=== PATIENT | female | born 1960 | race Caucasian/White ===

== ENCOUNTER → 2020-06-18 09:51 | Outpatient (BNVA) | payer BC, SELFPAY | PROVIDERS: PCP Internal Medicine; Visit Provider Surgery ==

== ENCOUNTER 2020-07-06 10:30 | Outpatient (REF) | payer BC, SELFPAY ==
[2020-07-06 13:52] LABS: MANUAL DIFF FLAG NO
[2020-07-06 13:58] LABS: Basophils Percent Auto 0.6 % (0-2); Eosinophils Absolute Auto 0.2 X10*3/uL (0.0-0.4); Hemoglobin 12.7 g/dl (12.0-16.0); Imm Gran Abs Auto 0.02 X10*3/uL (0.00-0.03); Imm Gran Pct Auto 0.6 % (0.0-0.4); Lymphocytes Absolute Auto 1.1 X10*3/uL (1.2-4.9); Lymphocytes Percent Auto 35.3 % (20-40); Mean Corpuscular HGB Conc 33.4 g/dl (31.0-35.0); Mean Corpuscular Hemoglobin 30.9 pg (27.0-33.0); Mean Corpuscular Volume 92.5 fL (80-98); Mean Platelet Volume 9.8 fL (9.4-12.3); Monocytes Absolute Auto 0.3 X10*3/uL (0.1-1.2); Monocytes Percent Auto 9.3 % (2-11); Neutrophils Absolute Auto 1.6 X10*3/uL (2.0-8.3); Neutrophils Percent Auto 49.2 % (45-73); Platelet Count 308 X10*3/uL (160-400); Red Blood Count 4.11 X10*6/uL (4.20-5.50); Red Cell Distribution Width 12.8 % (11.0-16.0); White Blood Count 3.2 X10*3/uL (4.8-10.8)
[2020-07-06 14:37] LABS: Alanine Aminotransferase 12 U/L (0-31); Albumin Level 4.4 g/dL (3.5-5.0); Alkaline Phosphatase 83 U/L (39-117); Anion Gap 12 (12-20); Aspartate Amino Transferase 15 U/L (5-31); Bilirubin Total 0.5 mg/dL (0.0-1.0); Blood Urea Nitrogen 21 mg/dL (9-16); Calcium 9.2 mg/dL (8.4-10.2); Carbon Dioxide 30 mmol/L (22-29); Chloride 105 mmol/L (96-108); Estimated Glomerular Filt Rate > 60; Glucose Random 91 mg/dL (60-115); Potassium 4.7 mmol/L (3.3-5.1); Sodium 142 mmol/L (135-145); Total Protein 7.1 g/dL (6.5-8.0)
== END 2020-07-06 10:31 | disposition home or self-care (01) ==
LOC: HO.10HDL 10:30
PROVIDERS: Visit Provider Internal Medicine Medical Oncology
DX: C50.911 Malignant neoplasm of unspecified site of right female breast (principal)
CPT/HCPCS: 36415; 80053; 85025

== ENCOUNTER → 2020-11-17 09:17 | Outpatient (BNVA) | payer BC, SELFPAY | PROVIDERS: PCP Internal Medicine; Visit Provider Surgery ==

== ENCOUNTER 2020-12-25 08:18 | Outpatient (REF) | payer BC, SELFPAY ==
[2020-12-25 09:21] LABS: MANUAL DIFF FLAG NO
[2020-12-25 09:25] LABS: Basophils Percent Auto 0.6 % (0-2); Eosinophils Absolute Auto 0.2 X10*3/uL (0.0-0.4); Eosinophils Percent Auto 5.1 % (0-4); Hematocrit 39.4 % (37-47); Imm Gran Abs Auto 0.02 X10*3/uL (0.00-0.03); Imm Gran Pct Auto 0.6 % (0.0-0.4); Lymphocytes Percent Auto 29.8 % (20-40); Mean Corpuscular Hemoglobin 30.2 pg (27.0-33.0); Mean Corpuscular Volume 91.4 fL (80-98); Mean Platelet Volume 9.2 fL (9.4-12.3); Monocytes Absolute Auto 0.3 X10*3/uL (0.1-1.2); Monocytes Percent Auto 8.6 % (2-11); Neutrophils Absolute Auto 1.9 X10*3/uL (2.0-8.3); Neutrophils Percent Auto 55.3 % (45-73); Platelet Count 308 X10*3/uL (160-400); Red Blood Count 4.31 X10*6/uL (4.20-5.50); Red Cell Distribution Width 12.7 % (11.0-16.0); White Blood Count 3.4 X10*3/uL (4.8-10.8)
[2020-12-25 09:45] LABS: Alanine Aminotransferase 18 U/L (0-31); Albumin Level 4.4 g/dL (3.5-5.0); Alkaline Phosphatase 94 U/L (39-117); Anion Gap 15 (12-20); Aspartate Amino Transferase 20 U/L (5-31); Bilirubin Total 0.6 mg/dL (0.0-1.0); Blood Urea Nitrogen 17 mg/dL (9-16); Calcium 9.6 mg/dL (8.4-10.2); Carbon Dioxide 27 mmol/L (22-29); Chloride 107 mmol/L (96-108); Cholesterol 210 mg/dL; Estimated Glomerular Filt Rate > 60; Glucose Fasting 97 mg/dL (60-99); HDL Cholesterol 61 mg/dL; LDL Cholesterol Calculated 127 mg/dl; Potassium 4.6 mmol/L (3.3-5.1); Sodium 144 mmol/L (135-145); Total Protein 7.4 g/dL (6.5-8.0); Triglycerides 112 mg/dL
== END 2020-12-25 08:19 | disposition home or self-care (01) ==
LOC: HO.LAB 08:18
PROVIDERS: PCP Internal Medicine; Visit Provider Internal Medicine
DX: Z00.00 Encounter for general adult medical examination without abnormal findings (principal)
CPT/HCPCS: 36415; 80053; 80061; 82306; 85025

== ENCOUNTER 2021-02-05 08:37 | Outpatient (REF) | payer BC, SELFPAY ==
--- NOTE | ~2021-02-05 | MM_ITS ---
EXAMINATION: MM SCREENING DIGITAL BREAST TOMOSYNTHESIS, BILATERAL CLINICAL INFORMATION: Screening. Asymptomatic. Personal history right breast cancer, 2016. Family history breast cancer, mother and maternal aunt. COMPARISON: Mammography: 01/30/2020, 01/25/2019, 01/22/2018 TECHNIQUE: Digital breast tomosynthesis is performed in both the craniocaudal and mediolateral oblique views along with computer-aided detection (CAD). Synthesized 2D images are generated from the tomosynthesis. Additional exaggerated right CC view is provided. FINDINGS: There are scattered areas of fibroglandular density (ACR BI-RADS breast composition Category b). There are no significant masses, abnormal calcifications, or other abnormalities. Post therapy changes right breast are stable. There is mild reduced breast size and minor scarring and surgical clips. Scattered bilateral round and rim calcifications are again seen, more numerous on right. No significant changes. MM/MM tomosynthesis screening BI IMPRESSION: No mammographic evidence of malignancy. Stable post therapy changes right breast. ASSESSMENT: BI-RADS 2: Benign RECOMMENDATION: Routine annual mammography screening. This patient's information was entered into a reminder system with a target due date for their next mammogram.
== END 2021-02-05 08:38 | disposition home or self-care (01) ==
LOC: HO.MAMMO 08:37
PROVIDERS: Visit Provider Internal Medicine
DX: Z12.31 Encounter for screening mammogram for malignant neoplasm of breast (principal)
CPT/HCPCS: 77063; 77067

== ENCOUNTER 2021-10-15 09:09 | Outpatient (REF) | payer BC, SELFPAY ==
--- NOTE | ~2021-10-15 | MM_ITS ---
EXAMINATION: BONE DENSITOMETRY CLINICAL INDICATION: Osteoporosis. COMPARISON: Previous BD dated 05/31/2019 and baseline BD dated 02/14/2017. TECHNIQUE: Using a [employer] DXA System (software version: 13.1) manufactured by [employer], dual-energy x-ray absorptiometry was performed of the lumbar spine and left hip. The images are of good technical quality. Summary results are attached. FINDINGS: AP SPINE L1-L4: Current: BMD 1.024 g/cm2, Z-score -0.7, T-score -1.3, osteopenia, 8.2% decrease from previous, 8.8% decrease from baseline (<5% change is not significant). Prior: BMD 1.115 g/cm2. Baseline: BMD 1.123 g/cm2. LEFT FEMUR, NECK: Current: BMD 0.855 g/cm2, Z-score -0.5, T-score -1.3, osteopenia. Prior: BMD 0.853 g/cm2. Baseline: BMD 0.838 g/cm2. LEFT FEMUR, TOTAL: Current: BMD 0.928 g/cm2, Z-score -0.2, T-score -0.6, normal, 1.2% decrease from previous, 4.0% decrease from baseline (<5% change is not significant). Prior: BMD 0.939 g/cm2. Baseline: BMD 0.967 g/cm2. IDENTIFIED RISK FACTORS: Menopause, osteoporosis. HISTORY OF FRACTURE: None listed. MEDICATIONS: Calcium supplements or multivitamin, vitamin D. MM/XR DEXA axial skeleton IMPRESSION: 1. DIAGNOSIS: Osteopenia based on the lowest T-score value of -1.3 in the femoral neck and lumbar spine applying World Health Organization criteria. 2. 10-YEAR FRACTURE RISK PREDICTION, FRAX: Major osteoporotic fracture (clinical spine, forearm, hip or shoulder) 7.4%. Hip fracture 0.5%. 3. Treatment Recommendations: NOF guidelines recommend consideration for treatment in postmenopausal women and men age 50 and older presenting with the following: -A hip or vertebral (clinical or morphometric) fracture. -T-score less than or equal to -2.5 at the femoral neck or spine after appropriate evaluation to exclude secondary causes. -Low bone mass at the hip or spine and a 10-year fracture probability by FRAX of greater than or equal to 3% for hip fracture or greater than or equal to 20% for major osteoporotic fracture based on the [place] adapted WHO algorithm. 4. Other Recommendations: All treatment decisions require clinical judgment and consideration of individual patient factors, including patient preferences, comorbidities, previous drug use, risk factors not captured in the FRAX model (e.g. frailty, falls, vitamin D deficiency, increased bone turnover, interval significant decline in bone density) and possible under or overestimation of fracture risk by FRAX. Additional medical evaluation for secondary cause of low bone mineral density may be appropriate. FUTURE SCAN RECOMMENDATION: People with diagnosed cases of osteoporosis or at high risk for fracture should have regular bone mineral density tests. For patients eligible for Medicare, routine testing is allowed once every 2 years. The testing frequency can be increased to one year for patients who have rapidly progressing disease, those who are receiving or discontinuing medical therapy to restore bone mass, or have additional risk factors.
== END 2021-10-15 09:10 | disposition home or self-care (01) ==
LOC: HO.MAMMO 09:09
PROVIDERS: Visit Provider Internal Medicine Medical Oncology
DX: Z13.820 Encounter for screening for osteoporosis (principal); M81.0 Age-related osteoporosis without current pathological fracture; Z78.0 Asymptomatic menopausal state
CPT/HCPCS: 77080

== ENCOUNTER 2022-02-07 08:50 | Outpatient (REF) | payer BC, SELFPAY ==
--- NOTE | ~2022-02-07 | MM_ITS ---
EXAMINATION: MM SCREENING DIGITAL BREAST TOMOSYNTHESIS, BILATERAL CLINICAL INFORMATION: Screening. Asymptomatic. Family history breast cancer, mother, maternal aunt. Personal history right IDC status post lumpectomy, 2016. COMPARISON: Mammography: 02/05/2021, 01/30/2020, 01/25/2019 TECHNIQUE: Digital breast tomosynthesis is performed in both the craniocaudal and mediolateral oblique views along with computer-aided detection (CAD). Synthesized 2D images are generated from the tomosynthesis. FINDINGS: There are scattered areas of fibroglandular density (ACR BI-RADS breast composition Category b). Post therapy changes right breast are similar to prior studies with mild reduced breast size and minor scarring and surgical clips. Neither breast shows interval mass or architectural abnormality or developing density. There are no abnormal calcifications. The axilla are unremarkable. No significant changes. MM/MM tomosynthesis screening BI IMPRESSION: -No mammographic evidence of malignancy. -Post therapy changes right breast, stable. ASSESSMENT: BI-RADS 2: Benign RECOMMENDATION: Routine annual mammography screening. This patient's information was entered into a reminder system with a target due date for their next mammogram.
== END 2022-02-07 08:51 | disposition home or self-care (01) ==
LOC: HO.MAMMO 08:50
PROVIDERS: Visit Provider Internal Medicine
DX: Z12.31 Encounter for screening mammogram for malignant neoplasm of breast (principal)
CPT/HCPCS: 77063; 77067

== ENCOUNTER 2022-02-21 08:56 | Outpatient (REF) | payer BC, SELFPAY ==
[2022-02-21 09:09] LABS: MANUAL DIFF FLAG NO
[2022-02-21 10:07] LABS: Basophils Percent Auto 0.8 % (0-2); Eosinophils Absolute Auto 0.2 X10*3/uL (0.0-0.4); Eosinophils Percent Auto 5.1 % (0-4); Hematocrit 37.7 % (37.0-47.0); Hemoglobin 12.5 g/dl (12.0-16.0); Imm Gran Abs Auto 0.02 X10*3/uL (0.00-0.03); Imm Gran Pct Auto 0.5 % (0.0-0.4); Lymphocytes Absolute Auto 0.9 X10*3/uL (1.2-4.9); Lymphocytes Percent Auto 23.4 % (20-40); Mean Corpuscular HGB Conc 33.2 g/dl (31.0-35.0); Mean Corpuscular Hemoglobin 30.2 pg (27.0-33.0); Mean Corpuscular Volume 91.1 fL (80.0-98.0); Mean Platelet Volume 9.5 fL (9.4-12.3); Monocytes Absolute Auto 0.4 X10*3/uL (0.1-1.2); Monocytes Percent Auto 9.8 % (2-11); Neutrophils Absolute Auto 2.3 x10*3/uL (2.0-8.3); Neutrophils Percent Auto 60.4 % (45-73); Platelet Count 343 X10*3/uL (160-400); Red Blood Count 4.14 X10*6/uL (4.20-5.50); Red Cell Distribution Width 12.4 % (11.0-16.0); White Blood Count 3.8 X10*3/uL (4.8-10.8)
[2022-02-21 10:15] LABS: Alanine Aminotransferase 26 U/L (0-31); Albumin Level 4.4 g/dL (3.5-5.0); Alkaline Phosphatase 109 U/L (39-117); Anion Gap 15 (12-20); Aspartate Amino Transferase 25 U/L (5-31); Bilirubin Total 0.4 mg/dL (0.0-1.0); Blood Urea Nitrogen 17 mg/dL (9-16); Calcium 9.2 mg/dL (8.4-10.2); Carbon Dioxide 27 mmol/L (22-29); Chloride 105 mmol/L (96-108); Cholesterol 185 mg/dL; Estimated Glomerular Filt Rate > 60; Glucose Fasting 96 mg/dL (60-99); HDL Cholesterol 55 mg/dL; LDL Cholesterol Calculated 115 mg/dl; Potassium 4.7 mmol/L (3.3-5.1); Sodium 142 mmol/L (135-145); Total Protein 7.2 g/dL (6.5-8.0); Triglycerides 79 mg/dL
== END 2022-02-21 08:57 | disposition home or self-care (01) ==
LOC: HO.LAB 08:56
PROVIDERS: PCP Internal Medicine; Visit Provider Internal Medicine
DX: Z00.00 Encounter for general adult medical examination without abnormal findings (principal)
CPT/HCPCS: 36415; 80053; 80061; 85025

== ENCOUNTER 2022-04-26 15:21 | Outpatient (REF) | payer BC, SELFPAY ==
[2022-04-26 16:14] LABS: Appearance Urine Clear; Color Urine Yellow; Glucose Urine UA Negative (Negative); Leukocyte Esterase Urine Small (1+) (Negative); Nitrite Urine Negative (Negative); UMIC TRIGGER UA YES; Urine Blood Negative (Negative); Urine Ketones Negative (Negative); Urine Protein Negative (Neg-Trace)
[2022-04-26 16:26] LABS: Bacteria Urine None Seen (None Seen); Hyaline Casts Urine 0-2 /LPF (0-2); RBC Urine 0-2 /HPF (0-2); Squamous Epithelial Cell Urine 0-2 /HPF (0-2)
== END 2022-04-26 15:22 | disposition home or self-care (01) ==
LOC: HO.LAB 15:21
PROVIDERS: PCP Internal Medicine; Visit Provider Internal Medicine
DX: R30.0 Dysuria (principal)
CPT/HCPCS: 81001; 81003; 87086

== ENCOUNTER 2022-06-07 10:24 | Outpatient (REF) | payer BC, SELFPAY ==
[2022-06-07 12:11] LABS: Appearance Urine Clear; Color Urine Yellow; Glucose Urine UA Negative (Negative); Leukocyte Esterase Urine Negative (Negative); Nitrite Urine Negative (Negative); PH 6.5 (5.0-9.0); Urine Blood Negative (Negative); Urine Ketones Negative (Negative); Urine Protein Negative (Neg-Trace)
[2022-06-07 12:43] LABS: Anion Gap 12 (12-20); Blood Urea Nitrogen 18 mg/dL (9-16); C Reactive Protein 0.65 mg/dL (< or = 0.50); Calcium 9.6 mg/dL (8.4-10.2); Carbon Dioxide 28 mmol/L (22-29); Chloride 106 mmol/L (96-108); Estimated Glomerular Filt Rate > 60; Glucose Random 93 mg/dL (60-115); Potassium 4.8 mmol/L (3.3-5.1); Sodium 141 mmol/L (135-145)
[2022-06-07 13:09] LABS: Free T4 (Free Thyroxine) 0.81 ng/dL (0.71-1.85); Thyroid Stimulating Hormone 2.63 uIU/mL (0.32-4.0)
== END 2022-06-07 10:25 | disposition home or self-care (01) ==
LOC: HO.LAB 10:24
PROVIDERS: PCP Internal Medicine; Visit Provider Internal Medicine
DX: R30.0 Dysuria (principal); R63.5 Abnormal weight gain; M85.80 Other specified disorders of bone density and structure, unspecified site
CPT/HCPCS: 36415; 80048; 81003; 84439; 84443; 86140; 87086

== ENCOUNTER → 2022-06-29 13:52 | Outpatient (BNVA) | payer BC, SELFPAY | PROVIDERS: PCP Internal Medicine; Visit Provider Nurse Practitioner Family | DX: R33.9 Retention of urine, unspecified (principal) | CPT/HCPCS: 51798 ==

== ENCOUNTER 2022-07-05 10:14 | Outpatient (REF) | payer BC, SELFPAY ==
--- NOTE | ~2022-07-05 | US_ITS ---
EXAMINATION: US PELVIS CLINICAL INFORMATION: Question of ovarian cyst seen on renal exam. COMPARISON: None TECHNIQUE: Ultrasound of the pelvis is performed using both transabdominal and transvaginal transducers along with Doppler. Transvaginal imaging is performed due to inadequate visualization transabdominally. FINDINGS: Uterus: The uterus is anteverted and measures 7.9 x 2.1 x 2.6 cm. The double wall endometrial thickness is 7 mm. The uterus is smooth in contour and has normal myometrial echogenicity. No visible fibroid. Adnexa: Right ovary is visualized. There is normal color flow. There is no ovarian torsion. No left adnexal mass. There is no pelvic ascites or fluid collection. Right ovary measures 16.5 x 10.4 x 10.8 cm. There is a complex cyst measuring 14.5 x 8.8 x 10.7 cm. There is a solid internal component which is vascular. This component measures 4.9 x 3.2 cm. US/US pelvic and transvaginal IMPRESSION: Large complex cystic mass in the right adnexa with solid vascular component. This is concerning for neoplasm. Recommend surgical evaluation.
--- NOTE | ~2022-07-05 | US_ITS ---
EXAMINATION: US RETROPERITONEAL COMPLETE (RENAL) CLINICAL INFORMATION: Urgency of urination.. COMPARISON: Pelvic ultrasound performed at the same time TECHNIQUE: Real-time imaging of the kidneys and bladder. FINDINGS: RIGHT KIDNEY: 10.6 x 5.6 x 6.3 cm (SAG x AP x TRV). The kidney is normal in size, contour, and echogenicity. Renal cortical thickness is normal. No calculi or focal parenchymal lesions. Mild hydronephrosis. LEFT KIDNEY: 10.6 x 5.4 x 5.6 cm (SAG x AP x TRV). The kidney is normal in size, contour, and echogenicity. Renal cortical thickness is normal. Mild hydronephrosis. No parenchymal lesions. There are no calculi identified measuring 0.3 cm. BLADDER: Well distended and normal. Bilateral ureteral jets are not demonstrated. Prevoid bladder volume is 478 mL. Postvoid bladder volume is 0 mL. OTHER: Complex right adnexal cyst identified.. US/US retroperitoneal comp IMPRESSION: 1. Mild bilateral hydronephrosis. No post void residual bladder volume. 2. Nonobstructing left renal calculi. 3. Complex right adnexal cyst. Please refer to pelvic ultrasound for further information.
== END 2022-07-05 10:15 | disposition home or self-care (01) ==
LOC: HO.HMGCX 10:14
PROVIDERS: PCP Internal Medicine; Visit Provider Nurse Practitioner Family
DX: R39.15 Urgency of urination (principal); R35.0 Frequency of micturition; N83.209 Unspecified ovarian cyst, unspecified side
CPT/HCPCS: 76770; 76830; 76856

== ENCOUNTER 2022-07-11 11:37 | Outpatient (REF) | payer BC, SELFPAY ==
[2022-07-11 11:56] LABS: MANUAL DIFF FLAG NO
[2022-07-11 12:15] LABS: Basophils Percent Auto 0.5 % (0-2); Eosinophils Absolute Auto 0.1 X10*3/uL (0.0-0.4); Eosinophils Percent Auto 2.1 % (0-4); Hematocrit 36.3 % (37.0-47.0); Hemoglobin 12.1 g/dl (12.0-16.0); Imm Gran Abs Auto 0.03 X10*3/uL (0.00-0.03); Imm Gran Pct Auto 0.8 % (0.0-0.4); Lymphocytes Absolute Auto 0.9 X10*3/uL (1.2-4.9); Lymphocytes Percent Auto 23.3 % (20-40); Mean Corpuscular HGB Conc 33.3 g/dl (31.0-35.0); Mean Corpuscular Hemoglobin 29.5 pg (27.0-33.0); Mean Corpuscular Volume 88.5 fL (80.0-98.0); Mean Platelet Volume 9.1 fL (9.4-12.3); Monocytes Absolute Auto 0.4 X10*3/uL (0.1-1.2); Monocytes Percent Auto 10.1 % (2-11); Neutrophils Absolute Auto 2.4 x10*3/uL (2.0-8.3); Neutrophils Percent Auto 63.2 % (45-73); Platelet Count 323 X10*3/uL (160-400); Red Cell Distribution Width 12.8 % (11.0-16.0); White Blood Count 3.8 X10*3/uL (4.8-10.8)
[2022-07-11 12:59] LABS: Anion Gap 12 (12-20); Carbon Dioxide 28 mmol/L (22-29); Chloride 107 mmol/L (96-108); Potassium 4.4 mmol/L (3.3-5.1); Sodium 143 mmol/L (135-145)
== END 2022-07-11 11:38 | disposition home or self-care (01) ==
LOC: HO.LAB 11:37
PROVIDERS: PCP Internal Medicine; Visit Provider Nurse Practitioner Family
DX: N83.209 Unspecified ovarian cyst, unspecified side (principal); N94.89 Other specified conditions associated with female genital organs and menstrual cycle; R35.0 Frequency of micturition; R39.15 Urgency of urination; R33.9 Retention of urine, unspecified
CPT/HCPCS: 36415; 80051; 85025

== ENCOUNTER → 2022-07-20 11:12 | Outpatient (BNVA) | payer BC, SELFPAY | PROVIDERS: PCP Internal Medicine; Visit Provider Nurse Practitioner Family | DX: N94.89 Other specified conditions associated with female genital organs and menstrual cycle (principal); R39.15 Urgency of urination; R35.0 Frequency of micturition | CPT/HCPCS: 51798 ==

== ENCOUNTER → 2022-08-17 09:41 | Outpatient (BNVA) | payer BC, SELFPAY | PROVIDERS: PCP Internal Medicine; Visit Provider Nurse Practitioner Family | DX: Z13.89 Encounter for screening for other disorder (principal) ==

== ENCOUNTER 2022-12-06 08:51 | Outpatient (AMB) | payer BC, SELFPAY ==
--- NOTE | 2022-12-06 08:52 | A.OFFVIS_ITS ---
Intake Vital Signs 12/06/22 09:01 Height 5 ft 7 in Weight 176 lb BMI 27.6 BP 144/80 H Blood Pressure Location Lt brachial Position Sitting Pulse 91 Intake Visit Reasons: yearly breast examination Intake Note: Patient is seen in office for yearly breast exam. Pt c/o: recently diagnosed with Stage 3 1A Ovarian Cancer currently doing chemotherapy, regarding the breast has no concerns Environmental Technical Officer Required: No Accompanied by: Self / Same As Patient Allergies amoxicillin [From AUGMENTIN] Allergy (Unknown, Verified 12/06/22 08:53) BODY RASH clavulanic acid [From AUGMENTIN] Allergy (Unknown, Verified 12/06/22 08:53) BODY RASH HPI HPI Comments History of Present Illness Details Chary Uribe is a 62-year-old female patient with prior history of right breast cancer treated by Dr.? Kapadia.? She underwent right breast lumpectomy with needle localization and right axillary sentinel node biopsy on 10/13/2015 followed by re-excision of margins with a radial ellipse mastopexy closure for involved margins performed on 10/21/2015.? Margins were clear by 3 mm.? She was found to have a 2.2 cm grade 3 infiltrating ductal carcinoma, ER positive, [place] positive, HER2 Ceferino negative as well as a 1.4 cm area of DCIS in the re-excision specimen.? Four right axillary nodes including 2 sentinel nodes and 2 additional nodes were benign.? She underwent 4 cycles of AC chemotherapy in 4 cycles of Taxotere under the direction of Dr. Valerio.? She developed neuropathy and restlessness in the legs which subsequently improved.? She was placed on Arimidex and completed 5 years in September 2021. She was recently diagnosed with stage III ovarian cancer with a single liu aortic lymph node positive for malignancy. She is currently undergoing chemotherapy at [facility] and previously underwent a total abdominal hysterectomy with bilateral salpingo oophorectomy (Dr. Lilia Hightower). She is awaiting 2 more rounds of chemotherapy. She denies any new symptoms in either breast and generally feels well. Her most recent mammogram of 02/07/2022 revealed no mammographic evidence of malignancy (BI-RADS 2). She is scheduled for her annual mammogram on 02/13/2023. [facility] Medical History (Updated 12/06/22 @ 09:02 by Angus Valenzuela MD) Epithelial ovarian cancer, FIGO stage IIIA History of right breast cancer Surgical History (Updated 12/06/22 @ 08:59 by FUENTES Villalobos) History of lumpectomy of right breast History of lymph node biopsy History of total hysterectomy (08/25/22) Family History Mother Breast cancer Maternal Aunt Breast cancer Paternal Aunt Pancreatic cancer Social History Alcohol intake: current Patient Tobacco Use Status: Never used Tobacco Female Reproductive History Menstrual Age of Menarche: 13 Review of Systems Const All systems reviewed & are unremarkable except as noted in HPI and below Denies anorexia, Denies chills, Denies fever(s) and Denies night sweats Denies nipple discharge Skin/Breast Denies breast swelling, Denies breast skin changes, Denies breast pain, Denies breast mass, Denies change in breast shape, Denies change in pigmentation and Denies nipple discharge Physical Exam Const General: no acute distress Nutritional Appearance: well nourished Orientation/consciousness: patient oriented x3 Neck Neck: Yes no lymphadenopathy Chest Other: Port-A-Cath in the right chest wall with a well-healed incision. Right breast with a well-healed incision. No skin change, nipple discharge, tenderness, or enlarged lymph nodes. No palpable mass appreciated. Left breast with no skin change, nipple discharge, tenderness, palpable mass or enlarged lymph nodes. Resp Effort & Inspection: normal respiratory effort, no audible wheezes, no cough and no respiratory distress GI Other: Well-healed midline incision without palpable hernia Inspection: Yes normal to inspection Palpation (GI): Soft to palpation Neuro General: patient oriented x3 Extrem General: Yes no clubbing, cyanosis or edema Assessment & Plan Assessment & Plan (1) Invasive ductal carcinoma of right breast, stage 2: Code(s): C50.911 - Malignant neoplasm of unspecified site of right female breast Plan: 62-year-old female patient returning for a breast cancer follow-up now greater than 7 years following right breast cancer surgery. Examination today reveals no evidence of recurrence disease in either breast. She has completed her 5 year course of anastrozole. She is scheduled for a follow-up screening mammogram in January 2023. She is currently undergoing chemotherapy treatment of a recently diagnosed ovarian cancer and tolerating this reasonably well. I have asked her to return in 1 year for annual breast examination. She should call sooner for any new concerns. Coding Level of Care Code Est Pt Level 3 (78639) Diagnoses Invasive ductal carcinoma of right breast, stage 2 C50.911
[2022-12-06 09:01] VITALS: BP 144/80; PULSE 91; BMI 27.6
== END 2022-12-06 09:16 | disposition home or self-care (01) ==
PROVIDERS: PCP Internal Medicine; Visit Provider Surgery
DX: C50.911 Malignant neoplasm of unspecified site of right female breast (principal)
CPT/HCPCS: 99213

== ENCOUNTER → 2022-12-06 08:51 | Outpatient (BNVA) | payer BC, SELFPAY | PROVIDERS: PCP Internal Medicine; Visit Provider Surgery ==

== ENCOUNTER 2023-02-13 08:39 | Outpatient (REF) | payer BC, SELFPAY ==
--- NOTE | ~2023-02-13 | MM_ITS ---
EXAMINATION: MM SCREENING DIGITAL BREAST TOMOSYNTHESIS, BILATERAL CLINICAL INFORMATION: Screening. Asymptomatic. The patient has a history of right breast cancer diagnosed and treated with lumpectomy in 2016. COMPARISON: Mammography: This study is compared with prior exams dating back to 2016. TECHNIQUE: Digital breast tomosynthesis is performed in both the craniocaudal and mediolateral oblique views along with computer-aided detection (CAD). Synthesized 2D images are generated from the tomosynthesis. FINDINGS: There are scattered areas of fibroglandular density (ACR BI-RADS breast composition Category b). There are postsurgical changes in the upper outer quadrant of the right breast. There is a central venous access port in the superior portion of the right side of the chest. There are no significant masses, abnormal calcifications, or other abnormalities. MM/MM tomosynthesis screening BI IMPRESSION: No mammographic evidence of breast cancer at the current time. Posttreatment changes are present in the right breast. ASSESSMENT: BI-RADS BI-RADS 2 - Benign Findings RECOMMENDATION: Routine annual mammography screening. 1 year F/U This examination should not preclude the clinical evaluation of a suspicious palpable abnormality. This patient's information was entered into a reminder system with a target due date for their next mammogram.
== END 2023-02-13 08:40 | disposition home or self-care (01) ==
LOC: HO.MAMMO 08:39
PROVIDERS: PCP Internal Medicine; Visit Provider Internal Medicine
DX: Z12.31 Encounter for screening mammogram for malignant neoplasm of breast (principal)
CPT/HCPCS: 77063; 77067

== ENCOUNTER → 2023-02-13 09:00 | Outpatient (BNV) | payer BC, SELFPAY | PROVIDERS: PCP Internal Medicine; Visit Provider Radiology Diagnostic Radiology | DX: Z12.31 Encounter for screening mammogram for malignant neoplasm of breast (principal) | CPT/HCPCS: 77063; 77067 ==

== ENCOUNTER 2023-06-19 08:38 | Outpatient (REF) | payer BC, SELFPAY ==
[2023-06-19 12:03] LABS: MANUAL DIFF FLAG NO
[2023-06-19 12:16] LABS: Basophils Percent Auto 0.7 % (0-2); Eosinophils Absolute Auto 0.1 X10*3/uL (0.0-0.4); Eosinophils Percent Auto 4.1 % (0-4); Hematocrit 37.8 % (37.0-47.0); Hemoglobin 12.8 g/dl (12.0-16.0); Imm Gran Abs Auto 0.02 X10*3/uL (0.00-0.03); Imm Gran Pct Auto 0.7 % (0.0-0.4); Lymphocytes Absolute Auto 0.9 X10*3/uL (1.2-4.9); Lymphocytes Percent Auto 33.5 % (20-40); Mean Corpuscular HGB Conc 33.9 g/dl (31.0-35.0); Mean Corpuscular Hemoglobin 32.1 pg (27.0-33.0); Mean Corpuscular Volume 94.7 fL (80.0-98.0); Mean Platelet Volume 9.4 fL (9.4-12.3); Monocytes Absolute Auto 0.3 X10*3/uL (0.1-1.2); Monocytes Percent Auto 9.7 % (2-11); Neutrophils Absolute Auto 1.4 x10*3/uL (2.0-8.3); Neutrophils Percent Auto 51.3 % (45-73); Platelet Count 265 X10*3/uL (160-400); Red Blood Count 3.99 X10*6/uL (4.20-5.50); Red Cell Distribution Width 12.3 % (11.0-16.0); White Blood Count 2.7 X10*3/uL (4.8-10.8)
[2023-06-19 12:35] LABS: Alanine Aminotransferase 132 U/L (0-31); Albumin Level 4.3 g/dL (3.5-5.0); Alkaline Phosphatase 77 U/L (39-117); Anion Gap 12 (12-20); Aspartate Amino Transferase 106 U/L (5-31); Bilirubin Total 0.5 mg/dL (0.0-1.0); Blood Urea Nitrogen 14 mg/dL (9-16); Calcium 9.3 mg/dL (8.4-10.2); Carbon Dioxide 30 mmol/L (22-29); Chloride 104 mmol/L (96-108); Cholesterol 228 mg/dL (<200); Estimated Glomerular Filt Rate > 60; Glucose Fasting 93 mg/dL (60-99); HDL Cholesterol 59 mg/dL (>40); LDL Cholesterol Calculated 148 mg/dL (<100); Potassium 4.4 mmol/L (3.3-5.1); Sodium 142 mmol/L (135-145); Total Protein 7.6 g/dL (6.5-8.0); Triglycerides 105 mg/dL (<150)
[2023-06-20 11:34] LABS: CA-125 13 U/mL (<35)
== END 2023-06-19 08:39 | disposition home or self-care (01) ==
LOC: HO.10HDL 08:38
PROVIDERS: Visit Provider Internal Medicine Medical Oncology
DX: C50.911 Malignant neoplasm of unspecified site of right female breast (principal); D72.819 Decreased white blood cell count, unspecified; C56.9 Malignant neoplasm of unspecified ovary
CPT/HCPCS: 36415; 80053; 80061; 85025; 86304

== ENCOUNTER 2023-08-14 09:39 | Outpatient (AMB) | payer BC, SELFPAY ==
[2023-08-14 10:02] VITALS: BP 144/85; PULSE 72
--- NOTE | 2023-08-14 10:02 | MHC.OFFVIS ---
Intake Vital Signs 08/14/23 10:02 Height 5 ft 7 in Weight 191 lb 12.835 oz BMI 30.0 BP 144/85 H Blood Pressure Location Rt brachial Position Sitting Pulse 72 Intake Visit Reasons: Colonoscpy Screening Intake Note: Patient presents to in office visit today as a new patient for colonoscopy screening. CC: Patient states that almost a year she was found to have ovarian cancer stage 3 and underwent total hysterectomy and chemotherapy. She is now cancer free. Last colonoscopy [address] Lorenzo. She states that [place] [facility] [place] mild sigmoid diverticulosis, cholelithiasis, and small type 1 hiatal hernia. [place] Drill Operator Required: No Accompanied by: Self / Same As Patient Allergies Iodinated Contrast Media Allergy (Severe, Verified 08/14/23 10:10) Anaphylaxis amoxicillin [From AUGMENTIN] Allergy (Unknown, Verified 08/14/23 10:10) BODY RASH clavulanic acid [From AUGMENTIN] Allergy (Unknown, Verified 08/14/23 10:10) BODY RASH HPI Colonoscpy Screening HPI Details 63 year old? female here today for pre colonoscopy screening.? History of right breast CA, lumpectomy in [address] Kapadia. Patient had ovarian CA and total hysterectomy in 2022. Patient was sent to us by her PCP.?? Patient's last procedure was March 2013. Patient had normal colonoscopy. Patient denies any gastrointestinal symptoms in the past or at present.? Denies any personal or family history of gastrointestinal disease, colon polyps, or cancer.? Denies history of difficulty with sedation or anesthesia in the past.? Negative for history of sleep apnea.? Denies any history of cardiac, renal, pulmonary, or hepatic disease.?? No history of infectious? diseases like hepatitis A, B, C, HIV or tuberculosis.? Patient is not on any anticoagulation therapy. [facility] Medical History (Updated 12/06/22 @ 09:02 by Angus Valenzuela MD) Epithelial ovarian cancer, FIGO stage IIIA History of right breast cancer Surgical History (Updated 08/14/23 @ 10:17 by Travon Campo [facility]) H/O colonoscopy History of total hysterectomy (08/25/22) History of lymph node biopsy History of lumpectomy of right breast Family History Mother Breast cancer Maternal Aunt Breast cancer Paternal Aunt Pancreatic cancer Social History Alcohol intake: current Patient Tobacco Use Status: Never used Tobacco Female Reproductive History Menstrual Age of Menarche: 13 Review of Systems Const Denies weight gain and Denies weight loss ENT Reports no additional complaints, Denies dysphagia and Denies odynophagia Card Reports no additional complaints Resp Reports no additional complaints GI Denies abdominal pain, Denies belching, Denies melena, Denies bloating, Denies change in bowel habits, Denies dysphagia, Denies excessive flatus, Denies dyspepsia, Denies heartburn, Denies diarrhea, Denies loose stools, Denies nausea, Denies odynophagia and Denies vomiting Musc Reports no additional complaints Neuro Reports no additional complaints Psych Reports no additional complaints Endo Reports no additional complaints Physical Exam Vital Signs: Last Vital Signs Pulse 72 08/14/23 10:02 BP 144/85 H 08/14/23 10:02 BMI result Body Mass Index 30.0 Const General: healthy appearing, no acute distress and well developed Nutritional Appearance: obese Orientation/consciousness: patient oriented x3 Resp Effort & Inspection: normal respiratory effort, able to speak in complete sentences, no tracheal deviation and symmetric chest movement Auscultation: clear to auscultation bilaterally Cardio Rate: regular rate GI Inspection: Yes normal to inspection, No distended and Yes obesity Palpation (GI): Soft to palpation, not firm, nontender and No hepatosplenomegaly present Auscultation: normal bowel sounds General: Yes no CVA tenderness Back/Spine/Pelvis Back: no CVA tenderness Skin General skin exam: elasticity normal, turgor normal and dry skin Neuro General: patient oriented x3 Psych Appearance: grossly normal Mental Status: mental status grossly normal Assessment & Plan Assessment & Plan (1) Screen for colon cancer: Code(s): Z12.11 - Encounter for screening for malignant neoplasm of colon Plan Patient denies any GI, cardiac or respiratory symptoms.? Denies any issues with anesthesia in the past.? Denies any history of sleep apnea.? No history infectious diseases in the past or present.? Not on any anticoagulation therapy.? No family or personal history of colon cancer or polyps.? Last colonoscopy normal in 2012. As mentioned above in HPI patient has a history of breast CA, lumpectomy in 2005. Ovarian CA with total hysterectomy and chemotherapy in 2022. Patient denies melena, hematochezia, unintentional weight loss or ribbon like stools.? Discussed at length the pre-procedure,? prep, diet & medications as well as what to expect prior, during and after the procedure.?? Stressed the importance of good bowel prep. ?Recommended the use of Vaseline or Calmoseptine OTC & baby wipes with bowel movements to promote comfort.? ?Patient verbalizes understanding and agrees to plan of care.? She was given the opportunity to ask questions and all questions answered.? We will see her after the procedure.? Medications: New polyethylene glycol 3350 (Miralax) As directed by gastroenterology department at [facility] 238 grams PO ONCE 238 grams 0RF Z12.11 - Encounter for screening for malignant neoplasm of colon bisacodyl (Dulcolax (bisacodyl)) take 4 tabs at noon the day before your colonoscopy 20 mg (4 x 5 mg) PO ONCE 1 day 4 tabs 0RF Z12.11 - Encounter for screening for malignant neoplasm of colon Coding Level of Care Code New Pt Level 3 (20345) Diagnoses Screen for colon cancer Z12.11 Time Spent (min) 40 Comment 30 minutes spent with patient and additional 10 minutes spent reviewing her records
== END 2023-08-14 10:50 | disposition home or self-care (01) ==
PROVIDERS: PCP Internal Medicine; Visit Provider Nurse Practitioner Family
DX: Z01.818 Encounter for other preprocedural examination (principal); Z12.11 Encounter for screening for malignant neoplasm of colon
CPT/HCPCS: S0285

== ENCOUNTER → 2023-08-14 09:39 | Outpatient (BNVA) | payer BC, SELFPAY | PROVIDERS: PCP Internal Medicine; Visit Provider Nurse Practitioner Family ==

== ENCOUNTER 2023-08-17 08:47 | Outpatient (REF) | payer BC, SELFPAY ==
[2023-08-17 11:04] LABS: MANUAL DIFF FLAG NO
[2023-08-17 11:10] LABS: Basophils Percent Auto 0.6 % (0-2); Eosinophils Absolute Auto 0.1 X10*3/uL (0.0-0.4); Eosinophils Percent Auto 3.7 % (0-4); Hematocrit 37.4 % (37.0-47.0); Hemoglobin 12.7 g/dl (12.0-16.0); Imm Gran Abs Auto 0.01 X10*3/uL (0.00-0.03); Imm Gran Pct Auto 0.3 % (0.0-0.4); Lymphocytes Absolute Auto 0.9 X10*3/uL (1.2-4.9); Lymphocytes Percent Auto 27.4 % (20-40); Mean Corpuscular Hemoglobin 31.6 pg (27.0-33.0); Mean Platelet Volume 8.9 fL (9.4-12.3); Monocytes Absolute Auto 0.3 X10*3/uL (0.1-1.2); Monocytes Percent Auto 9.5 % (2-11); Neutrophils Absolute Auto 1.9 x10*3/uL (2.0-8.3); Neutrophils Percent Auto 58.5 % (45-73); Platelet Count 221 X10*3/uL (160-400); Red Blood Count 4.02 X10*6/uL (4.20-5.50); Red Cell Distribution Width 13.2 % (11.0-16.0); White Blood Count 3.3 X10*3/uL (4.8-10.8)
[2023-08-17 11:47] LABS: Alanine Aminotransferase 150 U/L (0-31); Albumin Level 4.3 g/dL (3.5-5.0); Alkaline Phosphatase 78 U/L (39-117); Anion Gap 12 (12-20); Aspartate Amino Transferase 118 U/L (5-31); Bilirubin Total 0.5 mg/dL (0.0-1.0); Blood Urea Nitrogen 18 mg/dL (9-16); Calcium 9.6 mg/dL (8.4-10.2); Carbon Dioxide 28 mmol/L (22-29); Chloride 104 mmol/L (96-108); Cholesterol 215 mg/dL (<200); Estimated Glomerular Filt Rate > 60; Gamma Glutamyl Transpeptidase 43 U/L (7-33); Glucose Fasting 95 mg/dL (60-99); HDL Cholesterol 68 mg/dL (>40); LDL Cholesterol Calculated 133 mg/dL (<100); Lactate Dehydrogenase 313 U/L (122-220); Potassium 4.2 mmol/L (3.3-5.1); Sodium 140 mmol/L (135-145); Total Protein 7.5 g/dL (6.5-8.0); Triglycerides 70 mg/dL (<150)
[2023-08-18 09:02] LABS: CA-125 14 U/mL (<35)
== END 2023-08-17 08:48 | disposition home or self-care (01) ==
LOC: HO.10HDL 08:47
PROVIDERS: Visit Provider Internal Medicine Medical Oncology
DX: C50.911 Malignant neoplasm of unspecified site of right female breast (principal); E66.3 Overweight; M81.0 Age-related osteoporosis without current pathological fracture; C56.9 Malignant neoplasm of unspecified ovary; D72.819 Decreased white blood cell count, unspecified
CPT/HCPCS: 36415; 80053; 80061; 82977; 83615; 85025; 86304

== ENCOUNTER 2023-10-19 08:21 | Outpatient (REF) | payer BC, SELFPAY ==
[2023-10-19 08:44] LABS: MANUAL DIFF FLAG NO
[2023-10-19 09:15] LABS: Basophils Percent Auto 0.3 % (0-2); Eosinophils Absolute Auto 0.1 X10*3/uL (0.0-0.4); Eosinophils Percent Auto 4.2 % (0-4); Hematocrit 36.7 % (37.0-47.0); Hemoglobin 12.3 g/dl (12.0-16.0); Imm Gran Abs Auto 0.02 X10*3/uL (0.00-0.03); Imm Gran Pct Auto 0.6 % (0.0-0.4); Lymphocytes Percent Auto 31.8 % (20-40); Mean Corpuscular HGB Conc 33.5 g/dl (31.0-35.0); Mean Corpuscular Hemoglobin 31.5 pg (27.0-33.0); Mean Corpuscular Volume 93.9 fL (80.0-98.0); Monocytes Absolute Auto 0.4 X10*3/uL (0.1-1.2); Monocytes Percent Auto 11.4 % (2-11); Neutrophils Absolute Auto 1.6 x10*3/uL (2.0-8.3); Neutrophils Percent Auto 51.7 % (45-73); Platelet Count 226 X10*3/uL (160-400); Red Blood Count 3.91 X10*6/uL (4.20-5.50); White Blood Count 3.1 X10*3/uL (4.8-10.8)
[2023-10-19 10:05] LABS: Alanine Aminotransferase 114 U/L (0-31); Albumin Level 4.1 g/dL (3.5-5.0); Alkaline Phosphatase 72 U/L (39-117); Anion Gap 12 (12-20); Aspartate Amino Transferase 92 U/L (5-31); Bilirubin Total 0.5 mg/dL (0.0-1.0); Blood Urea Nitrogen 17 mg/dL (9-16); Calcium 9.4 mg/dL (8.4-10.2); Carbon Dioxide 28 mmol/L (22-29); Chloride 106 mmol/L (96-108); Cholesterol 195 mg/dL (<200); Estimated Glomerular Filt Rate > 60; Glucose Fasting 98 mg/dL (60-99); HDL Cholesterol 60 mg/dL (>40); LDL Cholesterol Calculated 121 mg/dL (<100); Potassium 4.3 mmol/L (3.3-5.1); Sodium 142 mmol/L (135-145); Total Protein 7.2 g/dL (6.5-8.0); Triglycerides 74 mg/dL (<150)
== END 2023-10-19 08:22 | disposition home or self-care (01) ==
LOC: HO.LAB 08:21
PROVIDERS: PCP Internal Medicine; Visit Provider Internal Medicine Medical Oncology
DX: C50.911 Malignant neoplasm of unspecified site of right female breast (principal); D72.819 Decreased white blood cell count, unspecified; C56.9 Malignant neoplasm of unspecified ovary; E66.3 Overweight
CPT/HCPCS: 36415; 80053; 80061; 85025

== ENCOUNTER 2023-11-17 08:59 | Outpatient (REF) | payer BC, SELFPAY ==
[2023-11-17 10:46] LABS: MANUAL DIFF FLAG NO
[2023-11-17 10:52] LABS: Basophils Percent Auto 0.6 % (0-2); Eosinophils Absolute Auto 0.2 X10*3/uL (0.0-0.4); Eosinophils Percent Auto 4.8 % (0-4); Hematocrit 37.4 % (37.0-47.0); Hemoglobin 12.6 g/dl (12.0-16.0); Imm Gran Abs Auto 0.01 X10*3/uL (0.00-0.03); Imm Gran Pct Auto 0.3 % (0.0-0.4); Lymphocytes Percent Auto 33.3 % (20-40); Mean Corpuscular HGB Conc 33.7 g/dl (31.0-35.0); Mean Corpuscular Hemoglobin 31.3 pg (27.0-33.0); Mean Corpuscular Volume 92.8 fL (80.0-98.0); Mean Platelet Volume 8.8 fL (9.4-12.3); Monocytes Absolute Auto 0.3 X10*3/uL (0.1-1.2); Monocytes Percent Auto 10.9 % (2-11); Neutrophils Absolute Auto 1.6 x10*3/uL (2.0-8.3); Neutrophils Percent Auto 50.1 % (45-73); Platelet Count 221 X10*3/uL (160-400); Red Blood Count 4.03 X10*6/uL (4.20-5.50); Red Cell Distribution Width 12.9 % (11.0-16.0); White Blood Count 3.1 X10*3/uL (4.8-10.8)
[2023-11-17 11:20] LABS: Alanine Aminotransferase 147 U/L (0-31); Albumin Level 4.2 g/dL (3.5-5.0); Alkaline Phosphatase 71 U/L (39-117); Anion Gap 11 (12-20); Aspartate Amino Transferase 119 U/L (5-31); Bilirubin Total 0.5 mg/dL (0.0-1.0); Blood Urea Nitrogen 19 mg/dL (9-16); Calcium 9.5 mg/dL (8.4-10.2); Carbon Dioxide 29 mmol/L (22-29); Chloride 105 mmol/L (96-108); Cholesterol 191 mg/dL (<200); Estimated Glomerular Filt Rate > 60; Glucose Fasting 92 mg/dL (60-99); HDL Cholesterol 62 mg/dL (>40); LDL Cholesterol Calculated 118 mg/dL (<100); Potassium 4.4 mmol/L (3.3-5.1); Sodium 141 mmol/L (135-145); Total Protein 7.4 g/dL (6.5-8.0); Triglycerides 57 mg/dL (<150)
[2023-11-17 11:22] LABS: Vitamin D 25-OH Total 54.3 ng/mL (>30)
== END 2023-11-17 09:00 | disposition home or self-care (01) ==
LOC: HO.10HDL 08:59
PROVIDERS: Visit Provider Internal Medicine
DX: Z85.3 Personal history of malignant neoplasm of breast (principal); R63.5 Abnormal weight gain; K57.90 Diverticulosis of intestine, part unspecified, without perforation or abscess without bleeding
CPT/HCPCS: 36415; 80053; 80061; 82306; 85025

== ENCOUNTER 2023-12-05 09:34 | Outpatient (AMB) | payer BC, SELFPAY ==
--- NOTE | 2023-12-05 09:34 | MHC.OFFVIS ---
Vital Signs 12/05/23 09:35 Height 5 ft 7 in Weight 190 lb BMI 29.8 BP 132/84 Blood Pressure Location Rt brachial Position Sitting Intake Visit Reasons: Yearly breast exam Intake Note: This patient presents for a yearly breast examination assessment. Pt c/o; reports no breast complaints. Component Design Engineer Required: No Accompanied by: Self / Same As Patient Allergies Iodinated Contrast Media Allergy (Severe, Verified 12/05/23 09:40) Anaphylaxis amoxicillin [From AUGMENTIN] Allergy (Unknown, Verified 12/05/23 09:40) BODY RASH clavulanic acid [From AUGMENTIN] Allergy (Unknown, Verified 12/05/23 09:40) BODY RASH Medication List - Last Reconciled 12/05/23 by Angus Valenzuela MD bisacodyl (Dulcolax (bisacodyl)) 20 mg (4 x 5 mg) PO ONCE 1 day calcium carbonate-vit D3-min 600 mg calcium- 200 unit (Calcium 600 + Minerals) tabs PO cholecalciferol (vitamin D3) 25 mcg PO DAILY magnesium glycinate 500 mg PO DAILY polyethylene glycol 3350 (Miralax) 238 grams PO ONCE HPI Comments Details: Chary Uribe is a 63-year-old female patient with prior history of right breast cancer treated by Dr.? Kapadia.? She underwent right breast lumpectomy with needle localization and right axillary sentinel node biopsy on 10/13/2015 followed by re-excision of margins with a radial ellipse mastopexy closure for involved margins performed on 10/21/2015.? Margins were clear by 3 mm.? She was found to have a 2.2 cm grade 3 infiltrating ductal carcinoma, ER positive, WA positive, HER2 Ceferino negative as well as a 1.4 cm area of DCIS in the re-excision specimen.? Four right axillary nodes including 2 sentinel nodes and 2 additional nodes were benign.? She underwent 4 cycles of AC chemotherapy in 4 cycles of Taxotere under the direction of Dr. Valerio.? She developed neuropathy and restlessness in the legs which subsequently improved.? She was placed on Arimidex and completed 5 years in September 2021. She was recently diagnosed with stage III ovarian cancer with a single liu aortic lymph node positive for malignancy. She completed chemotherapy in 01/15/2023 at [facility] and previously underwent a total abdominal hysterectomy with bilateral salpingo oophorectomy (Dr. Lilia Hightower). She denies any new symptoms in either breast and generally feels well. Her most recent mammogram of 02/13/2023 revealed no mammographic evidence of malignancy (BI-RADS 2). She is scheduled for her annual mammogram on 02/19/2024. [facility] Medical History Epithelial ovarian cancer, FIGO stage IIIA History of right breast cancer Surgical History H/O colonoscopy History of total hysterectomy (08/25/22) History of lymph node biopsy History of lumpectomy of right breast Family History Mother Breast cancer Maternal Aunt Breast cancer Paternal Aunt Pancreatic cancer Social History Alcohol intake: current Patient Tobacco Use Status: Never used Tobacco Female Reproductive History Menstrual Age of Menarche: 13 Review of Systems Const All systems reviewed & are unremarkable except as noted in HPI and below Denies anorexia, Denies chills, Denies fever(s) and Denies night sweats Denies nipple discharge Skin/Breast Denies breast swelling, Denies breast skin changes, Denies breast pain, Denies breast mass, Denies change in breast shape, Denies change in pigmentation and Denies nipple discharge Physical Exam Vital Signs: Last Vital Signs BP 132/84 12/05/23 09:35 BMI result Body Mass Index 29.8 Const General: no acute distress Nutritional Appearance: well nourished Orientation/consciousness: patient oriented x3 Neck Neck: Yes no lymphadenopathy Chest Other: Port-A-Cath in the right chest wall with a well-healed incision. Right breast with a well-healed incision. No skin change, nipple discharge, tenderness, or enlarged lymph nodes. No palpable mass appreciated. Left breast with no skin change, nipple discharge, tenderness, palpable mass or enlarged lymph nodes. Resp Effort & Inspection: normal respiratory effort, no audible wheezes, no cough and no respiratory distress GI Other: Well-healed midline incision without palpable hernia Inspection: Yes normal to inspection Palpation (GI): Soft to palpation Neuro Other: Mobility Assessment: 1. 3 meter assessment time (seconds) 5 2. Gait observations: Normal balance and gait General: patient oriented x3 Extrem General: Yes no clubbing, cyanosis or edema Assessment & Plan Assessment & Plan (1) Invasive ductal carcinoma of right breast, stage 2: Code(s): C50.911 - Malignant neoplasm of unspecified site of right female breast Category: Medical Plan: 63-year-old female patient returning for a breast cancer follow-up now greater than 8 years following right breast cancer surgery. Examination today reveals no evidence of recurrence disease in either breast. She has completed her 5 year course of anastrozole. She is scheduled for a follow-up screening mammogram in January 2024. She is currently undergoing completed chemotherapy for the ovarian cancer. I recommended follow-up examination in 1 year, sooner p.r.n.. Coding Level of Care Code Est Pt Level 3 (56376) Diagnoses Invasive ductal carcinoma of right breast, stage 2 C50.911
[2023-12-05 09:35] VITALS: BP 132/84; BMI 29.8
== END 2023-12-05 09:53 | disposition home or self-care (01) ==
PROVIDERS: PCP Internal Medicine; Visit Provider Surgery
DX: Z85.3 Personal history of malignant neoplasm of breast (principal)
CPT/HCPCS: 99213

== ENCOUNTER → 2023-12-05 09:34 | Outpatient (BNVA) | payer BC, SELFPAY | PROVIDERS: PCP Internal Medicine; Visit Provider Surgery ==

== ENCOUNTER 2024-01-04 09:12 | Outpatient (REF) | payer BC, SELFPAY ==
[2024-01-04 11:10] LABS: MANUAL DIFF FLAG NO
[2024-01-04 11:13] LABS: Basophils Percent Auto 0.9 % (0-2); Eosinophils Absolute Auto 0.1 X10*3/uL (0.0-0.4); Eosinophils Percent Auto 3.8 % (0-4); Hematocrit 38.1 % (37.0-47.0); Hemoglobin 12.9 g/dl (12.0-16.0); Imm Gran Abs Auto 0.02 X10*3/uL (0.00-0.03); Imm Gran Pct Auto 0.6 % (0.0-0.4); Lymphocytes Absolute Auto 1.1 X10*3/uL (1.2-4.9); Lymphocytes Percent Auto 32.9 % (20-40); Mean Corpuscular HGB Conc 33.9 g/dl (31.0-35.0); Mean Corpuscular Hemoglobin 31.2 pg (27.0-33.0); Mean Corpuscular Volume 92.3 fL (80.0-98.0); Mean Platelet Volume 9.2 fL (9.4-12.3); Monocytes Absolute Auto 0.3 X10*3/uL (0.1-1.2); Monocytes Percent Auto 9.7 % (2-11); Neutrophils Absolute Auto 1.7 x10*3/uL (2.0-8.3); Neutrophils Percent Auto 52.1 % (45-73); Platelet Count 253 X10*3/uL (160-400); Red Blood Count 4.13 X10*6/uL (4.20-5.50); Red Cell Distribution Width 12.5 % (11.0-16.0); White Blood Count 3.2 X10*3/uL (4.8-10.8)
[2024-01-04 11:35] LABS: Alanine Aminotransferase 87 U/L (0-31); Albumin Level 4.3 g/dL (3.5-5.0); Alkaline Phosphatase 78 U/L (39-117); Anion Gap 10 (12-20); Aspartate Amino Transferase 56 U/L (5-31); Bilirubin Total 0.5 mg/dL (0.0-1.0); Blood Urea Nitrogen 15 mg/dL (9-16); Calcium 9.6 mg/dL (8.4-10.2); Carbon Dioxide 30 mmol/L (22-29); Chloride 106 mmol/L (96-108); Cholesterol 170 mg/dL (<200); Estimated Glomerular Filt Rate > 60; Glucose Fasting 95 mg/dL (60-99); HDL Cholesterol 55 mg/dL (>40); LDL Cholesterol Calculated 103 mg/dL (<100); Potassium 4.1 mmol/L (3.3-5.1); Sodium 142 mmol/L (135-145); Total Protein 7.3 g/dL (6.5-8.0); Triglycerides 61 mg/dL (<150)
[2024-01-04 11:53] LABS: Vitamin D 25-OH Total 61.6 ng/mL (>30)
[2024-01-05 10:29] LABS: CA 27.29 21 U/mL (<38); CA-125 15 U/mL (<35)
== END 2024-01-04 09:13 | disposition home or self-care (01) ==
LOC: HO.10HDL 09:12
PROVIDERS: Visit Provider Internal Medicine Medical Oncology
DX: Z13.6 Encounter for screening for cardiovascular disorders (principal); C50.911 Malignant neoplasm of unspecified site of right female breast; C56.9 Malignant neoplasm of unspecified ovary; M81.0 Age-related osteoporosis without current pathological fracture
CPT/HCPCS: 36415; 80053; 80061; 82306; 85025; 86300; 86304

== ENCOUNTER 2024-01-16 06:54 | Day surgery (SDC) | payer BC, SELFPAY ==
[2024-01-12 14:20] VITALS: BMI 29.8
--- NOTE | 2024-01-15 12:46 | P.CONAN_ITS ---
Documented by User: Michelle Treviño NP 01/15/24 12:47 HPI - Anesthesia Eval Consult details Narrative: 63yo F for Colonoscopy PMFSH Active Problems Active Problems: All Active Problems Epithelial ovarian cancer, FIGO stage IIIA (Acute) Adnexal mass (Acute) Ovarian cyst (Acute) Incomplete bladder emptying (Acute) Urinary retention (Acute) Urinary frequency (Acute) Urinary urgency (Acute) Invasive ductal carcinoma of right breast, stage 2 (Acute) History of right breast cancer (Acute) Past Medical History Medical History Epithelial ovarian cancer, FIGO stage IIIA History of right breast cancer Family History Family History Mother Breast cancer Maternal Aunt Breast cancer Paternal Aunt Pancreatic cancer Surgical History Surgical History H/O colonoscopy History of total hysterectomy (08/25/22) History of lymph node biopsy History of lumpectomy of right breast Social History Social History Alcohol intake: current Alcohol intake frequency: holidays/special occasions only Patient Tobacco Use Status: Never used Tobacco Are you DNR?: No Advance Directives: No Advance Directives Information Provided: Yes Meds Allergies Allergy/AdvReac Type Severity Reaction Status Date / Time Iodinated Contrast Media Allergy Severe Anaphylaxis Verified 12/05/23 09:40 amoxicillin [From AUGMENTIN] Allergy Unknown BODY RASH Verified 12/05/23 09:40 clavulanic acid Allergy Unknown BODY RASH Verified 12/05/23 09:40 [From AUGMENTIN] Home Medications ?Medication ?Instructions ?Recorded ?Confirmed ?Last Taken ?Type cholecalciferol (vitamin D3) 25 25 mcg PO DAILY 06/18/20 12/05/23 Unknown History mcg (1,000 unit) capsule calcium carb-vit D3-minerals 600 tab PO 08/14/23 12/05/23 Unknown History mg calcium-200 unit tablet (Calcium 600 + Minerals) magnesium glycinate 500 mg PO DAILY 08/14/23 12/05/23 Unknown History Exam Height,Weight and Vital Signs: Height 5 ft 7 in Weight 86.183 kg Pertinent Lab Results Pertinent Lab Results: Laboratory Tests 01/04/24 09:21 WBC 3.2 L Hgb 12.9 Hct 38.1 Plt Count 253 Sodium 142 Potassium 4.1 Chloride 106 Carbon Dioxide 30 H BUN 15 Creatinine 0.80 Assessment and Plan Assessment Anesthesia Assessment: Chart Reviewed Documented by User: Emery Castaneda MD 01/16/24 08:18 [facility] Past Medical History Medical History Epithelial ovarian cancer, FIGO stage IIIA History of right breast cancer Family History Family History Mother Breast cancer Maternal Aunt Breast cancer Paternal Aunt Pancreatic cancer Family history of problems with anesthesia: No Surgical History Surgical History H/O colonoscopy History of total hysterectomy (08/25/22) History of lymph node biopsy History of lumpectomy of right breast History of Problems with Anesthesia: No Social History Social History Alcohol intake: current Alcohol intake frequency: holidays/special occasions only Patient Tobacco Use Status: Never used Tobacco Are you DNR?: No Advance Directives: No Advance Directives Information Provided: Yes Meds Allergies Allergy/AdvReac Type Severity Reaction Status Date / Time Iodinated Contrast Media Allergy Severe Anaphylaxis Verified 12/05/23 09:40 amoxicillin [From AUGMENTIN] Allergy Unknown BODY RASH Verified 12/05/23 09:40 clavulanic acid Allergy Unknown BODY RASH Verified 12/05/23 09:40 [From AUGMENTIN] Home Medications ?Medication ?Instructions ?Recorded ?Confirmed ?Last Taken ?Type cholecalciferol (vitamin D3) 25 25 mcg PO DAILY 06/18/20 12/05/23 Unknown History mcg (1,000 unit) capsule calcium carb-vit D3-minerals 600 tab PO 08/14/23 12/05/23 Unknown History mg calcium-200 unit tablet (Calcium 600 + Minerals) magnesium glycinate 500 mg PO DAILY 08/14/23 12/05/23 Unknown History Exam Airway Mallampati Class: II TM Dist: >3cm Neck ROM: Full Assessment and Plan Assessment Anesthesia Assessment: Anesthesia Plan Discussed Final Anesthetic Review Family History of Problems with Anesthesia: No History of Problems with Anesthesia: No NPO: Yes ASA Class: III Final Preanesthetic Review: No Changes in Pt Med Stat, Meds/Allgs Chart Reviewed, Consent Obtained/Reviewed and Anes Risks/Benef Reviewed Patient Risk: Intermediate Procedure Risk: Low Anesthetic Plan Anesthetic Plan: TIVA Disposition: Standard PACU
--- NOTE | 2024-01-16 07:50 | MHC.SHP ---
Pre-Procedural Eval Section A - 24 Hr Update-Section A only Date of Service: 01/16/24 Section B - Complete if H&P > 30 days Chief Complaint: Encounter for screening for malignant neoplasm of Details of Present Illness: Medical History (Updated 12/06/22 @ 09:02 by Angus Valenzuela MD) Epithelial ovarian cancer, FIGO stage IIIA History of right breast cancer Surgical History (Updated 08/14/23 @ 10:17 by Travon Campo CCM) H/O colonoscopy History of total hysterectomy (08/25/22) History of lymph node biopsy History of lumpectomy of right breast Present Medications: see Short Stay Collaborative assessment Allergies: Allergies Allergy/AdvReac Type Severity Reaction Status Date / Time Iodinated Contrast Media Allergy Severe Anaphylaxis Verified 12/05/23 09:40 amoxicillin [From AUGMENTIN] Allergy Unknown BODY RASH Verified 12/05/23 09:40 clavulanic acid Allergy Unknown BODY RASH Verified 12/05/23 09:40 [From AUGMENTIN] Review of Systems Review of Systems Comment: Ten point ROS negative Exam Exam Comment: Gen appear: No acute distress HEENT: no icterus Chest: No overt resp distress Abd: soft, nontender, nondistended Psych: Stable affect, answering questions appropriately Neuro: A/Ox3 noted to move all extremities spontaneously Ext: no peripheral edema Plan Diagnosis/Plan: Unchanged I have reviewed the history and physical and performed a pertinent physical examination on my patient. No changes have occurred unless specified. Time Spent With Patient Time: Total time managing care of this patient today ____ minutes.
[2024-01-16 07:58] VITALS: BP 151/91; PULSE 67; RESP 16; TEMP 36.5; O2SAT 98; BMI 29.9
[2024-01-16] MEDS: Lactated Ringers 1,000 ML 100 ML IVCONT (08:02)
--- NOTE | 2024-01-16 08:30 | P.OPN-COLO_ITS ---
Colonoscopy Operative Note Operative Note Date of Service: 01/16/24 Narrative: Procedure: Colonoscopy Indication: Screening Endoscopist: Noemy Donnelly MD Anesthesia Provider: Gypsy Simpson CRNA Anesthesia type: MAC Instrument: Olympus [id number]-[id number] Consent: Indication, risks vs benefits, and alternatives were discussed with the patient who gave written informed consent to proceed. EKG, pulse, pulse oximetry and blood pressure were monitored throughout the procedure. Please see anesthesia flowsheet. Procedure: The patient was brought to the procedure room and placed in the left lateral decubitus position. IV medications were administered by the anesthesia provider in attendance. A digital rectal exam was performed which was abnormal due to finding of hemorrhoids. A distal attachment cap was affixed to the tip of the colonoscope which was then inserted through the anus and advanced through the colon to the cecum at 85 cm,and terminal ileum. Appendiceal orifice and ileocecal valve were identified. Mucosa was carefully examined under high definition white light as the instrument was slowly withdrawn in a retrograde panoramic fashion. Retroflexion was performed in rectum. The procedure was somewhat difficult due to fixed and tortuous sigmoid. There were no immediate obvious complications. The quality of the prep was BBPS: 3+2+3 = adequate Withdrawal time 20 minutes. Limitations: No limitations. Findings: Mucosa: A cluster of AVMs was noted in the cecum just distal to IC valve. These were ablated using coft-coag settings 3/80 on a hot forceps. Remaning mucosa normal to cecum and terminal ileum. Protruding lesions: * Large internal hemorrhoids without stigmata of recent bleeding. Excavated lesions: * Moderate diverticulosis of left sided colon. Impression: 1. Cecal AVMs (thermal therapy) 2. Diverticulosis 3. External and internal hemorrhoids Recommendations: - Repeat colonoscopy in 10 years for asymptomatic colorectal cancer screening.
[2024-01-16 09:12] VITALS: BP 112/71; PULSE 66; RESP 16; TEMP 37.3; O2SAT 96
[2024-01-16 09:28] VITALS: BP 132/87; PULSE 70; RESP 18; TEMP 36.2; O2SAT 96
== END 2024-01-16 10:00 | disposition home or self-care (01) ==
PROVIDERS: PCP Internal Medicine; Visit Provider Internal Medicine
PROC: 0DJD8ZZ Inspection of Lower Intestinal Tract, Via Natural or Artificial Opening Endoscopic (ICD-10-PCS; CPT 45378; principal; 2024-01-16 08:20)
DX: Z12.11 Encounter for screening for malignant neoplasm of colon (principal); K55.20 Angiodysplasia of colon without hemorrhage; K57.30 Diverticulosis of large intestine without perforation or abscess without bleeding; K64.8 Other hemorrhoids; K64.4 Residual hemorrhoidal skin tags; Z85.43 Personal history of malignant neoplasm of ovary; Z90.710 Acquired absence of both cervix and uterus; Z92.21 Personal history of antineoplastic chemotherapy; Z85.3 Personal history of malignant neoplasm of breast; Z91.041 Radiographic dye allergy status; Z88.1 Allergy status to other antibiotic agents
CPT/HCPCS: 45388; J2250; J2704

== ENCOUNTER → 2024-01-16 06:54 | Outpatient (BNV) | payer BC, SELFPAY | PROVIDERS: PCP Internal Medicine; Visit Provider Internal Medicine | DX: Z12.11 Encounter for screening for malignant neoplasm of colon (principal); Q27.33 Arteriovenous malformation of digestive system vessel; K64.8 Other hemorrhoids; K57.30 Diverticulosis of large intestine without perforation or abscess without bleeding | CPT/HCPCS: 45388 ==

== ENCOUNTER 2024-01-19 09:51 | Outpatient (REF) | payer BC, SELFPAY ==
--- NOTE | ~2024-01-19 | MM_ITS ---
EXAMINATION: BONE DENSITOMETRY CLINICAL INDICATION: Osteoporosis. COMPARISON: Previous BD dated 10/15/2021 and baseline BD dated 02/14/2017. TECHNIQUE: Using a [employer] DXA System (software version: 13.1) manufactured by [employer], dual-energy x-ray absorptiometry was performed of the lumbar spine and left hip. The images are of good technical quality. Summary results are attached. FINDINGS: LEFT FEMUR, NECK: Current: BMD 0.865 g/cm2, Z-score -0.3, T-score -1.2, osteopenia. Prior: BMD 0.855 g/cm2. Baseline: BMD 0.838 g/cm2. LEFT FEMUR, TOTAL: Current: BMD 0.936 g/cm2, Z-score 0.0, T-score -0.6, normal, 0.9% increase from previous, 3.2% decrease from baseline (<5% change is not significant). Prior: BMD 0.928 g/cm2. Baseline: BMD 0.967 g/cm2. AP SPINE L1-L4: Current: BMD 1.028 g/cm2, Z-score -0.6, T-score -1.3, osteopenia, 0.4% increase from previous, 8.5% decrease from baseline (<5% change is not significant). Prior: BMD 1.024 g/cm2. Baseline: BMD 1.123 g/cm2. IDENTIFIED RISK FACTORS: Menopause, hysterectomy, family history (parent hip fracture), bilateral oophorectomy. HISTORY OF FRACTURE: None listed. MEDICATIONS: Calcium, vitamin D. MM/XR DEXA axial skeleton IMPRESSION: 1. DIAGNOSIS: Osteopenia based on the lowest T-score value of -1.3 in the lumbar spine applying World Health Organization criteria. 2. 10-YEAR FRACTURE RISK PREDICTION, FRAX: Major osteoporotic fracture (clinical spine, forearm, hip or shoulder) 15.2%. Hip fracture 0.6%. 3. Treatment Recommendations: NOF guidelines recommend consideration for treatment in postmenopausal women and men age 50 and older presenting with the following: -A hip or vertebral (clinical or morphometric) fracture. -T-score less than or equal to -2.5 at the femoral neck or spine after appropriate evaluation to exclude secondary causes. -Low bone mass at the hip or spine and a 10-year fracture probability by FRAX of greater than or equal to 3% for hip fracture or greater than or equal to 20% for major osteoporotic fracture based on the [place] adapted WHO algorithm. 4. Other Recommendations: All treatment decisions require clinical judgment and consideration of individual patient factors, including patient preferences, comorbidities, previous drug use, risk factors not captured in the FRAX model (e.g. frailty, falls, vitamin D deficiency, increased bone turnover, interval significant decline in bone density) and possible under or overestimation of fracture risk by FRAX. Additional medical evaluation for secondary cause of low bone mineral density may be appropriate. FUTURE SCAN RECOMMENDATION: People with diagnosed cases of osteoporosis or at high risk for fracture should have regular bone mineral density tests. For patients eligible for Medicare, routine testing is allowed once every 2 years. The testing frequency can be increased to one year for patients who have rapidly progressing disease, those who are receiving or discontinuing medical therapy to restore bone mass, or have additional risk factors. Electronically signed by: Henrique Warren MD 01/22/2024 08:35 AM EDT
== END 2024-01-19 09:52 | disposition home or self-care (01) ==
LOC: HO.MAMMO 09:51
PROVIDERS: PCP Internal Medicine; Visit Provider Internal Medicine Medical Oncology
DX: M81.0 Age-related osteoporosis without current pathological fracture (principal)
CPT/HCPCS: 77080

== ENCOUNTER 2024-02-13 13:26 | Outpatient (AMB) | payer BC, SELFPAY ==
[2024-02-13 13:39] VITALS: BP 136/86; PULSE 72; O2SAT 98; BMI 30.2
--- NOTE | 2024-02-13 13:39 | MHC.OFFVIS ---
Vital Signs 02/13/24 13:39 Height 5 ft 7 in Weight 192 lb 10.944 oz BMI 30.2 BP 136/86 Blood Pressure Location Rt brachial Position Sitting Pulse 72 Pulse Source Pulse Oximeter Pulse Oximetry (%) 98 Oxygen Delivery Method Room Air Intake Visit Reasons: S/P, discuss GI issues Intake Note: Chary presents in office today for a scheduled s/p FUV. CC; Pt denies any complications post op. Pt denies any new sx or concerns after the procedure. 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 Denies any issues with anesthesia in the past.? Denies any history of sleep apnea.? No history infectious diseases in the past or present.? Not on any anticoagulation therapy.? No family or personal history of colon cancer or polyps.? Last colonoscopy normal in 2012. As mentioned above in HPI patient has a history of breast CA, lumpectomy in 2005. Ovarian CA with total hysterectomy and chemotherapy in 2022. Patient denies melena, hematochezia, unintentional weight loss or ribbon like stools.? Discussed at length the pre-procedure,? prep, diet & medications as well as what to expect prior, during and after the procedure.?? Stressed the importance of good bowel prep. ?Recommended the use of Vaseline or Calmoseptine OTC & baby wipes with bowel movements to promote comfort.? ?Patient verbalizes understanding and agrees to plan of care.? She was given the opportunity to ask questions and all questions answered.? We will see her after the procedure.? Medications New polyethylene glycol 3350 (Miralax) As directed by gastroenterology department at [facility] 238 grams PO ONCE 238 grams 0RF Z12.11 bisacodyl (Dulcolax (bisacodyl)) take 4 tabs at noon the day before your colonoscopy 20 mg (4 x 5 mg) PO ONCE 1 day 4 tabs 0RF Z12.11 COLONOSCOPY: Findings: Mucosa: A cluster of AVMs was noted in the cecum just distal to IC valve. These were ablated using coft-coag settings 3/80 on a hot forceps. Remaning mucosa normal to cecum and terminal ileum. Protruding lesions: Large internal hemorrhoids without stigmata of recent bleeding. Excavated lesions: Moderate diverticulosis of left sided colon. Impression: 1. Cecal AVMs (thermal therapy) 2. Diverticulosis 3. External and internal hemorrhoids Recommendations: - Repeat colonoscopy in 10 years for asymptomatic colorectal cancer screening. TODAY'S VISIT Patient is here today for follow-up and to discuss colonoscopy results. Patient denies any ill effects from the prep, anesthesia or procedure itself. Patient reports that she has been doing fairly well. Colonoscopy results discussed with patient. Patient was found to have a cecal AVMs which was treated with thermal therapy, diverticulosis as well as external and internal hemorrhoids found. Patient reports that she has been feeling well. Denies any melena, hematochezia. Denies any dyspepsia, dysphagia or odynophagia. Patient reports that she has no GI concerning symptoms today. Colonoscopy was recommended to be repeated in 10 years, however patient does have a family history of CRC. Patient states that she just learned this [facility] Medical History (Updated 02/23/24 @ 19:34 by NATE George-SUMMER) Hemorrhoids without complication Diverticulosis Family history of colorectal cancer Epithelial ovarian cancer, FIGO stage IIIA History of right breast cancer Surgical History H/O colonoscopy History of total hysterectomy (08/25/22) History of lymph node biopsy History of lumpectomy of right breast Family History (Updated 02/13/24 @ 14:16 by NATE George-SUMMER) Mother Breast cancer Maternal Aunt Breast cancer Paternal Aunt Pancreatic cancer Maternal Grandfather Colon cancer Father Gall stone in bile duct with infection of gallbladder Social History Alcohol intake: current Alcohol intake frequency: holidays/special occasions only Patient Tobacco Use Status: Never used Tobacco Female Reproductive History Menstrual Age of Menarche: 13 Review of Systems Const Denies weight gain and Denies weight loss ENT Reports no additional complaints, Denies dysphagia and Denies odynophagia Card Reports no additional complaints Resp Reports no additional complaints GI Denies abdominal pain, Denies belching, Denies melena, Denies bloating, Denies change in bowel habits, Denies dysphagia, Denies excessive flatus, Denies dyspepsia, Denies heartburn, Denies diarrhea, Denies loose stools, Denies nausea, Denies odynophagia and Denies vomiting Musc Reports no additional complaints Neuro Reports no additional complaints Psych Reports no additional complaints Endo Reports no additional complaints Physical Exam Vital Signs: Last Vital Signs Pulse 72 02/13/24 13:39 BP 136/86 02/13/24 13:39 Pulse Ox 98 02/13/24 13:39 Oxygen Delivery Method Room Air 02/13/24 13:39 BMI result Body Mass Index 30.2 Const General: healthy appearing, no acute distress and well developed Nutritional Appearance: obese Orientation/consciousness: patient oriented x3 Resp Effort & Inspection: normal respiratory effort, able to speak in complete sentences, no tracheal deviation and symmetric chest movement Auscultation: clear to auscultation bilaterally Cardio Rate: regular rate GI Inspection: Yes normal to inspection, No distended and Yes obesity Palpation (GI): Soft to palpation, not firm, nontender and No hepatosplenomegaly present Auscultation: normal bowel sounds General: Yes no CVA tenderness Back/Spine/Pelvis Back: no CVA tenderness Skin General skin exam: elasticity normal, turgor normal and dry skin Neuro General: patient oriented x3 Psych Appearance: grossly normal Mental Status: mental status grossly normal Assessment & Plan Assessment & Plan (1) Family history of colorectal cancer: Code(s): Z80.0 - Family history of malignant neoplasm of digestive organs Category: Medical (2) Status post colonoscopy: Code(s): Z98.890 - Other specified postprocedural states (3) Diverticulosis: Code(s): K57.90 - Diverticulosis of intestine, part unspecified, without perforation or abscess without bleeding Category: Medical (4) Hemorrhoids without complication: Code(s): K64.9 - Unspecified hemorrhoids Category: Medical Plan Colonoscopy in 5 years due to family history of CRC. Patient did have a normal colonoscopy. Diverticulosis found. Discussed with patient high-fiber diet. List of food high in fiber given to patient. Patient will also add probiotic daily. Follow-up in the office on as needed basis. Patient is agreeable to current plan of care and verbalizes understanding of instructions. She was given the opportunity to ask questions and all questions answered. Thank you for allowing me to participate in her care Coding Level of Care Code Est Pt Level 3 (33570) Diagnoses Family history of colorectal cancer Z80.0 Status post colonoscopy Z98.890 Diverticulosis K57.90 Hemorrhoids without complication K64.9 Time Spent (min) 25 Comment 15 minutes spent with patient and additional 10 minutes spent reviewing her records
== END 2024-02-13 14:38 | disposition home or self-care (01) ==
PROVIDERS: PCP Internal Medicine; Visit Provider Nurse Practitioner Family
DX: Z80.0 Family history of malignant neoplasm of digestive organs (principal); Z98.890 Other specified postprocedural states; K57.90 Diverticulosis of intestine, part unspecified, without perforation or abscess without bleeding; K64.9 Unspecified hemorrhoids
CPT/HCPCS: 99213

== ENCOUNTER → 2024-02-13 13:26 | Outpatient (BNVA) | payer BC, SELFPAY | PROVIDERS: PCP Internal Medicine; Visit Provider Nurse Practitioner Family ==

== ENCOUNTER 2024-02-23 08:14 | Outpatient (REF) | payer BC, SELFPAY ==
--- NOTE | ~2024-02-23 | MM_ITS ---
EXAMINATION: MM SCREENING DIGITAL BREAST TOMOSYNTHESIS, BILATERAL CLINICAL INFORMATION: Screening. Asymptomatic. COMPARISON: Mammography: Comparison is made with available priors TECHNIQUE: Digital breast mammography with tomosynthesis is performed in both the craniocaudal and mediolateral oblique views along with computer-aided detection (CAD). FINDINGS: There are scattered areas of fibroglandular density (ACR BI-RADS breast composition Category b). Right post lumpectomy changes are stable. Poor obscures the superior posterior right breast on MLO view. There are no significant masses, abnormal calcifications, or other abnormalities. MM/MM tomosynthesis screening BI IMPRESSION: No mammographic evidence of malignancy. ASSESSMENT: BI-RADS BI-RADS 2 - Benign Findings RECOMMENDATION: Routine annual mammography screening. 1 year F/U This examination should not preclude the clinical evaluation of a suspicious palpable abnormality. This patient's information was entered into a reminder system with a target due date for their next mammogram. Electronically signed by: Sravani Tang DO 02/26/2024 03:00 PM EDT
== END 2024-02-23 08:15 | disposition home or self-care (01) ==
LOC: HO.MAMMO 08:14
PROVIDERS: PCP Internal Medicine; Visit Provider Internal Medicine
DX: Z12.31 Encounter for screening mammogram for malignant neoplasm of breast (principal)
CPT/HCPCS: 77063; 77067

== ENCOUNTER → 2024-02-23 08:30 | Outpatient (BNV) | payer BC, SELFPAY | PROVIDERS: PCP Internal Medicine; Visit Provider Internal Medicine | DX: Z12.31 Encounter for screening mammogram for malignant neoplasm of breast (principal) | CPT/HCPCS: 77063; 77067 ==

== ENCOUNTER 2024-03-08 11:44 | Outpatient (REF) | payer BC, SELFPAY ==
[2024-03-08 14:14] LABS: Alanine Aminotransferase 71 U/L (0-31); Albumin Level 4.3 g/dL (3.5-5.0); Alkaline Phosphatase 77 U/L (39-117); Aspartate Amino Transferase 47 U/L (5-31); Bilirubin Direct 0.1 mg/dL (0.0-0.5); Bilirubin Total 0.4 mg/dL (0.0-1.0); Total Protein 7.2 g/dL (6.5-8.0)
== END 2024-03-08 11:45 | disposition home or self-care (01) ==
LOC: HO.10HDL 11:44
PROVIDERS: Visit Provider Internal Medicine
DX: R79.89 Other specified abnormal findings of blood chemistry (principal)
CPT/HCPCS: 36415; 80076

== ENCOUNTER 2024-05-28 10:00 | Outpatient (REF) | payer BC, SELFPAY ==
--- OUTSIDE RECORDS SUMMARY | 2024-05-28 10:03 | XMS_ITS ---
Author Organization Uli Valerio III, MD Address [address] [place] [address] Care Team Providers Care Video Arcade Manager Name Role Phone Byron Rodarte MD Primary Care Provider Uli Guaman Unavailable [phone] Allergies Allergen (clinical drug ingredient) Drug/Non Drug [...] Problem Status W/U Status Risk Notes Problem [id number] Malignant neoplasm of ovary, unspecified laterality (C56.9) Active confirmed The stage III epithelial ovarian cancer is in remission. His CEA 125 his in the normal range. Surveillance continues. Vital Signs Temperature 97.4 degrees Fahrenheit 12/26/19 24 Blood pressure systolic 139 mm Hg 12/26/19 24 Blood pressure diastolic 88 mm Hg 024 Heart Rate 74 /min 12/26/2023 Height 67 in 12/26/2023 Weight 194 lbs 12/26/2023 BMI 30.38 kg/m2 12/26/2023 Encounters Encounter Location Date Provider Diagnosis Uli Valerio III, MD [address] [place] [address] DR [place], [place] [address] 12/26/2023 Uli Valerio Infiltrating ductal carcinoma of [...] and bone desity done at Provider Name:Uli Valerio, 08/13/2024 10:30:00 AM, [address] [place] [address] IN[address], [place], [address], Progress Notes * ZACKTHOR TAVAREZSORAYAB:1960 (63 yo F)Acc No.[id number]:12/26/2023 Progress Notes Patient:?SAM SANA Provider:?Uli Valerio MD :1960???Age:63 Y???Sex:Female D ate:12/26/2023 Address:[address] [place], [place] [phone] Pcp:Byron Rodarte MD Subjective: * Chief Complaints: * ???Carcinoma of the right br eastStage III epithelial ovarian cancerChronic leukopeniaObesityOsteoporosisNeuropathy * HPI: ???COVID-19 Screening:? She returns for ongoing surveillance of a history of carcinoma the right breast endurable remission after adjuvant treatment and recent chemotherapy for stage III carcinoma of the ovary. She is going to see her gynecologic oncologist next Monday. She had blood work recently at [facility] and was told the CA 125 was [...] was no sign of recurrent malignancy today. ?Questions?Have you experienced fever, chills, cough, sore throat, shortness of breath, difficulty breathing, muscle aches, loss of taste or smell??No ?Have you been exposed to the virus within the last 10 days??No ?Have you travelled internationally in the last 10 days??No ?Have you been exposed to COVID-19 in the past??No * ROS:?General/Constitutional:?pain?Hands and feet, otherwise only normal aches and pains.?Chills?denies.?Fatigue?admits.?Fever?denies.?ENT:?Decreased hearing?denies.?Respiratory:?Cough?denies.?Cardiovascular:?Chest pain with exertion?denies.?Dyspnea on exertion?denies.?Shortness of breath?denies.?Gastrointestinal:?Constipation?occasional.?Decreased appetite?denies.?Diarrhea?denies.?Heartburn?denies.?Nausea?denies.?Rectal bleeding?denies.?Vomiting?denies.?Hematology:?bruising?denies.?petechiae?denies.?Swollen glands?none have been noted.?Genitourinary:?Frequent urination?denies.?Musculoskeletal:?Muscle aches?denies.?Painful joints?denies.?Sciatica?denies.?Weakness?that is generalized.?Skin:?Itching?denies.?Rash?denies.?Skin lesion(s)?denies.?Neurologic:?Difficulty speaking?denies.?Dizziness?denies.?Headache?denies.?Low back pain?denies.?Psychiatric:?Depressed mood?denies.? * Medical History:? * Surgical History:?Lipoma rem oval; [facility] [place] Dr Spath Colonoscopy 03/2013Right breast Biopsy,lumpectomy/sentinal nodes/re-excision 09/2015Total Hysterectomy- Bilateral Salpingo- OOpherectomy [facility], ovarian cancer 08/25/22Bx Pelvic Wall, Right (Negative results) 03/01/23 * Hospitalization/Major Diagno stic Procedure:?Denies Past Hospitalization * Family History:?Father: dece ased.?Mother: alive, diagnosed with HTN, Cancer.?Maternal Grand Father: diagnosed with Cancer.?Maternal aunt: diagnosed with Cancer.?1 son(s) - healthy. .? A maternal aunt had breast cancer at [...] abuse disorder or of addictions. * Social History:?Tobacco Use:?Tobacco Use/Smoking?Patient is a?nonsmoker ?Additional Findings: Tobacco Non-User?Aggressive non-smoker * Medications:?TakingMagnesium Glycinate Plus Calcium + Vitamin D3 600-10 [...] reviewed and reconciled with the patient * Allergies:?Augmentin: RashIo dinated Diagnostic Agents: nauseano[Allergies Verified] Objective: * Vitals:?Ht: 67, Wt: 194, BMI :30.38, BP: 139/88, HR: 74, Temp: 97.4, Wt-k. * ???Past Orders: Lab:Lipid Panel * Order Date 10/19/2023 08/17/2023 06/19/2023 Triglycerides 74 (Ref Range: <150 mg/dL) 70 (Ref Range: <150 mg/dL) 105 (Ref Range: <150 mg/dL) Cholesterol 195 (Ref Range: <200 mg/dL) 215?H (Ref Range: <200 mg/dL) 228?H (Ref Range: <200 mg/dL) LDL Cholesterol Calculated 121?H (Ref Range: <100 mg/dL) 133?H (Ref Range: <100 mg/dL) 148?H (Ref Range: <100 mg/dL) HDL Cholesterol 60 (Ref Range: >40 mg/dL) 68 (Ref Range: >40 mg/dL) 59 (Ref Range: >40 mg/dL) * Lab:[facility] * Order Date 10/19/2023 08/17/2023 06/19/2023 Sodium 142 (Ref Range: 135-145 mmol/L) 140 (Ref Range: 135-145 mmol/L) 142 (Ref Range: 135-145 mmol/L) Bilirubin Total 0.5 (Ref Range: 0.0-1.0 mg/dL) 0.5 (Ref Range: 0.0-1.0 mg/dL) 0.5 (Ref Range: 0.0-1.0 mg/dL) Aspartate Amino Transferase 92?H (Ref Range: 5-31 U/L) 118?H (Ref Range: 5-31 U/L) 106?H (Ref Range: 5-31 U/L) Alanine Aminotransferase 114?H (Ref Range: 0-31 U/L) 150?H (Ref Range: 0-31 U/L) 132?H (Ref Range: 0-31 U/L) Total Protein 7.2 [...] 22-29 mmol/L) 28 (Ref Range: 22-29 mmol/L) 30?H (Ref Range: 22-29 mmol/L) Anion Gap 12 (Ref Range: 12-20) 12 (Ref Range: 12-20) 12 (Ref Range: 12-20) Blood Urea Nitrogen 17?H (Ref Range: 9-16 mg/dL) 18?H (Ref Range: 9-16 mg/dL) 14 (Ref Range: [...] Date 10/19/2023 08/17/2023 06/19/2023 White Blood Count 3.1?L (Ref Range: 4.8-10.8 X10*3/uL) 3.3?L (Ref Range: 4.8-10.8 X10*3/uL) 2.7?L (Ref Range: 4.8-10.8 X10*3/uL) Red Blood Count 3.91?L (Ref Range: 4.20-5.50 X10*6/uL) 4.02?L (Ref Range: 4.20-5.50 X10*6/uL) 3.99?L (Ref Range: 4.20-5.50 X10*6/uL) Hemoglobin 12.3 (Ref Range: 12.0-16.0 g/dl) 12.7 (Ref Range: 12.0-16.0 g/dl) 12.8 (Ref Range: 12.0-16.0 g/dl) Hematocrit 36.7?L (Ref Range: 37.0-47.0 %) 37.4 (Ref Range: [...] (Ref Range: 160-400 X10*3/uL) Mean Platelet Volume 9.0?L (Ref Range: 9.4-12.3 fL) 8.9?L (Ref Range: 9.4-12.3 fL) 9.4 (Ref Range: 9.4-12.3 fL) Neutrophils Percent Auto 51.7 (Ref Range: 45-73 %) 58.5 (Ref Range: 45-73 %) 51.3 (Ref Range: 45-73 %) Imm Gran Pct Auto 0.6?H (Ref Range: 0.0-0.4 %) 0.3 (Ref Range: 0.0-0.4 %) 0.7?H (Ref Range: 0.0-0.4 %) Lymphocytes Percent Auto 31.8 (Ref Range: 20-40 %) 27.4 (Ref Range: 20-40 %) 33.5 (Ref Range: 20-40 %) Monocytes Percent Auto 11.4?H (Ref Range: 2-11 %) 9.5 (Ref Range: 2-11 %) 9.7 (Ref Range: 2-11 %) Eosinophils Percent Auto 4.2?H (Ref Range: 0-4 %) 3.7 (Ref Range: 0-4 %) 4.1?H (Ref Range: 0-4 %) Basophils Percent Auto 0.3 (Ref Range: 0-2 %) 0.6 (Ref Range: 0-2 %) 0.7 (Ref Range: 0-2 %) NRBC Pct Auto 0.0 (Ref Range: 0.0-0.2 /100WBC) 0.0 (Ref Range: 0.0-0.2 /100WBC) 0.0 (Ref Range: 0.0-0.2 /100WBC) Neutrophils Absolute Auto 1.6?L (Ref Range: 2.0-8.3 x10*3/uL) 1.9?L (Ref Range: 2.0-8.3 x10*3/uL) 1.4?L (Ref Range: 2.0-8.3 x10*3/uL) Imm Gran Abs Auto 0.02 (Ref Range: 0.00-0.03 X10*3/uL) 0.01 (Ref Range: 0.00-0.03 X10*3/uL) 0.02 (Ref Range: 0.00-0.03 X10*3/uL) Lymphocytes Absolute Auto 1.0?L (Ref Range: 1.2-4.9 X10*3/uL) 0.9?L (Ref Range: 1.2-4.9 X10*3/uL) 0.9?L (Ref Range: 1.2-4.9 X10*3/uL) Monocytes Absolute Auto [...] 0.000 (Ref Range: 0.0-0.012 X10*3/uL) * Examination: ???General Examination: ?GENERAL APPEARANCE:?pleasant, well nourished, well developed, in no acute distress , woman.?HEAD:?atraumatic, normocephalic.?EYES:?eomi, perrla, anicteric, conjugate.?EARS:?normal.?NOSE:?septum intact.?ORAL CAVITY:?normal, unremarkable.?NECK/THYROID:?no jugular venous distention, no carotid bruit, thyroid normal.?LYMPH NODES:?no enlarged lymph nodes,spleen normal.?SKIN:?no suspicious lesions, anicteric.?HEART:?no clicks, gallops, murmurs, or rubs, regular rhythm, S1, S2 normal, no s3, or vascular bruits.?LUNGS:?clear to auscultation .?BREASTS:?no masses palpable bilaterally, All scars healed, radiation tattoos , no discharge , no dimpling.?ABDOMEN:?bowel sounds normal, no ascites, no organomegaly, no mass, Recent vertical midline surgical incision which is well-healed.?RECTAL EXAM:?not examined.?MUSCULOSKELETAL:?extremities unremarkable, no clubbing, cyanosis or edema.?PERIPHERAL PULSES:?normal.?NEUROLOGIC:?alert and oriented, cranial nerves 2-12 grossly intact, deep tendon reflexes 2+ symmetrical, motor strength normal upper and lower extremities, sensory exam intact.?PSYCH:?alert, oriented.? Assessment: * Assessment: 1.?Infiltrating ductal carci noma of right breast - C50.911 (Primary), There was no sign of recurrent breast cancer of a new primary in either breast today. She will continue with annual mammography and breast self examination.?2.?Epithelial ovarian cancer, FIGO stage IIIA - C56.9, She appears to be in clinical remission after chemotherapy. CA 125 is reported to be 16. She will be followed closely.?3.?Osteoporosis - M81.0, She was continued on calcium and vitamin D.?4.?Drug-induced polyneuropathy - G62.0, She continues to have paresthetic pain from the chemotherapy. It has not changed since her last visit. She will continue on current therapy.?5.?Chronic leukopenia - D72.819, Her white blood cell count is 3100. She has had no infections. Observation was continued.?6.?Obesity, unspecified - E66.9, Her body mass index is now 30. She has gained 2 pounds. We discussed diet and nutrition. I recommended stabilizing her weight at this level until she has recovered fully from chemotherapy and then gradually reduce her weight through diet and exercise.? Plan: * Treatment: 2.?Epithelial ovarian cancer , FIGO stage IIIA?LAB: PROFILE, FASTING (COMPREHENSIVE METABOLIC) ?LAB: LIPID PANEL ?LAB: CBC w DIFF ?LAB: Vitamin D 25-OH Total ?LAB: CA-125 ?LAB: CA 27.29 ?Imaging: BONE DENSITY DEXA 3.?Osteoporosis?LAB: PROFILE, FASTING (COMPREHENSIVE METABOLIC) ?LAB: LIPID PANEL ?LAB: CBC w DIFF ?LAB: Vitamin D 25-OH Total ?LAB: CA-125 ?LAB: CA 27.29 ?Imaging: BONE DENSITY DEXA * Procedure Codes:? * Preventive Medicine:? ??Counseling:?Care goal follow-up plan:?Counseling for abnormal BMI given?Yes ?Above Normal BMI Follow-up?Dietary management education, guidance, and counseling, Dietary needs education, Exercise promotion: strength training, Exercise promotion: stretching, Feeding regime, Giving encouragement to exercise, Lifestyle education regarding diet, Nutrition / feeding management, Nutrition therapy, Prescribed activity/exercise education, Prescribed diet education, Prescribed dietary intake, Special diet education, Weight monitoring , Intervention, Order not done: Medical or Other reason not done * Follow Up:?2 Months (Reason: OV review labs and bone desity done at ) * Images: * Sign off status: Completed true * Provider:?Uli Valerio MD Date:?11/28 Generated for Tim morales/Adolfo/Haileyitting on:?05/28/2024 10:03 AM EST History and Physical Notes * HPI (History [...] atraumatic, normocep halic EYES: eomi, perrla, anicte aeysha, conjugate EARS: normal NOSE: septum intact NECK/THYROID: [...]
--- OUTSIDE RECORDS SUMMARY | 2024-05-28 10:03 | XMS_ITS ---
Author Organization Uli Valerio III, MD Address [address] [place] [address] Care Team Providers Care Patient Support Associate Name Role Phone Byron Rodarte MD Primary Care Provider Uli Guaman Unavailable [phone] Allergies Allergen (clinical drug ingredient) Drug/Non Drug [...] Date Provider Diagnosis Uli Valerio III, MD [address] [place] [address] [place] [address] 02/19/2024 Uli Valerio Infiltrating ductal carcinoma of [...] Up: 3 Months, Reason: OV Provider Name:Uli Valerio, 08/13/2024 10:30:00 AM, [address] [place] [address] IN[address], [place], [phone], Progress Notes * PEDRO URIBE:1960 (63 yo F)Acc No.[id number]:02/19/2024 Progress Notes Patient:?SANA URIBE Provider:?Uli Valerio MD :1960???Age:63 Y???Sex:Female D ate:02/19/2024 Address:[address] [place], [place] [id number] Pcp:Byron Rodarte MD Subjective: * Chief Complaints: * ???Ovarian cancerHistory of breast cancerPeripheral neuropathyLeukocytopeniaOsteoporosisObesity * HPI: ???COVID-19 Screening:?She returns for oncology management.? 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 It was otherwise negative.? This was done at [facility].? Her port was flushed January 31, 2025. She feels generally healthy and well.? Her blood work was reviewed with her in detail.? CA 125 was in the normal range.? She is no longer receiving chemotherapy. ?Questions?Have you experienced fever, chills, cough, sore throat, shortness of breath, difficulty breathing, muscle aches, loss of taste or smell??No ?Have you been exposed to the virus within the last 10 days??No ?Have you travelled internationally in the last 10 days??No ?Have you been exposed to COVID-19 in the past??No * ROS:?General/Constitutional:?pain?only normal aches and pains.?Chills?denies.?Fatigue?admits.?Fever?denies.?ENT:?Decreased hearing?denies.?Respiratory:?Cough?denies.?Cardiovascular:?Chest pain with exertion?denies.?Dyspnea on exertion?denies.?Shortness of breath?denies.?Gastrointestinal:?Constipation?occasional.?Decreased appetite?denies.?Diarrhea?denies.?Heartburn?occasional.?Nausea?denies.?Rectal bleeding?denies.?Vomiting?denies.?Hematology:?bruising?denies.?petechiae?denies.?Swollen glands?none have been noted.?Genitourinary:?Frequent urination?a small amount.?Musculoskeletal:?Muscle aches?denies.?Painful joints?denies.?Sciatica?denies.?Weakness?denies.?Skin:?Itching?denies.?Rash?denies.?Skin lesion(s)?denies.?Neurologic:?Difficulty speaking?denies.?Dizziness?denies.?Headache?denies.?Low back pain?denies.?Psychiatric:?Depressed mood?denies.? * Medical History:? * Surgical History:?Lipoma rem oval; [facility] Dr Sosa Colonoscopy 03/2013Right breast Biopsy,lumpectomy/sentinal nodes/re-excision 09/2015Total Hysterectomy- Bilateral Salpingo- OOpherectomy [facility], ovarian cancer 08/25/22Bx Pelvic Wall, Right (Negative results) 03/01/23 * Hospitalization/Major Diagno stic Procedure:?Denies Past Hospitalization * Family History:?Father: dece ased.?Mother: alive, diagnosed with Cancer, HTN.?Maternal Grand Father: diagnosed with Cancer.?Maternal aunt: diagnosed [...] nauseano[Allergies Verified] Objective: * Vitals:?Ht: 67, Wt: 193, BMI :30.22, BP: 135/95, HR: 73, Temp: 97.0, Wt-k.54. * ???Past Orders: Lab:Lipid Panel * Collection Date 01/04/2024 10/19/2023 08/17/2023 Collection Time 09:21 AM 08:44 AM 08:53 AM Order Date 01/04/2024 10/19/2023 08/17/2023 Triglycerides 61 (Ref Range: <150 mg/dL) 74 (Ref Range: <150 mg/dL) 70 (Ref Range: <150 mg/dL) Cholesterol 170 (Ref Range: <200 mg/dL) 195 (Ref Range: <200 mg/dL) 215?H (Ref Range: <200 mg/dL) LDL Cholesterol Calculated 103?H (Ref Range: <100 mg/dL) 121?H (Ref Range: <100 mg/dL) 133?H (Ref Range: <100 mg/dL) HDL Cholesterol 55 (Ref Range: >40 mg/dL) 60 (Ref Range: >40 mg/dL) 68 (Ref Range: >40 mg/dL) * Lab:[facility] * Collection Date 01/04/2024 10/19/2023 08/17/2023 Collection Time 09:21 AM 08:44 AM 08:53 AM Order Date 01/04/2024 10/19/202308/17/2023 Sodium 142 (Ref Range: 135-145 mmol/L) 142 (Ref Range: 135-145 mmol/L) 140 (Ref Range: 135-145 mmol/L) Bilirubin Total 0.5 (Ref Range: 0.0-1.0 mg/dL) 0.5 (Ref Range: 0.0-1.0 mg/dL) 0.5 (Ref Range: 0.0-1.0 mg/dL) Aspartate Amino Transferase 56?H (Ref Range: 5-31 U/L) 92?H (Ref Range: 5-31 U/L) 118?H (Ref Range: 5-31 U/L) Alanine Aminotransferase 87?H (Ref Range: 0-31 U/L) 114?H (Ref Range: 0-31 U/L) 150?H (Ref Range: 0-31 U/L) Total Protein 7.3 [...] 104 (Ref Range: 96-108 mmol/L) Carbon Dioxide 30?H (Ref Range: 22-29 mmol/L) 28 (Ref Range: 22-29 mmol/L) 28 (Ref Range: 22-29 mmol/L) Anion Gap 10?L (Ref Range: 12-20) 12 (Ref Range: 12-20) 12 (Ref Range: 12-20) Blood Urea Nitrogen 15 (Ref Range: 9-16 mg/dL) 17?H (Ref Range: 9-16 mg/dL) 18?H (Ref Range: 9-16 mg/dL) Creatinine 0.80 (Ref [...] Date 01/04/2024 10/19/2023 08/17/2023 White Blood Count 3.2?L (Ref Range: 4.8-10.8 X10*3/uL) 3.1?L (Ref Range: 4.8-10.8 X10*3/uL) 3.3?L (Ref Range: 4.8-10.8 X10*3/uL) Red Blood Count 4.13?L (Ref Range: 4.20-5.50 X10*6/uL) 3.91?L (Ref Range: 4.20-5.50 X10*6/uL) 4.02?L (Ref Range: 4.20-5.50 X10*6/uL) Hemoglobin 12.9 (Ref Range: 12.0-16.0 g/dl) 12.3 (Ref Range: 12.0-16.0 g/dl) 12.7 (Ref Range: 12.0-16.0 g/dl) Hematocrit 38.1 (Ref Range: 37.0-47.0 %) 36.7?L (Ref Range: 37.0-47.0 %) 37.4 (Ref [...] (Ref Range: 160-400 X10*3/uL) Mean Platelet Volume 9.2?L (Ref Range: 9.4-12.3 fL) 9.0?L (Ref Range: 9.4-12.3 fL) 8.9?L (Ref Range: 9.4-12.3 fL) Neutrophils Percent Auto 52.1 (Ref Range: 45-73 %) 51.7 (Ref Range: 45-73 %) 58.5 (Ref Range: 45-73 %) Imm Gran Pct Auto 0.6?H (Ref Range: 0.0-0.4 %) 0.6?H (Ref Range: 0.0-0.4 %) 0.3 (Ref Range: 0.0-0.4 %) Lymphocytes Percent Auto 32.9 (Ref Range: 20-40 %) 31.8 (Ref Range: 20-40 %) 27.4 (Ref Range: 20-40 %) Monocytes Percent Auto 9.7 (Ref Range: 2-11 %) 11.4?H (Ref Range: 2-11 %) 9.5 (Ref Range: 2-11 %) Eosinophils Percent Auto 3.8 (Ref Range: 0-4 %) 4.2?H (Ref Range: 0-4 %) 3.7 (Ref Range: 0-4 %) Basophils Percent Auto 0.9 (Ref Range: 0-2 %) 0.3 (Ref Range: 0-2 %) 0.6 (Ref Range: 0-2 %) NRBC Pct Auto 0.0 (Ref Range: 0.0-0.2 /100WBC) 0.0 (Ref Range: 0.0-0.2 /100WBC) 0.0 (Ref Range: 0.0-0.2 /100WBC) Neutrophils Absolute Auto 1.7?L (Ref Range: 2.0-8.3 x10*3/uL) 1.6?L (Ref Range: 2.0-8.3 x10*3/uL) 1.9?L (Ref Range: 2.0-8.3 x10*3/uL) Imm Gran Abs Auto 0.02 (Ref Range: 0.00-0.03 X10*3/uL) 0.02 (Ref Range: 0.00-0.03 X10*3/uL) 0.01 (Ref Range: 0.00-0.03 X10*3/uL) Lymphocytes Absolute Auto 1.1?L (Ref Range: 1.2-4.9 X10*3/uL) 1.0?L (Ref Range: 1.2-4.9 X10*3/uL) 0.9?L (Ref [...] 13 (Ref Range: <35 U/mL) * Examination: ???General Examination: ?GENERAL APPEARANCE:?pleasant, well nourished, well developed, in no acute distress, calm and relaxed, obese, woman.?HEAD:?atraumatic, normocephalic.?EYES:?eomi, perrla, anicteric, conjugate.?EARS:?normal.?NOSE:?septum intact.?ORAL CAVITY:?normal, unremarkable.?NECK/THYROID:?no jugular venous distention, no carotid bruit, thyroid normal.?LYMPH NODES:?no enlarged lymph nodes,spleen normal.?SKIN:?no suspicious lesions, anicteric.?HEART:?no clicks, gallops, murmurs, or rubs, regular rhythm, S1, S2 normal, no s3, or vascular bruits.?LUNGS:?clear to auscultation .?BREASTS:?no masses palpable bilaterally, no drainage, no discharge, no dimpling, Right breast lumpectomy scar is well-healed.?ABDOMEN:?bowel sounds normal, no ascites, no organomegaly, no mass.?RECTAL EXAM:?not examined.?MUSCULOSKELETAL:?extremities unremarkable, no clubbing, cyanosis or edema.?PERIPHERAL PULSES:?normal.?NEUROLOGIC:?alert and oriented, cranial nerves 2-12 grossly intact, deep tendon reflexes 2+ symmetrical, motor strength normal upper and lower extremities, sensory exam intact.?PSYCH:?alert, oriented.? Assessment: * Assessment: 1.?Infiltrating ductal carci noma of right breast - C50.911 (Primary)???Notes :There was no sign of recurrent breast cancer of a new primary in either breast today. She will continue with annual mammography and breast self examination.???2.?Overweight - E66.3???Notes :Her weight has been stable. We discussed her diet and nutrition. We made a plan to lose weight at a rate of one half of a pound per week. Diet restricted in fat calories and sodium combined with regular activity.???3.?Chronic leukopenia - D72.819???Notes :Her white blood cell count is 3200. She has had no infections. 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 It has not changed since her last visit. She will continue on current therapy.???5.?Osteoporosis - M81.0???Notes :She was continued on calcium and vitamin D.???6.?Malignant neoplasm of ovary, unspecified laterality - C56.9???Notes :The stage III epithelial ovarian cancer is in remission.? His CEA 125 his in the normal range.? Surveillance continues.??? Plan: * Treatment: * Procedure Codes:? * Preventive Medicine:? ??Counseling:?Care [...] or Other reason not done * Follow Up:?3 Months (Reason: OV) * Images: * Sign off status: Completed true * Provider:?Uli Valerio MD Date:?01/28 Generated for Printi ng/Adolfo/eTransmitting on:?05/28/2024 10:03 AM EST History and Physical [...]
--- OUTSIDE RECORDS SUMMARY | 2024-05-28 10:04 | XMS_ITS | Continuity of Care Document ---
Author Organization [facility] TYPING ELEMENT MACHINE OPERATOR Oncolog y Address [address] [place] [id number]- Care Team Providers Care Recruitment Assistant Name Role Phone Byron Rodarte MD Primary Care Physician Encounter [facility] Date(s): 04/01/24 - 05/01/24 [facility] TYPING ELEMENT MACHINE OPERATOR Oncology [address] [place] [id number]- Attending Physician: Hamlet Montalvo Admitting Physician: Hamlet Montalvo Referring Physician: Hamlet Montalvo Encounter Type: Triage Allergies, Adverse Reactions, Alerts Substance Criticality Severity Reaction Reaction Severity Status Augmentin Skin rash Active Contrast Dye Painful cough warm genitals, cough Active Immunizations Given and Recorded Vaccine Date Status Refusal Reason [id number] 12y+ bivalent booster vax 05/25/22 Recorded SARS-CoV-2 (COVID-19) mRNA BNT-162b2 vac 05/25/21 Recorded SARS-CoV-2 (COVID-19) mRNA-1273 vaccine 09/04/20 R ecorded Medications Calcium 600 +D oral tablet 1 tablet, By Mouth, Daily, 0 Refills, Maintenance, 07/27/22 10:29:00 AM EST, Partial fill upon patient request if the prescription is for a schedule II opioid drug. Start Date: 07/27/22 Status: Ordered Repeat number: 1 Cholecalciferol 1000 iu, By Mouth, Daily, 0 Refills, Maintenance, 07/27/22 10:28:00 AM EST, Partial fill upon patientrequest if the prescription is for a schedule II opioid drug. Start Date: 07/27/22 Status: Ordered Repeat number: 1 Flonase Nares, Both, Daily in AM, 0 Refills, Maintenance, 08/22/22 5:12:00 PM EDT, Partial fill upon patientrequest if the prescription is for a schedule II opioid drug. Start Date: 08/22/22 Status: Ordered Repeat number: 1 Ibuprofen Refills 0, Maintenance, 10/12/22 10:38:00 AM EDT, Partial fill upon patient request if the prescription is for a schedule II opioid drug. Start Date: 10/12/22 Status: Ordered Repeat number: 1 lidocaine-prilocaine 2.5%-2.5% topical cream See Instructions, apply to [facility] 30-60min prior to each chemotherapy session, # 30 Gm, 2 Refills, Maintenance, 11/02/22 10:08:00 AM EDT, [facility] #[id number], Partial fill upon patient request if the prescription is for a schedule II opioid drug., apply to [facility] 30-60min prior to each chemotherapy session, 168.3, cm, 11/02/22 9:33:00 EDT, Height, 78.1, kg, 11/02/22 9:33:00 EDT, Dry Weight Start Date: 11/02/22 Status: Ordered Quantity: 30.0 Unit: g Repeat number: 3 MiraLax = 17 Gm, By Mouth, Daily, 0 Refills, Maintenance, 10/12/22 10:38:00 AM EDT, Partial fill upon patient request if the prescription is for a schedule II opioid drug. Start Date: 10/12/22 Status: Ordered Repeat number: 1 nystatin 890403 u/ml oral suspension 4 mL = 400,000 units, By Mouth, 4 times a day, # 160 mL, 1 Refills, Maintenance, 12/19/22 9:46:00 AMEDT, Suspension, [facility] #[id number], Partial fill upon patient request if the prescriptionis for a schedule II opioid drug., 167.6, cm, 12/16/22 9:23:00 EDT, Height, 79.6, kg, 12/12/22 16:15:00 EDT, Dry Weight Start Date: 12/19/22 Stop Date: 01/08/23 Status: Ordered Quantity: 160.0 Unit: mL Repeat number: 2 prochlorperazine 10 mg oral tablet 1 tablet = 10 mg, By Mouth, Every 6 hours, PRN Nausea, # 30 tablet, 2 Refills, Maintenance, :33:00 AM EDT, Tablet, [facility] #[id number], Partial fill upon patient request if the prescription is for a schedule II opioid drug., 167.6, cm, 09/20/22 9:29:00 EDT, Height, 80.1, kg, 09/07/22 10:22:00 EDT, Dry Weight Start Date: 09/20/22 Status: Ordered Quantity: 30.0 Unit: tablet Repeat number: 3 Readi-Cat 2 Smoothie Creamy Vanilla 2% oral suspension See Instructions, If scan in the am, drink 1st bottle night before & 2nd bottle 90 min before scan. If scan after 12p, drink 1st bottle by 8a & 2nd bottle 90 min before. If scan after 4p, drink 1st bottle 6hrs before & 90 minutes before scan, # 2 each, 0 Refills, Maintenance, 01/20/23 11:46:00 AM EDT, [facility], Partial fill upon patient request if the prescription isfor a schedule II opioid drug., If scan in the am, drink 1st bottle night before & 2nd bottle 90 min before scan. If scan after 12p, drink 1st bottle by 8a & 2nd bottle 90 min before. If scanafter 4p, drink 1st bottle 6hrs before & 90 minutes before scan, 167.6, cm, 01/13/23 9:41:00 EDT, Height, 80.6, kg, 01/04/23 9:30:00 EDT, Dry Weight Start Date: 01/20/23 Status: Ordered Quantity: 2.0 Unit: each Repeat number: 1 Senna By Mouth, 0 Refills, Maintenance, 10/12/22 10:38:00 AM EDT, Partial fill upon patient request if theprescription is for a schedule II opioid drug. Start Date: 10/12/22 Status: Ordered Repeat number: 1 Tylenol 325 mg oral capsule 1 capsule = 325 mg, By Mouth, 3 times a day, 0 Refills, Maintenance, 10/12/22 10:38:00 AM EDT, Partial fill upon patient request if the prescription is for a schedule II opioid drug. Start Date: 10/12/22 Status: Ordered Repeat number: 1 Problem List Condition Confirmation Course Effective Dates Status Health St atus Informant Oral thrush Confirmed Active Ovarian cancer on right Confirmed Active Obese class I Confirmed Active Pelvic mass Confirmed Active Social History Social History Type Response Smoking Status Former smoker, quit more than 30 days ago entered on: 07/27/22 Sex Sex Representation Female (finding) Patient Care team information Care Team Personnel Name: Byron Rodarte MD Position: [facility] Outreach Member Role: PCP Address: [address] [place] [address] Byron Cayden [place], [place] [address] Telecom: Name: Joanie Romero RN Position: [facility] Onco RN Member Role: Primary Care Nurse Name: Lena Wilkerson RN Position: [facility] SN RN Member Role: Primary Care Nurse Name: Finesse Brian RN Position: [facility] Onco RN Member Role: Primary Care Nurse Name: Odalys Johnston RN Position: [facility] RN Member Role: Primary Care Nurse Name: Tomy Freeman RN Position: [facility] RN Member Role: Primary Care Nurse Care Team Related Persons Name: NELLIE VARGAS Insurance Providers Guarantor name: SANA VARGAS Health Plan Information #: 1 Payer: HMO [employer] Member Number: NA Policy Number: NA Group Number: NA
--- OUTSIDE RECORDS SUMMARY | 2024-05-28 10:04 | XMS_ITS | Patient Health Record ---
Author Organization Uli Valerio III, MD Address [address] [place] [address] Care Team Providers Care Operating Room Nurse Name Role Phone Byron Rodarte MD Primary Care Provider Uli Guaman Unavailable [phone] Allergies Allergen (clinical drug ingredient) Drug/Non Drug Allergy documented on EMR Reaction Allergy Type Onset Date Status Iodinated contrast media (substance) Iodinated Diagnostic Agents nausea Drug Allergy Active amoxicillin / clavulanate Augmentin Rash Drug Allergy Active Results Component Value Reference Range Notes Complete Blood Count Auto Di ff Reviewed date:06/25/2023 08:26:27 AM Interpretation: Performing Lab:[facility], [address] [place] [phone] Notes/Report: White Blood Count 2.7 4.8-10.8 X10*3/uL Red Blood Count 3.99 4.20-5.50 X10*6/uL Hemoglobin 12.8 12.0-16.0 g/dl Hematocrit 37.8 37.0-47.0 % Mean Corpuscular Volume 94.7 80.0-98.0 fL Mean Corpuscular Hemoglobin 32.1 27.0-33.0 pg Mean Corpuscular HGB Conc 33.9 31.0-35.0 g/dl Red Cell Distribution Width 12.3 11.0-16.0 % Platelet Count 265 160-400 X10*3/uL Mean Platelet Volume 9.4 9.4-12.3 fL Neutrophils Percent Auto 51.3 45-73 % Imm Gran Pct Auto 0.7 0.0-0.4 % Lymphocytes Percent Auto 33.5 20-40 % Monocytes Percent Auto 9.7 2-11 % Eosinophils Percent Auto 4.1 0-4 % Basophils Percent Auto 0.7 0-2 % NRBC Pct Auto 0.0 0.0-0.2 /100WBC Neutrophils Absolute Auto 1.4 2.0-8.3 x10*3/uL Imm Gran Abs Auto 0.02 0.00-0.03 X10*3/uL Lymphocytes Absolute Auto 0.9 1.2-4.9 X10*3/uL Monocytes Absolute Auto 0.3 0.1-1.2 X10*3/uL Eosinophils Absolute Auto 0.1 0.0-0.4 X10*3/uL Basophils Absolute Auto 0.0 0.0-0.2 X10*3/uL NRBC Abs Auto 0.000 0.0-0.012 X10*3/uL Comprehensive Lamar. Panel Fa Reviewed date:06/25/2023 08:26:27 AM Interpretation: Performing Lab:[address] [phone] Notes/Report: Sodium 142 135-145 mmol/L Potassium 4.4 3.3-5.1 mmol/L Chloride 104 96-108 mmol/L Carbon Dioxide 30 22-29 mmol/L Anion Gap 12 12-20 Blood Urea Nitrogen 14 9-16 mg/dL Creatinine 0.83 0.5-1.4 mg/dL Estimated Glomerular Filt Rate > 60 NOTE: For -[place] individuals, multiply the result by 1.210. Chronic Kidney Disease: Estimated GFR < 60 mL/min/1.73m2 Severe Kidney Disease: Estimated GFR < 15 mL/min/1.73m2 Glucose Fasting 93 60-99 mg/dL Calcium 9.3 8.4-10.2 mg/dL Bilirubin Total 0.5 0.0-1.0 mg/dL Aspartate Amino Transferase 106 5-31 U/L Alanine Aminotransferase 132 0-31 U/L Total Protein 7.6 6.5-8.0 g/dL Albumin Level 4.3 3.5-5.0 g/dL Alkaline Phosphatase 77 39-117 U/L Lipid Panel Reviewed date:06/25/2023 08:26:27 AM Interpretation: Performing Lab:[address] [address] Notes/Report: Triglycerides 105 <150 mg/dL Desirable Triglyceride: less than 150 mg/dL Borderline High Triglyceride 150-199 mg/dL High Triglyceride: 200-499 mg/dL Very High Triglyceride: greater than or equal to 5OO mg/dL Cholesterol 228 <200 mg/dL Desirable Cholesterol: less than 200 mg/dL Borderline High Cholesterol: 200-239 mg/dL High Cholesterol: greater than 239 mg/dL LDL Cholesterol Calculated 148 <100 mg/dL Desirable LDL: less than 100 mg/dL Near Optimal/Above Optimal LDL: 110-129 mg/dL Borderline High LDL: 130-159 mg/dL High LDL: 160-189 mg/dL Very High LDL: greater than or equal to 190 mg/dL HDL Cholesterol 59 >40 mg/dL Desirable HDL: greater than 40 mg/dL Note: This HDL assay may give artificially low results in patients with liver disease. CA-125 Reviewed date:06/25/2023 08:26:27 AM Interpretation: Performing Lab:[address] [phone] Notes/Report: CA-125 13 <35 U/mL This test was performed using the Siemens Chemiluminescent method. Values obtained from different assay methods cannot be used interchangeably. CA 125 levels, regardless of value, should not be interpreted as absolute evidence of the presence or absence of disease. THIS TEST WAS PERFORMED AT: [facility] [address] [address] TAMMIE BLANCA MD Complete Blood Count Auto Di ff Reviewed date:08/19/2023 01:38:51 PM Interpretation: Performing Lab:[address] [address] Notes/Report: White Blood Count 3.3 4.8-10.8 X10*3/uL Red Blood Count 4.02 4.20-5.50 X10*6/uL Hemoglobin 12.7 12.0-16.0 g/dl Hematocrit 37.4 37.0-47.0 % Mean Corpuscular Volume 93.0 80.0-98.0 fL Mean Corpuscular Hemoglobin 31.6 27.0-33.0 pg Mean Corpuscular HGB Conc 34.0 31.0-35.0 g/dl Red Cell Distribution Width 13.2 11.0-16.0 % Platelet Count 221 160-400 X10*3/uL Mean Platelet Volume 8.9 9.4-12.3 fL Neutrophils Percent Auto 58.5 45-73 % Imm Gran Pct Auto 0.3 0.0-0.4 % Lymphocytes Percent Auto 27.4 20-40 % Monocytes Percent Auto 9.5 2-11 % Eosinophils Percent Auto 3.7 0-4 % Basophils Percent Auto 0.6 0-2 % NRBC Pct Auto 0.0 0.0-0.2 /100WBC Neutrophils Absolute Auto 1.9 2.0-8.3 x10*3/uL Imm Gran Abs Auto 0.01 0.00-0.03 X10*3/uL Lymphocytes Absolute Auto 0.9 1.2-4.9 X10*3/uL Monocytes Absolute Auto 0.3 0.1-1.2 X10*3/uL Eosinophils Absolute Auto 0.1 0.0-0.4 X10*3/uL Basophils Absolute Auto 0.0 0.0-0.2 X10*3/uL NRBC Abs Auto 0.000 0.0-0.012 X10*3/uL Comprehensive Lamar. Panel Fa st Reviewed date:08/19/2023 01:38:51 PM Interpretation: Performing Lab:[facility], [address] [place] [phone] Notes/Report: Sodium 140 135-145 mmol/L Potassium 4.2 3.3-5.1 mmol/L Chloride 104 96-108 mmol/L Carbon Dioxide 28 22-29 mmol/L Anion Gap 12 12-20 Blood Urea Nitrogen 18 9-16 mg/dL Creatinine 0.76 0.5-1.4 mg/dL Estimated Glomerular Filt Rate > 60 NOTE: For -[place] individuals, multiply the result by 1.210. Chronic Kidney Disease: Estimated GFR < 60 mL/min/1.73m2 Severe Kidney Disease: Estimated GFR < 15 mL/min/1.73m2 Glucose Fasting 95 60-99 mg/dL Calcium 9.6 8.4-10.2 mg/dL Bilirubin Total 0.5 0.0-1.0 mg/dL Aspartate Amino Transferase 118 5-31 U/L Alanine Aminotransferase 150 0-31 U/L Total Protein 7.5 6.5-8.0 g/dL Albumin Level 4.3 3.5-5.0 g/dL Alkaline Phosphatase 78 39-117 U/L Gamma Glutamyl Transpeptidas e Reviewed date:08/19/2023 01:38:51 PM Interpretation: Performing Lab:[address] [address] Notes/Report: Gamma Glutamyl Transpeptidase 43 7-33 U/L Lactate Dehydrogenase Reviewed date:08/19/2023 01:38:51 PM Interpretation: Performing Lab:[address] [address] Notes/Report: Lactate Dehydrogenase 313 122-220 U/L Lipid Panel Reviewed date:08/19/2023 01:38:51 PM Interpretation: Performing Lab:[address] [phone] Notes/Report: Triglycerides 70 <150 mg/dL Desirable Triglyceride: less than 150 mg/dL Borderline High Triglyceride 150-199 mg/dL High Triglyceride: 200-499 mg/dL Very High Triglyceride: greater than or equal to 5OO mg/dL Cholesterol 215 <200 mg/dL Desirable Cholesterol: less than 200 mg/dL Borderline High Cholesterol: 200-239 mg/dL High Cholesterol: greater than 239 mg/dL LDL Cholesterol Calculated 133 <100 mg/dL Desirable LDL: less than 100 mg/dL Near Optimal/Above Optimal LDL: 110-129 mg/dL Borderline High LDL: 130-159 mg/dL High LDL: 160-189 mg/dL Very High LDL: greater than or equal to 190 mg/dL HDL Cholesterol 68 >40 mg/dL Desirable HDL: greater than 40 mg/dL Note: This HDL assay may give artificially low results in patients with liver disease. CA-125 Reviewed date:08/19/2023 01:38:51 PM Interpretation: Performing Lab:[address] [address] Notes/Report: CA-125 14 <35 U/mL This test was performed using the Siemens Chemiluminescent method. Values obtained from different assay methods cannot be used interchangeably. CA 125 levels, regardless of value, should not be interpreted as absolute evidence of the presence or absence of disease. THIS TEST WAS PERFORMED AT: [facility] [address] [address] TAMMIE BLANCA MD Complete Blood Count Auto Di ff Reviewed date:10/19/2023 10:55:05 AM Interpretation: Performing Lab:[facility], [address] [place] [phone] Notes/Report: White Blood Count 3.1 4.8-10.8 X10*3/uL Red Blood Count 3.91 4.20-5.50 X10*6/uL Hemoglobin 12.3 12.0-16.0 g/dl Hematocrit 36.7 37.0-47.0 % Mean Corpuscular Volume 93.9 80.0-98.0 fL Mean Corpuscular Hemoglobin 31.5 27.0-33.0 pg Mean Corpuscular HGB Conc 33.5 31.0-35.0 g/dl Red Cell Distribution Width 13.0 11.0-16.0 % Platelet Count 226 160-400 X10*3/uL Mean Platelet Volume 9.0 9.4-12.3 fL Neutrophils Percent Auto 51.7 45-73 % Imm Gran Pct Auto 0.6 0.0-0.4 % Lymphocytes Percent Auto 31.8 20-40 % Monocytes Percent Auto 11.4 2-11 % Eosinophils Percent Auto 4.2 0-4 % Basophils Percent Auto 0.3 0-2 % NRBC Pct Auto 0.0 0.0-0.2 /100WBC Neutrophils Absolute Auto 1.6 2.0-8.3 x10*3/uL Imm Gran Abs Auto 0.02 0.00-0.03 X10*3/uL Lymphocytes Absolute Auto 1.0 1.2-4.9 X10*3/uL Monocytes Absolute Auto 0.4 0.1-1.2 X10*3/uL Eosinophils Absolute Auto 0.1 0.0-0.4 X10*3/uL Basophils Absolute Auto 0.0 0.0-0.2 X10*3/uL NRBC Abs Auto 0.000 0.0-0.012 X10*3/uL Comprehensive Lamar. Panel Fa st Reviewed date:10/19/2023 10:55:05 AM Interpretation: Performing Lab:[facility], [address] [place] [phone] Notes/Report: Sodium 142 135-145 mmol/L Potassium 4.3 3.3-5.1 mmol/L Chloride 106 96-108 mmol/L Carbon Dioxide 28 22-29 mmol/L Anion Gap 12 12-20 Blood Urea Nitrogen 17 9-16 mg/dL Creatinine 0.74 0.5-1.4 mg/dL Estimated Glomerular Filt Rate > 60 NOTE: For -[place] individuals, multiply the result by 1.210. Chronic Kidney Disease: Estimated GFR < 60 mL/min/1.73m2 Severe Kidney Disease: Estimated GFR < 15 mL/min/1.73m2 Glucose Fasting 98 60-99 mg/dL Calcium 9.4 8.4-10.2 mg/dL Bilirubin Total 0.5 0.0-1.0 mg/dL Aspartate Amino Transferase 92 5-31 U/L Alanine Aminotransferase 114 0-31 U/L Total Protein 7.2 6.5-8.0 g/dL Albumin Level 4.1 3.5-5.0 g/dL Alkaline Phosphatase 72 39-117 U/L Lipid Panel Reviewed date:10/19/2023 10:55:05 AM Interpretation: Performing Lab:[address] [phone] Notes/Report: Triglycerides 74 <150 mg/dL Desirable Triglyceride: less than 150 mg/dL Borderline High Triglyceride 150-199 mg/dL High Triglyceride: 200-499 mg/dL Very High Triglyceride: greater than or equal to 5OO mg/dL Cholesterol 195 <200 mg/dL Desirable Cholesterol: less than 200 mg/dL Borderline High Cholesterol: 200-239 mg/dL High Cholesterol: greater than 239 mg/dL LDL Cholesterol Calculated 121 <100 mg/dL Desirable LDL: less than 100 mg/dL Near Optimal/Above Optimal LDL: 110-129 mg/dL Borderline High LDL: 130-159 mg/dL High LDL: 160-189 mg/dL Very High LDL: greater than or equal to 190 mg/dL HDL Cholesterol 60 >40 mg/dL Desirable HDL: greater than 40 mg/dL Note: This HDL assay may give artificially low results in patients with liver disease. Complete Blood Count Auto Di ff Reviewed date:01/14/2024 06:46:42 AM Interpretation: Performing Lab:[address] [address] Notes/Report: White Blood Count 3.2 4.8-10.8 X10*3/uL Red Blood Count 4.13 4.20-5.50 X10*6/uL Hemoglobin 12.9 12.0-16.0 g/dl Hematocrit 38.1 37.0-47.0 % Mean Corpuscular Volume 92.3 80.0-98.0 fL Mean Corpuscular Hemoglobin 31.2 27.0-33.0 pg Mean Corpuscular HGB Conc 33.9 31.0-35.0 g/dl Red Cell Distribution Width 12.5 11.0-16.0 % Platelet Count 253 160-400 X10*3/uL Mean Platelet Volume 9.2 9.4-12.3 fL Neutrophils Percent Auto 52.1 45-73 % Imm Gran Pct Auto 0.6 0.0-0.4 % Lymphocytes Percent Auto 32.9 20-40 % Monocytes Percent Auto 9.7 2-11 % Eosinophils Percent Auto 3.8 0-4 % Basophils Percent Auto 0.9 0-2 % NRBC Pct Auto 0.0 0.0-0.2 /100WBC Neutrophils Absolute Auto 1.7 2.0-8.3 x10*3/uL Imm Gran Abs Auto 0.02 0.00-0.03 X10*3/uL Lymphocytes Absolute Auto 1.1 1.2-4.9 X10*3/uL Monocytes Absolute Auto 0.3 0.1-1.2 X10*3/uL Eosinophils Absolute Auto 0.1 0.0-0.4 X10*3/uL Basophils Absolute Auto 0.0 0.0-0.2 X10*3/uL NRBC Abs Auto 0.000 0.0-0.012 X10*3/uL Comprehensive Lamar. Panel Fa st Reviewed date:01/14/2024 06:46:42 AM Interpretation: Performing Lab:[facility], [address] [place] [phone] Notes/Report: Sodium 142 135-145 mmol/L Potassium 4.1 3.3-5.1 mmol/L Chloride 106 96-108 mmol/L Carbon Dioxide 30 22-29 mmol/L Anion Gap 10 12-20 Blood Urea Nitrogen 15 9-16 mg/dL Creatinine 0.80 0.5-1.4 mg/dL Estimated Glomerular Filt Rate > 60 NOTE: For -[place] individuals, multiply the result by 1.210. Chronic Kidney Disease: Estimated GFR < 60 mL/min/1.73m2 Severe Kidney Disease: Estimated GFR < 15 mL/min/1.73m2 Glucose Fasting 95 60-99 mg/dL Calcium 9.6 8.4-10.2 mg/dL Bilirubin Total 0.5 0.0-1.0 mg/dL Aspartate Amino Transferase 56 5-31 U/L Alanine Aminotransferase 87 0-31 U/L Total Protein 7.3 6.5-8.0 g/dL Albumin Level 4.3 3.5-5.0 g/dL Alkaline Phosphatase 78 39-117 U/L Lipid Panel Reviewed date:01/14/2024 06:46:42 AM Interpretation: Performing Lab:[facility], [address] [place] [phone] Notes/Report: Triglycerides 61 <150 mg/dL Desirable Triglyceride: less than 150 mg/dL Borderline High Triglyceride 150-199 mg/dL High Triglyceride: 200-499 mg/dL Very High Triglyceride: greater than or equal to 5OO mg/dL Cholesterol 170 <200 mg/dL Desirable Cholesterol: less than 200 mg/dL Borderline High Cholesterol: 200-239 mg/dL High Cholesterol: greater than 239 mg/dL LDL Cholesterol Calculated 103 <100 mg/dL Desirable LDL: less than 100 mg/dL Near Optimal/Above Optimal LDL: 110-129 mg/dL Borderline High LDL: 130-159 mg/dL High LDL: 160-189 mg/dL Very High LDL: greater than or equal to 190 mg/dL HDL Cholesterol 55 >40 mg/dL Desirable HDL: greater than 40 mg/dL Note: This HDL assay may give artificially low results in patients with liver disease. Vitamin D 25-OH Total Reviewed date:01/14/2024 06:46:42 AM Interpretation: Performing Lab:[facility], [address] [place] [phone] Notes/Report: Vitamin D 25-OH Total 61.6 >30 ng/mL Health Based Reference Values* < 20 ng/mL Deficient 20-30 ng/mL Insufficient > 30 ng/mL Sufficient *Rich SINGH. N Engl J Med. 2007;357:266-280 Care must be taken in interpreting Vitamin D results from different laboratories and methodologies. Published data demonstrated that results from patients undergoing hemodialysis may show a negative bias when tested with various automated 25-OH vitamin D assays when compared to LC-MS/MS. When testing samples from patients whose predominant form of Vitamin D is Vitamin D2, such as patients receiving Vitamin D2 supplementation, results that are subtherapeutic should be confirmed with another method such as LC-MS/MS. CA-125 Reviewed date:01/14/2024 06:46:42 AM Interpretation: Performing Lab:[address] [address] Notes/Report: CA-125 15 <35 U/mL This test was performed using the Siemens Chemiluminescent method. Values obtained from different assay methods cannot be used interchangeably. CA 125 levels, regardless of value, should not be interpreted as absolute evidence of the presence or absence of disease. THIS TEST WAS PERFORMED AT: [facility] [address] [place] [phone] TAMMIE BLANCA MD CA 27.29 Reviewed date:01/14/2024 06:46:42 AM Interpretation: Performing Lab:[address] [phone] Notes/Report: CA 27.29 21 <38 U/mL This test was performed using the Siemens Chemiluminescent method. Values obtained from different assay methods cannot be used interchangeably. CA 27.29 levels, regardless of value, should not be interpreted as absolute evidence of the presence or absence of disease. THIS TEST WAS PERFORMED AT: [facility] [address] [place] [phone] TAMMIE BLANCA MD XR DEXA axial skeleton Reviewed date:05/20/2024 06:16:21 AM Interpretation: Performing Lab: Notes/Report: [facility] [address] [place] [address] Mammography Report Signed Patient: Chary Uribe MR#: [id number] : 1960 Acct:[id number] Age/Sex: 63 / F ADM Date: 01/19/24 Loc: HO.MAMMO Attending Dr: Uli Valerio MD Ordering Physician: Uli Valerio MD Results: Date of Service: 01/19/24 Follow Up: Procedure(s): XR DEXA axial skeleton Accession Number(s): [id number] cc: Uli Valerio MD; Byron Rodarte MD EXAMINATION: BONE DENSITOMETRY CLINICAL INDICATION: Osteoporosis. COMPARISON: Previous BD dated 10/15/2021 and baseline BD dated 02/14/2017. TECHNIQUE: Using a [employer] DXA System (software version: 13.1) manufactured by [employer], dual-energy x-ray absorptiometry was performed of the lumbar spine and left hip. The images are of good technical quality. Summary results are attached. FINDINGS: LEFT FEMUR, NECK: Current: BMD 0.865 g/cm2, Z-score -0.3, T-score -1.2, osteopenia. Prior: BMD 0.855 g/cm2. Baseline: BMD 0.838 g/cm2. LEFT FEMUR, TOTAL: Current: BMD 0.936 g/cm2, Z-score 0.0, T-score -0.6, normal, 0.9% increase from previous, 3.2% decrease from baseline (<5% change is not significant). Prior: BMD 0.928 g/cm2. Baseline: BMD 0.967 g/cm2. AP SPINE L1-L4: Current: BMD 1.028 g/cm2, Z-score -0.6, T-score -1.3, osteopenia, 0.4% increase from previous, 8.5% decrease from baseline (<5% change is not significant). Prior: BMD 1.024 g/cm2. Baseline: BMD 1.123 g/cm2. IDENTIFIED RISK FACTORS: Menopause, hysterectomy, family history (parent hip fracture), bilateral oophorectomy. HISTORY OF FRACTURE: None listed. MEDICATIONS: Calcium, vitamin D. MM/XR DEXA axial skeleton IMPRESSION: 1. DIAGNOSIS: Osteopenia based on the lowest T-score value of -1.3 in the lumbar spine applying World Health Organization criteria. 2. 10-YEAR FRACTURE RISK PREDICTION, FRAX: Major osteoporotic fracture (clinical spine, forearm, hip or shoulder) 15.2%. Hip fracture 0.6%. 3. Treatment Recommendations: NOF guidelines recommend consideration for treatment in postmenopausal women and men age 50 and older presenting with the following: -A hip or vertebral (clinical or morphometric) fracture. -T-score less than or equal to -2.5 at the femoral neck or spine after appropriate evaluation to exclude secondary causes. -Low bone mass at the hip or spine and a 10-year fracture probability by FRAX of greater than or equal to 3% for hip fracture or greater than or equal to 20% for major osteoporotic fracture based on the [place] adapted WHO algorithm. 4. Other Recommendations: All treatment decisions require clinical judgment and consideration of individual patient factors, including patient preferences, comorbidities, previous drug use, risk factors not captured in the FRAX model (e.g. frailty, falls, vitamin D deficiency, increased bone turnover, interval significant decline in bone density) and possible under or overestimation of fracture risk by FRAX. Additional medical evaluation for secondary cause of low bone mineral density may be appropriate. FUTURE SCAN RECOMMENDATION: People with diagnosed cases of osteoporosis or at high risk for fracture should have regular bone mineral density tests. For patients eligible for Medicare, routine testing is allowed once every 2 years. The testing frequency can be increased to one year for patients who have rapidly progressing disease, those who are receiving or discontinuing medical therapy to restore bone mass, or have additional risk factors. Electronically signed by: Henrique Warren MD 01/22/2024 08:35 AM EDT Dictated By: Henrique Warren MD Signed By: <Electronically signed by Henrique Warren MD in OV> 01/22/24 0835 DD/ 1000 TD/TT: 01/19/24 1030 Lobster Catcher: AMARA [place] [facility] [address] [place] [address] Mammography Report Signed Patient: Sid Uribe MR#: [id number] : 1960 Acct:[id number] Age/Sex: 63 / F ADM Date: 01/19/24 Loc: HO.MAMMO Attending Dr: Uli Valerio MD Ordering Physician: Uli Valerio MD Results: Date of Service: 01/19/24 Follow Up: Procedure(s): XR DEX A axial skeleton Accession Number(s): [id number] cc: Uli Valerio MD; Byron Rodarte MD EXAMINATION: BONE DENSITOMETRY CLINICAL INDICATION: Osteoporosis. COMPARISON: Previous BD dated 10/15/2021 and baseline BD dated 02/14/2017. TECHNIQUE: Using a [employer] Advance DXA System (software version: 13.1) manufactured b [employer], dual-energy x-ray absorptiometry was performed of the lumbar spine and left hip. The images are of good technical quality. Summary results are attached. FINDINGS: LEFT FEMUR, NECK: Current: BMD 0.865 g/cm2, Z-score -0.3, T-score -1.2, osteopenia. Prior: BMD 0.855 g/cm2. Baseline: BMD 0.838 g/cm2. LEFT FEMUR, TOTAL: Current: BMD 0.936 g/cm2, Z-score 0.0, T-score -0.6, normal, 0.9% increase from previous, 3.2% decrease from baseline (<5% change is not significant). Prior: BMD 0.928 g/cm2. Baseline: BMD 0.967 g/cm2. AP SPINE L1-L4: Current: BMD 1.028 g/cm2, Z-score -0.6, T-score -1.3, osteopenia, 0.4% increase from previous, 8.5% decrease from baseline (<5% change is not significant). Prior: BMD 1.024 g/cm2. Baseline: BMD 1.123 g/cm2. IDENTIFIED RISK FACTORS: Menopause, hysterectomy, family history (parent hip fracture), bilateral oophorectomy. HISTORY OF FRACTURE: None listed. MEDICATIONS: Calcium, vitamin D. MM/XR DEXA axial skeleton IMPRESSION: 1. DIAGNOSIS: Osteopenia based on the lowest T-score value of -1.3 in the lumbar spine applying World Health Organization criteria. 2. 10-YEAR FRACTURE RISK PREDICTION, FRAX: Major osteoporotic fracture (clinical spine, forearm, hip or shoulder) 15.2%. Hip fracture 0.6%. 3. Treatment Recommendations: NOF guidelines recommend consideration for treatment in postmenopausal women and men age 50 and older presenting with the following: -A hip or vertebral (clinical or morphometric) fracture. -T-score less than o r equal to -2.5 at the femoral neck or spine after appropriate evaluati on to exclude secondary causes. -Low bone mass at th e hip or spine and a 10-year fracture probability by FRAX of greater than or equal to 3% for hip fracture or greater than or equal to 20% for major osteoporotic fracture based on the [place] adapted WHO algorithm. 4. Other Recommendations: All treatment decisions require clinical judgment and consideration of individual patient factors, including patient preferences, comorbidities, previous drug use, risk factors not captured in the FRAX model (e.g. frailty, falls, vitamin D deficiency, increased bone turnover, interval significant decline in bone density) and possible under o r overestimation of fracture risk by FRAX. Additional medical evaluation for secondary cause of low bone mineral density may be appropriate. FUTURE SCAN RECOMMENDATION: People with diagnose d cases of osteoporosis or at high risk for fracture should have regular bone mineral density tests. For patients eligible for Medicar e, routine testing is allowed once every 2 years. The testing frequenc y can be increased to one year for patients who have rapidly progressing disease, those who are receiving or discontinuing medica l therapy to restore bone mass, or have additional risk factors. Electronically nyasia d by: Henrique Warren MD 01/22/2024 08:35 AM EDT Dictated By: Henrique Warren MD Signed By: <Electronically signed by Henrique Warren MD in OV> 01/22/24 0835 DD/ 1000 TD/TT: 01/19/24 1030 Lobster Catcher: AMARA Reason For Referral Reason patient due for 10 y ear colonoscopy Diagnosis 1 Infiltrating ductal carcinoma of right breast (C50.911) Diagnosis 2 Encounter for screen ing for malignant neoplasm of colon (Z12.11) Referral Organization Uli Valerio III, MD Referring Provider First Name Uli Referring Provider Last Name Iman Referring Provider Speciality Internal M edicine Referred Organization [facility] vishal Referred Provider [facility] er, Gastroenterology Referred Address [address] [place] [address],[place], [place],[id number], Referred Provider Specialty Gastroentero logy General Notes Cynthia Suarez CMA 05/2023 01:58:13 PM EST > ref/demo/progress note faxed to [facility] asking them to call patient with appt . pt aware of this and was given phone number if they do not hear from the office she is to call them to make sure they have referal , Cynthia Suarez CMA 06/29/2023 03:04:50 PM EST > Pt called she has consult appt on 08/14/2023 at 10:00am Referral Priority Routine Referral Appointment Date 08/14/2023 Reason Breast Cancer Diagnosis 1 Infiltrating ductal carcinoma of right breast (C50.911) Referring Provider First Name Byron Referring Provider Last Name Sulaimanshala Referring Provider Speciality Internal M edicine Referred Organization Uli Valerio III, MD Referred Provider Uli Valerio Referred Address [address] [place] [address] INDIRA HUTTON [address],[place],[address], Referred Provider Specialty Oncology Referral Priority Routine Medications Medication SIG (Take, Route, Frequency, Duration) Notes Start Date End Date Status Magnesium Glycinate Plus Active Calcium + Vitamin D3 600-10 MG-MCG 1 tablet with a meal Orally Once a day Active Vitamin D-3 25 MCG (1000 UT) 1 capsule Orally Once a day Active Immunizations Vaccine Route Administration Date Status Comme nts Influenza Unknown 03/29/2016 Administered COVID- 19 Vaccine Unknown 09/04/2020 Administered on & Calvin Influenza, quad Unknown 03/21/2023 Administered Influenza, quad Unknown 02/23/2021 Administered COVID 19 Issa Unknown 09/04/2020 Administered Influenza, quad Unknown 03/09/2016 Administered Influenza, quad Unknown 02/28/2018 Administered COVID Pfizer Bivalent Unknown 05/25/2022 Administered COVID PFIZER Unknown 05/25/2021 Administered Influenza-iiv4 p-free high dose Unknown 03/21/2023 Administered COVID-19 Moderna SPIKEVAX Unknown 05/09/2024 Administer ed Influenza, quad Unknown 03/12/2024 Administered Social History Tobacco Use: Social History Observation Description Date Details (start date - stop date) Never Smoker NA - NA Tobacco Use/Smoking Question Answer Notes Patient is a nonsmoker Additional Findings: Tobacco Non-User Aggressive non-smoker Alcohol Screen Question Answer Notes Did you have a drink containing alcohol in the p ast year? No Points 0 Interpretation Negative Problems Problem Type SNOMED Code ICD Code Onset Dates Problem Status W/U Status Risk Notes Problem 365729869 Overweight (E66.3) Active confirmed Her weight has been stable. We discussed her diet and nutrition. We made a plan to lose weight at a rate of one half of a pound per week. Diet restricted in fat calories and sodium combined with regular activity. Problem 976607722 Infiltrating ductal carcinoma of right breast (C50.911) Active confirmed There was no sign of recurrent breast cancer of a new primary in either breast today. She will continue with annual mammography and breast self examination. Problem 497667570 Obesity, unspecified (E66.9) Active confirmed Her body mass index is now 30. She has gained 2 pounds. We discussed diet and nutrition. I recommended stabilizing her weight at this level until she has recovered fully from chemotherapy and then gradually reduce her weight through diet and exercise. Problem 980221459 Drug-induced polyneuropathy (G62.0) Active confirmed She continues to have paresthetic pain from the chemotherapy. It has not changed since her last visit. She will continue on current therapy. Problem Osteoporosis (69007466) Osteoporosis (M81.0) Active confirmed She was continued on calcium and vitamin D. Problem 216271857 Malignant neoplasm of ovary, unspecified laterality (C56.9) Active confirmed The stage III epithelial ovarian cancer is in remission. His CEA 125 his in the normal range. Surveillance continues. Problem 26868605 Chronic leukopenia (D72.819) Active confirmed Her white blood cell count is 3200. She has had no infections. Observation was continued. 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 CA 125 is reported to be 16. She will be followed closely. Vital Signs Heart Rate 79 /min 05/15/2024 Temperature 98.6 degrees Fahrenheit 05/15/2024 Blood pressure diastolic 83 mm Hg 05/15/2024 Height 67 in 05/15/2024 Blood pressure systolic 130 mm Hg 05/15/2024 Weight 196 lbs 05/15/2024 BMI 30.69 kg/m2 05/15/2024 Encounters Encounter Location Date Provider Diagnosis Uli Valerio III, MD [address] [place] [address] [place] [address] 06/27/2023 Uli Valerio Infiltrating ductal carcinoma of right breast C50.911 ; Overweight E66.3 ; Chronic leukopenia D72.819 ; Osteoporosis M81.0 and Epithelial ovarian cancer, FIGO stage IIIA C56.9 Uli Valerio III, MD [address] [place] [address] [place] [address] 08/22/2023 Uli Valerio Infiltrating ductal carcinoma of right breast C50.911 ; Chronic leukopenia D72.819 ; Epithelial ovarian cancer, FIGO stage IIIA C56.9 and Overweight E66.3 Uli Valerio III, MD [address] [place] [address] [place] [address] 10/25/2023 Uli Valerio Infiltrating ductal carcinoma of right breast C50.911 ; Epithelial ovarian cancer, FIGO stage IIIA C56.9 ; Chronic leukopenia D72.819 ; Drug-induced polyneuropathy G62.0 ; Osteoporosis M81.0 and Obesity, unspecified E66.9 Uli Valerio III, MD [address] [place] [address] [place] [address] 12/26/2023 Uli Valerio Infiltrating ductal carcinoma of right breast C50.911 ; Epithelial ovarian cancer, FIGO stage IIIA C56.9 ; Osteoporosis M81.0 ; Drug-induced polyneuropathy G62.0 ; Chronic leukopenia D72.819 and Obesity, unspecified E66.9 Uli Valerio III, MD [address] [place] [address] [place] [address] 02/19/2024 Uli Valerio Infiltrating ductal carcinoma of right breast C50.911 ; Overweight E66.3 ; Chronic leukopenia D72.819 ; Drug-induced polyneuropathy G62.0 ; Osteoporosis M81.0 and Malignant neoplasm of ovary, unspecified laterality C56.9 Uli Valerio III, MD [address] [place] [address] [place] [address] 05/15/2024 Uli Valerio Infiltrating ductal carcinoma of right breast C50.911 ; Overweight E66.3 ; Chronic leukopenia D72.819 ; Drug-induced polyneuropathy G62.0 ; Osteoporosis M81.0 and Epithelial ovarian cancer, FIGO stage IIIA C56.9 Assessments Encounter Date Diagnosis (ICD Code) Assessment Notes Treat ment Notes Treatment Clinical Notes 06/27/2023 Overweight (ICD-10 - E66.3) Her body mass index is 29. She has gained 5 pounds since her last visit. We have discussed diet and nutrition and lifestyle modification today. 06/27/2023 Infiltrating ductal carcinoma of right breast (ICD-10 - C50.911) There was no sign of recurrent breast cancer of a new primary in either breast today. She will continue with annual mammography and breast self examination. 08/22/2023 Infiltrating ductal carcinoma of right breast (ICD-10 - C50.911) There was no sign of recurrent breast cancer of a new primary in either breast today. She will continue with annual mammography and breast self examination. 08/22/2023 Chronic leukopenia (ICD-10 - D72.819) Her white blood cell count has improved. 10/25/2023 Infiltrating ductal carcinoma of right breast (ICD-10 - C50.911) There was no sign of recurrent breast cancer of a new primary in either breast today. She will continue with annual mammography and breast self examination. 10/25/2023 Epithelial ovarian cancer, FIGO stage IIIA (ICD-10 - C56.9) She has completed her chemotherapy and will be restaged in the near future. 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 Her CA-125 is 14, in the normal range. 12/26/2023 Infiltrating ductal carcinoma of right breast [...] be 16. She will be followed closely. 02/19/2024 Overweight (ICD-10 - E66.3) Her weight has been stable. We discussed her diet and nutrition. We made a plan to lose weight at a rate of one half of a pound per week. Diet restricted in fat calories and sodium combined with regular activity. 02/19/2024 Infiltrating ductal carcinoma of right breast [...] and sodium combined with regular activity. 05/15/2024 Infiltrating ductal carcinoma of right breast (ICD-10 - C50.911) There was no sign of recurrent breast cancer of a new primary in either breast today. She will continue with annual mammography and breast self examination. 06/27/2023 Chronic leukopenia (ICD-10 - D72.819) Her white blood cell count is 2700. This value will be observed. She has had no infections. It is anticipated it will slowly recover. 08/22/2023 Epithelial ovarian cancer, FIGO stage IIIA (ICD-10 - C56.9) She has completed her chemotherapy and will be restaged in the near future. 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 10/25/2023 Chronic leukopenia (ICD-10 - D72.819) Her white blood cell count has improved. 12/26/2023 Osteoporosis (ICD-10 - M81.0) She was continued on calcium and vitamin D. 02/19/2024 Chronic leukopenia (ICD-10 - D72.819) Her white blood cell count is 3200. She has had no infections. Observation was continued. 05/15/2024 Chronic leukopenia (ICD-10 - D72.819) Her white blood cell count is 3200. She has had no infections. Observation was continued. 06/27/2023 Osteoporosis (ICD-10 - M81.0) She is asymptomatic and will be continued on current therapy. 08/22/2023 Overweight (ICD-10 - E66.3) Her weight has been stable. We discussed her diet and nutrition. We made a plan to lose weight at a rate of one half of a pound per week. Diet restricted in fat calories and sodium combined with regular activity. 10/25/2023 Drug-induced polyneuropathy (ICD-10 - G62.0) She continues to have paresthetic pain from the chemotherapy. It has not changed since her last visit. She will continue on current therapy. 12/26/2023 Drug-induced polyneuropathy (ICD-10 - G62.0) She continues to have paresthetic pain from the chemotherapy. It has not changed since her last visit. She will continue on current therapy. 02/19/2024 Drug-induced polyneuropathy (ICD-10 - G62.0) She continues to have paresthetic pain from the chemotherapy. It has not changed since her last visit. She will continue on current therapy. 05/15/2024 Drug-induced polyneuropathy (ICD-10 - G62.0) She continues to have paresthetic pain from the chemotherapy. It has not changed since her last visit. She will continue on current therapy. 06/27/2023 Epithelial ovarian cancer, FIGO stage IIIA (ICD-10 - C56.9) She has completed cytoreductive surgery followed by chemotherapy. Her PET CT scan is negative at this point and observation will continue. 10/25/2023 Osteoporosis (ICD-10 - M81.0) She is asymptomatic and will be continued on current therapy. 12/26/2023 Chronic leukopenia (ICD-10 - D72.819) Her white blood cell count is 3100. She has had no infections. Observation was continued. 02/19/2024 Osteoporosis (ICD-10 - M81.0) She was continued on calcium and vitamin D. 05/15/2024 Osteoporosis (ICD-10 - M81.0) She was continued on calcium and vitamin D. 10/25/2023 Obesity, unspecified (ICD-10 - E66.9) Her body mass index is now 30. We discussed diet and nutrition. I recommended stabilizing her weight at this level until she has recovered fully from chemotherapy and then gradually reduce her weight through diet and exercise. 12/26/2023 Obesity, unspecified (ICD-10 - E66.9) Her body mass index is now 30. She has gained 2 pounds. We discussed diet and nutrition. I recommended stabilizing her weight at this level until she has recovered fully from chemotherapy and then gradually reduce her weight through diet and exercise. 02/19/2024 Malignant neoplasm o f ovary, unspecified laterality (ICD-10 - C56.9) The stage III epithelial ovarian cancer is in remission. His CEA 125 his in the normal range. Surveillance continues. 05/15/2024 Epithelial ovarian cancer, FIGO stage IIIA (ICD-10 - C56.9) She appears to be in clinical remission after chemotherapy. CA 125 is reported to be 16. She will be followed closely. Plan Of Treatment Pending Test Test Name Order Date PROFILE, FASTING (COMPREHENSIVE METABOLI C) 12/26/2023 PROFILE, FASTING (COMPREHENSIVE METABOLI C) 05/15/2024 PROFILE, FASTING (COMPREHENSIVE METABOLI C) 06/27/2023 PROFILE, FASTING (COMPREHENSIVE METABOLI C) 08/22/2023 PROFILE, FASTING (COMPREHENSIVE METABOLI C) 04/17/2023 PROFILE, RANDOM (COMPREHENSIVE METABOLIC ) 03/10/2020 LIPID PANEL 12/26/2023 LIPID PANEL 08/22/2023 GGT 05/15/2024 GGT 06/27/2023 LDH 06/27/2023 CBC w DIFF 08/22/2023 CBC w DIFF 06/27/2023 CBC w DIFF 12/26/2023 CBC w DIFF 03/10/2020 CBC w DIFF 05/15/2024 CBC w DIFF 04/17/2023 CA 125 04/17/2023 CA 125 06/27/2023 CA 125 05/15/2024 Lipid Panel 05/15/2024 Lipid Panel 04/17/2023 Lipid Panel 06/27/2023 Vitamin D 25-OH Total 12/26/2023 CA-125 12/26/2023 CA 27.29 12/26/2023 Next Appt Details Provider Name:Uli Valerio, 08/13/2024 10:30:00 AM, [address] [place] [address], [address], Insurance Providers Payer Name Payer Address Payer Phone Subscriber Number Group Number Insured Name Patient Relationship to Insured Coverage Start Date Coverage End Date [facility] [address] [place], [place] [id number] CHARY URIBE Self - patient is the insured Medical (General) History Medical History History ICD Code 2.1 cm ER+OR+ invasive ducta l right breast carcinoma with DCIS:[id number](i_)(sn-) September 2015 lipoma removed from arm colonoscopy 2012 Surgical History Surgery Date(Month/Year) [place] removal[place] [facility] [place] Colonoscopy 03/2013 Right breast Biopsy,lumpectomy/sentinal nodes/re-excision 09/2015 Total Hysterectomy- Bilatera l Salpingo- OOpherectomy [facility], ovarian cancer 08/25/22 Bx Pelvic Wall, Right (Negative results) 03/01/23 No history Hospitalization History Reason Date(Month/Year) No history
--- OUTSIDE RECORDS SUMMARY | 2024-05-28 10:04 | XMS_ITS | Continuity of Care Document ---
Author Organization [facility] ancer Care Address [address] [place] [address] Care Team Providers Care Geodetic Surveyor Technologist Name Role Phone Byron Rodarte MD Primary Care Physician [id number] Date(s): 04/24/24 - 05/24/24 [facility] [address] [place] [address] Attending Physician: Hamlet Montalvo Admitting Physician: AdmHamlet liu Referring Physician: Admtr, Ar8 Encounter Type: Triage Allergies, Adverse Reactions, Alerts Substance Criticality Severity Reaction Reaction Severity Status Augmentin Skin rash Active Contrast Dye Painful cough warm genitals, cough Active Immunizations Given and Recorded Vaccine Date Status Refusal Reason [id number] 12y+ bivalent booster vax 05/25/22 Recorded SARS-CoV-2 [...] 2.5%-2.5% topical cream See Instructions, apply to [facility] 30-60min prior to each chemotherapy session, # 30 Gm, 2 Refills, Maintenance, 11/02/22 10:08:00 AM EDT, [facility] #[id number], Partial fill upon patient request if the prescription is for a schedule II opioid drug., apply to [facility] 30-60min prior to each chemotherapy session, 168.3, [...] 10/12/22 Status: Ordered Repeat number: 1 nystatin 225491 u/ml oral suspension 4 mL = 400,000 units, By Mouth, 4 times a day, # 160 mL, 1 Refills, Maintenance, 12/19/22 9:46:00 AMEDT, Suspension, [facility] #[id number], Partial fill upon patient request if the [...] 2 Refills, Maintenance, :33:00 AM EDT, Tablet, [facility] #[id number], Partial fill upon patient request if the [...] 0 Refills, Maintenance, 01/20/23 11:46:00 AM EDT, [facility], Partial fill upon patient [...] Team Personnel Name: Byron Rodarte MD Position: [facility] Outreach Member Role: PCP Address: [address] [place] [address] Byron Cayden TREVINO [place], [place] [address] Telecom: Name: Joanie Romero RN Position: [facility] Onco RN Member Role: Primary Care Nurse Name: Lena Wilkerson RN Position: [facility] SN RN Member Role: Primary Care Nurse Name: Finesse Brian RN Position: [facility] Onco RN Member Role: Primary Care Nurse Name: Odalys Johnston RN Position: S RN Member Role: Primary Care Nurse Name: Tomy Freeman RN Position: S RN Member Role: Primary Care Nurse Care Team Related Persons Name: NELLIE VARGAS Insurance Providers Guarantor name: SANA VARGAS Health Plan Information #: 1 Payer: HMO BLUE IN NETWORK Member Number: NA Policy Number: NA Group Number: NA
[2024-05-28 10:51] LABS: MANUAL DIFF FLAG NO
[2024-05-28 10:58] LABS: Basophils Percent Auto 0.9 % (0-2); Eosinophils Absolute Auto 0.2 X10*3/uL (0.0-0.4); Eosinophils Percent Auto 4.5 % (0-4); Hematocrit 38.5 % (37.0-47.0); Hemoglobin 13.2 g/dl (12.0-16.0); Imm Gran Abs Auto 0.02 X10*3/uL (0.00-0.03); Imm Gran Pct Auto 0.6 % (0.0-0.4); Lymphocytes Absolute Auto 1.1 X10*3/uL (1.2-4.9); Mean Corpuscular HGB Conc 34.3 g/dl (31.0-35.0); Mean Corpuscular Hemoglobin 31.4 pg (27.0-33.0); Mean Corpuscular Volume 91.7 fL (80.0-98.0); Mean Platelet Volume 8.8 fL (9.4-12.3); Monocytes Absolute Auto 0.4 X10*3/uL (0.1-1.2); Monocytes Percent Auto 11.9 % (2-11); Neutrophils Absolute Auto 1.7 x10*3/uL (2.0-8.3); Neutrophils Percent Auto 49.1 % (45-73); Platelet Count 244 X10*3/uL (160-400); Red Cell Distribution Width 12.9 % (11.0-16.0); White Blood Count 3.4 X10*3/uL (4.8-10.8)
[2024-05-28 11:06] LABS: Alanine Aminotransferase 117 U/L (0-31); Albumin Level 4.2 g/dL (3.5-5.0); Alkaline Phosphatase 81 U/L (39-117); Anion Gap 10 (12-20); Aspartate Amino Transferase 75 U/L (5-31); Bilirubin Total 0.6 mg/dL (0.0-1.0); Blood Urea Nitrogen 14 mg/dL (9-16); Calcium 9.3 mg/dL (8.4-10.2); Carbon Dioxide 29 mmol/L (22-29); Chloride 106 mmol/L (96-108); Cholesterol 206 mg/dL (<200); Estimated Glomerular Filt Rate > 60; Glucose Fasting 94 mg/dL (60-99); HDL Cholesterol 59 mg/dL (>40); LDL Cholesterol Calculated 129 mg/dL (<100); Potassium 4.4 mmol/L (3.3-5.1); Sodium 141 mmol/L (135-145); Total Protein 7.3 g/dL (6.5-8.0); Triglycerides 90 mg/dL (<150)
[2024-05-28 11:24] LABS: Gamma Glutamyl Transpeptidase 32 U/L (7-33)
[2024-05-29 08:54] LABS: CA-125 16 U/mL (<35)
== END 2024-05-28 10:01 | disposition home or self-care (01) ==
LOC: HO.10HDL 10:00
PROVIDERS: Visit Provider Internal Medicine Medical Oncology
DX: Z13.6 Encounter for screening for cardiovascular disorders (principal); C50.911 Malignant neoplasm of unspecified site of right female breast; D72.819 Decreased white blood cell count, unspecified; M81.0 Age-related osteoporosis without current pathological fracture; C56.9 Malignant neoplasm of unspecified ovary
CPT/HCPCS: 36415; 80053; 80061; 82977; 85025; 86304

== ENCOUNTER 2024-07-05 08:54 | Outpatient (REF) | payer BC, SELFPAY ==
[2024-07-05 09:04] LABS: MANUAL DIFF FLAG NO
[2024-07-05 09:09] LABS: Basophils Percent Auto 0.4 % (0-2); Eosinophils Absolute Auto 0.1 X10*3/uL (0.0-0.4); Eosinophils Percent Auto 0.6 % (0-4); Hematocrit 39.6 % (37.0-47.0); Hemoglobin 13.5 g/dl (12.0-16.0); Imm Gran Abs Auto 0.04 X10*3/uL (0.00-0.03); Imm Gran Pct Auto 0.4 % (0.0-0.4); Lymphocytes Absolute Auto 0.8 X10*3/uL (1.2-4.9); Lymphocytes Percent Auto 7.8 % (20-40); Mean Corpuscular HGB Conc 34.1 g/dl (31.0-35.0); Mean Corpuscular Hemoglobin 31.2 pg (27.0-33.0); Mean Corpuscular Volume 91.5 fL (80.0-98.0); Mean Platelet Volume 8.7 fL (9.4-12.3); Monocytes Absolute Auto 0.5 X10*3/uL (0.1-1.2); Monocytes Percent Auto 5.2 % (2-11); Neutrophils Absolute Auto 8.7 x10*3/uL (2.0-8.3); Neutrophils Percent Auto 85.6 % (45-73); Platelet Count 242 X10*3/uL (160-400); Red Blood Count 4.33 X10*6/uL (4.20-5.50); Red Cell Distribution Width 12.6 % (11.0-16.0); White Blood Count 10.1 X10*3/uL (4.8-10.8)
--- OUTSIDE RECORDS SUMMARY | 2024-07-05 09:14 | XMS_ITS ---
Author Organization Uli Valerio III, MD Address [address] [address] Care Team Providers Care Salesperson Hosiery Name Role Phone Byron Rodarte MD Primary Care Provider Uli Guaman Unavailable [phone] Allergies Allergen (clinical drug ingredient) Drug/Non Drug [...] Problem Status W/U Status Risk Notes Problem 118094810 Malignant neoplasm of ovary, unspecified laterality (C56.9) [...] Date Provider Diagnosis Uli Valerio III, MD [address] [place] [address] [address] [place], [place] [address] 12/26/2023 Uli Valerio Infiltrating ductal carcinoma of [...] at Provider Name:Uli Valerio, 08/13/2024 10:30:00 AM, [address] [place] [address] IN[address], [place], [address], Progress Notes * ZACKTHOR TAVAREZSORAYAB:1960 (63 yo F)Acc No.[id number]:12/26/2023 Progress Notes Patient:?SAM SANA Provider:?Uli Valerio MD :1960???Age:63 Y???Sex:Female D ate:12/26/2023 Address:[address] [place], [place] [address] Pcp:Byron Rodarte MD Subjective: * Chief Complaints: [...] Monday. She had blood work recently at [facility] and was told the CA 125 was 16. Her alopecia has resolved and she is feeling better. The neuropathy is present but mild and she yanet with it. She is scheduled to have a routine screening colonoscopy January 16, [address] Donnelly at [facility]. Her appetite is good. She is distressed [...] Medical History:? * Surgical History:?Lipoma rem oval; [facility] [place] Colonoscopy 03/2013Right breast Biopsy,lumpectomy/sentinal nodes/re-excision 09/2015Total Hysterectomy- Bilateral Salpingo- OOpherectomy [facility], ovarian cancer 08/25/22Bx Pelvic [...] mg/dL) 59 (Ref Range: >40 mg/dL) * Lab:[facility] * Order Date [...] Valerio MD Date:?11/28 Generated for Tim morales/Adolfo/Haileyitting on:?07/05/2024 09:14 AM EST History and Physical Notes * [...]
--- OUTSIDE RECORDS SUMMARY | 2024-07-05 09:14 | XMS_ITS | Continuity of Care Document ---
Author Organization [facility] Address [address] [place] [address]- Care Team Providers Care Physician Ophthalmologist Name Role Phone Byron Rodarte MD Primary Care Physician [phone] [id number] Date(s): 04/24/24 - 06/29/24 [facility] [address] [place] [address] Discharge Disposition: A-D/C Home Attending Physician: Christal Hightower MD Admitting Physician: Christal Hightower MD Referring Physician: Byron Rodarte MD Encounter Type: Disch Recurring OP Allergies, Adverse Reactions, Alerts Substance Criticality Severity Reaction Reaction Severity Status Augmentin Skin rash Active Contrast Dye Painful cough warm genitals, cough Active Immunizations Given and Recorded Vaccine Date Status Refusal Reason [id number] 12y+ bivalent booster vax 05/25/22 Recorded SARS-CoV-2 [...] 2.5%-2.5% topical cream See Instructions, apply to [facility] 30-60min prior to each chemotherapy session, # 30 Gm, 2 Refills, Maintenance, 11/02/22 10:08:00 AM EDT, [facility] #[id number], Partial fill upon patient request if the prescription is for a schedule II opioid drug., apply to [facility] 30-60min prior to each chemotherapy session, [...] 10/12/22 Status: Ordered Repeat number: 1 nystatin 286655 u/ml oral suspension 4 mL = 400,000 units, By Mouth, 4 times a day, # 160 mL, 1 Refills, Maintenance, 12/19/22 9:46:00 AMEDT, Suspension, [facility] #[id number], Partial fill upon patient request if the [...] 2 Refills, Maintenance, :33:00 AM EDT, Tablet, [facility] #[id number], Partial fill upon patient request if the [...] 0 Refills, Maintenance, 01/20/23 11:46:00 AM EDT, [facility], Partial fill upon patient request [...] I Confirmed Active Pelvic mass Confirmed Active Vital Signs Most recent to oldest [Reference Range]: 1 Height 168 cm (04/29/24 10:11 AM) Temperature Route Oral (04/29/24 10:11 AM) Social History Social History Type Response Smoking Status Former smoker, quit more than 30 days ago entered on: 07/27/22 Sex Sex Representation Female (finding) Patient Care team information Care Team Personnel Name: Byron Rodarte MD Position: [facility] Outreach Member Role: PCP Address: [address] [place] [address] [place] [address]- Telecom: Name: Joanie Romero RN Position: [facility] Onco RN Member Role: Primary Care Nurse Name: Lena Wilkerson RN Position: [facility] SN RN Member Role: Primary Care Nurse Name: Finesse Brian RN Position: [facility] Onco RN Member Role: Primary Care Nurse Name: Odalys Johnston RN Position: S RN Member Role: Primary Care Nurse Name: Tomy Freeman RN Position: [facility] RN Member Role: Primary Care Nurse Care Team Related Persons Name: NELLIE VARGAS Insurance Providers Guarantor name: SANA VARGAS Health Plan Information #: 1 Payer: HMO BLUE IN NETWORK Member Number: [id number] Policy Number: NA Group Number: [id number] Health Plan Information #: 2 Payer: [employer] NETWORK Member Number: [id number] Policy Number: NA Group Number: NA
--- OUTSIDE RECORDS SUMMARY | 2024-07-05 09:14 | XMS_ITS ---
Author Organization Uli Valerio III, MD Address [address] [address] Care Team Providers Care Commonwealth Attorney Name Role Phone Byron Rodarte MD Primary Care Provider Uli Guaman Unavailable [phone] Allergies Allergen (clinical drug ingredient) Drug/Non Drug [...] Date Provider Diagnosis Uli Valerio III, MD [address] [place] [address] [place] [address] 02/19/2024 Uli Valerio Infiltrating ductal carcinoma of [...] OV Provider Name:Uli Valerio, 08/13/2024 10:30:00 AM, [address] [place] [address] [address], [place], [address], Progress Notes * PEDRO URIBE:1960 (63 yo F)Acc No.[id number]:02/19/2024 Progress Notes Patient:?SANA URIBE Provider:?Uli Valerio MD :1960???Age:63 Y???Sex:Female D ate:02/19/2024 Address:[address] [place], [place] [phone] Pcp:Byron Rodarte MD Subjective: * Chief Complaints: * ???Ovarian cancerHistory of breast cancerPeripheral neuropathyLeukocytopeniaOsteoporosisObesity * HPI: ???COVID-19 Screening:?She returns for oncology management.? 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 It was otherwise negative.? This was done at [facility].? Her port was flushed January 31, 2025. [...] Medical History:? * Surgical History:?[place] rem oval[place] [facility] [place] Sosa Colonoscopy 03/2013Right breast Biopsy,lumpectomy/sentinal nodes/re-excision 09/2015Total Hysterectomy- Bilateral Salpingo- OOpherectomy [facility], ovarian cancer 08/25/22Bx Pelvic Wall, Right [...] * Provider:?Uli Valerio MD Date:?01/28 Generated for Lillii ng/Adolfo/eTransmitting on:?07/05/2024 09:14 AM EST History and Physical [...]
--- OUTSIDE RECORDS SUMMARY | 2024-07-05 09:14 | XMS_ITS ---
Author Organization Uli Valerio III, MD Address [address] [place] [address] Care Team Providers Care Human Resource Analyst Name Role Phone Byron Rodarte MD Primary Care Provider Uli Guaman Unavailable [phone] Allergies Allergen (clinical drug ingredient) Drug/Non Drug [...] Date Provider Diagnosis Uli Valerio III, MD [address] [place] [address] [place] [address] 05/15/2024 Uli Valerio Infiltrating ductal carcinoma of [...] the repeated liver function tests Provider Name:Uli Valerio, 08/13/2024 10:30:00 AM, [address] [place] [address] [address], [place], [address], Progress Notes * PAWAN URIBEB:1960 (64 yo F)Acc No.[id number]:05/15/2024 Progress Notes Patient:SANA BARNES Provider:?Uli Valerio MD :1960???Age:64 Y???Sex:Female D ate:05/15/2024 Address:[address] [place], [place] [phone] Pcp:Byron Rodarte MD Subjective: * Chief Complaints: * ???Stage III ovarian cancerH istory of right breast cancerChronic leukopeniaOsteoporosisBone * HPI: ???COVID-19 Screening:?Questions?Have you had any new onset fever, chills, cough, congestion, sore throat, shortness of breath, muscle aches??No ???:? The patient, a 64-year-old female, presented with [...] now being maintained every three months. * ROS:?General/Constitutional:?Denies?pain,?Numbness in his feet, otherwise only normal aches and pains.?Chills?denies.?Fatigue?admits.?Fever?denies.?ENT:?Decreased hearing?denies.?Respiratory:?Cough?denies.?Cardiovascular:?Chest pain with exertion?denies.?Dyspnea on exertion?denies.?Shortness of breath?denies.?Gastrointestinal:?Constipation?occasional.?Decreased appetite?denies.?Diarrhea?denies.?Heartburn?denies.?Nausea?denies.?Rectal bleeding?denies.?Vomiting?denies.?Hematology:?bruising?denies.?petechiae?denies.?Swollen glands?none have been noted.?Genitourinary:?Frequent urination?denies.?Musculoskeletal:?Muscle aches?denies.?Painful joints?denies.?Sciatica?denies.?Weakness?denies.?Skin:?Itching?denies.?Rash?denies.?Skin lesion(s)?denies.?Neurologic:?Difficulty speaking?denies.?Dizziness?denies.?Headache?denies.?Low back pain?denies.?Psychiatric:?Depressed mood?denies.? * Medical History:? * Surgical History:?Lipoma rem oval; [facility] [place] Dr Sosa Colonoscopy 03/2013Right breast Biopsy,lumpectomy/sentinal nodes/re-excision 09/2015Total Hysterectomy- Bilateral Salpingo- OOpherectomy [facility], ovarian cancer 08/25/22Bx Pelvic Wall, Right (Negative results) 03/01/23No history * Hospitalization/Major Diagno stic Procedure:?No history * Family History:?Father: dece ased.?Mother: alive, diagnosed with HTN, Cancer.?Son(s): alive.?Maternal Grand Father: diagnosed with Cancer.?Maternal aunt: diagnosed [...] nauseano[Allergies Verified] Objective: * Vitals:?Ht: 67, Wt: 196, BMI :30.69, BP: 130/83, HR: 79, Temp: 98.6, Wt-k.9. * Examination: ???General Examination: ?GENERAL APPEARANCE:?pleasant, well nourished, well developed, in no acute distress, calm and relaxed, obese, woman.?HEAD:?atraumatic, normocephalic.?EYES:?eomi, perrla, anicteric, conjugate.?EARS:?normal.?NOSE:?septum intact.?ORAL CAVITY:?normal, unremarkable.?NECK/THYROID:?no jugular venous distention, no carotid bruit, thyroid normal.?LYMPH NODES:?no enlarged lymph nodes,spleen normal.?SKIN:?no suspicious lesions, anicteric.?HEART:?no clicks, gallops, murmurs, or rubs, regular rhythm, S1, S2 normal, no s3, or vascular bruits.?LUNGS:?clear to auscultation .?BREASTS:??no masses palpable bilaterally.?ABDOMEN:?bowel sounds normal, no ascites, no organomegaly, no mass, Healed surgical incision.?RECTAL EXAM:?not examined.?MUSCULOSKELETAL:?extremities unremarkable, no clubbing, cyanosis or [...] :She was continued on calcium and vitamin D.???6.?Epithelial ovarian cancer, 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 CA 125 is reported to be 16. She will be followed closely.??? Plan: * Treatment: 2.?Chronic leukopenia?LAB: PROFILE, FASTING (COMPREHENSIVE METABOLIC) ?LAB: GGT ?LAB: CBC w DIFF ?LAB: CA 125 ?LAB: Lipid Panel 3.?Osteoporosis?LAB: PROFILE, FASTING (COMPREHENSIVE METABOLIC) ?LAB: GGT ?LAB: CBC w DIFF ?LAB: CA 125 ?LAB: Lipid Panel 4.?Epithelial ovarian cancer , FIGO stage IIIA?LAB: PROFILE, FASTING (COMPREHENSIVE METABOLIC) ?LAB: GGT ?LAB: CBC w DIFF ?LAB: CA 125 ?LAB: Lipid Panel * Procedure Codes:? * Preventive Medicine:? ??Counseling:?Care [...] Other reason not done * Follow Up:?3 Months, Before next visit (Reason: ov review labs, To discuss the results of the repeated liver function tests) * Images: * Sign off status: Completed true * Provider:?Uli Valerio MD Date:?04/28 Generated for Tim morales/Adolfo/eTransmitting on:?07/05/2024 09:14 AM EST History and Physical [...]
--- OUTSIDE RECORDS SUMMARY | 2024-07-05 09:14 | XMS_ITS | Patient Health Record ---
Author Organization Uli Valerio III, MD Address [address] [place] [address] Care Team Providers Care Freight Car Loader Name Role Phone Byron Rodarte MD Primary Care Provider Uli Guaman Unavailable [phone] Allergies Allergen (clinical drug ingredient) Drug/Non Drug Allergy documented on EMR Reaction Allergy Type Onset Date Status Iodinated contrast media (substance) Iodinated Diagnostic Agents nausea Drug Allergy Active amoxicillin / clavulanate Augmentin Rash Drug Allergy Active Results Component Value Reference Range Notes Complete Blood Count Auto Di ff Reviewed date:08/19/2023 01:38:51 PM Interpretation: Performing Lab:[facility], [address] [place] [phone] Notes/Report: White Blood Count 3.3 4.8-10.8 X10*3/uL [...] NRBC Abs Auto 0.000 0.0-0.012 X10*3/uL Comprehensive [place]. Panel Fa st Reviewed date:08/19/2023 01:38:51 PM Interpretation: Performing Lab:[address] [address] Notes/Report: Sodium 140 135-145 mmol/L Potassium 4.2 3.3-5.1 mmol/L Chloride 104 96-108 mmol/L Carbon Dioxide 28 22-29 mmol/L Anion Gap 12 12-20 Blood Urea Nitrogen 18 9-16 mg/dL Creatinine 0.76 0.5-1.4 mg/dL Estimated Glomerular Filt Rate > 60 NOTE: For -Greenlandic individuals, multiply the result by 1.210. Chronic [...] e Reviewed date:08/19/2023 01:38:51 PM Interpretation: Performing Lab:[address] [address] Notes/Report: Gamma Glutamyl Transpeptidase 43 7-33 U/L Lactate Dehydrogenase Reviewed date:08/19/2023 01:38:51 PM Interpretation: Performing Lab:[facility], [address] [place] [phone] Notes/Report: Lactate Dehydrogenase 313 122-220 U/L Lipid Panel Reviewed date:08/19/2023 01:38:51 PM Interpretation: Performing Lab:[facility], [address] [place] [phone] Notes/Report: Triglycerides 70 <150 mg/dL Desirable Triglyceride: [...] CA-125 Reviewed date:08/19/2023 01:38:51 PM Interpretation: Performing Lab:[address] [address] Notes/Report: CA-125 14 <35 U/mL This test was performed using the Siemens Chemiluminescent method. Values obtained from different assay methods cannot be used interchangeably. CA 125 levels, regardless of value, should not be interpreted as absolute evidence of the presence or absence of disease. THIS TEST WAS PERFORMED AT: [facility] [address] [place] [phone] TAMMIE BLANCA MD Complete Blood Count Auto Di ff Reviewed date:10/19/2023 10:55:05 AM Interpretation: Performing Lab:[facility], [address] [place] [phone] Notes/Report: White Blood Count 3.1 4.8-10.8 X10*3/uL [...] NRBC Abs Auto 0.000 0.0-0.012 X10*3/uL Comprehensive [place]. Panel Fa st Reviewed date:10/19/2023 10:55:05 AM Interpretation: Performing Lab:[facility], [address] [place] [address], [place] [address] Notes/Report: Sodium 142 135-145 mmol/L Potassium 4.3 3.3-5.1 mmol/L Chloride 106 96-108 mmol/L Carbon Dioxide 28 22-29 mmol/L Anion Gap 12 12-20 Blood Urea Nitrogen 17 9-16 mg/dL Creatinine 0.74 0.5-1.4 mg/dL Estimated Glomerular Filt Rate > 60 NOTE: For -Greenlandic individuals, multiply the result by 1.210. Chronic [...] Panel Reviewed date:10/19/2023 10:55:05 AM Interpretation: Performing Lab:[facility], [address] [place] [phone] Notes/Report: Triglycerides 74 <150 mg/dL Desirable Triglyceride: [...] ff Reviewed date:01/14/2024 06:46:42 AM Interpretation: Performing Lab:[facility], [address] [place] [phone] Notes/Report: White Blood Count 3.2 4.8-10.8 X10*3/uL [...] NRBC Abs Auto 0.000 0.0-0.012 X10*3/uL Comprehensive [place]. Panel Fa st Reviewed date:01/14/2024 06:46:42 AM Interpretation: Performing Lab:[facility], [address] [place] [phone] Notes/Report: Sodium 142 135-145 mmol/L Potassium 4.1 3.3-5.1 mmol/L Chloride 106 96-108 mmol/L Carbon Dioxide 30 22-29 mmol/L Anion Gap 10 12-20 Blood Urea Nitrogen 15 9-16 mg/dL Creatinine 0.80 0.5-1.4 mg/dL Estimated Glomerular Filt Rate > 60 NOTE: For -Greenlandic individuals, multiply the result by 1.210. Chronic [...] Panel Reviewed date:01/14/2024 06:46:42 AM Interpretation: Performing Lab:[facility], [address] [place] [phone] Notes/Report: Triglycerides 61 <150 mg/dL Desirable Triglyceride: [...] Total Reviewed date:01/14/2024 06:46:42 AM Interpretation: Performing Lab:[facility], [address] [place] [phone] Notes/Report: Vitamin D 25-OH Total 61.6 >30 [...] CA-125 Reviewed date:01/14/2024 06:46:42 AM Interpretation: Performing Lab:[facility], [address] [place] [phone] Notes/Report: CA-125 15 <35 U/mL This test was performed using the Siemens Chemiluminescent method. Values obtained from different assay methods cannot be used interchangeably. CA 125 levels, regardless of value, should not be interpreted as absolute evidence of the presence or absence of disease. THIS TEST WAS PERFORMED AT: [facility] [address] [place] [phone] TAMMIE BLANCA MD CA 27.29 Reviewed date:01/14/2024 06:46:42 AM Interpretation: Performing Lab:[facility], [address] [place] [phone] Notes/Report: CA 27.29 21 <38 U/mL This test was performed using the Siemens Chemiluminescent method. Values obtained from different assay methods cannot be used interchangeably. CA 27.29 levels, regardless of value, should not be interpreted as absolute evidence of the presence or absence of disease. THIS TEST WAS PERFORMED AT: [facility] [address] [place] [phone] TAMMIE BLANCA MD XR DEXA axial skeleton Reviewed date:05/20/2024 06:16:21 AM Interpretation: Performing Lab: Notes/Report: [facility] [address] [place] [address] Mammography Report Signed Patient: Chary Uribe MR#: [id number] : 1960 Acct:[id number] Age/Sex: 63 / F ADM Date: 01/19/24 Loc: HO.MAMMO Attending Dr: Uli Valerio MD Ordering Physician: Uli Valerio MD Results: Date of Service: 01/19/24 Follow Up: Procedure(s): XR DEXA axial skeleton Accession Number(s): [id number] cc: Uli Valerio MD; Byron Rodarte MD EXAMINATION: BONE DENSITOMETRY CLINICAL INDICATION: Osteoporosis. COMPARISON: Previous BD dated 10/15/2021 and baseline BD dated 02/14/2017. TECHNIQUE: Using a [employer] DXA System (software version: 13.1) manufactured by [employer], dual-energy x-ray absorptiometry was performed of the [...] 01/22/24 0835 DD/ 1000 TD/TT: 01/19/24 1030 Appliances Sample Maker: AMARA [place] [facility] [address] [place] [address] Mammography Report Signed Patient: Sid Uribe MR#: [id number] : 1960 Acct:[id number] Age/Sex: 63 / F ADM Date: 01/19/24 Loc: HO.MAMMO Attending Dr: Uil Valerio MD Ordering Physician: Uli Valerio MD Results: Date of Service: 01/19/24 Follow Up: Procedure(s): XR DEX A axial skeleton Accession Number(s): [id number] cc: Uli Valerio MD; Byron Rodarte MD EXAMINATION: BONE DENSITOMETRY CLINICAL INDICATION: Osteoporosis. COMPARISON: Previous BD dated 10/15/2021 and baseline BD dated 02/14/2017. TECHNIQUE: Using a [employer] DXA System (software version: 13.1) manufactured b [employer], dual-energy x-ray absorptiometry was performed of the [...] Henrique Warren MD 01/22/2024 08:35 AM EDT RP Dictated By: Henrique Warren MD Signed By: <Electronically signed by Henrique Warren MD in OV> 01/22/24 0835 DD/ 1000 TD/TT: 01/19/24 1030 Appliances Sample Maker: Complete Blood Count Auto Di ff Reviewed date:06/04/2024 04:12:40 PM Interpretation: Performing Lab:[facility], [address] [place] [phone] Notes/Report: White Blood Count 3.4 4.8-10.8 X10*3/uL Red Blood Count 4.20 4.20-5.50 X10*6/uL Hemoglobin 13.2 12.0-16.0 g/dl Hematocrit 38.5 37.0-47.0 % Mean Corpuscular Volume 91.7 80.0-98.0 fL Mean Corpuscular Hemoglobin 31.4 27.0-33.0 pg Mean Corpuscular HGB Conc 34.3 31.0-35.0 g/dl Red Cell Distribution Width 12.9 11.0-16.0 % Platelet Count 244 160-400 X10*3/uL Mean Platelet Volume 8.8 9.4-12.3 fL Neutrophils Percent Auto 49.1 45-73 % Imm Gran Pct Auto 0.6 0.0-0.4 % Lymphocytes Percent Auto 33.0 20-40 % Monocytes Percent Auto 11.9 2-11 % Eosinophils Percent Auto 4.5 0-4 % Basophils Percent Auto 0.9 0-2 % NRBC Pct Auto 0.0 0.0-0.2 /100WBC Neutrophils Absolute Auto 1.7 2.0-8.3 x10*3/uL Imm Gran Abs Auto 0.02 0.00-0.03 X10*3/uL Lymphocytes Absolute Auto 1.1 1.2-4.9 X10*3/uL Monocytes Absolute Auto 0.4 0.1-1.2 X10*3/uL Eosinophils Absolute Auto 0.2 0.0-0.4 X10*3/uL Basophils Absolute Auto 0.0 0.0-0.2 X10*3/uL NRBC Abs Auto 0.000 0.0-0.012 X10*3/uL Comprehensive [place]. Panel Fa st Reviewed date:06/04/2024 04:12:40 PM Interpretation: Performing Lab:[address] [address] Notes/Report: Sodium 141 135-145 mmol/L Potassium 4.4 3.3-5.1 mmol/L Chloride 106 96-108 mmol/L Carbon Dioxide 29 22-29 mmol/L Anion Gap 10 12-20 Blood Urea Nitrogen 14 9-16 mg/dL Creatinine 0.76 0.5-1.4 mg/dL Estimated Glomerular Filt Rate > 60 Chronic Kidney Disease: Estimated GFR < 60 mL/min/1.73m2 Severe Kidney Disease: Estimated GFR < 15 mL/min/1.73m2 Glucose Fasting 94 60-99 mg/dL Calcium 9.3 8.4-10.2 mg/dL Bilirubin Total 0.6 0.0-1.0 mg/dL Aspartate Amino Transferase 75 5-31 U/L Alanine Aminotransferase 117 0-31 U/L Total Protein 7.3 6.5-8.0 g/dL Albumin Level 4.2 3.5-5.0 g/dL Alkaline Phosphatase 81 39-117 U/L Gamma Glutamyl Transpeptidas e Reviewed date:06/04/2024 04:12:40 PM Interpretation: Performing Lab:[address] [address] Notes/Report: Gamma Glutamyl Transpeptidase 32 7-33 U/L Lipid Panel Reviewed date:06/04/2024 04:12:40 PM Interpretation: Performing Lab:[address] [address] Notes/Report: Triglycerides 90 <150 mg/dL Desirable Triglyceride: less than 150 mg/dL Borderline High Triglyceride 150-199 mg/dL High Triglyceride: 200-499 mg/dL Very High Triglyceride: greater than or equal to 5OO mg/dL Cholesterol 206 <200 mg/dL Desirable Cholesterol: less than 200 mg/dL Borderline High Cholesterol: 200-239 mg/dL High Cholesterol: greater than 239 mg/dL LDL Cholesterol Calculated 129 <100 mg/dL Desirable LDL: less than 100 mg/dL Near Optimal/Above Optimal LDL: 110-129 mg/dL Borderline High LDL: 130-159 mg/dL High LDL: 160-189 mg/dL Very High LDL: greater than or equal to 190 mg/dL HDL Cholesterol 59 >40 mg/dL Desirable HDL: greater than 40 mg/dL Note: This HDL assay may give artificially low results in patients with liver disease. CA-125 Reviewed date:06/04/2024 04:12:40 PM Interpretation: Performing Lab:[facility], [address] [place] [address] Notes/Report: CA-125 16 <35 U/mL This test was performed using the Siemens Chemiluminescent method. Values obtained from different assay methods cannot be used interchangeably. CA 125 levels, regardless of value, should not be interpreted as absolute evidence of the presence or absence of disease. THIS TEST WAS PERFORMED AT: [facility] [address] [place] [phone] TAMMIE BLANCA MD Reason For Referral Reason Breast Cancer Diagnosis 1 Infiltrating ductal carcinoma of right breast (C50.911) Referring Provider First Name Byron Referring Provider Last Name Cayden Referring Provider Speciality Internal M edicine Referred Organization Uli Valerio III, MD Referred Provider Uli Valerio Referred Address [address] [place] [address] [address] ,[place], [place],[address], Referred Provider Specialty Oncology Referral Priority Routine [...] Problem Status W/U Status Risk Notes Problem 324992190 Overweight (E66.3) Active confirmed Her weight has been stable. We discussed her diet and nutrition. We made a plan to lose weight at a rate of one half of a pound per week. Diet restricted in fat calories and sodium combined with regular activity. Problem 984016434 Infiltrating ductal carcinoma of right breast (C50.911) Active confirmed There was no sign of recurrent breast cancer of a new primary in either breast today. She will continue with annual mammography and breast self examination. Problem 589303233 Obesity, unspecified (E66.9) Active confirmed Her body mass index is now 30. She has gained 2 pounds. We discussed diet and nutrition. I recommended stabilizing her weight at this level until she has recovered fully from chemotherapy and then gradually reduce her weight through diet and exercise. Problem 539594006 Drug-induced polyneuropathy (G62.0) Active confirmed She continues to have paresthetic pain from the chemotherapy. It has not changed since her last visit. She will continue on current therapy. Problem Osteoporosis (86760539) Osteoporosis (M81.0) Active confirmed She was continued on calcium and vitamin D. Problem 188604737 Malignant neoplasm of ovary, unspecified laterality (C56.9) Active confirmed The stage III epithelial ovarian cancer is in remission. His CEA 125 his in the normal range. Surveillance continues. Problem 75230038 Chronic leukopenia (D72.819) Active confirmed Her white blood cell count is 3200. She has had no infections. Observation was continued. Problem 953819002 Epithelial ovarian cancer, FIGO stage IIIA (C56.9) [...] Date Provider Diagnosis Uli Valerio III, MD [address] [place] [address] [place] [address] 08/22/2023 Uli Valerio Infiltrating ductal carcinoma of right breast C50.911 ; Chronic leukopenia D72.819 ; Epithelial ovarian cancer, FIGO stage IIIA C56.9 and Overweight E66.3 Uli Valerio III, MD [address] [place] [address] [place] [address] 10/25/2023 Uli Valerio Infiltrating ductal carcinoma of right breast C50.911 ; Epithelial ovarian cancer, FIGO stage IIIA C56.9 ; Chronic leukopenia D72.819 ; Drug-induced polyneuropathy G62.0 ; Osteoporosis M81.0 and Obesity, unspecified E66.9 Uli Valerio III, MD [address] [place] [address] [place] [address] 12/26/2023 Uli Valerio Infiltrating ductal carcinoma of right breast C50.911 ; Epithelial ovarian cancer, FIGO stage IIIA C56.9 ; Osteoporosis M81.0 ; Drug-induced polyneuropathy G62.0 ; Chronic leukopenia D72.819 and Obesity, unspecified E66.9 Uli Valerio III, MD [address] [place] [address] [place] [address] 02/19/2024 Uli Valerio Infiltrating ductal carcinoma of right breast C50.911 ; Overweight E66.3 ; Chronic leukopenia D72.819 ; Drug-induced polyneuropathy G62.0 ; Osteoporosis M81.0 and Malignant neoplasm of ovary, unspecified laterality C56.9 Uli Valerio III, MD [address] [place] [address] [address] [place], [place] [address] 05/15/2024 Uli Valerio Infiltrating ductal carcinoma of right breast C50.911 ; Overweight E66.3 ; Chronic leukopenia D72.819 ; Drug-induced polyneuropathy G62.0 ; Osteoporosis M81.0 and Epithelial ovarian cancer, FIGO stage IIIA C56.9 Assessments Encounter Date Diagnosis (ICD Code) Assessment Notes Treat ment Notes Treatment Clinical Notes 08/22/2023 Infiltrating ductal carcinoma of right breast [...] in the near future. She will see [facility] oncology next month. Her CA-125 is 14, [...] annual mammography and breast self examination. 08/22/2023 Epithelial ovarian cancer, FIGO stage IIIA (ICD-10 - C56.9) She has completed her chemotherapy and will be restaged in the near future. She will see [facility] oncology next month. 10/25/2023 Chronic leukopenia (ICD-10 [...] has had no infections. Observation was continued. 08/22/2023 Overweight (ICD-10 - E66.3) Her weight [...] Details Provider Name:Uli Valerio, 08/13/2024 10:30:00 AM, [address] [place] [address], [address], Insurance Providers Payer Name Payer Address Payer Phone Subscriber Number Group Number Insured Name Patient Relationship to Insured Coverage Start Date Coverage End Date [facility] [address] [place], [place] [id number] CHARY URIBE Self - patient is the insured Medical (General) History Medical History History ICD Code 2.1 cm ER+[place]+ invasive ducta l right breast carcinoma with DCIS:[id number](i_)(sn-) September 2015 lipoma removed from arm colonoscopy 2012 Surgical History Surgery Date(Month/Year) [place] [facility] [place] Colonoscopy 03/2013 Right breast Biopsy,lumpectomy/sentinal nodes/re-excision 09/2015 Total Hysterectomy- Bilatera l Salpingo- OOpherectomy [facility], ovarian cancer 08/25/22 Bx Pelvic Wall, Right (Negative results) 03/01/23 No history Hospitalization History Reason Date(Month/Year) No history
[2024-07-05 11:59] LABS: Alanine Aminotransferase 115 U/L (0-31); Albumin Level 4.4 g/dL (3.5-5.0); Alkaline Phosphatase 81 U/L (39-117); Anion Gap 9 (12-20); Aspartate Amino Transferase 69 U/L (5-31); Bilirubin Total 0.6 mg/dL (0.0-1.0); Blood Urea Nitrogen 15 mg/dL (9-16); Calcium 9.4 mg/dL (8.4-10.2); Carbon Dioxide 26 mmol/L (22-29); Chloride 106 mmol/L (96-108); Estimated Glomerular Filt Rate > 60; Glucose Random 114 mg/dL (60-115); Potassium 4.3 mmol/L (3.3-5.1); Sodium 137 mmol/L (135-145); Total Protein 7.9 g/dL (6.5-8.0)
[2024-07-05 12:05] LABS: Vitamin D 25-OH Total 59.2 ng/mL (>30)
== END 2024-07-05 08:55 | disposition home or self-care (01) ==
LOC: HO.LAB 08:54
PROVIDERS: PCP Internal Medicine; Visit Provider Internal Medicine
DX: R79.89 Other specified abnormal findings of blood chemistry (principal); M81.0 Age-related osteoporosis without current pathological fracture
CPT/HCPCS: 36415; 80053; 82306; 85025

== ENCOUNTER 2024-07-10 09:42 | Outpatient (REF) | payer BC, SELFPAY ==
--- OUTSIDE RECORDS SUMMARY | 2024-07-10 11:02 | XMS_ITS ---
Author Organization Uli Valerio III, MD Address [address] [place] [address] Care Team Providers Care Floriculture Professor Name Role Phone Byron Rodarte MD Primary Care Provider Uli Guaman Unavailable [phone] Allergies Allergen (clinical drug ingredient) Drug/Non Drug [...] Problem Status W/U Status Risk Notes Problem 049021201 Malignant neoplasm of ovary, unspecified laterality (C56.9) [...] Provider Diagnosis Uli Valerio III, MD [address] [place] [address] [address] [place], [place] [address] 12/26/2023 Uli Valerio Infiltrating ductal carcinoma of [...] at Provider Name:Uli Valerio, 08/13/2024 10:30:00 AM, [address] [place] [address] [address], [place], [address], Progress Notes * ZACKTHOR TAVAREZSORAYAB:1960 (63 yo F)Acc No.[id number]:12/26/2023 Progress Notes Patient:?SAM SANA Provider:?Uli Valerio MD :1960???Age:63 Y???Sex:Female D ate:12/26/2023 Address:[address] [place], [place] [phone] Pcp:Byron Rodarte MD Subjective: * Chief Complaints: [...] Monday. She had blood work recently at [facility] and was told the CA 125 was 16. Her alopecia has resolved and she is feeling better. The neuropathy is present but mild and she yanet with it. She is scheduled to have a routine screening colonoscopy January 16, [address] Donnelly at [facility]. Her appetite is good. She is [...] Medical History:? * Surgical History:?Lipoma rem oval; [facility] [place] Dr Spath Colonoscopy 03/2013Right breast Biopsy,lumpectomy/sentinal nodes/re-excision 09/2015Total Hysterectomy- Bilateral Salpingo- OOpherectomy [facility], ovarian cancer 08/25/22Bx Pelvic [...] Valerio MD Date:?11/28 Generated for Tim morales/Adolfo/Haileyitting on:?07/10/2024 11:02 AM EST History and Physical Notes * [...]
--- OUTSIDE RECORDS SUMMARY | 2024-07-10 11:02 | XMS_ITS | Patient Health Record ---
Author Organization Uli Valerio III, MD Address [address] [address] Care Team Providers Care Electromechanical Engineer Name Role Phone Byron Rodarte MD Primary Care Provider Uli Guaman Unavailable [phone] Allergies Allergen (clinical drug ingredient) Drug/Non Drug Allergy documented on EMR Reaction Allergy Type Onset Date Status Iodinated contrast media (substance) Iodinated Diagnostic Agents nausea Drug Allergy Active amoxicillin / clavulanate Augmentin Rash Drug Allergy Active Results Component Value Reference Range Notes Complete Blood Count Auto Di ff Reviewed date:08/19/2023 01:38:51 PM Interpretation: Performing Lab:[facility], [address] [place] [phone] Notes/Report: White Blood Count 3.3 4.8-10.8 X10*3/uL [...] NRBC Abs Auto 0.000 0.0-0.012 X10*3/uL Comprehensive [place]. Panel Fa st Reviewed date:08/19/2023 01:38:51 PM Interpretation: Performing Lab:[address] [address] Notes/Report: Sodium 140 135-145 mmol/L Potassium 4.2 3.3-5.1 mmol/L Chloride 104 96-108 mmol/L Carbon Dioxide 28 22-29 mmol/L Anion Gap 12 12-20 Blood Urea Nitrogen 18 9-16 mg/dL Creatinine 0.76 0.5-1.4 mg/dL Estimated Glomerular Filt Rate > 60 NOTE: For -Ugandan individuals, multiply the result by 1.210. Chronic [...] e Reviewed date:08/19/2023 01:38:51 PM Interpretation: Performing Lab:[address] [address] Notes/Report: Gamma Glutamyl Transpeptidase 43 7-33 U/L Lactate Dehydrogenase Reviewed date:08/19/2023 01:38:51 PM Interpretation: Performing Lab:[facility], [address] [place] [phone] Notes/Report: Lactate Dehydrogenase 313 122-220 U/L Lipid Panel Reviewed date:08/19/2023 01:38:51 PM Interpretation: Performing Lab:[facility], [address] [place] [phone] Notes/Report: Triglycerides 70 <150 mg/dL Desirable Triglyceride: [...] CA-125 Reviewed date:08/19/2023 01:38:51 PM Interpretation: Performing Lab:[address] [address] Notes/Report: CA-125 14 <35 U/mL This test was performed using the Siemens Chemiluminescent method. Values obtained from different assay methods cannot be used interchangeably. CA 125 levels, regardless of value, should not be interpreted as absolute evidence of the presence or absence of disease. THIS TEST WAS PERFORMED AT: [facility] [address] [place] [phone] TAMMIE BLANCA MD Complete Blood Count Auto Di ff Reviewed date:10/19/2023 10:55:05 AM Interpretation: Performing Lab:[facility], [address] [place] [phone] Notes/Report: White Blood Count 3.1 4.8-10.8 X10*3/uL [...] NRBC Abs Auto 0.000 0.0-0.012 X10*3/uL Comprehensive [place]. Panel Fa st Reviewed date:10/19/2023 10:55:05 AM Interpretation: Performing Lab:[facility], [address] [place] [address], [place] [address] Notes/Report: Sodium 142 135-145 mmol/L Potassium 4.3 3.3-5.1 mmol/L Chloride 106 96-108 mmol/L Carbon Dioxide 28 22-29 mmol/L Anion Gap 12 12-20 Blood Urea Nitrogen 17 9-16 mg/dL Creatinine 0.74 0.5-1.4 mg/dL Estimated Glomerular Filt Rate > 60 NOTE: For -Ugandan individuals, multiply the result by 1.210. Chronic [...] Panel Reviewed date:10/19/2023 10:55:05 AM Interpretation: Performing Lab:[facility], [address] [place] [phone] Notes/Report: Triglycerides 74 <150 mg/dL Desirable Triglyceride: [...] ff Reviewed date:01/14/2024 06:46:42 AM Interpretation: Performing Lab:[facility], [address] [place] [phone] Notes/Report: White Blood Count 3.2 4.8-10.8 X10*3/uL [...] NRBC Abs Auto 0.000 0.0-0.012 X10*3/uL Comprehensive [place]. Panel Fa st Reviewed date:01/14/2024 06:46:42 AM Interpretation: Performing Lab:[facility], [address] [place] [phone] Notes/Report: Sodium 142 135-145 mmol/L Potassium 4.1 3.3-5.1 mmol/L Chloride 106 96-108 mmol/L Carbon Dioxide 30 22-29 mmol/L Anion Gap 10 12-20 Blood Urea Nitrogen 15 9-16 mg/dL Creatinine 0.80 0.5-1.4 mg/dL Estimated Glomerular Filt Rate > 60 NOTE: For -Ugandan individuals, multiply the result by 1.210. Chronic [...] Panel Reviewed date:01/14/2024 06:46:42 AM Interpretation: Performing Lab:[facility], [address] [place] [phone] Notes/Report: Triglycerides 61 <150 mg/dL Desirable Triglyceride: [...] Total Reviewed date:01/14/2024 06:46:42 AM Interpretation: Performing Lab:[facility], [address] [place] [phone] Notes/Report: Vitamin D 25-OH Total 61.6 >30 [...] CA-125 Reviewed date:01/14/2024 06:46:42 AM Interpretation: Performing Lab:[facility], [address] [place] [phone] Notes/Report: CA-125 15 <35 U/mL This test was performed using the Siemens Chemiluminescent method. Values obtained from different assay methods cannot be used interchangeably. CA 125 levels, regardless of value, should not be interpreted as absolute evidence of the presence or absence of disease. THIS TEST WAS PERFORMED AT: [facility] [address] [place] [phone] TAMMIE BLANCA MD CA 27.29 Reviewed date:01/14/2024 06:46:42 AM Interpretation: Performing Lab:[facility], [address] [place] [phone] Notes/Report: CA 27.29 21 <38 U/mL This test was performed using the Siemens Chemiluminescent method. Values obtained from different assay methods cannot be used interchangeably. CA 27.29 levels, regardless of value, should not be interpreted as absolute evidence of the presence or absence of disease. THIS TEST WAS PERFORMED AT: [facility] [address] [place] [phone] TAMMIE BLANCA MD XR DEXA axial skeleton Reviewed date:05/20/2024 06:16:21 AM Interpretation: Performing Lab: Notes/Report: [facility] [address] [place] [address] Mammography Report Signed Patient: Chayr Uribe MR#: [id number] : 1960 Acct:[id number] Age/Sex: 63 / F ADM Date: 01/19/24 Loc: HO.MAMMO Attending Dr: Uli Valerio MD Ordering Physician: Uli Valerio MD Results: Date of Service: 01/19/24 Follow Up: Procedure(s): XR DEXA axial skeleton Accession Number(s): [id number] cc: Uli Valerio MD; Byron Rodarte MD EXAMINATION: BONE DENSITOMETRY CLINICAL INDICATION: Osteoporosis. COMPARISON: Previous BD dated 10/15/2021 and baseline BD dated 02/14/2017. TECHNIQUE: Using a Widbook DXA System (software version: 13.1) manufactured by [employer], dual-energy x-ray absorptiometry was performed of the [...] 01/22/24 0835 DD/ 1000 TD/TT: 01/19/24 1030 Outsole Splicer: AMARA [place] [facility]'s [address] [place] [address] Mammography Report Signed Patient: Sid Uribe MR#: [id number] : 1960 Acct:[id number] Age/Sex: 63 / F ADM Date: 01/19/24 Loc: HO.MAMMO Attending Dr: Uli Valerio MD Ordering Physician: Uli Valerio MD Results: Date of Service: 01/19/24 Follow Up: Procedure(s): XR DEX A axial skeleton Accession Number(s): [id number] cc: Uli Valerio MD; Byron Rodaret MD EXAMINATION: BONE DENSITOMETRY CLINICAL INDICATION: Osteoporosis. COMPARISON: Previous BD dated 10/15/2021 and baseline BD dated 02/14/2017. TECHNIQUE: Using a Widbook DXA System (software version: 13.1) manufactured b [employer], dual-energy x-ray absorptiometry was performed of the [...] 01/22/24 0835 DD/ 1000 TD/TT: 01/19/24 1030 Outsole Splicer: Complete Blood Count Auto Di ff Reviewed date:06/04/2024 04:12:40 PM Interpretation: Performing Lab:[facility], [address] [place] [phone] Notes/Report: White Blood Count 3.4 4.8-10.8 X10*3/uL [...] NRBC Abs Auto 0.000 0.0-0.012 X10*3/uL Comprehensive [place]. Panel Fa st Reviewed date:06/04/2024 04:12:40 PM Interpretation: Performing Lab:[address] [address] Notes/Report: Sodium 141 135-145 mmol/L Potassium 4.4 [...] e Reviewed date:06/04/2024 04:12:40 PM Interpretation: Performing Lab:[address] [address] Notes/Report: Gamma Glutamyl Transpeptidase 32 7-33 U/L Lipid Panel Reviewed date:06/04/2024 04:12:40 PM Interpretation: Performing Lab:[address] [address] Notes/Report: Triglycerides 90 <150 mg/dL Desirable Triglyceride: [...] CA-125 Reviewed date:06/04/2024 04:12:40 PM Interpretation: Performing Lab:[facility], [address] [place] [address] Notes/Report: CA-125 16 <35 U/mL This test was performed using the Siemens Chemiluminescent method. Values obtained from different assay methods cannot be used interchangeably. CA 125 levels, regardless of value, should not be interpreted as absolute evidence of the presence or absence of disease. THIS TEST WAS PERFORMED AT: [facility] [address] [place] [phone] TAMMIE BLANCA MD Reason For Referral Reason Breast Cancer Diagnosis 1 Infiltrating ductal carcinoma of right breast (C50.911) Referring Provider First Name Byron Referring Provider Last Name Cayden Referring Provider Speciality Internal M edicine Referred Organization Uli Valerio III, MD Referred Provider Uli Valerio Referred Address [address] [place] [address] [address] ,[place], [place],[address], Referred Provider Specialty Oncology Referral Priority Routine [...] Problem Status W/U Status Risk Notes Problem 635415384 Overweight (E66.3) Active confirmed Her weight has been stable. We discussed her diet and nutrition. We made a plan to lose weight at a rate of one half of a pound per week. Diet restricted in fat calories and sodium combined with regular activity. Problem 699446948 Infiltrating ductal carcinoma of right breast (C50.911) Active confirmed There was no sign of recurrent breast cancer of a new primary in either breast today. She will continue with annual mammography and breast self examination. Problem 502682345 Obesity, unspecified (E66.9) Active confirmed Her body mass index is now 30. She has gained 2 pounds. We discussed diet and nutrition. I recommended stabilizing her weight at this level until she has recovered fully from chemotherapy and then gradually reduce her weight through diet and exercise. Problem 104402302 Drug-induced polyneuropathy (G62.0) Active confirmed She continues to have paresthetic pain from the chemotherapy. It has not changed since her last visit. She will continue on current therapy. Problem Osteoporosis (88591051) Osteoporosis (M81.0) Active confirmed She was continued on calcium and vitamin D. Problem 852647717 Malignant neoplasm of ovary, unspecified laterality (C56.9) Active confirmed The stage III epithelial ovarian cancer is in remission. His CEA 125 his in the normal range. Surveillance continues. Problem 15920704 Chronic leukopenia (D72.819) Active confirmed Her white blood cell count is 3200. She has had no infections. Observation was continued. 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) [...] Provider Diagnosis Uli Valerio III, MD [address] [place] [address] [place] [address] 08/22/2023 Uli Valerio Infiltrating ductal carcinoma of right breast C50.911 ; Chronic leukopenia D72.819 ; Epithelial ovarian cancer, FIGO stage IIIA C56.9 and Overweight E66.3 Uli Valerio III, MD [address] [place] [address] [place] [phone] 10/25/2023 Uli Valerio Infiltrating ductal carcinoma of right breast C50.911 ; Epithelial ovarian cancer, FIGO stage IIIA C56.9 ; Chronic leukopenia D72.819 ; Drug-induced polyneuropathy G62.0 ; Osteoporosis M81.0 and Obesity, unspecified E66.9 Uli Valerio III, MD [address] [place] [address] [place] [address] 12/26/2023 Uli Valerio Infiltrating ductal carcinoma of right breast C50.911 ; Epithelial ovarian cancer, FIGO stage IIIA C56.9 ; Osteoporosis M81.0 ; Drug-induced polyneuropathy G62.0 ; Chronic leukopenia D72.819 and Obesity, unspecified E66.9 Uli Valerio III, MD [address] [place] [address] [place] [phone] 02/19/2024 Uli Valerio Infiltrating ductal carcinoma of right breast C50.911 ; Overweight E66.3 ; Chronic leukopenia D72.819 ; Drug-induced polyneuropathy G62.0 ; Osteoporosis M81.0 and Malignant neoplasm of ovary, unspecified laterality C56.9 Uli Valerio III, MD [address] [place] [address] [address] [place], [place] [address] 05/15/2024 Uli Valerio Infiltrating ductal carcinoma of [...] in the near future. She will see THERAPY MANAGER oncology next month. Her CA-125 is [...] in the near future. She will see THERAPY MANAGER oncology next month. 10/25/2023 Chronic leukopenia [...] Details Provider Name:Uli Valerio, 08/13/2024 10:30:00 AM, [address] [place] [address], [address], Insurance Providers Payer Name Payer Address Payer Phone Subscriber Number Group Number Insured Name Patient Relationship to Insured Coverage Start Date Coverage End Date [facility] [address] [place], [place] [id number] CHARY URIBE Self - patient is the insured Medical (General) History Medical History History ICD Code 2.1 cm ER+MD+ invasive ducta l right breast carcinoma with DCIS:[id number](i_)(sn-) September 2015 lipoma removed from arm colonoscopy 2012 Surgical History Surgery Date(Month/Year) Lipoma removal; [facility] [place] Dr Sosa Colonoscopy 03/2013 Right breast Biopsy,lumpectomy/sentinal nodes/re-excision 09/2015 Total Hysterectomy- Bilatera l Salpingo- OOpherectomy [facility], ovarian cancer 08/25/22 Bx Pelvic Wall, Right (Negative results) 03/01/23 No history Hospitalization History Reason Date(Month/Year) No history
--- OUTSIDE RECORDS SUMMARY | 2024-07-10 11:02 | XMS_ITS ---
Author Organization Uli Valerio III, MD Address [address] [place] [address] Care Team Providers Care Medical Doctor Name Role Phone Byron Rodarte MD Primary Care Provider Uli Guaman Unavailable [phone] Allergies Allergen (clinical drug ingredient) Drug/Non Drug [...] Date Provider Diagnosis Uli Valerio III, MD [address] [place] [address] [place] [address] 05/15/2024 Uli Valerio Infiltrating ductal carcinoma of [...] tests Provider Name:Uli Valerio, 08/13/2024 10:30:00 AM, [address] [place] [address] [address], [place], [address], Progress Notes * PAWAN URIBEB:1960 (64 yo F)Acc No.[id number]:05/15/2024 Progress Notes Patient:SANA BARNES Provider:?Uli Valerio MD :1960???Age:64 Y???Sex:Female D ate:05/15/2024 Address:[address] [place], [place] [phone] Pcp:Byron Rodarte MD Subjective: * Chief Complaints: [...] Medical History:? * Surgical History:?Lipoma rem oval; [facility] [place] Dr Sosa Colonoscopy 03/2013Right breast Biopsy,lumpectomy/sentinal nodes/re-excision 09/2015Total Hysterectomy- Bilateral Salpingo- OOpherectomy [facility], ovarian cancer 08/25/22Bx Pelvic Wall, Right [...] Valerio MD Date:?04/28 Generated for Tim morales/Adolfo/eTransmitting on:?07/10/2024 11:01 AM EST History and Physical Notes * [...]
--- OUTSIDE RECORDS SUMMARY | 2024-07-10 11:02 | XMS_ITS ---
Author Organization Uli Valerio III, MD Address [address] [place] [address] Care Team Providers Care Family Law Mediator Name Role Phone Byron Rodarte MD Primary Care Provider Uli Guaman Unavailable [phone] Allergies Allergen (clinical drug ingredient) Drug/Non Drug [...] Date Provider Diagnosis Uli Valerio III, MD [address] [place] [address] [place] [address] 02/19/2024 Uli Valerio Infiltrating ductal carcinoma of [...] OV Provider Name:Uli Valerio, 08/13/2024 10:30:00 AM, [address] [place] [address] [address], [place], [address], Progress Notes * PEDRO URIBE:1960 (63 yo F)Acc No.[id number]:02/19/2024 Progress Notes Patient:?SANA URIBE Provider:?Uli Valerio MD :1960???Age:63 Y???Sex:Female D ate:02/19/2024 Address:[address] [place], [place] [phone] Pcp:Byron Rodarte MD Subjective: * Chief Complaints: * ???Ovarian cancerHistory of breast cancerPeripheral neuropathyLeukocytopeniaOsteoporosisObesity * HPI: ???COVID-19 Screening:?She returns for oncology management.? 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 It was otherwise negative.? This was done at [facility].? Her port was flushed January 31, [...] Medical History:? * Surgical History:?Lipoma rem oval; [facility] [place] Dr Sosa Colonoscopy 03/2013Right breast Biopsy,lumpectomy/sentinal nodes/re-excision 09/2015Total Hysterectomy- Bilateral Salpingo- [facility]herectomy [facility], ovarian cancer 08/25/22Bx Pelvic Wall, Right [...] Valerio MD Date:?01/28 Generated for Lillii ng/Adolfo/eTransmitting on:?07/10/2024 11:02 AM EST History and Physical [...]
[2024-07-10 11:15] LABS: Appearance Urine Clear; Color Urine Yellow; Glucose Urine UA Negative (Negative); Leukocyte Esterase Urine Negative (Negative); Nitrite Urine Negative (Negative); PH 7.5 (5.0-9.0); Specific Gravity - Urine <= 1.005 (1.005-1.025); Urine Blood Negative (Negative); Urine Ketones Negative (Negative); Urine Protein Negative (Neg-Trace)
== END 2024-07-10 09:43 | disposition home or self-care (01) ==
LOC: HO.LAB 09:42
PROVIDERS: PCP Internal Medicine; Visit Provider Internal Medicine
DX: R30.0 Dysuria (principal)
CPT/HCPCS: 81003; 87086

== ENCOUNTER 2024-09-27 09:09 | Outpatient (REF) | payer BC, SELFPAY ==
[2024-09-27 09:52] LABS: MANUAL DIFF FLAG NO
[2024-09-27 10:11] LABS: Basophils Percent Auto 0.7 % (0-2); Eosinophils Absolute Auto 0.2 X10*3/uL (0.0-0.4); Eosinophils Percent Auto 3.1 % (0-4); Hematocrit 37.7 % (37.0-47.0); Hemoglobin 12.7 g/dl (12.0-16.0); Imm Gran Abs Auto 0.05 X10*3/uL (0.00-0.03); Imm Gran Pct Auto 0.9 % (0.0-0.4); Lymphocytes Absolute Auto 0.8 X10*3/uL (1.2-4.9); Mean Corpuscular HGB Conc 33.7 g/dl (31.0-35.0); Mean Corpuscular Hemoglobin 31.3 pg (27.0-33.0); Mean Corpuscular Volume 92.9 fL (80.0-98.0); Mean Platelet Volume 9.1 fL (9.4-12.3); Monocytes Absolute Auto 0.4 X10*3/uL (0.1-1.2); Monocytes Percent Auto 7.8 % (2-11); Neutrophils Percent Auto 72.5 % (45-73); Platelet Count 238 X10*3/uL (160-400); Red Blood Count 4.06 X10*6/uL (4.20-5.50); Red Cell Distribution Width 12.8 % (11.0-16.0); White Blood Count 5.5 X10*3/uL (4.8-10.8)
[2024-09-27 10:49] LABS: Alanine Aminotransferase 82 U/L (0-31); Albumin Level 4.3 g/dL (3.5-5.0); Alkaline Phosphatase 84 U/L (39-117); Anion Gap 12 (12-20); Aspartate Amino Transferase 58 U/L (5-31); Bilirubin Total 0.6 mg/dL (0.0-1.0); Blood Urea Nitrogen 12 mg/dL (9-16); Calcium 9.3 mg/dL (8.4-10.2); Carbon Dioxide 30 mmol/L (22-29); Chloride 105 mmol/L (96-108); Cholesterol 189 mg/dL (<200); Estimated Glomerular Filt Rate > 60; Glucose Fasting 99 mg/dL (60-99); HDL Cholesterol 61 mg/dL (>40); LDL Cholesterol Calculated 112 mg/dL (<100); Sodium 143 mmol/L (135-145); Total Protein 7.3 g/dL (6.5-8.0); Triglycerides 80 mg/dL (<150)
[2024-09-27 10:53] LABS: Ferritin 473 ng/mL (10-250); Vitamin B12 455 pg/mL (200-900)
[2024-09-28 09:38] LABS: CA-125 13 U/mL (<35)
== END 2024-09-27 09:10 | disposition home or self-care (01) ==
LOC: HO.10HDL 09:09
PROVIDERS: Visit Provider Internal Medicine Medical Oncology
DX: C50.911 Malignant neoplasm of unspecified site of right female breast (principal); E66.3 Overweight; D63.0 Anemia in neoplastic disease; M81.0 Age-related osteoporosis without current pathological fracture
CPT/HCPCS: 36415; 80053; 80061; 82607; 82728; 85025; 86304

== ENCOUNTER 2024-10-04 11:20 | Outpatient (AMB) | payer BC, SELFPAY ==
[2024-10-04 09:13] VITALS: BP 130/82; PULSE 97; TEMP 36.2; O2SAT 98; BMI 31.2
--- NOTE | 2024-10-04 09:13 | MHC.PC.OV ---
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 Accompanied by: Self / Same As Patient Allergies Iodinated Contrast Media Allergy (Mild, Verified 10/04/24 11:28) Anaphylaxis amoxicillin [From AUGMENTIN] Allergy (Unknown, Verified 10/04/24 09:14) BODY RASH clavulanic acid [From AUGMENTIN] Allergy (Unknown, Verified 10/04/24 09:14) BODY RASH Tobacco use date assessed: 10/04/24 Dental Screening Dental Screen Date: 10/04/24 Did you have a dental visit in the last 12 months?: Yes Did you have a dental problem in the last 6 months where you did not have access to dental care?: No HPI HPI Comments History of Present Illness Details 64 year old female with a past medical history of right breast cancer, ovarian cancer, osteoporosis, elevated lfts, excess etoh, neuropathy, osteoporosis presenting for follow up. She was last seen by PCP in June. Needs booking for annual Osteoporosis-Calcium and Vitamin D. They have been stable. Heme/Onc -right breast cancer treated by Dr.? Kapadia now following with Dr Valenzuela seen in 11/2023. She underwent right breast lumpectomy with needle localization and right axillary sentinel node biopsy on 10/13/2015 followed by re-excision of margins with a radial ellipse mastopexy closure for involved margins performed on 10/21/2015.? Margins were clear by 3 mm.? She was found to have a 2.2 cm grade 3 infiltrating ductal carcinoma, ER positive, IA positive, HER2 Ceferino negative as well as a 1.4 cm area of DCIS in the re-excision specimen.? Four right axillary nodes including 2 sentinel nodes and 2 additional nodes were benign.? She underwent 4 cycles of AC chemotherapy in 4 cycles of Taxotere under the direction of Dr. Valerio.? She developed neuropathy and restlessness in the legs which subsequently improved.? She was placed on Arimidex and completed 5 years in September 2021. Mammo 01/2024 -Follows [facility]. stage III ovarian cancer with a single liu aortic lymph node positive for malignancy. She completed chemotherapy in 01/15/2023 at [facility] and previously underwent a total abdominal hysterectomy with bilateral salpingo oophorectomy (Dr. Lilia Hightower). She denies any new symptoms in either breast and generally feels well. Follows with urology Dr Perez Dermatology-Dr Walls Mammo 01/2024 DXA UTD 12/2023 Colonoscopy 12/2023 ROS CONSTITUTIONAL: Denies weight loss, fever and chills. HEENT: Denies changes in vision and hearing. RESPIRATORY: Denies SOB and cough. CV: Denies palpitations and CP GI: Denies abdominal pain, nausea, vomiting and diarrhea. : Denies dysuria and urinary frequency. MSK: Denies new myalgia and joint pain. SKIN: Denies rash and pruritus. NEUROLOGICAL: Denies headache PSYCHIATRIC: Denies recent changes in mood. PHYSICAL EXAM: GENERAL: Alert and oriented x 3. NAD EYES: EOMI. Anicteric. HENT: Moist mucous membranes. No scleral icterus. No cervical lymphadenopathy. LUNGS: Clear to auscultation bilaterally. CARDIOVASCULAR: Regular rate and rhythm. No murmur. No JVD. ABDOMEN: Soft, non-tender +bs EXTREMITIES: No edema. Non-tender. SKIN: No rashes or lesions. Warm. NEUROLOGIC: No focal neurological deficits. CN II-XII grossly intact PSYCHIATRIC: Cooperative. Appropriate mood and affect [facility] Medical History Hemorrhoids without complication Diverticulosis Family history of colorectal cancer Epithelial ovarian cancer, FIGO stage IIIA History of right breast cancer Surgical History H/O colonoscopy History of total hysterectomy (08/25/22) History of lymph node biopsy History of lumpectomy of right breast Family History Mother Breast cancer Maternal Aunt Breast cancer Paternal Aunt Pancreatic cancer Maternal Grandfather Colon cancer Father Gall stone in bile duct with infection of gallbladder Social History Housing: House Alcohol intake: current Alcohol intake frequency: holidays/special occasions only Patient Tobacco Use Status: Former Tobacco user e-Cigarette/Vaping Use: Former Use service: No Current occupational status: retired Cognitive needs: No Hearing needs: No Vision needs: Yes (rx glasses) Female Reproductive History Menstrual Age of Menarche: 13 Questionnaire PHQ-9 Over the last 2 weeks, how often have you been bothered by any of the following problems? 1. Little interest or pleasure in doing things: not at all 2. Feeling down, depressed, or hopeless: not at all 3. Trouble falling or staying asleep, or sleeping too much: not at all 4. Feeling tired or having little energy: not at all 6. Feeling bad about yourself - or that you are a failure or have let yourself or your family down: not at all 7. Trouble concentrating on things, such as reading the newspaper or watching television: not at all 8. Moving or speaking so slowly that other people could have noticed. Or the opposite - being so fidgety or restless that you have been moving around a lot more than usual: not at all 9. Thoughts that you would be better off or of hurting yourself in some way: not at all Source: Developed by Drs. Uli Reilly, Mable Alexandra, Chandrakant Resendiz and colleagues, with an educational viktor from [employer]. Thrive Questionnaire Date Thrive assessed: 10/04/24 I am a: Patient Within the past 12 months, did the food you bought not last and you didn't have the money to get more?: Never true Within the past 12 months, did you worry whether your food would run out before you got money to buy more?: Never true Do you have trouble paying for medicines?: No Do you have trouble getting transportation to medical appointments?: No Do you have trouble paying your heating and electricity bill?: No Do you have trouble taking care of your child, family member or friend?: No Do you have trouble with day-to-day activities such as bathing, preparing meals, shopping, managing finances, etc.?: No Are you currently unemployed and looking for a job?: No Are you interested in more education?: No THRIVE Score: 0 AUDIT C Alcohol Use Questionnaire (AUDIT-C) 1. How often do you have a drink containing alcohol?: Monthly or less 2. How many drinks containing alcohol do you have on a typical day when you are drinking?: 1 or 2 3. How often do you have six or more drinks on one occasion?: Less than monthly Total Score: 2 REINALDO-7 AMB Questionnaire REINALDO-7 Date REINALDO - 7 assessed: 10/04/24 Feeling nervous, anxious, or on edge: 0 = Not at all Not being able to stop or control worryin = Not at all Worrying too much about different things: 0 = Not at all Trouble relaxin = Not at all Being so restless that it is hard to sit still: 0 = Not at all Becoming easily annoyed or irritable: 0 = Not at all Feeling afraid as if something awful might happen: 0 = Not at all Total REINALDO-7 score (0-4 normal; 5-9 mild; 10-14 moderate; 15-21 severe): 0 Source: Developed by Drs. Uli Reilly, Mable Alexandra, Chandrakant Resendiz and colleagues, with an educational viktor from [employer]. Physical exam (Primary Care) Vital Signs: Last Vital Signs Temp 97.1 F 10/04/24 09:13 Pulse 97 10/04/24 09:13 BP 130/82 10/04/24 09:13 Pulse Ox 98 10/04/24 09:13 Oxygen Delivery Method Room Air 10/04/24 09:13 BMI result Body Mass Index 31.2 Tobacco/Smoking Status: Tobacco use Status Tobacco use date assessed 10/04/24 10/04/24 09:15 Patient Tobacco Use Status Former Tobacco user 10/04/24 11:30 e-Cigarette/Vaping Use Former Use 10/04/24 11:30 Thrive Assessment: Date of Thrive Assessment Date Thrive assessed 10/04/24 10/04/24 09:15 Coding Level of Care Code New Pt Level 4 (40665) Complex EM visit Add On G2211 Diagnoses Establishing care with new doctor, encounter for Z76.89 History of right breast cancer Z85.3 Invasive ductal carcinoma of right breast, stage 2 C50.911 Assessment & Plan Assessment & Plan (1) Establishing care with new doctor, encounter for: Code(s): Z76.89 - Persons encountering health services in other specified circumstances (2) History of right breast cancer: Code(s): Z85.3 - Personal history of malignant neoplasm of breast Category: Medical (3) Invasive ductal carcinoma of right breast, stage 2: Code(s): C50.911 - Malignant neoplasm of unspecified site of right female breast Category: Medical Plan 64 y/o to establish care Past medical, surgical, social reviewed Continues follow up with oncology, surgery Labs ordered to be performed prior to follow up Orders: Orders Complete Blood Count Auto Diff Today C50.911 - Malignant neoplasm of unspecified site of right female breast, C56.9 - Malignant neoplasm of unspecified ovary, K57.90 - Diverticulosis of intestine, part unspecified, without perforation or abscess without bleeding, Z13.228 - Encounter for screening for other metabolic disorders Comprehensive Met. Panel Today C50.911 - Malignant neoplasm of unspecified site of right female breast, C56.9 - Malignant neoplasm of unspecified ovary, K57.90 - Diverticulosis of intestine, part unspecified, without perforation or abscess without bleeding, Z13.228 - Encounter for screening for other metabolic disorders Hemoglobin A1c Today C50.911 - Malignant neoplasm of unspecified site of right female breast, C56.9 - Malignant neoplasm of unspecified ovary, K57.90 - Diverticulosis of intestine, part unspecified, without perforation or abscess without bleeding, Z13.228 - Encounter for screening for other metabolic disorders Vitamin D 25-OH (D2 and D3) Today C50.911 - Malignant neoplasm of unspecified site of right female breast, C56.9 - Malignant neoplasm of unspecified ovary, K57.90 - Diverticulosis of intestine, part unspecified, without perforation or abscess without bleeding, Z13.228 - Encounter for screening for other metabolic disorders Lipid Panel Today C50.911 - Malignant neoplasm of unspecified site of right female breast, C56.9 - Malignant neoplasm of unspecified ovary, K57.90 - Diverticulosis of intestine, part unspecified, without perforation or abscess without bleeding, Z13.228 - Encounter for screening for other metabolic disorders
--- OUTSIDE RECORDS SUMMARY | 2024-10-04 11:47 | XMS_ITS ---
Author Organization Uli Valerio III, MD Address [address] [place] [address] Care Team Providers Care Account Executive Sales Representative Name Role Phone Shiloh Pennington Primary Care Provider Uli Dodd Unavailable [phone] Allergies Allergen (clinical drug ingredient) Drug/Non Drug [...] Provider Diagnosis Uli Valerio III, MD [address] [place] [address] [place] [address] 05/15/2024 Uli Valerio Infiltrating ductal carcinoma of [...] repeated liver function tests Provider Name:Uli Valerio, 12/02/2024 10:00:00 AM, [address] [place] [address] [address], [place], [address], Progress Notes * PAWAN URIBEB:1960 (64 yo F)Acc No.[id number]:05/15/2024 Progress Notes Patient:SANA BARNES Provider:?Uli Valerio MD :1960???Age:64 Y???Sex:Female D ate:05/15/2024 Address:[address] [place], [place] [id number] Pcp:Byron Rodarte MD Subjective: * Chief Complaints: [...] Medical History:? * Surgical History:?Lipoma rem oval; [facility] Dr Sosa Colonoscopy 03/2013Right breast Biopsy,lumpectomy/sentinal nodes/re-excision 09/2015Total Hysterectomy- Bilateral Salpingo- OOpherectomy [facility], ovarian cancer 08/25/22Bx Pelvic Wall, Right [...] Provider:?Uli Valerio MD Date:?04/28 Generated for Tim morales/Adolfo/eTmarksmitting on:?10/04/2024 11:47 AM EDT History and Physical Notes * [...]
--- OUTSIDE RECORDS SUMMARY | 2024-10-04 11:47 | XMS_ITS ---
Author Organization Uli Valerio III, MD Address [address] [place] [address] Care Team Providers Care Surgical Instrument Technician Name Role Phone Narciso Pennington Primary Care Provider Uli Dodd Unavailable [phone] Allergies Allergen (clinical drug ingredient) Drug/Non Drug [...] Date Provider Diagnosis Uli Valerio III, MD [address] [place] [address] [place] [address] 09/30/2024 Uli Valerio Infiltrating ductal carcinoma of [...] Months, Reason: ov no tests Provider Name:Uli Valerio, 12/02/2024 10:00:00 AM, [address] [place] [address] [address] [place] [address], [place], [address], Progress Notes * PEDRO URIBE:1960 (64 yo F)Acc No.[id number]:09/30/2024 Progress Notes Patient:?SANA URIBE Provider:?Uli Valerio MD :1960???Age:64 Y???Sex:Female D ate:09/30/2024 Address:[address] [place] [id number] Pcp:Narciso Pennington Subjective: * Chief Complaints: * ???Stage III ovarian cancerB reast cancerLeukopenic * HPI: ???COVID-19 Screening:?allergies, otherwise ok, narciso steel next week, pcp,.? She returns for review of her history of breast cancer and recently treated stage III ovarian cancer.? She is dealing with seasonal allergies but otherwise feels well.? She has a new primary care physician, Dr. Narciso Steel.? She is feeling healthy and well, pain-free and the neuropathy is minimal. ?Questions?Have you had any new onset fever, chills, cough, congestion, sore throat, shortness of breath, muscle aches??No * ROS:?General/Constitutional:?pain?only normal aches and pains.?Chills?denies.?Fatigue?admits.?Fever?denies.?ENT:?Decreased hearing?denies.?Respiratory:?Cough?denies.?Cardiovascular:?Chest pain with exertion?denies.?Dyspnea on exertion?denies.?Shortness of breath?denies.?Gastrointestinal:?Constipation?occasional.?Decreased appetite?denies.?Diarrhea?denies.?Heartburn?denies.?Nausea?denies.?Rectal bleeding?denies.?Vomiting?denies.?Hematology:?bruising?denies.?petechiae?denies.?Swollen glands?none have been noted.?Genitourinary:?Frequent urination?denies.?Musculoskeletal:?Muscle aches?denies.?Painful joints?denies.?Sciatica?denies.?Weakness?denies.?Skin:?Itching?denies.?Rash?denies.?Skin lesion(s)?denies.?Neurologic:?Difficulty speaking?denies.?Dizziness?denies.?Headache?denies.?Low back pain?denies.?Psychiatric:?Depressed mood?denies.? * Medical History:? * Surgical History:?[place] oval[place] [facility] [place] Colonoscopy 03/2013Right breast Biopsy,lumpectomy/sentinal nodes/re-excision 09/2015Total Hysterectomy- Bilateral Salpingo- [facility]Opherectomy [facility], ovarian cancer 08/25/22Bx Pelvic Wall, [...] nauseano[Allergies Verified] Objective: * Vitals:?Ht: 67, Wt: 197, BMI :30.85, BP: 137/88, HR: 81, Temp: 98.2, Wt-k.36. * ???Past Orders: ???Lab:Vitamin B12 (Order Da te - 09/27/2024) (Collection Date & Time - 09/27/2024 09:15 AM) ? Value Reference Range ?Vitamin B12 455 200-900 - pg/mL Lab:CA-125 * [...] Blood Count 5.5 (Ref Range: 4.8-10.8 X10*3/uL) 3.4?L (Ref Range: 4.8-10.8 X10*3/uL) 3.2?L (Ref Range: 4.8-10.8 X10*3/uL) Red Blood Count 4.06?L (Ref Range: 4.20-5.50 X10*6/uL) 4.20 (Ref Range: 4.20-5.50 X10*6/uL) 4.13?L (Ref Range: 4.20-5.50 X10*6/uL) Hemoglobin 12.7 (Ref [...] (Ref Range: 160-400 X10*3/uL) Mean Platelet Volume 9.1?L (Ref Range: 9.4-12.3 fL) 8.8?L (Ref Range: 9.4-12.3 fL) 9.2?L (Ref Range: 9.4-12.3 fL) Neutrophils Percent Auto 72.5 (Ref Range: 45-73 %) 49.1 (Ref Range: 45-73 %) 52.1 (Ref Range: 45-73 %) Imm Gran Pct Auto 0.9?H (Ref Range: 0.0-0.4 %) 0.6?H (Ref Range: 0.0-0.4 %) 0.6?H (Ref Range: 0.0-0.4 %) Lymphocytes Percent Auto 15.0?L (Ref Range: 20-40 %) 33.0 (Ref Range: 20-40 %) 32.9 (Ref Range: 20-40 %) Monocytes Percent Auto 7.8 (Ref Range: 2-11 %) 11.9?H (Ref Range: 2-11 %) 9.7 (Ref Range: 2-11 %) Eosinophils Percent Auto 3.1 (Ref Range: 0-4 %) 4.5?H (Ref Range: 0-4 %) 3.8 (Ref Range: 0-4 %) Basophils Percent Auto 0.7 (Ref Range: 0-2 %) 0.9 (Ref Range: 0-2 %) 0.9 (Ref Range: 0-2 %) NRBC Pct Auto 0.0 (Ref Range: 0.0-0.2 /100WBC) 0.0 (Ref Range: 0.0-0.2 /100WBC) 0.0 (Ref Range: 0.0-0.2 /100WBC) Neutrophils Absolute Auto 4.0 (Ref Range: 2.0-8.3 x10*3/uL) 1.7?L (Ref Range: 2.0-8.3 x10*3/uL) 1.7?L (Ref Range: 2.0-8.3 x10*3/uL) Imm Gran Abs Auto 0.05?H (Ref Range: 0.00-0.03 X10*3/uL) 0.02 (Ref Range: 0.00-0.03 X10*3/uL) 0.02 (Ref Range: 0.00-0.03 X10*3/uL) Lymphocytes Absolute Auto 0.8?L (Ref Range: 1.2-4.9 X10*3/uL) 1.1?L (Ref Range: 1.2-4.9 X10*3/uL) 1.1?L (Ref Range: 1.2-4.9 X10*3/uL) Monocytes Absolute Auto [...] 0.000 (Ref Range: 0.0-0.012 X10*3/uL) * Lab:[facility] * Collection Date 09/27/2024 05/28/2024 01/04/2024 Collection Time 09:15 AM 10:10 AM 09:21 AM Order Date 09/27/2024 05/28/2024 01/04/2024 Sodium 143 (Ref Range: 135-145 mmol/L) 141 (Ref Range: 135-145 mmol/L) 142 (Ref Range: 135-145 mmol/L) Bilirubin Total 0.6 (Ref Range: 0.0-1.0 mg/dL) 0.6 (Ref Range: 0.0-1.0 mg/dL) 0.5 (Ref Range: 0.0-1.0 mg/dL) Aspartate Amino Transferase 58?H (Ref Range: 5-31 U/L) 75?H (Ref Range: 5-31 U/L) 56?H (Ref Range: 5-31 U/L) Alanine Aminotransferase 82?H (Ref Range: 0-31 U/L) 117?H (Ref Range: 0-31 U/L) 87?H (Ref Range: 0-31 U/L) Total Protein 7.3 [...] 106 (Ref Range: 96-108 mmol/L) Carbon Dioxide 30?H (Ref Range: 22-29 mmol/L) 29 (Ref Range: 22-29 mmol/L) 30?H (Ref Range: 22-29 mmol/L) Anion Gap 12 (Ref Range: 12-20) 10?L (Ref Range: 12-20) 10?L (Ref Range: 12-20) Blood Urea Nitrogen 12 [...] Date & Time - 09/27/2024 09:15 AM)?ValueReference Range?[id number] - ng/mL * Lab:Lipid Panel * Collection Date 09/27/2024 05/28/2024 01/04/2024 Collection Time 09:15 AM 10:10 AM 09:21 AM Order Date 09/27/2024 05/28/2024 01/04/2024 Triglycerides 80 (Ref Range: <150 mg/dL) 90 (Ref Range: <150 mg/dL) 61 (Ref Range: <150 mg/dL) Cholesterol 189 (Ref Range: <200 mg/dL) 206?H (Ref Range: <200 mg/dL) 170 (Ref Range: <200 mg/dL) LDL Cholesterol Calculated 112?H (Ref Range: <100 mg/dL) 129?H (Ref Range: <100 mg/dL) 103?H (Ref Range: <100 mg/dL) HDL Cholesterol 61 (Ref Range: >40 mg/dL) 59 (Ref Range: >40 mg/dL) 55 (Ref Range: >40 mg/dL) * Examination: ???General Examination: ?GENERAL APPEARANCE:?pleasant, well [...] organomegaly, no mass, centripital obesity, Surgical scar well-healed.?RECTAL EXAM:?not examined.?MUSCULOSKELETAL:?extremities unremarkable, no clubbing, cyanosis or edema.?PERIPHERAL PULSES:?normal.?NEUROLOGIC:?alert and oriented, cranial nerves 2-12 grossly intact, deep tendon reflexes 2+ symmetrical, motor strength normal upper and lower extremities, sensory exam intact.?PSYCH:?alert, oriented.? Assessment: * Assessment: 1.?Epithelial ovarian cancer , FIGO stage IIIA - C56.9 (Primary)???Notes :She appears to be in clinical remission after chemotherapy. CA 125 is reported to be 16. She will be followed closely.???2.?Infiltrating ductal carcinoma of right breast - C50.911???Notes :There was no sign of recurrent breast cancer of a new primary in either breast today. She will continue with annual mammography and breast self examination.???3.?Osteoporosis - M81.0???Notes :He says she has been compliant with her current therapy. She denies any bone pain. 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 It has not changed since her last visit. She will continue on current therapy.???5.?Chronic leukopenia - D72.819???Notes :Her white blood cell count is 3400. Both lymphocytes and neutrophils are slightly low.She has had no infections. Observation was continued.??? Plan: * Treatment: * Procedure Codes:? * [...] not done * Follow Up:?2 Months (Reason: ov no tests) * Images: * Sign off status: Completed true * Provider:?Uli Valerio MD Date:?09/2024 Generated for Tim morales/Adolfo/eTransmitting on:?10/04/2024 11:47 AM EDT History and Physical [...]
--- OUTSIDE RECORDS SUMMARY | 2024-10-04 11:48 | XMS_ITS | Patient Health Record ---
Author Organization Uli Valerio III, MD Address [address] [place] [address] Care Team Providers Care Junior Programmer Analyst Name Role Phone Shiloh Pennington Primary Care Provider Uli Dodd Unavailable [phone] Allergies Allergen (clinical drug ingredient) Drug/Non Drug Allergy documented on EMR Reaction Allergy Type Onset Date Status Iodinated contrast media (substance) Iodinated Diagnostic Agents nausea Drug Allergy Active amoxicillin / clavulanate Augmentin Rash Drug Allergy Active Results Component Value Reference Range Notes Complete Blood Count Auto Di ff Reviewed date:10/19/2023 10:55:05 AM Interpretation: Performing Lab:[facility], [address] [place] [phone] Notes/Report: White Blood Count 3.1 4.8-10.8 X10*3/uL [...] NRBC Abs Auto 0.000 0.0-0.012 X10*3/uL Comprehensive [place]. Panel Fa st Reviewed date:10/19/2023 10:55:05 AM Interpretation: Performing Lab:[address] [phone] Notes/Report: Sodium 142 135-145 mmol/L Potassium 4.3 3.3-5.1 mmol/L Chloride 106 96-108 mmol/L Carbon Dioxide 28 22-29 mmol/L Anion Gap 12 12-20 Blood Urea Nitrogen 17 9-16 mg/dL Creatinine 0.74 0.5-1.4 mg/dL Estimated Glomerular Filt Rate > 60 NOTE: For -Latvian individuals, multiply the result by 1.210. Chronic [...] Panel Reviewed date:10/19/2023 10:55:05 AM Interpretation: Performing Lab:[address] [phone] Notes/Report: Triglycerides 74 <150 mg/dL Desirable Triglyceride: [...] ff Reviewed date:01/14/2024 06:46:42 AM Interpretation: Performing Lab:[facility], [address] [place] [phone] Notes/Report: White Blood Count 3.2 4.8-10.8 X10*3/uL [...] NRBC Abs Auto 0.000 0.0-0.012 X10*3/uL Comprehensive [place]. Panel Fa st Reviewed date:01/14/2024 06:46:42 AM Interpretation: Performing Lab:[facility], [address] [place] [phone] Notes/Report: Sodium 142 135-145 mmol/L Potassium 4.1 3.3-5.1 mmol/L Chloride 106 96-108 mmol/L Carbon Dioxide 30 22-29 mmol/L Anion Gap 10 12-20 Blood Urea Nitrogen 15 9-16 mg/dL Creatinine 0.80 0.5-1.4 mg/dL Estimated Glomerular Filt Rate > 60 NOTE: For -Latvian individuals, multiply the result by 1.210. Chronic [...] Panel Reviewed date:01/14/2024 06:46:42 AM Interpretation: Performing Lab:[facility], [address] [place] [phone] Notes/Report: Triglycerides 61 <150 mg/dL Desirable Triglyceride: [...] Total Reviewed date:01/14/2024 06:46:42 AM Interpretation: Performing Lab:[facility], [address] [place] [phone] Notes/Report: Vitamin D 25-OH Total 61.6 >30 [...] CA-125 Reviewed date:01/14/2024 06:46:42 AM Interpretation: Performing Lab:[facility], [address] [place] [phone] Notes/Report: CA-125 15 <35 U/mL This test was performed using the Siemens Chemiluminescent method. Values obtained from different assay methods cannot be used interchangeably. CA 125 levels, regardless of value, should not be interpreted as absolute evidence of the presence or absence of disease. THIS TEST WAS PERFORMED AT: [address] [place] [phone] TAMMIE BLANCA MD CA 27.29 Reviewed date:01/14/2024 06:46:42 AM Interpretation: Performing Lab:[facility], [address] [place] [phone] Notes/Report: CA 27.29 21 <38 U/mL This test was performed using the Siemens Chemiluminescent method. Values obtained from different assay methods cannot be used interchangeably. CA 27.29 levels, regardless of value, should not be interpreted as absolute evidence of the presence or absence of disease. THIS TEST WAS PERFORMED AT: [address] [place] [phone] TAMMIE BLANCA MD XR DEXA axial skeleton Reviewed date:05/20/2024 06:16:21 AM Interpretation: Performing Lab: Notes/Report: [place] [facility] [address] [place] [address] Mammography Report Signed Patient: Chary Uribe MR#: [id number] : 1960 Acct:[id number] Age/Sex: 63 / F ADM Date: 01/19/24 Loc: HO.MAMMO Attending Dr: Uli Valerio MD Ordering Physician: Uli Valerio MD Results: Date of Service: 01/19/24 Follow Up: Procedure(s): XR DEXA axial skeleton Accession Number(s): [id number] cc: Uli Valerio MD; Byron Rodarte MD EXAMINATION: BONE DENSITOMETRY CLINICAL INDICATION: Osteoporosis. COMPARISON: Previous BD dated 10/15/2021 and baseline BD dated 02/14/2017. TECHNIQUE: Using a gis.to DXA System (software version: 13.1) manufactured by [employer], dual-energy x-ray absorptiometry was performed of the [...] 01/22/24 0835 DD/ 1000 TD/TT: 01/19/24 1030 Bsa Officer: AMARA [facility] [address] [place] [address] Mammography Report Signed Patient: Soraya Uribe MR#: [id number] : 1960 Acct:[id number] Age/Sex: 63 / F ADM Date: 01/19/24 Loc: HO.MAMMO Attending Dr: Uli Valerio MD Ordering Physician: Uli Valerio MD Results: Date of Service: 01/19/24 Follow Up: Procedure(s): XR DEX A axial skeleton Accession Number(s): [id number] cc: Uli Valerio MD; Byron Rodarte MD EXAMINATION: BONE DENSITOMETRY CLINICAL INDICATION: Osteoporosis. COMPARISON: Previous BD dated 10/15/2021 and baseline BD dated 02/14/2017. TECHNIQUE: Using a gis.to DXA System (software version: 13.1) [employer], dual-energy x-ray absorptiometry was performed of the [...] 01/22/24 0835 DD/ 1000 TD/TT: 01/19/24 1030 Bsa Officer: AMARA Complete Blood Count Auto Di ff Reviewed date:06/04/2024 04:12:40 PM Interpretation: Performing Lab:[facility], [address] [place] [phone] Notes/Report: White Blood Count 3.4 4.8-10.8 X10*3/uL [...] NRBC Abs Auto 0.000 0.0-0.012 X10*3/uL Comprehensive [place]. Panel Fa st Reviewed date:06/04/2024 04:12:40 PM Interpretation: Performing Lab:[facility], [address] [place] [phone] Notes/Report: Sodium 141 135-145 mmol/L Potassium 4.4 [...] e Reviewed date:06/04/2024 04:12:40 PM Interpretation: Performing Lab:[facility], [address] [place] [phone] Notes/Report: Gamma Glutamyl Transpeptidase 32 7-33 U/L Lipid Panel Reviewed date:06/04/2024 04:12:40 PM Interpretation: Performing Lab:[facility], [address] [place] [phone] Notes/Report: Triglycerides 90 <150 mg/dL Desirable Triglyceride: [...] CA-125 Reviewed date:06/04/2024 04:12:40 PM Interpretation: Performing Lab:[facility], [address] [place] [phone] Notes/Report: CA-125 16 <35 U/mL This test was performed using the Siemens Chemiluminescent method. Values obtained from different assay methods cannot be used interchangeably. CA 125 levels, regardless of value, should not be interpreted as absolute evidence of the presence or absence of disease. THIS TEST WAS PERFORMED AT: [address] [place] [phone] TAMMIE BLANCA MD Complete Blood Count Auto Di ff Reviewed date:09/28/2024 08:45:24 PM Interpretation: Performing Lab:[facility], [address] [place] [phone] Notes/Report: White Blood Count 5.5 4.8-10.8 X10*3/uL Red Blood Count 4.06 4.20-5.50 X10*6/uL Hemoglobin 12.7 12.0-16.0 g/dl Hematocrit 37.7 37.0-47.0 % Mean Corpuscular Volume 92.9 80.0-98.0 fL Mean Corpuscular Hemoglobin 31.3 27.0-33.0 pg Mean Corpuscular HGB Conc 33.7 31.0-35.0 g/dl Red Cell Distribution Width 12.8 11.0-16.0 % Platelet Count 238 160-400 X10*3/uL Mean Platelet Volume 9.1 9.4-12.3 fL Neutrophils Percent Auto 72.5 45-73 % Imm Gran Pct Auto 0.9 0.0-0.4 % Lymphocytes Percent Auto 15.0 20-40 % Monocytes Percent Auto 7.8 2-11 % Eosinophils Percent Auto 3.1 0-4 % Basophils Percent Auto 0.7 0-2 % NRBC Pct Auto 0.0 0.0-0.2 /100WBC Neutrophils Absolute Auto 4.0 2.0-8.3 x10*3/uL Imm Gran Abs Auto 0.05 0.00-0.03 X10*3/uL Lymphocytes Absolute Auto 0.8 1.2-4.9 X10*3/uL Monocytes Absolute Auto 0.4 0.1-1.2 X10*3/uL Eosinophils Absolute Auto 0.2 0.0-0.4 X10*3/uL Basophils Absolute Auto 0.0 0.0-0.2 X10*3/uL NRBC Abs Auto 0.000 0.0-0.012 X10*3/uL Comprehensive [place]. Panel Fa Reviewed date:09/28/2024 08:45:24 PM Interpretation: Performing Lab:[facility], [address] [place] [phone] Notes/Report: Sodium 143 135-145 mmol/L Potassium 4.0 3.3-5.1 mmol/L Chloride 105 96-108 mmol/L Carbon Dioxide 30 22-29 mmol/L Anion Gap 12 12-20 Blood Urea Nitrogen 12 9-16 mg/dL Creatinine 0.79 0.5-1.4 mg/dL Estimated Glomerular Filt Rate > 60 Chronic Kidney Disease: Estimated GFR < 60 mL/min/1.73m2 Severe Kidney Disease: Estimated GFR < 15 mL/min/1.73m2 Glucose Fasting 99 60-99 mg/dL Calcium 9.3 8.4-10.2 mg/dL Bilirubin Total 0.6 0.0-1.0 mg/dL Aspartate Amino Transferase 58 5-31 U/L Alanine Aminotransferase 82 0-31 U/L Total Protein 7.3 6.5-8.0 g/dL Albumin Level 4.3 3.5-5.0 g/dL Alkaline Phosphatase 84 39-117 U/L Ferritin Reviewed date:09/28/2024 08:45:24 PM Interpretation: Performing Lab:[facility], [address] [place] [phone] Notes/Report: Ferritin 473 10-250 ng/mL Lipid Panel Reviewed date:09/28/2024 08:45:24 PM Interpretation: Performing Lab:[address] [phone] Notes/Report: Triglycerides 80 <150 mg/dL Desirable Triglyceride: less than 150 mg/dL Borderline High Triglyceride 150-199 mg/dL High Triglyceride: 200-499 mg/dL Very High Triglyceride: greater than or equal to 5OO mg/dL Cholesterol 189 <200 mg/dL Desirable Cholesterol: less than 200 mg/dL Borderline High Cholesterol: 200-239 mg/dL High Cholesterol: greater than 239 mg/dL LDL Cholesterol Calculated 112 <100 mg/dL Desirable LDL: less than 100 mg/dL Near Optimal/Above Optimal LDL: 110-129 mg/dL Borderline High LDL: 130-159 mg/dL High LDL: 160-189 mg/dL Very High LDL: greater than or equal to 190 mg/dL HDL Cholesterol 61 >40 mg/dL Desirable HDL: greater than 40 mg/dL Note: This HDL assay may give artificially low results in patients with liver disease. Vitamin B12 Reviewed date:09/28/2024 08:45:24 PM Interpretation: Performing Lab:[facility], [address] [place] [phone] Notes/Report: Vitamin B12 455 200-900 pg/mL NORMAL 200-900 PG/ML INDETERMINATE 160-199 PG/ML DEFICIENT < 160 PG/ML CA-125 Reviewed date:09/28/2024 08:45:24 PM Interpretation: Performing Lab:[facility], [address] [place] [phone] Notes/Report: CA-125 13 <35 U/mL This test was performed using the Siemens Chemiluminescent method. Values obtained from different assay methods cannot be used interchangeably. CA 125 levels, regardless of value, should not be interpreted as absolute evidence of the presence or absence of disease. THIS TEST WAS PERFORMED AT: [address] [place] [phone] TAMMIE BLANCA MD Reason For Referral Reason Breast Cancer Diagnosis 1 Infiltrating ductal carcinoma of right breast (C50.911) Referring Provider First Name Byron Referring Provider Last Name Cayden Referring Provider Speciality Internal edicine Referred Organization Uli Valerio III, MD Referred Provider Uli Valerio Referred Address [address] [place] [address] [facility] [address] [place] [phone], Referred Provider Specialty Oncology General Notes Jacklyn Don 10/03/2024 10:29:29 AM > Dr. Rodarte is no longer PCP. Referral Priority Routine Reason Breast Cancer Diagnosis 1 Malignant neoplasm o f ovary, unspecified laterality (C56.9) Diagnosis 2 Chronic leukopenia ( D72.819) Referring Provider First Name Shiloh Referring Provider Last Name Aditi Referring Provider Speciality Internal edicine Referred Organization Uli Valerio III, MD Referred Provider Uli Valerio Referred Address [address],[place], [place],[address],[place] Referred Provider Specialty Oncology Referral Priority Routine Medications Medication SIG (Take, Route, Frequency, Duration) Notes Start Date End Date Status Magnesium Glycinate Plus Active Vitamin D-3 25 MCG (1000 UT) 1 capsule Orally Once a day Active Calcium + Vitamin D3 600-10 MG-MCG 1 tablet with a meal Orally Once a day Active Immunizations Vaccine Route Administration Date Status Comme nts Influenza Unknown 03/29/2016 Administered COVID- 19 Vaccine Unknown 09/04/2020 Administered Qu[place] & Calvin Influenza, quad Unknown 03/21/2023 Administered Influenza, quad Unknown 02/23/2021 Administered COVID 19 Issa Unknown 09/04/2020 Administered Influenza, quad Unknown 03/09/2016 Administered Influenza, quad Unknown 02/28/2018 Administered COVID Pfizer Bivalent Unknown 05/25/2022 Administered COVID PFIZER Unknown 05/25/2021 Administered Influenza-iiv4 p-free high dose Unknown 03/21/2023 Administered COVID-19 Moderna SPIKEVAX Unknown 05/09/2024 Administer ed Influenza, quad Unknown 03/12/2024 Administered Tdap Unknown 07/10/2024 Administered Social History Tobacco Use: Social History [...] Problem Status W/U Status Risk Notes Problem 178473335 Infiltrating ductal carcinoma of right breast (C50.911) Active confirmed There was no sign of recurrent breast cancer of a new primary in either breast today. She will continue with annual mammography and breast self examination. 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 This problem antoni resolved. Problem 100717805 Obesity, unspecified (E66.9) Active confirmed Her body mass index is now 30. She has gained 2 pounds. We discussed diet and nutrition. I recommended stabilizing her weight at this level until she has recovered fully from chemotherapy and then gradually reduce her weight through diet and exercise. 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 It has not changed since her last visit. She will continue on current therapy. Problem Osteoporosis (64476048) Osteoporosis (M81.0) Active confirmed He says she has been compliant with her current therapy. She denies any bone pain. She will have a bone density test done periodically. Problem 886899229 Malignant neoplasm of ovary, unspecified laterality (C56.9) Active confirmed The stage III epithelial ovarian cancer is in remission. His CEA 125 his in the normal range. Surveillance continues. Problem 54618218 Chronic leukopenia (D72.819) Active confirmed Her white blood cell count is 3400. Both lymphocytes and neutrophils are slightly low.She has had no infections. Observation was continued. 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 CA 125 is reported to be 16. She will be followed closely. Vital Signs Heart Rate 81 /min 09/30/2024 Temperature 98.2 degrees Fahrenheit 09/30/2024 Blood pressure diastolic 88 mm Hg 09/30/2024 Height 67 in 09/30/2024 Blood pressure systolic 137 mm Hg 09/30/2024 Weight 197 lbs 09/30/2024 BMI 30.85 kg/m2 09/30/2024 Encounters Encounter Location Date Provider Diagnosis Uli Valerio III, MD [address] [place] [address] [place] [phone] 10/25/2023 Uli Valerio Infiltrating ductal carcinoma of right breast C50.911 ; Epithelial ovarian cancer, FIGO stage IIIA C56.9 ; Chronic leukopenia D72.819 ; Drug-induced polyneuropathy G62.0 ; Osteoporosis M81.0 and Obesity, unspecified E66.9 Uli Valerio III, MD [address] [place] [address] [place] [phone] 12/26/2023 Uli Valerio Infiltrating ductal carcinoma of right breast C50.911 ; Epithelial ovarian cancer, FIGO stage IIIA C56.9 ; Osteoporosis M81.0 ; Drug-induced polyneuropathy G62.0 ; Chronic leukopenia D72.819 and Obesity, unspecified E66.9 Uli Valerio III, MD [address] [place] [address] [place] [phone] 02/19/2024 Uli Dodgene Infiltrating ductal carcinoma of right breast C50.911 ; Overweight E66.3 ; Chronic leukopenia D72.819 ; Drug-induced polyneuropathy G62.0 ; Osteoporosis M81.0 and Malignant neoplasm of ovary, unspecified laterality C56.9 Uli Valerio III, MD [address] [place] [address] [place] [address] 05/15/2024 Uli Dodgene Infiltrating ductal carcinoma of right breast C50.911 ; Overweight E66.3 ; Chronic leukopenia D72.819 ; Drug-induced polyneuropathy G62.0 ; Osteoporosis M81.0 and Epithelial ovarian cancer, FIGO stage IIIA C56.9 Uli Valerio III, MD [address] [place] [address] [place] [address] 08/13/2024 Uli Rezarne Infiltrating ductal carcinoma of right breast C50.911 ; Epithelial ovarian cancer, FIGO stage IIIA C56.9 ; Anemia in neoplastic disease D63.0 ; Osteoporosis M81.0 ; Drug-induced polyneuropathy G62.0 and Chronic leukopenia D72.819 Uli Valerio III, MD [address] [place] [address] [place] [address] 09/30/2024 Uli Dodgene Infiltrating ductal carcinoma of right breast C50.911 [...] in the near future. She will see [facility] next month. Her CA-125 is 14, [...] annual mammography and breast self examination. 08/13/2024 Infiltrating ductal carcinoma of right breast [...] 16. She will be followed closely. 09/30/2024 Infiltrating ductal carcinoma of right breast [...] be 16. She will be followed closely. 10/25/2023 Chronic leukopenia (ICD-10 - D72.819) Her [...] has had no infections. Observation was continued. 08/13/2024 Anemia in neoplastic disease (ICD-10 - D63.0) She has a normal hemoglobin and hematocrit and mean cell volume. This problem antoni resolved. 09/30/2024 Osteoporosis (ICD-10 - M81.0) He says she has been compliant with her current therapy. She denies any bone pain. She will have a bone density test done periodically. 10/25/2023 Drug-induced polyneuropathy (ICD-10 - G62.0) She [...] She will continue on current therapy. 08/13/2024 Osteoporosis (ICD-10 - M81.0) He says [...] was continued on calcium and vitamin D. 08/13/2024 Drug-induced polyneuropathy (ICD-10 - G62.0) She continues to have paresthetic pain from the chemotherapy. It has not changed since her last visit. She will continue on current therapy. 09/30/2024 Chronic leukopenia (ICD-10 - D72.819) Her white blood cell count is 3400. Both lymphocytes and neutrophils are slightly low.She has had no infections. Observation was continued. 10/25/2023 Obesity, unspecified (ICD-10 - E66.9) Her [...] 16. She will be followed closely. 08/13/2024 Chronic leukopenia (ICD-10 - D72.819) Her white blood cell count is 3400. Both lymphocytes and neutrophils are slightly low.She has had no infections. Observation was continued. Plan Of Treatment Pending Test Test Name Order Date PROFILE, FASTING (COMPREHENSIVE METABOLI C) 12/26/2023 PROFILE, FASTING (COMPREHENSIVE METABOLI C) 08/13/2024 PROFILE, FASTING (COMPREHENSIVE METABOLI C) 05/15/2024 PROFILE, FASTING (COMPREHENSIVE METABOLI C) 06/27/2023 PROFILE, FASTING (COMPREHENSIVE METABOLI C) 08/22/2023 PROFILE, FASTING (COMPREHENSIVE METABOLI C) 04/17/2023 PROFILE, RANDOM (COMPREHENSIVE METABOLIC ) 03/10/2020 LIPID PANEL 12/26/2023 LIPID PANEL 08/22/2023 GGT 05/15/2024 GGT 06/27/2023 LDH 06/27/2023 CBC w DIFF 08/13/2024 CBC w DIFF 03/10/2020 CBC w DIFF 12/26/2023 CBC w DIFF 05/15/2024 CBC w DIFF 04/17/2023 CBC w DIFF 08/22/2023 CBC w DIFF 06/27/2023 CA 125 06/27/2023 CA 125 08/13/2024 CA 125 05/15/2024 CA 125 04/17/2023 Ferritin 08/13/2024 Lipid Panel 04/17/2023 Lipid Panel 06/27/2023 Lipid Panel 08/13/2024 Lipid Panel 05/15/2024 Vitamin B12 08/13/2024 Vitamin D 25-OH Total 12/26/2023 CA-125 12/26/2023 CA 27.29 12/26/2023 Next Appt Details Provider Name:Uli Valerio, 12/02/2024 10:00:00 AM, [address] [place] [address] [address], [place], [address], Insurance Providers Payer Name Payer Address Payer Phone Subscriber Number Group Number Insured Name Patient Relationship to Insured Coverage Start Date Coverage End Date [facility] [address] [place], [place] [id number] CHARY URIBE Self - patient is the insured Medical (General) History Medical History History ICD Code 2.1 cm ER+OH+ invasive ducta l right breast carcinoma with DCIS:[id number](i_)(sn-) September 2015 lipoma removed from arm colonoscopy 2012 ovarian cancer 2022 stage IIIA Surgical History Surgery Date(Month/Year) No history Bx Pelvic Wall, Right (Negative results) 03/01/23 Total Hysterectomy- Bil[facility] Salpingo- [facility], ovarian cancer 08/25/22 Right breast Biopsy,lumpectomy/sentinal nodes/re-excision 09/2015 Colonoscopy 03/2013 Lipoma removal; [facility] Sosa Hospitalization History Reason Date(Month/Year) No history
--- OUTSIDE RECORDS SUMMARY | 2024-10-04 11:48 | XMS_ITS ---
Author Organization Uli Valerio III, MD Address [address] [place] [address] Care Team Providers Care Tape Coater Name Role Phone Shiloh Pennington Primary Care Provider Uli Dodd Unavailable [phone] Allergies Allergen (clinical drug ingredient) Drug/Non Drug [...] Provider Diagnosis Uli Valerio III, MD [address] [place] [address] [place] [address] 08/13/2024 Uli Valerio Infiltrating ductal carcinoma of [...] Up: 2 Months, Reason: OV Provider Name:Uli Valerio, 12/02/2024 10:00:00 AM, [address] [place] [address] [address] [place], [place], [address], Progress Notes * PAWAN URIBEB:1960 (64 yo F)Acc No.[id number]:08/13/2024 Progress Notes Patient:SANA BARNES Provider:?Uli Valerio MD :1960???Age:64 Y???Sex:Female D ate:08/13/2024 Address:[address] [place], [place] [id number] Pcp:Byron Rodarte MD Subjective: * Chief Complaints: * ???Right breast cancerOsteop orosisStage III carcinoma of the ovaryChronic leukopeniaDrug-induced peripheral neuropathy * HPI: ???COVID-19 Screening:? She returns to the office for ongoing follow-up and surveillance of her 2 malignancies. Her CA-125 is stable at 16.? Her total cholesterol is 206.? She continues to be mildly neutropenic.? She is up-to-date with her visits to the medical oncologist.? No new problems have been identified.? Her physical examination was remarkable only for obesity. ?Questions?Have you had any new onset fever, chills, cough, congestion, sore throat, shortness of breath, muscle aches??No * ROS:?General/Constitutional:?pain?Peripheral neuropathy hands and feet, otherwise only normal aches and pains.?Chills?denies.?Fatigue?admits.?Fever?denies.?ENT:?Decreased hearing?denies.?Respiratory:?Cough?denies.?Cardiovascular:?Chest pain with exertion?denies.?Dyspnea on exertion?denies.?Shortness of breath?denies.?Gastrointestinal:?Constipation?occasional.?Decreased appetite?denies.?Diarrhea?denies.?Heartburn?denies.?Nausea?denies.?Rectal bleeding?denies.?Vomiting?denies.?Hematology:?bruising?denies.?petechiae?denies.?Swollen glands?none have been noted.?Genitourinary:?Frequent urination?a small amount.?Musculoskeletal:?Muscle aches?denies.?Painful joints?denies.?Sciatica?denies.?Weakness?denies.?Skin:?Itching?denies.?Rash?denies.?Skin lesion(s)?denies.?Neurologic:?Difficulty speaking?denies.?Dizziness?denies.?Headache?denies.?Low back pain?denies.?Psychiatric:?Depressed mood?denies.? * Medical History:? * Surgical History:?Lipoma rem oval; [facility] [place] Dr Sosa Colonoscopy 03/2013Right breast Biopsy,lumpectomy/sentinal nodes/re-excision 09/2015Total Hysterectomy- Bilateral Salpingo- OOpherectomy [facility], ovarian cancer 08/25/22Bx Pelvic Wall, Right [...] Vitals:?Ht: 67, Wt: 197, BMI :30.85, BP: 139/82, HR: 84, Temp: 96.8, Wt-k.36. * ???Past Orders: Lab:Complete Blood Count Aut o Diff * Collection Date 05/28/2024 01/04/2024 10/19/2023 Collection Time 10:10 AM 09:21 AM 08:44 AM Order Date 05/28/2024 01/04/2024 10/19/2023 White Blood Count 3.4?L (Ref Range: 4.8-10.8 X10*3/uL) 3.2?L (Ref Range: 4.8-10.8 X10*3/uL) 3.1?L (Ref Range: 4.8-10.8 X10*3/uL) Red Blood Count 4.20 (Ref Range: 4.20-5.50 X10*6/uL) 4.13?L (Ref Range: 4.20-5.50 X10*6/uL) 3.91?L (Ref Range: 4.20-5.50 X10*6/uL) Hemoglobin 13.2 (Ref Range: 12.0-16.0 g/dl) 12.9 (Ref Range: 12.0-16.0 g/dl) 12.3 (Ref Range: 12.0-16.0 g/dl) Hematocrit 38.5 (Ref Range: 37.0-47.0 %) 38.1 (Ref Range: 37.0-47.0 %) 36.7?L (Ref Range: 37.0-47.0 %) Mean Corpuscular Volume [...] (Ref Range: 160-400 X10*3/uL) Mean Platelet Volume 8.8?L (Ref Range: 9.4-12.3 fL) 9.2?L (Ref Range: 9.4-12.3 fL) 9.0?L (Ref Range: 9.4-12.3 fL) Neutrophils Percent Auto 49.1 (Ref Range: 45-73 %) 52.1 (Ref Range: 45-73 %) 51.7 (Ref Range: 45-73 %) Imm Gran Pct Auto 0.6?H (Ref Range: 0.0-0.4 %) 0.6?H (Ref Range: 0.0-0.4 %) 0.6?H (Ref Range: 0.0-0.4 %) Lymphocytes Percent Auto 33.0 (Ref Range: 20-40 %) 32.9 (Ref Range: 20-40 %) 31.8 (Ref Range: 20-40 %) Monocytes Percent Auto 11.9?H (Ref Range: 2-11 %) 9.7 (Ref Range: 2-11 %) 11.4?H (Ref Range: 2-11 %) Eosinophils Percent Auto 4.5?H (Ref Range: 0-4 %) 3.8 (Ref Range: 0-4 %) 4.2?H (Ref Range: 0-4 %) Basophils Percent Auto 0.9 (Ref Range: 0-2 %) 0.9 (Ref Range: 0-2 %) 0.3 (Ref Range: 0-2 %) NRBC Pct Auto 0.0 (Ref Range: 0.0-0.2 /100WBC) 0.0 (Ref Range: 0.0-0.2 /100WBC) 0.0 (Ref Range: 0.0-0.2 /100WBC) Neutrophils Absolute Auto 1.7?L (Ref Range: 2.0-8.3 x10*3/uL) 1.7?L (Ref Range: 2.0-8.3 x10*3/uL) 1.6?L (Ref Range: 2.0-8.3 x10*3/uL) Imm Gran Abs Auto 0.02 (Ref Range: 0.00-0.03 X10*3/uL) 0.02 (Ref Range: 0.00-0.03 X10*3/uL) 0.02 (Ref Range: 0.00-0.03 X10*3/uL) Lymphocytes Absolute Auto 1.1?L (Ref Range: 1.2-4.9 X10*3/uL) 1.1?L (Ref Range: 1.2-4.9 X10*3/uL) 1.0?L (Ref Range: 1.2-4.9 X10*3/uL) Monocytes Absolute Auto [...] 0.000 (Ref Range: 0.0-0.012 X10*3/uL) * Lab:Chay Choudhury * Collection Date 05/28/2024 01/04/2024 10/19/2023 Collection Time 10:10 AM 09:21 AM 08:44 AM Order Date 05/28/2024 01/04/2024 10/19/2023 Sodium 141 (Ref Range: 135-145 mmol/L) 142 (Ref Range: 135-145 mmol/L) 142 (Ref Range: 135-145 mmol/L) Bilirubin Total 0.6 (Ref Range: 0.0-1.0 mg/dL) 0.5 (Ref Range: 0.0-1.0 mg/dL) 0.5 (Ref Range: 0.0-1.0 mg/dL) Aspartate Amino Transferase 75?H (Ref Range: 5-31 U/L) 56?H (Ref Range: 5-31 U/L) 92?H (Ref Range: 5-31 U/L) Alanine Aminotransferase 117?H (Ref Range: 0-31 U/L) 87?H (Ref Range: 0-31 U/L) 114?H (Ref Range: 0-31 U/L) Total Protein 7.3 [...] Carbon Dioxide 29 (Ref Range: 22-29 mmol/L) 30?H (Ref Range: 22-29 mmol/L) 28 (Ref Range: 22-29 mmol/L) Anion Gap 10?L (Ref Range: 12-20) 10?L (Ref Range: 12-20) 12 (Ref Range: 12-20) Blood Urea Nitrogen 14 (Ref Range: 9-16 mg/dL) 15 (Ref Range: 9-16 mg/dL) 17?H (Ref Range: 9-16 mg/dL) Creatinine 0.76 (Ref [...] Glutamyl Transpeptidase 32 (Ref Range: 7-33 U/L) 43?H (Ref Range: 7-33 U/L) * Lab:Lipid Panel * Collection Date 05/28/2024 01/04/2024 10/19/2023 Collection Time 10:10 AM 09:21 AM 08:44 AM Order Date 05/28/2024 01/04/2024 10/19/2023 Triglycerides 90 (Ref Range: <150 mg/dL) 61 (Ref Range: <150 mg/dL) 74 (Ref Range: <150 mg/dL) Cholesterol 206?H (Ref Range: <200 mg/dL) 170 (Ref Range: <200 mg/dL) 195 (Ref Range: <200 mg/dL) LDL Cholesterol Calculated 129?H (Ref Range: <100 mg/dL) 103?H (Ref Range: <100 mg/dL) 121?H (Ref Range: <100 mg/dL) HDL Cholesterol 59 (Ref Range: >40 mg/dL) 55 (Ref Range: >40 mg/dL) 60 (Ref Range: >40 mg/dL) * Lab:CA-125 * Collection Date 05/28/2024 01/04/2024 08/17/2023 Collection Time 10:10 AM 09:21 AM 08:53 AM Order Date 05/28/2024 01/04/2024 08/17/2023 CA-125 16 (Ref Range: <35 U/mL) 15 (Ref Range: <35 U/mL) 14 (Ref Range: <35 U/mL) * Examination: ???General [...] to auscultation .?BREASTS:?no masses palpable bilaterally, no dimpling, no discharge, nontender, symmetrical, Surgical scars right breast well-healed.?ABDOMEN:?bowel sounds normal, no ascites, no organomegaly, no mass.?RECTAL EXAM:?not examined.?MUSCULOSKELETAL:?extremities unremarkable, no clubbing, cyanosis or edema, Healed recent vertical abdominal incision scar.?PERIPHERAL PULSES:?normal.?NEUROLOGIC:?alert and oriented, cranial nerves 2-12 grossly [...] continue with annual mammography and breast self examination.???3.?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 This problem antoni resolved.???4.?Osteoporosis - M81.0???Notes :He says she has been compliant with her current therapy.? She denies any bone pain.? 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 It has not changed since her last visit. She will continue on current therapy.???6.?Chronic leukopenia - D72.819???Notes :Her white blood cell count is 3400. Both lymphocytes and neutrophils are slightly low.She has had no infections. Observation was continued.??? Plan: * Treatment: 2.?Anemia in neoplastic dise ase?LAB: PROFILE, FASTING (COMPREHENSIVE METABOLIC) ?LAB: CBC w DIFF ?LAB: CA 125 ?LAB: Ferritin ?LAB: Lipid Panel ?LAB: Vitamin B12 3.?Osteoporosis?LAB: PROFILE, FASTING (COMPREHENSIVE METABOLIC) ?LAB: CBC w DIFF ?LAB: CA 125 ?LAB: Ferritin ?LAB: Lipid Panel ?LAB: Vitamin B12 * Procedure Codes:? * Preventive Medicine:? ??Counseling:?Care [...] not done * Follow Up:?2 Months (Reason: OV) * Images: * Sign off status: Completed true * Provider:?Uli Valerio MD Date:?07/27 Generated for Tim morales/Adolfo/eTmarksmitting on:?10/04/2024 11:47 AM [...]
== END 2024-10-04 12:02 | disposition home or self-care (01) ==
LOC: HO.HMCHD 11:20
PROVIDERS: PCP Internal Medicine; Visit Provider Internal Medicine
DX: Z76.89 Persons encountering health services in other specified circumstances (principal); Z85.3 Personal history of malignant neoplasm of breast; C50.911 Malignant neoplasm of unspecified site of right female breast

== ENCOUNTER 2024-12-06 08:51 | Outpatient (AMB) | payer BC, SELFPAY ==
--- OUTSIDE RECORDS SUMMARY | 2024-09-30 06:15 | XMS_ITS ---
Author Organization Uli Valerio III, MD Address [address] [facility] [place] [address] Care Team Providers Care Specialty Trimmer Name Role Phone Narciso Pennington Primary Care Provider Uli Dodd Unavailable [phone] Allergies Allergen (clinical drug ingredient) Drug/Non Drug [...] Date Provider Diagnosis Uli Valerio III, MD [address] [place] [address] [place] [address] 09/30/2024 Uli Valerio Infiltrating ductal carcinoma of [...] Months, Reason: ov no tests Provider Name:Uli Dodgene, 03/03/2025 10:30:00 AM, [address] [place] [address] , [place] [address], [place], [address], Progress Notes * PEDRO URIBE:1960 (64 yo F)Acc No.[id number]:09/30/2024 Progress Notes Patient: SANA HORNER Provider: John Valerio MD :1960 A ge:64 Y S ex:Female Date:09/30/2024 Address:[address] [place] [address], [phone] Pcp:Narciso Pennington Subjective: * Chief Complaints: * [...] Biopsy,lumpectomy/sentinal nodes/re-excision 09/2015Total Hysterectomy- Bilateral Salpingo- [facility]Opherectomy [facility], ovarian cancer 08/25/22Bx Pelvic Wall, Right (Negative [...] 0.000 (Ref Range: 0.0-0.012 X10*3/uL) * Lab:[facility] * Collection Date 09/27/2024 05/28/2024 01/04/2024 [...] Date & Time - 09/27/2024 09:15 AM)?ValueReference Range?[id number] - ng/mL * Lab:Lipid Panel * Collection [...] true * Provider: John Valerio MD Date: 09/30/2024 Generated for Tim morales/Adolfo/Haileyitting on: 12/06/2024 09:02 AM EDT History and Physical Notes * [...]
--- NOTE | 2024-12-06 09:08 | MHC.OFFVIS ---
Vital Signs 12/06/24 09:11 Height 5 ft 7 in Weight 198 lb 6.656 oz BMI 31.1 Intake Visit Reasons: Yearly breast exam Intake Note: Patient is seen in office fro 3 month follow up visit, G-tube change. Pt c/o: denies any concerns at the time of visit Mortgage Operations Manager Required: No Water Taxi Driver: Water Taxi Driver Present (Sylvia KAT) Accompanied by: Self / Same As Patient Allergies Iodinated Contrast Media Allergy (Mild, Verified 12/06/24 09:11) Anaphylaxis amoxicillin (From AUGMENTIN) Allergy (Unknown, Verified 12/06/24 09:11) BODY RASH clavulanic acid (From AUGMENTIN) Allergy (Unknown, Verified 12/06/24 09:11) BODY RASH Medication List - Last Reconciled 12/06/24 by Angus Valenzuela MD calcium carbonate-vit D3-min 600 mg calcium- 200 unit (Calcium 600 + Minerals) tabs PO cholecalciferol (vitamin D3) 25 mcg PO DAILY magnesium glycinate 500 mg PO DAILY HPI Comments Details: Chary Uribe is a 64-year-old female patient with prior history of right breast infiltrating ductal carcinoma treated by Dr.? Kapadia.? She underwent right breast lumpectomy with needle localization and right axillary sentinel node biopsy on 10/13/2015 followed by re-excision of margins with a radial ellipse mastopexy closure for involved margins performed on 10/21/2015.? Margins were clear by 3 mm.? She was found to have a 2.2 cm grade 3 infiltrating ductal carcinoma, ER positive, VA positive, HER2 Ceferino negative as well as a 1.4 cm area of DCIS in the re-excision specimen.? Four right axillary nodes including 2 sentinel nodes and 2 additional nodes were benign.? She underwent 4 cycles of AC chemotherapy in 4 cycles of Taxotere under the direction of Dr. Valerio.? She developed neuropathy and restlessness in the legs which subsequently improved.? She was placed on Arimidex and completed 5 years in September 2021. She was recently diagnosed with stage III ovarian cancer with a single liu aortic lymph node positive for malignancy. She completed chemotherapy in 01/15/2023 at [facility] and previously underwent a total abdominal hysterectomy with bilateral salpingo oophorectomy (Dr. Lilia Hightower). She denies any new symptoms in either breast and generally feels well. Her most recent mammogram of 02/23/2024 revealed no mammographic evidence of malignancy (BI-RADS 2). She is scheduled for her annual mammogram on 02/28/2025. [facility] Medical History Hemorrhoids without complication Diverticulosis Family history of colorectal cancer Epithelial ovarian cancer, FIGO stage IIIA History of right breast cancer Surgical History H/O colonoscopy History of total hysterectomy (08/25/22) History of lymph node biopsy History of lumpectomy of right breast Family History Mother Breast cancer Maternal Aunt Breast cancer Paternal Aunt Pancreatic cancer Maternal Grandfather Colon cancer Father Gall stone in bile duct with infection of gallbladder Social History Housing: House Alcohol intake: current Alcohol intake frequency: holidays/special occasions only Patient Tobacco Use Status: Former Tobacco user e-Cigarette/Vaping Use: Former Use service: No Current occupational status: retired Cognitive needs: No Hearing needs: No Vision needs: Yes (rx glasses) Female Reproductive History Menstrual Age of Menarche: 13 Review of Systems Const All systems reviewed & are unremarkable except as noted in HPI and below Physical Exam Const General: no acute distress Nutritional Appearance: well nourished Orientation/consciousness: patient oriented x3 Neck Neck: Yes no lymphadenopathy Chest Other: Port-A-Cath in the right chest wall with a well-healed incision. Right breast with a well-healed incision. No skin change, nipple discharge, tenderness, or enlarged lymph nodes. No palpable mass appreciated. Left breast with no skin change, nipple discharge, tenderness, palpable mass or enlarged lymph nodes. Resp Effort & Inspection: normal respiratory effort, no audible wheezes, no cough and no respiratory distress GI Other: Well-healed midline incision without palpable hernia Inspection: Yes normal to inspection Palpation (GI): Soft to palpation Neuro Other: Mobility Assessment: 1. 3 meter assessment time (seconds) 5 2. Gait observations: Normal balance and gait General: patient oriented x3 Extrem General: Yes no clubbing, cyanosis or edema Assessment & Plan Assessment & Plan (1) Invasive ductal carcinoma of right breast, stage 2: Code(s): C50.911 - Malignant neoplasm of unspecified site of right female breast Category: Medical Plan: 64-year-old female patient with a prior history of invasive ductal carcinoma of the right breast status post lumpectomy with sentinel node biopsy in 2015 returning today for routine follow-up examination. Her most recent mammogram of 02/23/2024 revealed no mammographic evidence of malignancy (BI-RADS 2). Examination today reveals no suspicious findings in either breast and no enlarged lymph nodes. She is scheduled for a mammogram on 02/28/2025. She should follow up in 1 year for routine breast examination, sooner PRN. Coding Level of Care Code Est Pt Level 3 (57167) Diagnoses Invasive ductal carcinoma of right breast, stage 2 C50.911
[2024-12-06 09:11] VITALS: BMI 31.1
== END 2024-12-06 09:14 | disposition home or self-care (01) ==
LOC: HO.HGS 08:52
PROVIDERS: PCP Internal Medicine; Visit Provider Surgery
DX: C50.911 Malignant neoplasm of unspecified site of right female breast (principal)
CPT/HCPCS: 99213

== ENCOUNTER 2025-02-28 08:09 | Outpatient (REF) | payer BC, SELFPAY ==
--- NOTE | ~2025-02-28 | MM_ITS ---
EXAMINATION: MM SCREENING DIGITAL BREAST TOMOSYNTHESIS, BILATERAL CLINICAL INFORMATION: Screening. Asymptomatic. COMPARISON: Mammography: Comparison is made with available priors TECHNIQUE: Digital breast mammography with tomosynthesis is performed in both the craniocaudal and mediolateral oblique views along with computer-aided detection (CAD). FINDINGS: There are scattered areas of fibroglandular density. Right post lumpectomy changes are stable. Right port overlies and obscures the superior posterior right breast on MLO view. There are no significant masses, abnormal calcifications, or other abnormalities. MM/MM tomosynthesis screening BI IMPRESSION: No mammographic evidence of malignancy. ASSESSMENT: BI-RADS Category 2: Benign RECOMMENDATION: Routine annual mammography screening. 1 year F/U This examination should not preclude the clinical evaluation of a suspicious palpable abnormality. This patient's information was entered into a reminder system with a target due date for their next mammogram. Electronically signed by: Sravani Tang DO 02/28/2025 08:52 AM EDT
== END 2025-02-28 08:10 | disposition home or self-care (01) ==
LOC: HO.MAMMO 08:09
PROVIDERS: PCP Physician Assistant; Visit Provider Physician Assistant
DX: Z12.31 Encounter for screening mammogram for malignant neoplasm of breast (principal)
CPT/HCPCS: 77063; 77067

== ENCOUNTER → 2025-02-28 08:15 | Outpatient (BNV) | payer BC, SELFPAY | PROVIDERS: PCP Physician Assistant; Visit Provider Internal Medicine | DX: Z12.31 Encounter for screening mammogram for malignant neoplasm of breast (principal) | CPT/HCPCS: 77063; 77067 ==

== ENCOUNTER 2025-03-19 09:25 | Outpatient (REF) | payer BC, SELFPAY ==
--- OUTSIDE RECORDS SUMMARY | 2023-10-25 07:00 | XMS_ITS ---
Author Organization Uli Valerio III, MD Address [address] [place] [address] Care Team Providers Care Python Developer Name Role Phone CodyKaylaShiloh (Deisy) Primary Care Provider Un available Uli Valerio III Unavailable [phone] Dr. Uli Valerio III Unavailable Allergies Allergen (clinical drug ingredient) Drug/Non Drug Allergy documented on EMR Reaction Allergy Type Onset Date Status Iodinated contrast media (substance) Iodinated Diagnostic Agents nausea Drug Allergy Active amoxicillin / clavulanate Augmentin Rash Drug Allergy Active REASON FOR VISIT Breast cancer, Ovarian cancer, Chemotherapy-induced peripheral neuropathy, Osteoporosis, Chronic leukopenia Medications Medication SIG (Take, Route, Frequency, Duration) Notes Start Date End Date Status Magnesium Glycinate Plus Active Calcium + Vitamin D3 600-10 MG-MCG 1 tablet with a meal Orally Once a day Active Vitamin D-3 25 MCG (1000 UT) 1 capsule Orally Once a day Active Social History Tobacco Use: Social History Observation Description Date Details (start date - stop date) Never Smoker NA - NA Tobacco Use/Smoking Question Answer Notes Patient is a nonsmoker Additional Findings: Tobacco Non-User Aggressive non-smoker Problems Problem Type SNOMED Code ICD Code Onset Dates Problem Status W/U Status Risk Notes Problem 977917183 Obesity, unspecified (E66.9) Active confirmed Her body mass index is now 30. She has gained 2 pounds. We discussed diet and nutrition. I recommended stabilizing her weight at this level until she has recovered fully from chemotherapy and then gradually reduce her weight through diet and exercise. 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 She will continue with annual mammography and breast self examination. 10/25/2023 Epithelial ovarian cancer, FIGO stage IIIA (ICD-10 - C56.9) She has completed her chemotherapy and will be restaged in the near future. She will see [facility] oncology next month. Her CA-125 is 14, in the normal range. 10/25/2023 Chronic leukopenia (ICD-10 - D72.819) Her white blood cell count has improved. 10/25/2023 Drug-induced polyneuropathy (ICD-10 - G62.0) She continues to have paresthetic pain from the chemotherapy. It has not changed since her last visit. She will continue on current therapy. 10/25/2023 Osteoporosis (ICD-10 - M81.0) She is asymptomatic and will be continued on current therapy. 10/25/2023 Obesity, unspecified (ICD-10 - E66.9) Her body mass index is now 30. We discussed diet and nutrition. I recommended stabilizing her weight at this level until she has recovered fully from chemotherapy and then gradually reduce her weight through diet and exercise. Plan Of Treatment Medication Medication Name Sig Start Date Stop Date Notes Magnesium Glycinate Plus Calcium + Vitamin D3 600-10 MG-MCG 1 tablet with a meal Orally Once a day Vitamin D-3 25 MCG (1000 UT) 1 capsule Orally Once a day Next Appt Details Follow Up: 2 Months, Reason: ov Provider Name:Uli Cedeno Iman , 09/01/2025 10:00:00 AM, [address] [place] [address] [address] [place], [place], [address], Progress Notes * THOR URIBEADOB:1960 (63 yo F)Acc No.[id number]:10/25/2023 Progress Notes Patient: SANA HORNER Provider: John Valerio MD :1960 A ge:63 Y S ex:Female Date:10/25/2023 Address:[address] [place] [phone] Pcp:Byron Rodarte MD Subjective: * Chief Complaints: * B reast cancerOvarian cancerChemotherapy-induced peripheral neuropathyOsteoporosisChronic leukopenia * HPI: C OVID-19 Screening: She has completed her chemotherapy for this stage III ovarian cancer and the alopecia is resolving. She is feeling stronger. She is healthy and well. The neuropathy is unchanged. There was no sign of recurrent breast cancer or ovarian cancer on today's examination. The CA 125 is in the normal range. Questions H ave you experienced fever, chills, cough, sore throat, shortness of breath, difficulty breathing, muscle aches, loss of taste or smell? N o H ave you been exposed to the virus within the last 10 days? N o H ave you travelled internationally in the last 10 days? N o H ave you been exposed to COVID-19 in the past? N o * ROS: G eneral/Constitutional: pain o nly normal aches and pains. C hills d enies.?Fatigue a dmits. F ever d enies. E NT: Decreased hearing d enies. R espiratory: Cough d enies. C ardiovascular: Chest pain with exertion d enies. D yspnea on exertion?denies. S hortness of breath d enies. G astrointestinal: Constipation o ccasional. D ecreased appetite d enies. D iarrhea d enies. H eartburn d enies. N ausea d enies. R ectal bleeding d enies. V omiting d enies. H ematology: bruising d enies. p etechiae d enies. S wollen glands n one have been noted. G enitourinary: Frequent urination a small amount. M usculoskeletal: Muscle aches d enies. P ainful joints d enies. S ciatica d enies. W eakness d enies. S kin: Itching d enies. R aydee d enies. S kin lesion(s)?denies. N eurologic: Difficulty speaking d enies. D izziness d enies.?Headache d enies. L ow back pain d enies. P sychiatric: Depressed mood d enies. * Medical History: * Surgical History: L ipoma removal; [facility] [place] Dr Sosa Colonoscopy 03/2013Right breast Biopsy,lumpectomy/sentinal nodes/re-excision 09/2015Total Hysterectomy- Bilateral Salpingo- OOpherectomy [facility], ovarian cancer 08/25/22Bx Pelvic Wall, Right (Negative results) 03/01/23 * Hospitalization/Major Diagno stic Procedure: D enies Past Hospitalization * Family History: F ather: . M other: alive, diagnosed with Cancer, HTN. M aternal Grand Father: diagnosed with Cancer. M aternal aunt: diagnosed with Cancer. 1 son(s) - healthy. . A maternal aunt had breast cancer at an unknown age. A maternal grandfather had colon cancer at an unknown age. She has no brothers and no sisters. She has a son who is alive and well with no history of malignancy. There is no history of inherited family cancer syndromes. She is not aware of any family history of mental illness or substance abuse disorder or of addictions. * Social History: T obacco Use: T obacco Use/Smoking P atient is a n onsmoker A dditional Findings: Tobacco Non-User A ggressive non-smoker * Medications: T akingMagnesium Glycinate Plus Calcium + Vitamin D3 600-10 MG-MCG Tablet 1 tablet with a meal Orally Once a dayVitamin D-3 25 MCG (1000 UT) Capsule 1 capsule Orally Once a dayMedication List reviewed and reconciled with the patientTaking Magnesium Glycinate Plus Taking Calcium + Vitamin D3 600-10 MG-MCG Tablet 1 tablet with a meal Orally Once a dayTaking Vitamin D-3 25 MCG (1000 UT) Capsule 1 capsule Orally Once a dayMedication List reviewed and reconciled with the patient * Allergies: A ugmentin: RashIodinated Diagnostic Agents: nauseano[Allergies Verified] Objective: * Vitals: H t: 67, Wt: 192, BMI:30.07, BP: 133/78, HR: 76, Temp: 153/98, Wt-k.09. * P ast Orders: Lab:Complete Blood Count Aut o Diff * Order Date 10/19/2023 08/17/2023 06/19/2023 White Blood Count 3.1 L (Ref Range: 4.8-10.8 X10*3/uL) 3.3 L (Ref Range: 4.8-10.8 X10*3/uL) 2.7 L (Ref Range: 4.8-10.8 X10*3/uL) Red Blood Count 3.91 L (Ref Range: 4.20-5.50 X10*6/uL) 4.02 L (Ref Range: 4.20-5.50 X10*6/uL) 3.99 L (Ref Range: 4.20-5.50 X10*6/uL) Hemoglobin 12.3 (Ref Range: 12.0-16.0 g/dl) 12.7 (Ref Range: 12.0-16.0 g/dl) 12.8 (Ref Range: 12.0-16.0 g/dl) Hematocrit 36.7 L (Ref Range: 37.0-47.0 %) 37.4 (Ref Range: 37.0-47.0 %) 37.8 (Ref Range: 37.0-47.0 %) Mean Corpuscular Volume 93.9 (Ref Range: 80.0-98.0 fL) 93.0 (Ref Range: 80.0-98.0 fL) 94.7 (Ref Range: 80.0-98.0 fL) Mean Corpuscular Hemoglobin 31.5 (Ref Range: 27.0-33.0 pg) 31.6 (Ref Range: 27.0-33.0 pg) 32.1 (Ref Range: 27.0-33.0 pg) Mean Corpuscular HGB Conc 33.5 (Ref Range: 31.0-35.0 g/dl) 34.0 (Ref Range: 31.0-35.0 g/dl) 33.9 (Ref Range: 31.0-35.0 g/dl) Red Cell Distribution Width 13.0 (Ref Range: 11.0-16.0 %) 13.2 (Ref Range: 11.0-16.0 %) 12.3 (Ref Range: 11.0-16.0 %) Platelet Count 226 (Ref Range: 160-400 X10*3/uL) 221 (Ref Range: 160-400 X10*3/uL) 265 (Ref Range: 160-400 X10*3/uL) Mean Platelet Volume 9.0 L (Ref Range: 9.4-12.3 fL) 8.9 L (Ref Range: 9.4-12.3 fL) 9.4 (Ref Range: 9.4-12.3 fL) Neutrophils Percent Auto 51.7 (Ref Range: 45-73 %) 58.5 (Ref Range: 45-73 %) 51.3 (Ref Range: 45-73 %) Imm Gran Pct Auto 0.6 H (Ref Range: 0.0-0.4 %) 0.3 (Ref Range: 0.0-0.4 %) 0.7 H (Ref Range: 0.0-0.4 %) Lymphocytes Percent Auto 31.8 (Ref Range: 20-40 %) 27.4 (Ref Range: 20-40 %) 33.5 (Ref Range: 20-40 %) Monocytes Percent Auto 11.4 H (Ref Range: 2-11 %) 9.5 (Ref Range: 2-11 %) 9.7 (Ref Range: 2-11 %) Eosinophils Percent Auto 4.2 H (Ref Range: 0-4 %) 3.7 (Ref Range: 0-4 %) 4.1 H (Ref Range: 0-4 %) Basophils Percent Auto 0.3 (Ref Range: 0-2 %) 0.6 (Ref Range: 0-2 %) 0.7 (Ref Range: 0-2 %) NRBC Pct Auto 0.0 (Ref Range: 0.0-0.2 /100WBC) 0.0 (Ref Range: 0.0-0.2 /100WBC) 0.0 (Ref Range: 0.0-0.2 /100WBC) Neutrophils Absolute Auto 1.6 L (Ref Range: 2.0-8.3 x10*3/uL) 1.9 L (Ref Range: 2.0-8.3 x10*3/uL) 1.4 L (Ref Range: 2.0-8.3 x10*3/uL) Imm Gran Abs Auto 0.02 (Ref Range: 0.00-0.03 X10*3/uL) 0.01 (Ref Range: 0.00-0.03 X10*3/uL) 0.02 (Ref Range: 0.00-0.03 X10*3/uL) Lymphocytes Absolute Auto 1.0 L (Ref Range: 1.2-4.9 X10*3/uL) 0.9 L (Ref Range: 1.2-4.9 X10*3/uL) 0.9 L (Ref Range: 1.2-4.9 X10*3/uL) Monocytes Absolute Auto 0.4 (Ref Range: 0.1-1.2 X10*3/uL) 0.3 (Ref Range: 0.1-1.2 X10*3/uL) 0.3 (Ref Range: 0.1-1.2 X10*3/uL) Eosinophils Absolute Auto 0.1 (Ref Range: 0.0-0.4 X10*3/uL) 0.1 (Ref Range: 0.0-0.4 X10*3/uL) 0.1 (Ref Range: 0.0-0.4 X10*3/uL) Basophils Absolute Auto 0.0 (Ref Range: 0.0-0.2 X10*3/uL) 0.0 (Ref Range: 0.0-0.2 X10*3/uL) 0.0 (Ref Range: 0.0-0.2 X10*3/uL) NRBC Abs Auto 0.000 (Ref Range: 0.0-0.012 X10*3/uL) 0.000 (Ref Range: 0.0-0.012 X10*3/uL) 0.000 (Ref Range: 0.0-0.012 X10*3/uL) * Lab:Lipid Panel * Order Date 10/19/2023 08/17/2023 06/19/2023 Triglycerides 74 (Ref Range: <150 mg/dL) 70 (Ref Range: <150 mg/dL) 105 (Ref Range: <150 mg/dL) Cholesterol 195 (Ref Range: <200 mg/dL) 215 H (Ref Range: <200 mg/dL) 228 H (Ref Range: <200 mg/dL) LDL Cholesterol Calculated 121 H (Ref Range: <100 mg/dL) 133 H (Ref Range: <100 mg/dL) 148 H (Ref Range: <100 mg/dL) HDL Cholesterol 60 (Ref Range: >40 mg/dL) 68 (Ref Range: >40 mg/dL) 59 (Ref Range: >40 mg/dL) * Lab:Comprehensive [place]. Pane l Fast * Order Date 10/19/2023 08/17/2023 06/19/2023 Sodium 142 (Ref Range: 135-145 mmol/L) 140 (Ref Range: 135-145 mmol/L) 142 (Ref Range: 135-145 mmol/L) Bilirubin Total 0.5 (Ref Range: 0.0-1.0 mg/dL) 0.5 (Ref Range: 0.0-1.0 mg/dL) 0.5 (Ref Range: 0.0-1.0 mg/dL) Aspartate Amino Transferase 92 H (Ref Range: 5-31 U/L) 118 H (Ref Range: 5-31 U/L) 106 H (Ref Range: 5-31 U/L) Alanine Aminotransferase 114 H (Ref Range: 0-31 U/L) 150 H (Ref Range: 0-31 U/L) 132 H (Ref Range: 0-31 U/L) Total Protein 7.2 (Ref Range: 6.5-8.0 g/dL) 7.5 (Ref Range: 6.5-8.0 g/dL) 7.6 (Ref Range: 6.5-8.0 g/dL) Albumin Level 4.1 (Ref Range: 3.5-5.0 g/dL) 4.3 (Ref Range: 3.5-5.0 g/dL) 4.3 (Ref Range: 3.5-5.0 g/dL) Alkaline Phosphatase 72 (Ref Range: 39-117 U/L) 78 (Ref Range: 39-117 U/L) 77 (Ref Range: 39-117 U/L) Potassium 4.3 (Ref Range: 3.3-5.1 mmol/L) 4.2 (Ref Range: 3.3-5.1 mmol/L) 4.4 (Ref Range: 3.3-5.1 mmol/L) Chloride 106 (Ref Range: 96-108 mmol/L) 104 (Ref Range: 96-108 mmol/L) 104 (Ref Range: 96-108 mmol/L) Carbon Dioxide 28 (Ref Range: 22-29 mmol/L) 28 (Ref Range: 22-29 mmol/L) 30 H (Ref Range: 22-29 mmol/L) Anion Gap 12 (Ref Range: 12-20) 12 (Ref Range: 12-20) 12 (Ref Range: 12-20) Blood Urea Nitrogen 17 H (Ref Range: 9-16 mg/dL) 18 H (Ref Range: 9-16 mg/dL) 14 (Ref Range: 9-16 mg/dL) Creatinine 0.74 (Ref Range: 0.5-1.4 mg/dL) 0.76 (Ref Range: 0.5-1.4 mg/dL) 0.83 (Ref Range: 0.5-1.4 mg/dL) Estimated Glomerular Filt Rate > 60 > 60 > 60 Glucose Fasting 98 (Ref Range: 60-99 mg/dL) 95 (Ref Range: 60-99 mg/dL) 93 (Ref Range: 60-99 mg/dL) Calcium 9.4 (Ref Range: 8.4-10.2 mg/dL) 9.6 (Ref Range: 8.4-10.2 mg/dL) 9.3 (Ref Range: 8.4-10.2 mg/dL) ???Lab:Lactate Dehydrogenase (Order Date - 08/17/2023) (Collection Date - 08/17/2023)?ValueReference Range?Lactate [id number] - U/L ???Lab:Gamma Glutamyl Transpeptidase (Order Date - 08/17/2023) (Collection Date - 08/17/2023)?ValueReference Range?Gamma Glutamyl Qzuawzxeojmgbu75 H7-33 - U/L * Lab:CA-125 * Order Date 08/17/2023 06/19/2023 CA-125 14 (Ref Range: <35 U/mL) 13 (Ref Range: <35 U/mL) * Examination: G eneral Examination: GENERAL APPEARANCE: p branasant, well nourished, well developed, in no acute distress, calm and relaxed , obese , woman. HEAD: a traumatic, normocephalic, Resolving alopecia. EYES: e mari, perrla, anicteric, conjugate. EARS: n ormal. NOSE: s eptum intact. ORAL CAVITY: n ormal, unremarkable. NECK/THYROID: n o jugular venous distention, no carotid bruit, thyroid normal. LYMPH NODES: n o enlarged lymph nodes,spleen normal. SKIN: n o suspicious lesions, anicteric. HEART: n o clicks, gallops, murmurs, or rubs, regular rhythm, S1, S2 normal, no s3, or vascular bruits. LUNGS: c lear to auscultation . BREASTS: n o masses palpable bilaterally , no discharge , no dimpling , nontender , symmetrical. ABDOMEN: b owel sounds normal, no ascites, no organomegaly, no mass , centripital obesity. RECTAL EXAM: n ot examined. MUSCULOSKELETAL: e xtremities unremarkable, no clubbing, cyanosis or edema. PERIPHERAL PULSES: n ormal. NEUROLOGIC: a lert and oriented, cranial nerves 2-12 grossly intact, deep tendon reflexes 2+ symmetrical, motor strength normal upper and lower extremities, sensory exam diminished in the lower extremities. PSYCH: a lert, oriented. Assessment: * Assessment: 1. E pithelial ovarian cancer, FIGO stage IIIA - C56.9, She has completed her chemotherapy and will be restaged in the near future. She will see [facility] oncology next month. Her CA-125 is 14, in the normal range. 2 . I nfiltrating ductal carcinoma of right breast - C50.911, There was no sign of recurrent breast cancer of a new primary in either breast today. She will continue with annual mammography and breast self examination. 3 . C hronic leukopenia - D72.819, Her white blood cell count has improved. 4 . D rug-induced polyneuropathy - G62.0, She continues to have paresthetic pain from the chemotherapy. It has not changed since her last visit. She will continue on current therapy. 5 . O steoporosis - M81.0, She is asymptomatic and will be continued on current therapy. 6 . O besity, unspecified - E66.9, Her body mass index is now 30. We discussed diet and nutrition. I recommended stabilizing her weight at this level until she has recovered fully from chemotherapy and then gradually reduce her weight through diet and exercise. Plan: * Treatment: * Procedure Codes: * Preventive Medicine: Counseling: C are goal follow-up plan: Counseling for abnormal BMI given Y es Above Normal BMI Follow-up D ietary management education, guidance, and counseling, Dietary needs education, Exercise promotion: strength training, Exercise promotion: stretching, Feeding regime, Giving encouragement to exercise, Lifestyle education regarding diet, Nutrition / feeding management, Nutrition therapy, Prescribed activity/exercise education, Prescribed diet education, Prescribed dietary intake, Special diet education, Weight monitoring , Intervention, Order not done: Medical or Other reason not done * Follow Up: 2 Months (Reason: ov) * Images: * Sign off status: Completed true * Provider: John Valerio MD Date: 0 10/25/2023 Generated for Tim morales/Adolfo/Abe on: 10:44 AM EDT History and Physical Notes * HPI (History of Present Illness) Category Sub-Category Detail Notes COVID-19 Screening Questions Have you had any new onset fever, chills, cough, congestion, sore throat, shortness of breath, muscle aches?: No Have you been exposed to the virus withi n the last 10 days?: No Have you travelled internationally in last 10 days?: No Have you been exposed to COVID-19 in the past?: No Examination Category Sub-Category Detail Notes General Examination GENERAL APPEARANCE: pleasant , well nourished, well developed, in no acute distress, calm and relaxed , obese , woman HEAD: atraumatic, normocep halic, Resolving alopecia EYES: eomi, perrla, anicte ayesha, conjugate EARS: normal NOSE: septum intact NECK/THYROID: no jugular venous di stention, no carotid bruit, thyroid normal HEART: no clicks, gallops, murmurs, or rubs, regular rhythm, S1, S2 normal, no s3, or vascular bruits LUNGS: clear to auscultatio n ABDOMEN: bowel sounds normal, no ascites, no organomegaly, no mass , centripital obesity NEUROLOGIC: alert and oriented, cranial nerves 2-12 grossly intact, deep tendon reflexes 2+ symmetrical, motor strength normal upper and lower extremities, sensory exam diminished in the lower extremities SKIN: no suspicious lesion s, anicteric PERIPHERAL PULSES: normal BREASTS: no masses palpable b ilaterally , no discharge , no dimpling , nontender , symmetrical MUSCULOSKELETAL: extremities unremark able, no clubbing, cyanosis or edema LYMPH NODES: no enlarged lymph no james,spleen normal RECTAL EXAM: not examined PSYCH: alert, oriented ORAL CAVITY: normal, unremarkable
--- OUTSIDE RECORDS SUMMARY | 2023-12-26 07:00 | XMS_ITS ---
Author Organization Uli Valerio III, MD Address [address] [place] [address] Care Team Providers Care Health Social Work Professor Name Role Phone CodyShiloh Garza (Layla) Primary Care Provider Un available Uli Valerio III Unavailable [phone] Dr. Uli Valerio III Unavailable [phone] Allergies Allergen (clinical drug ingredient) Drug/Non Drug Allergy documented on EMR Reaction Allergy Type Onset Date Status Iodinated contrast media (substance) Iodinated Diagnostic Agents nausea Drug Allergy Active amoxicillin / clavulanate Augmentin Rash Drug Allergy Active REASON FOR VISIT Carcinoma of the right breast, Stage III epithelial ovarian cancer, Chronic leukopenia, Obesity, Osteoporosis, Neuropathy Medications Medication SIG (Take, Route, Frequency, Duration) Notes Start Date End Date Status Vitamin D-3 25 MCG (1000 UT) 1 capsule Orally Once a day Active Calcium + Vitamin D3 600-10 MG-MCG 1 tablet with a meal Orally Once a day Active Magnesium Glycinate Plus Active Social History Tobacco Use: Social History Observation Description Date Details (start date - stop date) Never Smoker NA - NA Tobacco Use/Smoking Question Answer Notes Patient is a nonsmoker Additional Findings: Tobacco Non-User Aggressive non-smoker Problems Problem Type SNOMED Code ICD Code Onset Dates Problem Status W/U Status Risk Notes Problem [id number] Malignant neoplasm of ovary, unspecified laterality (C56.9) Active confirmed The stage III epithelial ovarian cancer is in remission. His CEA 125 his in the normal range. Surveillance continues. Vital Signs Temperature 97.4 degrees Fahrenheit 12/26/19 24 Blood pressure systolic 139 mm Hg 07/30/20 24 Blood pressure diastolic 88 mm Hg 024 Heart Rate 74 /min 12/26/2023 Height 67 in 12/26/2023 Weight 194 lbs 12/26/2023 BMI 30.38 kg/m2 12/26/2023 Encounters Encounter Location Date Provider Diagnosis Uli Valerio III, MD [address] [place] [address] DR DONALDPEDRITOIAN, T[place] [id number] 12/26/2023 Uli Valerio Infiltrating ductal carcinoma of right breast C50.911 ; Epithelial ovarian cancer, FIGO stage IIIA C56.9 ; Osteoporosis M81.0 ; Drug-induced polyneuropathy G62.0 ; Chronic leukopenia D72.819 and Obesity, unspecified E66.9 Assessments Encounter Date Diagnosis (ICD Code) Assessment Notes Treat ment Notes Treatment Clinical Notes 12/26/2023 Infiltrating ductal carcinoma of right breast (ICD-10 - C50.911) There was no sign of recurrent breast cancer of a new primary in either breast today. She will continue with annual mammography and breast self examination. 12/26/2023 Epithelial ovarian cancer, FIGO stage IIIA (ICD-10 - C56.9) She appears to be in clinical remission after chemotherapy. CA 125 is reported to be 16. She will be followed closely. 12/26/2023 Osteoporosis (ICD-10 - M81.0) She was continued on calcium and vitamin D. 12/26/2023 Drug-induced polyneuropathy (ICD-10 - G62.0) She continues to have paresthetic pain from the chemotherapy. It has not changed since her last visit. She will continue on current therapy. 12/26/2023 Chronic leukopenia (ICD-10 - D72.819) Her white blood cell count is 3100. She has had no infections. Observation was continued. 12/26/2023 Obesity, unspecified (ICD-10 - E66.9) Her body mass index is now 30. She has gained 2 pounds. We discussed diet and nutrition. I recommended stabilizing her weight at this level until she has recovered fully from chemotherapy and then gradually reduce her weight through diet and exercise. Plan Of Treatment Medication Medication Name Sig Start Date Stop Date Notes Vitamin D-3 25 MCG (1000 UT) 1 capsule Orally Once a day Calcium + Vitamin D3 600-10 MG-MCG 1 tablet with a meal Orally Once a day Magnesium Glycinate Plus Pending Test Test Name Order Date PROFILE, FASTING (COMPREHENSIVE METABOLI C) 12/26/2023 LIPID PANEL 12/26/2023 CBC w DIFF 12/26/2023 Vitamin D 25-OH Total 12/26/2023 CA-125 12/26/2023 CA 27.29 12/26/2023 Next Appt Details Follow Up: 2 Months, Reason: OV review labs and bone desity done at Provider Name:Uli Valerio , 09/01/2025 10:00:00 AM, [address] [place] [address] IN[address], [place], [address], Progress Notes * PAWAN URIBEB:1960 (63 yo F)Acc No.[id number]:12/26/2023 Progress Notes Patient: SANA HORNER Provider: John Valerio MD :1960 A ge:63 Y S ex:Female Date:12/26/2023 Address:[address] [place], [place] [id number] Pcp:Byron Rodarte MD Subjective: * Chief Complaints: * C arcinoma of the right breastStage III epithelial ovarian cancerChronic leukopeniaObesityOsteoporosisNeuropathy * HPI: C OVID-19 Screening: She returns for ongoing surveillance of a history of carcinoma the right breast endurable remission after adjuvant treatment and recent chemotherapy for stage III carcinoma of the ovary. She is going to see her gynecologic oncologist next Monday. She had blood work recently at [facility] and was told the CA 125 was 16. Her alopecia has resolved and she is feeling better. The neuropathy is present but mild and she yanet with it. She is scheduled to have a routine screening colonoscopy January 16, [address] Donnelly at [facility]. Her appetite is good. She is distressed with her weight gain. She has gained 3 more pounds. We discussed lifestyle modification diet and nutrition today at length.There was no sign of recurrent malignancy today. Questions H ave you experienced fever, chills, [...] N o * ROS: G eneral/Constitutional: pain H ands and feet, otherwise only normal aches and pains. C hills d enies. F atigue a dmits. F ever d enies. E [...] have been noted. G enitourinary: Frequent urination d enies. M usculoskeletal: Muscle aches d enies. P ainful joints d enies. S ciatica d enies. W eakness t hat is generalized. S kin: Itching d enies. R aydee d enies. S kin lesion(s)?denies. N eurologic: Difficulty speaking d enies. D izziness d enies.?Headache d enies. L ow back pain d enies. P sychiatric: Depressed mood d enies. * Medical History: * Surgical History: L ipoma removal; [facility] Dr Sosa Colonoscopy 03/2013Right breast Biopsy,lumpectomy/sentinal nodes/re-excision 09/2015Total Hysterectomy- Bilateral Salpingo- OOpherectomy [facility], ovarian cancer 08/25/22Bx Pelvic Wall, Right (Negative results) 03/01/23 * Hospitalization/Major Diagno stic Procedure: D enies Past Hospitalization * Family History: F ather: . M other: alive, diagnosed with HTN, Cancer. M aternal Grand Father: diagnosed with Cancer. [...] Objective: * Vitals: H t: 67, Wt: 194, BMI:30.38, BP: 139/88, HR: 74, Temp: 97.4, Wt-k. * P ast Orders: Lab:Lipid Panel * Order Date 10/19/2023 08/17/2023 [...] 59 (Ref Range: >40 mg/dL) * Lab:Comprehensive [place]. Pane l Fast * Order Date 10/19/2023 [...] 8.4-10.2 mg/dL) 9.3 (Ref Range: 8.4-10.2 mg/dL) * Lab:Complete Blood Count Aut o Diff * [...] X10*3/uL) 0.000 (Ref Range: 0.0-0.012 X10*3/uL) * Examination: G eneral Examination: GENERAL APPEARANCE: p leasant, well nourished, well developed, in no acute distress , woman. HEAD: a traumatic, normocephalic. EYES: e mari, perrla, anicteric, conjugate. EARS: [...] auscultation . BREASTS: n o masses palpable bilaterally, All scars healed, radiation tattoos , no discharge , no dimpling. ABDOMEN: b owel sounds normal, no ascites, no organomegaly, no mass, Recent vertical midline surgical incision which is well-healed. RECTAL EXAM: n ot examined. MUSCULOSKELETAL: e xtremities unremarkable, no clubbing, cyanosis or edema. PERIPHERAL PULSES: n ormal. NEUROLOGIC: a lert and oriented, cranial nerves 2-12 grossly intact, deep tendon reflexes 2+ symmetrical, motor strength normal upper and lower extremities, sensory exam intact. PSYCH: a lert, oriented. Assessment: * Assessment: 1. I nfiltrating ductal carcinoma of right breast - C50.911 (Primary), There was no sign of recurrent breast cancer of a new primary in either breast today. She will continue with annual mammography and breast self examination. 2 . E pithelial ovarian cancer, FIGO stage IIIA - C56.9, She appears to be in clinical remission after chemotherapy. CA 125 is reported to be 16. She will be followed closely. 3 . O steoporosis - M81.0, She was continued on calcium and vitamin D. 4 . D rug-induced polyneuropathy - G62.0, She continues to have paresthetic pain from the chemotherapy. It has not changed since her last visit. She will continue on current therapy. 5 . C hronic leukopenia - D72.819, Her white blood cell count is 3100. She has had no infections. Observation was continued. 6 . O besity, unspecified - E66.9, Her body mass index is now 30. She has gained 2 pounds. We discussed diet and nutrition. I recommended stabilizing her weight at this level until she has recovered fully from chemotherapy and then gradually reduce her weight through diet and exercise. Plan: * Treatment: 2. E pithelial ovarian cancer, FIGO stage IIIA L AB: PROFILE, FASTING (COMPREHENSIVE METABOLIC) L AB: LIPID PANEL L AB: CBC w DIFF L AB: Vitamin D 25-OH Total L AB: CA-125 L AB: CA 27.29 I maging: BONE DENSITY DEXA 3. O steoporosis L AB: PROFILE, FASTING (COMPREHENSIVE METABOLIC) L AB: LIPID PANEL L AB: CBC w DIFF L AB: Vitamin D 25-OH Total L AB: CA-125 L AB: CA 27.29 I maging: BONE DENSITY DEXA * Procedure Codes: * Preventive Medicine: Counseling: [...] done * Follow Up: 2 Months (Reason: OV review labs and bone desity done at ) * Images: * Sign off status: Completed true * Provider: John Valerio MD Date: 0 12/26/2023 Generated for Tim morales/Adolfo/Haileyitting on: 10:43 AM EDT History and Physical Notes * HPI (History of Present Illness) Category Sub-Category Detail Notes COVID-19 Screening Questions Have you had any new onset fever, chills, cough, congestion, sore throat, shortness of breath, muscle aches?: No Have you been exposed to the virus with n the last 10 days?: No Have you travelled internationally in last 10 days?: No Have you been exposed to COVID-19 in the past?: No Examination Category Sub-Category Detail Notes General Examination GENERAL APPEARANCE: pleasant , well nourished, well developed, in no acute distress , woman HEAD: atraumatic, normocep halic EYES: eomi, perrla, anicte ayesha, conjugate EARS: normal NOSE: septum intact NECK/THYROID: no jugular venous di stention, no carotid bruit, thyroid normal HEART: no clicks, gallops, murmurs, or rubs, regular rhythm, S1, S2 normal, no s3, or vascular bruits LUNGS: clear to auscultatio n ABDOMEN: bowel sounds normal, no ascites, no organomegaly, no mass, Recent vertical midline surgical incision which is well-healed NEUROLOGIC: alert and oriented, cranial nerves 2-12 grossly intact, deep tendon reflexes 2+ symmetrical, motor strength normal upper and lower extremities, sensory exam intact SKIN: no suspicious lesion s, anicteric PERIPHERAL PULSES: normal BREASTS: no masses palpable b ilaterally, All scars healed, radiation tattoos , no discharge , no dimpling MUSCULOSKELETAL: extremities unremark able, no clubbing, cyanosis or edema LYMPH NODES: no enlarged lymph no james,spleen normal RECTAL EXAM: not examined PSYCH: alert, oriented ORAL CAVITY: normal, unremarkable
--- OUTSIDE RECORDS SUMMARY | 2024-02-19 07:00 | XMS_ITS ---
Author Organization Uli Valerio III, MD Address [address] [place] [address] Care Team Providers Care Clerical Production Worker Name Role Phone Shiloh Pennington (Layla) Primary Care Provider Un available Uli Valerio III Unavailable [phone] Dr. Uli Valerio III Unavailable [phone] Allergies Allergen (clinical drug ingredient) Drug/Non Drug Allergy documented on EMR Reaction Allergy Type Onset Date Status Iodinated contrast media (substance) Iodinated Diagnostic Agents nausea Drug Allergy Active amoxicillin / clavulanate Augmentin Rash Drug Allergy Active REASON FOR VISIT Ovarian cancer, History of breast cancer, Peripheral neuropathy, Leukocytopenia, Osteoporosis, Obesity Medications Medication SIG (Take, Route, Frequency, Duration) Notes Start Date End Date Status Magnesium Glycinate Plus Active Vitamin D-3 25 MCG (1000 UT) 1 capsule Orally Once a day Active Calcium + Vitamin D3 600-10 MG-MCG 1 tablet with a meal Orally Once a day Active Social History Tobacco Use: Social History Observation Description Date Details (start date - stop date) Never Smoker NA - NA Tobacco Use/Smoking Question Answer Notes Patient is a nonsmoker Additional Findings: Tobacco Non-User Aggressive non-smoker Vital Signs Temperature 97.0 degrees Fahrenheit 02/19/20 24 Blood pressure systolic 135 mm Hg 02/19/20 24 Blood pressure diastolic 95 mm Hg 024 Heart Rate 73 /min 02/19/2024 Height 67 in 02/19/2024 Weight 193 lbs 02/19/2024 BMI 30.22 kg/m2 02/19/2024 Encounters Encounter Location Date Provider Diagnosis Uli Valerio III, MD [address] [place] [address] [place] [address] 02/19/2024 Uli Valerio Infiltrating ductal carcinoma of right breast C50.911 ; Overweight E66.3 ; Chronic leukopenia D72.819 ; Drug-induced polyneuropathy G62.0 ; Osteoporosis M81.0 and Malignant neoplasm of ovary, unspecified laterality C56.9 Assessments Encounter Date Diagnosis (ICD Code) Assessment Notes Treat ment Notes Treatment Clinical Notes 02/19/2024 Infiltrating ductal carcinoma of right breast (ICD-10 - C50.911) There was no sign of recurrent breast cancer of a new primary in either breast today. She will continue with annual mammography and breast self examination. 02/19/2024 Overweight (ICD-10 - E66.3) Her weight has been stable. We discussed her diet and nutrition. We made a plan to lose weight at a rate of one half of a pound per week. Diet restricted in fat calories and sodium combined with regular activity. 02/19/2024 Chronic leukopenia (ICD-10 - D72.819) Her white blood cell count is 3200. She has had no infections. Observation was continued. 02/19/2024 Drug-induced polyneuropathy (ICD-10 - G62.0) She continues to have paresthetic pain from the chemotherapy. It has not changed since her last visit. She will continue on current therapy. 02/19/2024 Osteoporosis (ICD-10 - M81.0) She was continued on calcium and vitamin D. 02/19/2024 Malignant neoplasm o f ovary, unspecified laterality (ICD-10 - C56.9) The stage III epithelial ovarian cancer is in remission. His CEA 125 his in the normal range. Surveillance continues. Plan Of Treatment Medication Medication Name Sig Start Date Stop Date Notes Magnesium Glycinate Plus Vitamin D-3 25 MCG (1000 UT) 1 capsule Orally Once a day Calcium + Vitamin D3 600-10 MG-MCG 1 tablet with a meal Orally Once a day Next Appt Details Follow Up: 3 Months, Reason: OV Provider Name:Uli Valerio , 09/01/2025 10:00:00 AM, [address] [place] [address] INDIRA HUTTON, [place], [address], Progress Notes * PEDRO URIBE:1960 (63 yo F)Acc No.[id number]:02/19/2024 Progress Notes Patient: SANA HORNER Provider: John Valerio MD :1960 A ge:63 Y S ex:Female Date:02/19/2024 Address:[address] [place], [place] [id number] Pcp:Byron Rodarte MD Subjective: * Chief Complaints: * O varian cancerHistory of breast cancerPeripheral neuropathyLeukocytopeniaOsteoporosisObesity * HPI: C OVID-19 Screening: S he returns for oncology management. She had a colonoscopy recently that showed an arteriovenous malformation that was obliterated with the laser. It was otherwise negative. This was done at [facility]. Her port was flushed January 31, 2025. She feels generally healthy and well. Her blood work was reviewed with her in detail. CA 125 was in the normal range. She is no longer receiving chemotherapy. Questions H ave you experienced fever, chills, [...] enies. D iarrhea d enies. H eartburn o ccasional. N ausea d enies. R ectal bleeding [...] * Surgical History: [place] [facility] [place] Colonoscopy 03/2013Right breast Biopsy,lumpectomy/sentinal nodes/re-excision 09/2015Total Hysterectomy- Bilateral Salpingo- [facility], ovarian cancer 08/25/22Bx Pelvic Wall, Right [...] day Vitamin D-3 25 MCG (1000 UT) Capsule 1 capsule Orally Once a day Medication List reviewed and reconciled with the patientTaking Magnesium Glycinate Plus Taking Calcium + Vitamin D3 600-10 MG-MCG Tablet 1 tablet with a meal Orally Once a day Taking Vitamin D-3 25 MCG (1000 UT) Capsule 1 capsule Orally Once a day Medication List reviewed and reconciled with the patient * Allergies: A ugmentin: RashIodinated Diagnostic Agents: nauseano[Allergies Verified] Objective: * Vitals: H t: 67, Wt: 193, BMI:30.22, BP: 135/95, HR: 73, Temp: 97.0, Wt-k.54. * P ast Orders: Lab:Lipid Panel * Collection Date 01/04/2024 10/19/2023 08/17/2023 Collection Time 09:21 AM 08:44 AM 08:53 AM Order Date 01/04/2024 10/19/2023 08/17/2023 Triglycerides 61 (Ref Range: <150 mg/dL) 74 (Ref Range: <150 mg/dL) 70 (Ref Range: <150 mg/dL) Cholesterol 170 (Ref Range: <200 mg/dL) 195 (Ref Range: <200 mg/dL) 215 H (Ref Range: <200 mg/dL) LDL Cholesterol Calculated 103 H (Ref Range: <100 mg/dL) 121 H (Ref Range: <100 mg/dL) 133 H (Ref Range: <100 mg/dL) HDL Cholesterol 55 (Ref Range: >40 mg/dL) 60 (Ref Range: >40 mg/dL) 68 (Ref Range: >40 mg/dL) * Lab:Comprehensive [place]. Pane l Fast * Collection Date 01/04/2024 10/19/2023 08/17/2023 Collection Time 09:21 AM 08:44 AM 08:53 AM Order Date 01/04/2024 10/19/2023 08/17/2023 Sodium 142 (Ref Range: 135-145 mmol/L) 142 (Ref Range: 135-145 mmol/L) 140 (Ref Range: 135-145 mmol/L) Bilirubin Total 0.5 (Ref Range: 0.0-1.0 mg/dL) 0.5 (Ref Range: 0.0-1.0 mg/dL) 0.5 (Ref Range: 0.0-1.0 mg/dL) Aspartate Amino Transferase 56 H (Ref Range: 5-31 U/L) 92 H (Ref Range: 5-31 U/L) 118 H (Ref Range: 5-31 U/L) Alanine Aminotransferase 87 H (Ref Range: 0-31 U/L) 114 H (Ref Range: 0-31 U/L) 150 H (Ref Range: 0-31 U/L) Total Protein 7.3 (Ref Range: 6.5-8.0 g/dL) 7.2 (Ref Range: 6.5-8.0 g/dL) 7.5 (Ref Range: 6.5-8.0 g/dL) Albumin Level 4.3 (Ref Range: 3.5-5.0 g/dL) 4.1 (Ref Range: 3.5-5.0 g/dL) 4.3 (Ref Range: 3.5-5.0 g/dL) Alkaline Phosphatase 78 (Ref Range: 39-117 U/L) 72 (Ref Range: 39-117 U/L) 78 (Ref Range: 39-117 U/L) Potassium 4.1 (Ref Range: 3.3-5.1 mmol/L) 4.3 (Ref Range: 3.3-5.1 mmol/L) 4.2 (Ref Range: 3.3-5.1 mmol/L) Chloride 106 (Ref Range: 96-108 mmol/L) 106 (Ref Range: 96-108 mmol/L) 104 (Ref Range: 96-108 mmol/L) Carbon Dioxide 30 H (Ref Range: 22-29 mmol/L) 28 (Ref Range: 22-29 mmol/L) 28 (Ref Range: 22-29 mmol/L) Anion Gap 10 L (Ref Range: 12-20) 12 (Ref Range: 12-20) 12 (Ref Range: 12-20) Blood Urea Nitrogen 15 (Ref Range: 9-16 mg/dL) 17 H (Ref Range: 9-16 mg/dL) 18 H (Ref Range: 9-16 mg/dL) Creatinine 0.80 (Ref Range: 0.5-1.4 mg/dL) 0.74 (Ref Range: 0.5-1.4 mg/dL) 0.76 (Ref Range: 0.5-1.4 mg/dL) Estimated Glomerular Filt Rate > 60 > 60 > 60 Glucose Fasting 95 (Ref Range: 60-99 mg/dL) 98 (Ref Range: 60-99 mg/dL) 95 (Ref Range: 60-99 mg/dL) Calcium 9.6 (Ref Range: 8.4-10.2 mg/dL) 9.4 (Ref Range: 8.4-10.2 mg/dL) 9.6 (Ref Range: 8.4-10.2 mg/dL) * Lab:Complete Blood Count Aut o Diff * Collection Date 01/04/2024 10/19/2023 08/17/2023 Collection Time 09:21 AM 08:44 AM 08:53 AM Order Date 01/04/2024 10/19/2023 08/17/2023 White Blood Count 3.2 L (Ref Range: 4.8-10.8 X10*3/uL) 3.1 L (Ref Range: 4.8-10.8 X10*3/uL) 3.3 L (Ref Range: 4.8-10.8 X10*3/uL) Red Blood Count 4.13 L (Ref Range: 4.20-5.50 X10*6/uL) 3.91 L (Ref Range: 4.20-5.50 X10*6/uL) 4.02 L (Ref Range: 4.20-5.50 X10*6/uL) Hemoglobin 12.9 (Ref Range: 12.0-16.0 g/dl) 12.3 (Ref Range: 12.0-16.0 g/dl) 12.7 (Ref Range: 12.0-16.0 g/dl) Hematocrit 38.1 (Ref Range: 37.0-47.0 %) 36.7 L (Ref Range: 37.0-47.0 %) 37.4 (Ref Range: 37.0-47.0 %) Mean Corpuscular Volume 92.3 (Ref Range: 80.0-98.0 fL) 93.9 (Ref Range: 80.0-98.0 fL) 93.0 (Ref Range: 80.0-98.0 fL) Mean Corpuscular Hemoglobin 31.2 (Ref Range: 27.0-33.0 pg) 31.5 (Ref Range: 27.0-33.0 pg) 31.6 (Ref Range: 27.0-33.0 pg) Mean Corpuscular HGB Conc 33.9 (Ref Range: 31.0-35.0 g/dl) 33.5 (Ref Range: 31.0-35.0 g/dl) 34.0 (Ref Range: 31.0-35.0 g/dl) Red Cell Distribution Width 12.5 (Ref Range: 11.0-16.0 %) 13.0 (Ref Range: 11.0-16.0 %) 13.2 (Ref Range: 11.0-16.0 %) Platelet Count 253 (Ref Range: 160-400 X10*3/uL) 226 (Ref Range: 160-400 X10*3/uL) 221 (Ref Range: 160-400 X10*3/uL) Mean Platelet Volume 9.2 L (Ref Range: 9.4-12.3 fL) 9.0 L (Ref Range: 9.4-12.3 fL) 8.9 L (Ref Range: 9.4-12.3 fL) Neutrophils Percent Auto 52.1 (Ref Range: 45-73 %) 51.7 (Ref Range: 45-73 %) 58.5 (Ref Range: 45-73 %) Imm Gran Pct Auto 0.6 H (Ref Range: 0.0-0.4 %) 0.6 H (Ref Range: 0.0-0.4 %) 0.3 (Ref Range: 0.0-0.4 %) Lymphocytes Percent Auto 32.9 (Ref Range: 20-40 %) 31.8 (Ref Range: 20-40 %) 27.4 (Ref Range: 20-40 %) Monocytes Percent Auto 9.7 (Ref Range: 2-11 %) 11.4 H (Ref Range: 2-11 %) 9.5 (Ref Range: 2-11 %) Eosinophils Percent Auto 3.8 (Ref Range: 0-4 %) 4.2 H (Ref Range: 0-4 %) 3.7 (Ref Range: 0-4 %) Basophils Percent Auto 0.9 (Ref Range: 0-2 %) 0.3 (Ref Range: 0-2 %) 0.6 (Ref Range: 0-2 %) NRBC Pct Auto 0.0 (Ref Range: 0.0-0.2 /100WBC) 0.0 (Ref Range: 0.0-0.2 /100WBC) 0.0 (Ref Range: 0.0-0.2 /100WBC) Neutrophils Absolute Auto 1.7 L (Ref Range: 2.0-8.3 x10*3/uL) 1.6 L (Ref Range: 2.0-8.3 x10*3/uL) 1.9 L (Ref Range: 2.0-8.3 x10*3/uL) Imm Gran Abs Auto 0.02 (Ref Range: 0.00-0.03 X10*3/uL) 0.02 (Ref Range: 0.00-0.03 X10*3/uL) 0.01 (Ref Range: 0.00-0.03 X10*3/uL) Lymphocytes Absolute Auto 1.1 L (Ref Range: 1.2-4.9 X10*3/uL) 1.0 L (Ref Range: 1.2-4.9 X10*3/uL) 0.9 L (Ref Range: 1.2-4.9 X10*3/uL) Monocytes Absolute Auto 0.3 (Ref Range: 0.1-1.2 X10*3/uL) 0.4 (Ref Range: 0.1-1.2 X10*3/uL) 0.3 (Ref [...] 0.0-0.012 X10*3/uL) 0.000 (Ref Range: 0.0-0.012 X10*3/uL) ???Lab:CA 27.29 (Order Date - 01/04/2024) (Collection Date & Time - 01/04/2024 09:21 AM)?ValueReference Range?CA 27.2921<38 - U/mL ???Lab:Vitamin D 25-OH Total (Order Date - 01/04/2024) (Collection Date & Time - 01/04/2024 09:21 AM)?ValueReference Range?Vitamin D 25-OH Total 61.6>30 - ng/mL * Lab:CA-125 * Collection Date 01/04/2024 08/17/2023 06/19/2023 Collection Time 09:21 AM 08:53 AM 08:45 AM Order Date 01/04/2024 08/17/2023 06/19/2023 CA-125 15 (Ref Range: <35 U/mL) 14 (Ref Range: <35 U/mL) 13 (Ref Range: <35 U/mL) * Examination: G eneral Examination: GENERAL APPEARANCE: p leasant, well nourished, well developed, in no acute distress, calm and relaxed, obese, woman. HEAD: a traumatic, normocephalic. EYES: e [...] . BREASTS: n o masses palpable bilaterally, no drainage, no discharge, no dimpling, Right breast lumpectomy scar is well-healed. ABDOMEN: b owel sounds normal, no ascites, no organomegaly, no mass. RECTAL EXAM: n ot examined. MUSCULOSKELETAL: e xtremities unremarkable, no clubbing, cyanosis or edema. PERIPHERAL PULSES: n ormal. NEUROLOGIC: a lert and oriented, cranial nerves 2-12 grossly intact, deep tendon reflexes 2+ symmetrical, motor strength normal upper and lower extremities, sensory exam intact. PSYCH: a lert, oriented. Assessment: * Assessment: 1. I nfiltrating ductal carcinoma of right breast - C50.911 (Primary) N otes :There was no sign of recurrent breast cancer of a new primary in either breast today. She will continue with annual mammography and breast self examination. 2 . O verweight - E66.3 N otes :Her weight has been stable. We discussed her diet and nutrition. We made a plan to lose weight at a rate of one half of a pound per week. Diet restricted in fat calories and sodium combined with regular activity. 3 . C hronic leukopenia - D72.819 N otes :Her white blood cell count is 3200. She has had no infections. Observation was continued. 4 . D rug-induced polyneuropathy - G62.0 N otes :She continues to have paresthetic pain from the chemotherapy. It has not changed since her last visit. She will continue on current therapy. 5 . O steoporosis - M81.0 N otes :She was continued on calcium and vitamin D. 6 . M alignant neoplasm of ovary, unspecified laterality - C56.9 ?Notes :The stage III epithelial ovarian cancer is in remission. His CEA 125 his in the normal range.? Surveillance continues. Plan: * Treatment: * Procedure Codes: * [...] Other reason not done * Follow Up: 3 Months (Reason: OV) * Images: * Sign off status: Completed true * Provider: John Valerio MD Date: 0 02/19/2024 Generated for Tim morales/Adolfo/Haileyitting on: 10:43 AM [...] developed, in no acute distress, calm and relaxed, obese, woman HEAD: atraumatic, normocep halic EYES: eomi, perrla, anicte ayesha, conjugate EARS: normal NOSE: septum intact NECK/THYROID: no jugular venous di stention, no carotid bruit, thyroid normal HEART: no clicks, gallops, murmurs, or rubs, regular rhythm, S1, S2 normal, no s3, or vascular bruits LUNGS: clear to auscultatio n ABDOMEN: bowel sounds normal, no ascites, no organomegaly, no mass NEUROLOGIC: alert and oriented, cranial nerves 2-12 grossly intact, deep tendon reflexes 2+ symmetrical, motor strength normal upper and lower extremities, sensory exam intact SKIN: no suspicious lesion s, anicteric PERIPHERAL PULSES: normal BREASTS: no masses palpable b ilaterally, no drainage, no discharge, no dimpling, Right breast lumpectomy scar is well-healed MUSCULOSKELETAL: extremities unremark able, no clubbing, cyanosis or edema LYMPH NODES: no enlarged lymph no james,spleen normal RECTAL EXAM: not examined PSYCH: alert, oriented ORAL CAVITY: normal, unremarkable
--- OUTSIDE RECORDS SUMMARY | 2024-05-15 06:00 | XMS_ITS ---
Author Organization Uli Valerio III, MD Address [address] [place] [address] Care Team Providers Care Team Primary Care Physician Name Role Phone Shiloh Pennington (Layla) Primary Care Provider Un available Uli Valerio III Unavailable [phone] Dr. Uli Valerio III Unavailable Allergies Allergen [...] Date Provider Diagnosis Uli Valerio III, MD [address] [place] [address] DR [place], [place] [address] 05/15/2024 Uli Valerio Infiltrating ductal carcinoma of [...] Provider Name:Uli Dodgene , 09/01/2025 10:00:00 AM, [address] [place] [address] DR, INDIRA Ledy, [place], [address], Progress Notes * PAWAN URIBEB:1960 (64 yo F)Acc No.[id number]:05/15/2024 Progress Notes Patient: SANA HORNER Provider: John Valerio MD :1960 A ge:64 Y S ex:Female Date:05/15/2024 Address:[address] [place], [place] [phone] Pcp:Byron Rodarte MD Subjective: * Chief Complaints: [...] History: * Surgical History: L ipoma removal; [facility] [place] Dr Sosa Colonoscopy 03/2013Right breast Biopsy,lumpectomy/sentinal nodes/re-excision 09/2015Total Hysterectomy- Bilateral Salpingo- OOpherectomy [facility], ovarian cancer 08/25/22Bx Pelvic Wall, Right [...] 07/16/2023 Generated for Tim morales/Adolfo/eTransmitting on: 1 10:43 AM EDT History and Physical Notes [...]
--- OUTSIDE RECORDS SUMMARY | 2024-08-13 06:30 | XMS_ITS ---
Author Organization Uli Valerio III, MD Address [address] [place] [address] Care Team Providers Care Meter Engineer Name Role Phone CodyShiloh Garza (Layla) Primary Care Provider Un available Uli Valerio III Unavailable [phone] Dr. Uli Valerio III Unavailable Allergies Allergen [...] Provider Diagnosis Uli Valerio III, MD [address] [place] [address] DR DONALDKATHY, T[place]ENCE [phone] 08/13/2024 Uli Valerio Infiltrating ductal carcinoma of [...] Name:Uli Valerio , 09/01/2025 10:00:00 AM, [address] [place] [address] [address], [place], [address], Progress Notes * PAWAN URIBEB:1960 (64 yo F)Acc No.[id number]:08/13/2024 Progress Notes Patient: SANA HORNER Provider: John Valerio MD :1960 A ge:64 Y S ex:Female Date:08/13/2024 Address:[address] [place], [place] [id number] Pcp:Byron Rodarte MD Subjective: * Chief Complaints: [...] History: * Surgical History: L ipoma removal; [facility] [place] Dr Sosa Colonoscopy 03/2013Right breast Biopsy,lumpectomy/sentinal nodes/re-excision 09/2015Total Hysterectomy- Bilateral Salpingo- OOpherectomy [facility], ovarian cancer 08/25/22Bx Pelvic Wall, Right (Negative [...] 0.000 (Ref Range: 0.0-0.012 X10*3/uL) * Lab:Comprehensive [place]. Devaughn l Fast * Collection Date 05/28/2024 [...] 08/13/2024 Generated for Tim morales/Adolfo/Haileyitting on: 1 10:44 AM EDT History and Physical Notes [...]
--- OUTSIDE RECORDS SUMMARY | 2024-09-30 06:15 | XMS_ITS ---
Author Organization Uli Valerio III, MD Address [address] [place] [address] [place] [address] Care Team Providers Care Landscaping Specialist Name Role Phone Narciso Pennington (Layla) Primary Care Provider Un available Uli Valerio III Unavailable [phone] Dr. Uli Valerio III Unavailable [phone] Allergies Allergen (clinical drug ingredient) Drug/Non Drug [...] Date Provider Diagnosis Uli Valerio III, MD [address] [place] [address] [place] [address] 09/30/2024 Uli Valerio Infiltrating ductal carcinoma of [...] 2 Months, Reason: ov no tests Provider Name:Uil Valerio , 09/01/2025 10:00:00 AM, [address] [place] [address] INDIRA HUTTON, TERRENCE OLIVAS, [address], Progress Notes * PEDRO URIBE:1960 (64 yo F)Acc No.[id number]:09/30/2024 Progress Notes Patient: SANA HORNER Provider: John Valerio MD :1960 A ge:64 Y S ex:Female Date:09/30/2024 Address:[address] [place] [phone] Pcp:Narciso Pennington Subjective: * Chief Complaints: * [...] Biopsy,lumpectomy/sentinal nodes/re-excision 09/2015Total Hysterectomy- Bilateral Salpingo- OOpherectomy [facility], ovarian cancer 08/25/22Bx Pelvic Wall, Right [...] 0.000 (Ref Range: 0.0-0.012 X10*3/uL) * Lab:[facility] [place] Fast * Collection Date 09/27/2024 [...] Date & Time - 09/27/2024 09:15 AM)?ValueReference Range?[id number] - ng/mL * Lab:Lipid Panel * Collection [...] 0 09/30/2024 Generated for Tim morales/Adolfo/eTransmitting on: 1 10:43 [...]
--- OUTSIDE RECORDS SUMMARY | 2024-12-02 06:00 | XMS_ITS ---
Author Organization Uli Valerio III, MD Address [address] [address] Care Team Providers Care Cellophane Tester Name Role Phone Shiloh Pen[place]ton (Deisy) Primary Care Provider Un available Uli Valerio III Unavailable [phone] Dr. Uli Valerio III Unavailable Allergies Allergen [...] Provider Diagnosis Uli Valerio III, MD [address] [place] [address] [place] [address] 12/02/2024 Uli Valerio Infiltrating ductal carcinoma of [...] ov Provider Name:Uli Valerio , 09/01/2025 10:00:[address], [address], Progress Notes * PAWAN URIBEB:1960 (64 yo F)Acc No.[id number]:12/02/2024 Progress Notes Patient: SANA [place]ORNER Provider: John Valerio MD :1960 A ge:64 Y S ex:Female Date:12/02/2024 Address:[address] [place], [place] [id number] Pcp:Shiloh Pennington Subjective: * Chief Complaints: * [...] History: * Surgical History: [place] [facility] [place]oscopy 03/2013Right breast Biopsy,lumpectomy/sentinal nodes/re-excision 09/2015Total Hysterectomy- Bilateral Salpingo- OOpherectomy [facility], ovarian cancer 08/25/22Bx Pelvic Wall, Right [...] Date & Time - 09/27/2024 09:15 AM)?ValueReference Range?[id number] - ng/mL * Lab:Lipid Panel * Collection [...] 0 12/02/2024 Generated for Tim morales/Adolfo/Haileyitting on: 10:44 AM EDT History and Physical [...]
--- OUTSIDE RECORDS SUMMARY | 2025-03-03 06:30 | XMS_ITS ---
Author Organization Uli Valerio III, MD Address [address] [place] [address] Care Team Providers Care Associate Creative Director Name Role Phone Shiloh Pennington ([place]) Primary Care Provider Un available Uli Valerio III Unavailable [phone] Dr. Uli Valerio III Unavailable Allergies Allergen (clinical drug ingredient) Drug/Non Drug Allergy documented on EMR Reaction Allergy Type Onset Date Status Iodinated contrast media (substance) Iodinated Diagnostic Agents nausea Drug Allergy Active amoxicillin / clavulanate Augmentin Rash Drug Allergy Active REASON FOR VISIT Ovarian cancer, History of breast cancer, Osteoporosis, Chronic leukopenia, Drug-induced neuropathy Medications Medication SIG (Take, Route, Frequency, [...] Tobacco Non-User Aggressive non-smoker Vital Signs Temperature 97.3 degrees Fahrenheit 03/03/20 25 Blood pressure systolic 140 mm Hg 03/03/20 25 Blood pressure diastolic 76 mm Hg 025 Heart Rate 72 /min 03/03/2025 Height 67 in 03/03/2025 Weight 197 lbs 03/03/2025 BMI 30.85 kg/m2 03/03/2025 Encounters Encounter Location Date Provider Diagnosis Uli Valerio III, MD [address] [place] [address] [place] [address] 03/03/2025 Uli Valerio Infiltrating ductal carcinoma of right breast C50.911 ; Epithelial ovarian cancer, 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 She will continue with annual mammography and breast self examination. 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 CA 125 is reported to be 16. She will be followed closely. 03/03/2025 Chronic leukopenia (ICD-10 - D72.819) Her white blood cell count is 3400. Both lymphocytes and neutrophils are slightly low.She has had no infections. Observation was continued. 03/03/2025 Drug-induced polyneuropathy (ICD-10 - G62.0) She continues to have paresthetic pain from the chemotherapy. It has not changed since her last visit. She will continue on current therapy. 03/03/2025 Obesity, unspecified (ICD-10 - E66.9) Her body mass index is now 30. She has gained 2 pounds. We discussed diet and nutrition. I recommended stabilizing her weight at this level until she has recovered fully from chemotherapy and then gradually reduce her weight through diet and exercise. 03/03/2025 Post-menopausal (ICD-10 - Z78.0) Plan Of Treatment Medication Medication Name Sig Start Date Stop Date Notes Magnesium Glycinate Plus Calcium + Vitamin D3 600-10 MG-MCG 1 tablet with a meal Orally Once a day Vitamin D-3 25 MCG (1000 UT) 1 capsule Orally Once a day Next Appt Details Follow Up: 6 Weeks, Reason: ov Provider Name:Uli Valerio , 09/01/2025 10:00:00 AM, [address] [place] [address] INDIRA HUTTON, TERRENCE OLIVAS, [address], Progress Notes * THOR URIBEADOB:1960 (64 yo F)Acc No.[id number]:03/03/2025 Progress Notes Patient: SANA HORNER Provider: John Valerio MD :1960 A ge:64 Y S ex:Female Date:03/03/2025 Address:[address] [place], [place] [id number] Pcp:Shiloh Pennington ([place]) Subjective: * Chief Complaints: * O varian cancerHistory of breast cancerOsteoporosisChronic leukopeniaDrug-induced neuropathy * HPI: C OVID-19 Screening: S he returns for ongoing surveillance of her breast cancer and ovarian cancer. Dr. Pennington is no longer her primary care physician. It is now in she the [facility]. Her next appointment with [facility] oncology is April 01. She has been told that her CEA 125 has increased from 14-21 and she is going to be restaged. A mammogram done last week was within normal limits.? She has no new symptoms and feels well. Questions H ave you had any new onset fever, chills, cough, congestion, sore throat, shortness of breath, muscle aches? N o * ROS: G eneral/Constitutional: pain k nees, otherwise, only normal aches and pains. C hills [...] History: * Surgical History: L ipoma removal; [facility] [place] Dr Sosa Colonoscopy 03/2013Right breast Biopsy,lumpectomy/sentinal nodes/re-excision 09/2015Total Hysterectomy- Bilateral Salpingo- OOpherectomy [facility], ovarian cancer 08/25/22Bx Pelvic Wall, Right [...] H t: 67, Wt: 197, BMI:30.85, BP: 140/76, HR: 72, Temp: 97.3, Wt-k.36. * Examination: G eneral Examination: GENERAL APPEARANCE: p courtney, well nourished, well developed, in no acute distress, calm and relaxed. HEAD: a traumatic, normocephalic. EYES: e mari, [...] symmetrical, motor strength normal upper and lower extremities,sensory exam intact in the upper extremities decreased in the lower. PSYCH: a lert, oriented: cognitive function intact: thought process logical, goal directed. Assessment: * Assessment: 1. E pithelial ovarian [...] continue on current therapy. 5 . O besity, unspecified - E66.9 N otes :Her body mass index is now 30. She has gained 2 pounds. We discussed diet and nutrition. I recommended stabilizing her weight at this level until she has recovered fully from chemotherapy and then gradually reduce her weight through diet and exercise. 6 . P ost-menopausal - Z78.0 Plan: * Treatment: * Procedure Codes: * [...] Other reason not done * Follow Up: 6 Weeks (Reason: ov) * Images: * Sign off status: Completed true * Provider: John Valerio MD Date: Generated for Tim morales/Adolfo/eTmarksmitting on: 10:43 AM EDT History and Physical Notes * HPI (History of Present Illness) Category Sub-Category Detail Notes COVID-19 Screening Questions Have you had any new onset fever, chills, cough, congestion, sore throat, shortness of breath, muscle aches?: No Examination Category Sub-Category Detail Notes General Examination GENERAL APPEARANCE: pleasant , well nourished, well developed, in no acute distress, calm and relaxed HEAD: atraumatic, normocep halic EYES: eomi, perrla, [...] upper and lower extremities, sensory exam intact in the upper extremities decreased in the lower SKIN: no suspicious lesion s, anicteric PERIPHERAL PULSES: normal BREASTS: no masses palpable b ilaterally MUSCULOSKELETAL: extremities unremark able, no clubbing, cyanosis or edema LYMPH NODES: no enlarged lymph no james,spleen normal RECTAL EXAM: not examined PSYCH: alert, oriented: cog nitive function intact: thought process logical, goal directed ORAL CAVITY: normal, unremarkable
--- OUTSIDE RECORDS SUMMARY | 2025-03-19 10:44 | XMS_ITS | Clinical Summary ---
Author Organization [facility] Address [address] [facility] [address] [address] [place] [phone] Phone Care Team Providers Care Steel Crane Operator Name Role Phone Byron Rodarte MD Primary Care Provider Allergies Active Allergy Reactions Criticality Noted Date Comments Amoxicillin-Pot Clavulanate Rash High 05/04/20 17 Medications anastrozole (ARIMIDEX) 1 mg tablet Take 1 mg by mouth daily. Active Active Problems Problem Noted Date Diagnosed Date Malignant neoplasm of upper- outer quadrant of right breast in female, estrogen receptor positive 2017 Cancer Staging:Clinical stage from 2017:Stage IIA(T2, N0, M0) - Signed by Shanna Jean MD on 2017 Social History Tobacco Use Types Packs/Day Years Used Date Smoking Tobacco: Never Assessed Education Answer Date Recorded Are you interested in more education? Not on bowen e 09/23/2022 Are you concerned about learning? Not on file 09/23/2022 No 09/23/2022 No 09/23/2022 Digital Access Answer Date Recorded No 10/24/2022 No 10/24/2022 No 10/24/2022 Reliable internet access at home? Not on file 10/24/2022 Device with a working camera? Not on file Comments Unknown Sex and Gender Information Value Date Recorded Sex Assigned at Not on file Legal Sex Female 9:46 PM EDT Gender Identity Not on file Sexual Orientation Not on file Last Filed Vital Signs Vital Sign Reading Time Taken Comments Blood Pressure 145/95 2017 3:13 PM EST Pulse 72 2017 3:13 PM EST Temperature 37 C (98.6 F) 2017 3:13 PM EST Respiratory Rate 16 2017 3:13 PM EST Oxygen Saturation 100% 2017 3:13 PM EST Inhaled Oxygen Concentration - - Weight 82 kg (180 lb 11.2 oz) 2017 3:13 PM EST Height - - Body Mass Index - - Plan of Treatment Health Maintenance Due Date Last Done Comments Adult Td,Tdap Booster 1960 LIPID PANEL 1960 DEPRESSION SCREENING 1973 SMOKING Hx and SMOKELESS TOBACCO SCREENING 1974 HEPATITIS C SCREENING 1979 HIV ONE-TIME SCREENING (18-65 YEARS) 1979 PNEUMOCOCCAL VACCINES (50+ years) (1 of 2 - PCV) 1980 ZOSTER VACCINES (1 of 2) 1980 PAP SMEAR 1982 MAMMOGRAM 2001 COLOGUARD 2006 COLONOSCOPY 2006 COLORECTAL CANCER SCREENING 2006 FIT TEST 2006 FOBT 2006 SIGMOIDOSCOPY 2006 VIRTUAL COLONOSCOPY 2006 INFLUENZA VACCINE (#1) 2024 8, 03/20/2017, 03/29/2016, Additional history exists COVID-19 VACCINE (2 - 2024- season) 2025 09/04/2020 RSV VACCINE (1 - 1-dose 75+ series) 2036 HEPATITIS A VACCINES Aged Out No long er eligible based on patient's age to complete this topic HIB VACCINES Aged Out No longer eligi ble based on patient's age to complete this topic MENINGOCOCCAL VACCINES (ACWY) Aged Out No longer eligible based on patient's age to complete this topic MENINGOCOCCAL VACCINES (B) Aged Out N o longer eligible based on patient's age to complete this topic Medical Devices Not on file Insurance [facility] HMO POS [place] [address] [place] [address] HMO POS O POS O POS HMO [place] [address] [place], [place] [address] [address] [address] HMO POS Care Teams Steel Crane Operator Relationship Specialty Start Date End Date Byron Rodarte MD [address] [place] [address] [place] [address] PCP - General 03/13/17 Additional Source Comments The information contained in this document represents components of the legal health record. It is not the complete legal health record.[facility]
--- OUTSIDE RECORDS SUMMARY | 2025-03-19 10:44 | XMS_ITS | Patient Health Record ---
Author Organization Uli Valerio III, MD Address [address] [address] Care Team Providers Care Closing Machine Operator Name Role Phone Shiloh Pennington ([place]) Primary Care Provider Un available Uli Valerio III Unavailable [phone] Dr. Uli Valerio III Unavailable [phone] Allergies Allergen (clinical drug ingredient) Drug/Non Drug Allergy documented on EMR Reaction Allergy Type Onset Date Status Iodinated contrast media (substance) Iodinated Diagnostic Agents nausea Drug Allergy Active amoxicillin / clavulanate Augmentin Rash Drug Allergy Active Results Component Value Reference Range Notes Complete Blood Count Auto Di ff Reviewed date:06/04/2024 04:12:40 PM Interpretation: Performing Lab:[facility], [address] [place] [phone] Notes/Report: White Blood Count 3.4 4.8-10.8 X10*3/uL [...] 0.0-0.2 /100WBC Neutrophils Absolute Auto 1.7 2.0-8.3 x10*3/u L Imm Gran Abs Auto 0.02 0.00-0.03 X10*3/uL Lymphocytes Absolute Auto 1.1 1.2-4.9 X10*3/u L Monocytes Absolute Auto 0.4 0.1-1.2 X10*3/uL Eosinophils Absolute Auto 0.2 0.0-0.4 X10*3/u L Basophils Absolute Auto 0.0 0.0-0.2 X10*3/uL NRBC Abs Auto 0.000 0.0-0.012 X10*3/uL Comprehensive [place]. Panel Fa st Reviewed date:06/04/2024 04:12:40 PM Interpretation: Performing Lab:[address] [phone] Notes/Report: Sodium 141 135-145 mmol/L Potassium 4.4 [...] e Reviewed date:06/04/2024 04:12:40 PM Interpretation: Performing Lab:[address] [place] [address] Notes/Report: Gamma Glutamyl Transpeptidase 32 7-33 U/L Lipid Panel Reviewed date:06/04/2024 04:12:40 PM Interpretation: Performing Lab:[facility], [address] [place] [phone] Notes/Report: Triglycerides 90 <150 mg/dL Desirable Triglyceride: [...] CA-125 Reviewed date:06/04/2024 04:12:40 PM Interpretation: Performing Lab:[address] [phone] Notes/Report: CA-125 16 <35 U/mL This test was performed using the Siemens Chemiluminescent method. Values obtained from different assay methods cannot be used interchangeably. CA 125 levels, regardless of value, should not be interpreted as absolute evidence of the presence or absence of disease. THIS TEST WAS PERFORMED AT: [facility] [address] [place] [phone] TAMMIE BLANCA MD Complete Blood Count Auto Di ff Reviewed date:09/28/2024 08:45:24 PM Interpretation: Performing Lab:[address] [address] Notes/Report: White Blood Count 5.5 4.8-10.8 X10*3/uL [...] 0.0-0.2 /100WBC Neutrophils Absolute Auto 4.0 2.0-8.3 x10*3/u L Imm Gran Abs Auto 0.05 0.00-0.03 X10*3/uL Lymphocytes Absolute Auto 0.8 1.2-4.9 X10*3/u L Monocytes Absolute Auto 0.4 0.1-1.2 X10*3/uL Eosinophils Absolute Auto 0.2 0.0-0.4 X10*3/u L Basophils Absolute Auto 0.0 0.0-0.2 X10*3/uL NRBC Abs Auto 0.000 0.0-0.012 X10*3/uL Comprehensive [place]. Panel Fa st Reviewed date:09/28/2024 08:45:24 PM Interpretation: Performing Lab:[facility], [address] [place] [phone] Notes/Report: Sodium 143 135-145 mmol/L Potassium 4.0 [...] Ferritin Reviewed date:09/28/2024 08:45:24 PM Interpretation: Performing Lab:[facility], [address] [place] [phone] Notes/Report: Ferritin 473 10-250 ng/mL Lipid Panel Reviewed date:09/28/2024 08:45:24 PM Interpretation: Performing Lab:[facility], [address] [place] [phone] Notes/Report: Triglycerides 80 <150 mg/dL Desirable Triglyceride: [...] B12 Reviewed date:09/28/2024 08:45:24 PM Interpretation: Performing Lab:[facility], [address] [place] [phone] Notes/Report: Vitamin B12 455 200-900 pg/mL NORMAL 200-900 PG/ML INDETERMINATE 160-199 PG/ML DEFICIENT < 160 PG/ML CA-125 Reviewed date:09/28/2024 08:45:24 PM Interpretation: Performing Lab:[facility], [address] [place] [phone] Notes/Report: CA-125 13 <35 U/mL This test was performed using the Siemens Chemiluminescent method. Values obtained from different assay methods cannot be used interchangeably. CA 125 levels, regardless of value, should not be interpreted as absolute evidence of the presence or absence of disease. THIS TEST WAS PERFORMED AT: [facility] [address] [place] [phone] TAMMIE BLANCA MD Reason For Referral Reason Breast Cancer Diagnosis 1 Malignant neoplasm o f ovary, unspecified laterality (C56.9) Diagnosis 2 Chronic leukopenia ( D72.819) Referring Provider First Name Shiloh (Lesvia jacobs) Referring Provider Last Name dAiti Referring Provider Speciality Internal M edicine Referred Organization Uli Valerio III, MD Referred Provider Uli Valerio Referred Address [address] [place] [address] [address],[place], [place],[address], Referred Provider Specialty Oncology Referral Priority Routine [...] Problem Status W/U Status Risk Notes Problem 838473378 Infiltrating ductal carcinoma of right breast (C50.911) Active confirmed There was no sign of recurrent breast cancer of a new primary in either breast today. She will continue with annual mammography and breast self examination. 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 This problem antoni resolved. Problem 643000429 Obesity, unspecified (E66.9) Active confirmed Her body mass index is now 30. She has gained 2 pounds. We discussed diet and nutrition. I recommended stabilizing her weight at this level until she has recovered fully from chemotherapy and then gradually reduce her weight through diet and exercise. 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 It has not changed since her last visit. She will continue on current therapy. Problem Osteoporosis (67026071) Osteoporosis (M81.0) Active confirmed He says she has been compliant with her current therapy. She denies any bone pain. She will have a bone density test done periodically. Problem 785768930 Malignant neoplasm of ovary, unspecified laterality (C56.9) Active confirmed The stage III epithelial ovarian cancer is in remission. His CEA 125 his in the normal range. Surveillance continues. Problem 32171874 Chronic leukopenia (D72.819) Active confirmed Her white blood cell count is 3400. Both lymphocytes and neutrophils are slightly low.She has had no infections. Observation was continued. 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 CA 125 is reported to be 16. She will be followed closely. Vital Signs Heart Rate 72 /min 03/03/2025 Temperature 97.3 degrees Fahrenheit 03/03/2025 Blood pressure diastolic 76 mm Hg 03/03/2025 Height 67 in 03/03/2025 Blood pressure systolic 140 mm Hg 03/03/2025 Weight 197 lbs 03/03/2025 BMI 30.85 kg/m2 03/03/2025 Encounters Encounter Location Date Provider Diagnosis Uli Valerio III, MD [address] [place] [address] DR [place], TERRENCE [address] 05/15/2024 Uli Valerio Infiltrating ductal carcinoma of right breast C50.911 ; Overweight E66.3 ; Chronic leukopenia D72.819 ; Drug-induced polyneuropathy G62.0 ; Osteoporosis M81.0 and Epithelial ovarian cancer, FIGO stage IIIA C56.9 Uli Valerio III, MD [address] [place] [address] [place] [address] 08/13/2024 Uli Dodgene Infiltrating ductal carcinoma of right breast C50.911 ; Epithelial ovarian cancer, FIGO stage IIIA C56.9 ; Anemia in neoplastic disease D63.0 ; Osteoporosis M81.0 ; Drug-induced polyneuropathy G62.0 and Chronic leukopenia D72.819 Uli aVlerio III, MD [address] [place] [address] [place] [address] 09/30/2024 Uli Dodgene Infiltrating ductal carcinoma of right breast C50.911 ; Epithelial ovarian cancer, FIGO stage IIIA C56.9 ; Osteoporosis M81.0 ; Drug-induced polyneuropathy G62.0 and Chronic leukopenia D72.819 Uli Valerio III, MD [address] [place] [address] [place] [phone] 12/02/2024 Uli Dodgene Infiltrating ductal carcinoma of right breast C50.911 ; Epithelial ovarian cancer, FIGO stage IIIA C56.9 ; Chronic leukopenia D72.819 ; Osteoporosis M81.0 ; Drug-induced polyneuropathy G62.0 and Obesity, unspecified E66.9 Uli Valerio III, MD [address] [place] [address] [place] [address] 03/03/2025 Uli Dodgene Infiltrating ductal carcinoma of right breast C50.911 ; Epithelial ovarian cancer, FIGO stage IIIA C56.9 ; Chronic leukopenia D72.819 ; Drug-induced polyneuropathy G62.0 ; Obesity, unspecified E66.9 and Post-menopausal Z78.0 Assessments Encounter Date Diagnosis (ICD Code) Assessment Notes Treat ment Notes Treatment Clinical Notes 05/15/2024 Overweight (ICD-10 - E66.3) Her weight [...] 16. She will be followed closely. 12/02/2024 Infiltrating ductal carcinoma of right breast [...] 16. She will be followed closely. 03/03/2025 Infiltrating ductal carcinoma of right breast [...] be 16. She will be followed closely. 05/15/2024 Chronic leukopenia (ICD-10 - D72.819) Her [...] a bone density test done periodically. 12/02/2024 Chronic leukopenia (ICD-10 - D72.819) Her white blood cell count is 3400. Both lymphocytes and neutrophils are slightly low.She has had no infections. Observation was continued. 03/03/2025 Chronic leukopenia (ICD-10 - D72.819) Her [...] She will continue on current therapy. 12/02/2024 Osteoporosis (ICD-10 - M81.0) He says she has been compliant with her current therapy. She denies any bone pain. She will have a bone density test done periodically. 03/03/2025 Drug-induced polyneuropathy (ICD-10 - G62.0) She [...] had no infections. Observation was continued. 12/02/2024 Drug-induced polyneuropathy (ICD-10 - G62.0) She [...] reduce her weight through diet and exercise. 05/15/2024 Epithelial ovarian cancer, FIGO stage IIIA (ICD-10 - C56.9) She appears to be in clinical remission after chemotherapy. CA 125 is reported to be 16. She will be followed closely. 08/13/2024 Chronic leukopenia (ICD-10 - D72.819) Her white blood cell count is 3400. Both lymphocytes and neutrophils are slightly low.She has had no infections. Observation was continued. 12/02/2024 Obesity, unspecified (ICD-10 - E66.9) Her body mass index is now 30. She has gained 2 pounds. We discussed diet and nutrition. I recommended stabilizing her weight at this level until she has recovered fully from chemotherapy and then gradually reduce her weight through diet and exercise. 03/03/2025 Post-menopausal (ICD-10 - Z78.0) Plan Of Treatment Pending Test Test Name [...] 27.29 12/26/2023 Next Appt Details Provider Name:Uli Dodgene , 09/01/2025 10:00:00 AM, [address] [place] [address] [place] [address], [place], [address], Insurance Providers Payer Name Payer Address Payer Phone Subscriber Number Group Number Insured Name Patient Relationship to Insured Coverage Start Date Coverage End Date [facility] [address] [place], [place] [id number] SANA URIBE Self - patient is the insured Medical (General) History Medical History History ICD Code 2.1 cm ER+NH+ invasive ducta l right breast carcinoma with DCIS:[id number](i_)(sn-) September 2015 lipoma removed from arm colonoscopy 2012 ovarian cancer 2022 stage IIIA Surgical History Surgery Date(Month/Year) No history Bx Pelvic Wall, Right (Negative results) 03/01/23 Total Hysterectomy- Bilatera l Salpingo- OOpherectomy [facility], ovarian cancer 08/25/22 Right breast Biopsy,lumpectomy/sentinal nodes/re-excision 09/2015 Colonoscopy 03/2013 Lipoma removal; [facility] Dr Sosa Hospitalization History Reason Date(Month/Year) No history
[2025-03-19 11:30] LABS: MANUAL DIFF FLAG NO
[2025-03-19 11:41] LABS: Hematocrit 40.8 % (37.0-47.0); Hemoglobin 13.6 g/dl (12.0-16.0); Imm Gran Abs Auto 0.02 X10*3/uL (0.00-0.03); Imm Gran Pct Auto 0.5 % (0.0-0.4); Lymphocytes Absolute Auto 1.0 X10*3/uL (1.2-4.9); Mean Corpuscular HGB Conc 33.3 g/dl (31.0-35.0); Mean Corpuscular Hemoglobin 30.8 pg (27.0-33.0); Mean Corpuscular Volume 92.5 fL (80.0-98.0); NRBC Abs Auto 0.000 X10*3/uL (0.0-0.012); NRBC Pct Auto 0.0 /100WBC (0.0-0.2); Platelet Count 279 X10*3/uL (160-400); Red Blood Count 4.41 X10*6/uL (4.20-5.50); White Blood Count 3.8 X10*3/uL (4.8-10.8)
[2025-03-19 11:43] LABS: Total Hemoglobin (HGBA1C) 3583.5555 umol/L
[2025-03-19 12:35] LABS: Alanine Aminotransferase 144 U/L (0-31); Albumin Level 4.5 g/dL (3.5-5.0); Alkaline Phosphatase 87 U/L (39-117); Anion Gap 9 (12-20); Aspartate Amino Transferase 85 U/L (5-31); Blood Urea Nitrogen 20 mg/dL (9-16); Calcium 9.3 mg/dL (8.4-10.2); Carbon Dioxide 29 mmol/L (22-29); Chloride 107 mmol/L (96-108); Cholesterol 209 mg/dL (<200); Estimated Glomerular Filt Rate > 60; HDL Cholesterol 59 mg/dL (>40); Potassium 4.3 mmol/L (3.3-5.1); Sodium 141 mmol/L (135-145); Total Protein 7.3 g/dL (6.5-8.0); Triglycerides 72 mg/dL (<150)
[2025-03-25 16:09] LABS: Vitamin D 25-OH, D2 <4 ng/mL; Vitamin D 25-OH, D3 47 ng/mL; Vitamin D 25-OH, Total 47 ng/mL (30-100)
== END 2025-03-19 09:26 | disposition home or self-care (01) ==
LOC: HO.10HDL 09:25
PROVIDERS: Visit Provider Internal Medicine
DX: Z13.228 Encounter for screening for other metabolic disorders (principal); C50.911 Malignant neoplasm of unspecified site of right female breast; K57.90 Diverticulosis of intestine, part unspecified, without perforation or abscess without bleeding; C56.9 Malignant neoplasm of unspecified ovary; Z13.1 Encounter for screening for diabetes mellitus; Z13.6 Encounter for screening for cardiovascular disorders
CPT/HCPCS: 36415; 80053; 80061; 82306; 83036; 85025

== ENCOUNTER 2025-03-21 11:14 | Outpatient (AMB) | payer BC, SELFPAY ==
--- OUTSIDE RECORDS SUMMARY | 2023-10-25 07:00 | XMS_ITS ---
Author Organization Uli Valerio III, MD Address [address] [place] [address] Care Team Providers Care Night Supervisor Name Role Phone CodyKaylaShiloh (Deisy) Primary Care Provider Un available Uli Valerio III Unavailable [phone] Dr. Uli Valerio III Unavailable [phone] Allergies Allergen (clinical drug ingredient) Drug/Non Drug [...] Problem Status W/U Status Risk Notes Problem [id number] Obesity, unspecified (E66.9) Active confirmed Her body [...] Date Provider Diagnosis Uli Valerio III, MD [address] [place] [address] [address] [place], [place] [address] 10/25/2023 Uli Valerio Infiltrating ductal carcinoma of [...] in the near future. She will see [facility] oncology next month. Her CA-125 is 14, [...] Name:Uli Cedeno Iman , 09/01/2025 10:00:00 AM, [address] [place] [address] [address], [place], [address], Progress Notes * THOR URIBEADOB:1960 (63 yo F)Acc No.[id number]:10/25/2023 Progress Notes Patient: SANA HORNER Provider: John Valerio MD :1960 A ge:63 Y S ex:Female Date:10/25/2023 Address:[address] [place] [phone] Pcp:Byron Rodarte MD Subjective: * Chief Complaints: [...] * Surgical History: L ipoma removal; [facility] [place] Dr Sosa Colonoscopy 03/2013Right breast Biopsy,lumpectomy/sentinal nodes/re-excision 09/2015Total Hysterectomy- Bilateral Salpingo- OOpherectomy [facility], ovarian cancer 08/25/22Bx Pelvic Wall, Right [...] 59 (Ref Range: >40 mg/dL) * Lab:Comprehensive [place]. Pane l Fast * Order Date 10/19/2023 [...] - 08/17/2023) (Collection Date - 08/17/2023)?ValueReference Range?Lactate [id number] - U/L ???Lab:Gamma Glutamyl Transpeptidase (Order Date - 08/17/2023) (Collection Date - 08/17/2023)?ValueReference Range?Gamma Glutamyl Fbwrpuodqxeyhi14 H7-33 - U/L * Lab:CA-125 * Order [...] in the near future. She will see [facility] oncology next month. Her CA-125 is 14, [...] 0 10/25/2023 Generated for Tim morales/Adolfo/Abe on: 01:37 PM EDT History and Physical Notes * [...]
--- OUTSIDE RECORDS SUMMARY | 2023-12-26 07:00 | XMS_ITS ---
Author Organization Uli Valerio III, MD Address [address] [place] [address] Care Team Providers Care Automation Controls Expert Name Role Phone CodyShiloh Garza (Layla) Primary Care Provider Un available Uli Valerio III Unavailable [phone] Dr. Uli Valerio III Unavailable Allergies Allergen [...] Problem Status W/U Status Risk Notes Problem [id number] Malignant neoplasm of ovary, unspecified laterality (C56.9) [...] Date Provider Diagnosis Uli Valerio III, MD [address] [place] [address] DR DONALDPEDRITOIAN, TERRENCE [phone] 12/26/2023 Uli Valerio Infiltrating ductal carcinoma of [...] Provider Name:Uli Valerio , 09/01/2025 10:00:00 AM, [address] [place] [address] [address], [place], [address], Progress Notes * PAWAN URIBEB:1960 (63 yo F)Acc No.[id number]:12/26/2023 Progress Notes Patient: SANA HORNER Provider: John Valerio MD :1960 A ge:63 Y S ex:Female Date:12/26/2023 Address:[address] [place], [place] [id number] Pcp:Byron Rodarte MD Subjective: * Chief Complaints: [...] Monday. She had blood work recently at [facility] and was told the CA 125 was 16. Her alopecia has resolved and she is feeling better. The neuropathy is present but mild and she yanet with it. She is scheduled to have a routine screening colonoscopy January 16, [address] Donnelly at [facility]. Her appetite is good. She [...] Biopsy,lumpectomy/sentinal nodes/re-excision 09/2015Total Hysterectomy- Bilateral Salpingo- OOpherectomy [facility], ovarian cancer 08/25/22Bx Pelvic Wall, Right [...] 59 (Ref Range: >40 mg/dL) * Lab:Comprehensive [place]. Pane l Fast * Order Date 10/19/2023 [...] 0 12/26/2023 Generated for Tim morales/Adolfo/Abe on: 01:36 PM EDT History and Physical Notes * [...]
--- OUTSIDE RECORDS SUMMARY | 2024-02-19 07:00 | XMS_ITS ---
Author Organization Uli Valerio III, MD Address [address] [place] [address] Care Team Providers Care Community Midwife Name Role Phone Shiloh Pennington (Layla) Primary Care Provider Un available Uli Valerio III Unavailable [phone] Dr. Uli Valerio III Unavailable [phone] Allergies Allergen (clinical drug ingredient) Drug/Non Drug [...] Date Provider Diagnosis Uli Valerio III, MD [address] [place] [address] [place] [address] 02/19/2024 Uli Valerio Infiltrating ductal carcinoma of [...] Provider Name:Uli Valerio , 09/01/2025 10:00:00 AM, [address] [place] [address] INDIRA HUTTON, T[place], [address], Progress Notes * PEDRO URIBE:1960 (63 yo F)Acc No.[id number]:02/19/2024 Progress Notes Patient: SANA HORNER Provider: John Valerio MD :1960 A ge:63 Y S ex:Female Date:02/19/2024 Address:[address] [place], [place] [id number] Pcp:Byron Rodarte MD Subjective: * Chief Complaints: * O varian cancerHistory of breast cancerPeripheral neuropathyLeukocytopeniaOsteoporosisObesity * HPI: C OVID-19 Screening: S he returns for oncology management. She had a colonoscopy recently that showed an arteriovenous malformation that was obliterated with the laser. It was otherwise negative. This was done at [facility]. Her port was flushed January 31, [...] History: * Surgical History: [place] [facility] [place] Colonoscopy 03/2013Right breast Biopsy,lumpectomy/sentinal nodes/re-excision 09/2015Total Hysterectomy- Bilateral Salpingo- OOpherectomy [facility], ovarian cancer 08/25/22Bx Pelvic Wall, Right [...] 0 02/19/2024 Generated for Tim morales/Adolfo/Haileyitting on: 01:37 PM EDT History and Physical [...]
--- OUTSIDE RECORDS SUMMARY | 2024-05-15 06:00 | XMS_ITS ---
Author Organization Uli Valerio III, MD Address [address] [address] Care Team Providers Care Bander Name Role Phone Shiloh Pennington (Layla) Primary Care Provider Un available Uli Valerio III Unavailable [phone] Dr. Uli Valerio III Unavailable Allergies Allergen [...] Date Provider Diagnosis Uli Valerio III, MD [address] [place] [address] [address] [place], T[place]ENCE [phone] 05/15/2024 Uli Valerio Infiltrating ductal carcinoma of [...] Provider Name:Uli Dodgene , 09/01/2025 10:00:00 AM, [address] [place] [address] DR, INDIRA Ledy, [place], [address], Progress Notes * PAWAN URIBEB:1960 (64 yo F)Acc No.[id number]:05/15/2024 Progress Notes Patient: SANA HORNER Provider: Jonh Valerio MD :1960 A ge:64 Y S ex:Female Date:05/15/2024 Address:[address] [place], [place] [phone] Pcp:Byron Rodarte MD Subjective: * Chief Complaints: [...] History: * Surgical History: L ipoma removal; [facility] [place] Dr Sosa Colonoscopy 03/2013Right breast Biopsy,lumpectomy/sentinal nodes/re-excision 09/2015Total Hysterectomy- Bilateral Salpingo- OOpherectomy [facility], ovarian cancer 08/25/22Bx Pelvic Wall, Right [...] Date: 07/16/2023 Generated for Tim morales/Adolfo/eTransmitting on: 01:36 PM EDT History and Physical [...]
--- OUTSIDE RECORDS SUMMARY | 2024-08-13 06:30 | XMS_ITS ---
Author Organization Uli Valerio III, MD Address [address] [place] [address] Care Team Providers Care Banquet Coordinator Name Role Phone CodyShiloh Garza (Layla) Primary Care Provider Un available Uli Valerio III Unavailable [phone] Dr. Uli Valerio III Unavailable [phone] Allergies Allergen (clinical drug ingredient) Drug/Non [...] Date Provider Diagnosis Uli Valerio III, MD [address] [place] [address] DR DONALDKATHY, T[place]ENCE [address] 08/13/2024 Uli Valerio Infiltrating ductal carcinoma of [...] Provider Name:Uli Valerio , 09/01/2025 10:00:00 AM, [address] [place] [address] IN[address], [place], [address], Progress Notes * PAWAN URIBEB:1960 (64 yo F)Acc No.[id number]:08/13/2024 Progress Notes Patient: SANA HORNER Provider: John Valerio MD :1960 A ge:64 Y S ex:Female Date:08/13/2024 Address:[address] [place], [place] [id number] Pcp:Byron Rodarte MD Subjective: * Chief Complaints: [...] History: * Surgical History: [place] [facility] [place] Colonoscopy 03/2013Right breast Biopsy,lumpectomy/sentinal nodes/re-excision 09/2015Total Hysterectomy- Bilateral Salpingo- OOpherectomy [facility], ovarian cancer 08/25/22Bx Pelvic Wall, Right [...] 0.000 (Ref Range: 0.0-0.012 X10*3/uL) * Lab:Comprehensive [place]. Devaugh[facility] l Fast * Collection Date 05/28/2024 [...] 08/13/2024 Generated for Tim morales/Adolfo/Haileyitting on: 1 01:37 PM EDT History and Physical Notes [...]
--- OUTSIDE RECORDS SUMMARY | 2024-09-30 06:15 | XMS_ITS ---
Author Organization Uli Valerio III, MD Address [address] [place] [address] [place] [address] Care Team Providers Care Brewer Helper Name Role Phone Narciso Pennington (Layla) Primary Care Provider Un available Uli Valerio III Unavailable [phone] Dr. Uli Valerio III Unavailable [phone] Allergies Allergen (clinical drug ingredient) Drug/Non Drug Allergy documented on EMR Reaction Allergy Type Onset Date Status Iodinated contrast media (substance) Iodinated Diagnostic Agents nausea Drug Allergy Active amoxicillin / clavulanate Augmentin Rash Drug Allergy Active REASON FOR VISIT Stage III ovarian cancer, Breast cancer, Leukopenic Medications Medication SIG (Take, Route, Frequency, Duration) [...] Tobacco Non-User Aggressive non-smoker Vital Signs Temperature 98.2 degrees Fahrenheit 10/01/19 25 Blood pressure systolic 137 mm Hg 10/01/19 25 Blood pressure diastolic 88 mm Hg 025 Heart Rate 81 /min 09/30/2024 Height 67 in 09/30/2024 Weight 197 lbs 09/30/2024 BMI 30.85 kg/m2 09/30/2024 Encounters Encounter Location Date Provider Diagnosis Uli Valerio III, MD [address] [place] [address] [place] [address] 09/30/2024 Uli Valerio Infiltrating ductal carcinoma of right breast C50.911 ; Epithelial ovarian cancer, 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 She will continue with annual mammography and breast self examination. 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 CA 125 is reported to be 16. She will be followed closely. 09/30/2024 Osteoporosis (ICD-10 - M81.0) He says she has been compliant with her current therapy. She denies any bone pain. She will have a bone density test done periodically. 09/30/2024 Drug-induced polyneuropathy (ICD-10 - G62.0) She continues to have paresthetic pain from the chemotherapy. It has not changed since her last visit. She will continue on current therapy. 09/30/2024 Chronic leukopenia (ICD-10 - D72.819) Her white [...] Details Follow Up: 2 Months, Reason: ov no tests Provider Name:Uli Valerio , 09/01/2025 10:00:00 AM, [address] [place] [address] INDIRA HUTTON, TERRENCE OLIVAS, [address], Progress Notes * PEDRO URIBE:1960 (64 yo F)Acc No.[id number]:09/30/2024 Progress Notes Patient: SANA HORNER Provider: John Valerio MD :1960 A ge:64 Y S ex:Female Date:09/30/2024 Address:[address] [place] [id number] Pcp:Narciso Pennington Subjective: * Chief Complaints: * S tage III ovarian cancerBreast cancerLeukopenic * HPI: C OVID-19 Screening: allergies, otherwise ok, narciso steel next week, pcp,. She returns for review of her history of breast cancer and recently treated stage III ovarian cancer. She is dealing with seasonal allergies but otherwise feels well. She has a new primary care physician, Dr. Narciso Steel. She is feeling healthy and well, pain-free and the neuropathy is minimal. Questions H ave you had any new [...] Biopsy,lumpectomy/sentinal nodes/re-excision 09/2015Total Hysterectomy- Bilateral Salpingo- OOpherectomy [facility], ovarian cancer 08/25/22Bx Pelvic Wall, [...] H t: 67, Wt: 197, BMI:30.85, BP: 137/88, HR: 81, Temp: 98.2, Wt-k.36. * P ast Orders: L ab:Vitamin B12 (Order Date - 09/27/2024) (Collection Date & Time - 09/27/2024 09:15 AM) Value Reference Range Vitamin B12 455 200-900 - pg/mL Lab:CA-125 * Collection Date 09/27/2024 05/28/2024 01/04/2024 Collection Time 09:15 AM 10:10 AM 09:21 AM Order Date 09/27/2024 05/28/2024 01/04/2024 CA-125 13 (Ref Range: <35 U/mL) 16 (Ref Range: <35 U/mL) 15 (Ref Range: <35 U/mL) * Lab:Complete Blood Count Aut o Diff * Collection Date 09/27/2024 05/28/2024 01/04/2024 Collection Time 09:15 AM 10:10 AM 09:21 AM Order Date 09/27/2024 05/28/2024 01/04/2024 White Blood Count 5.5 (Ref Range: 4.8-10.8 X10*3/uL) 3.4 L (Ref Range: 4.8-10.8 X10*3/uL) 3.2 L (Ref Range: 4.8-10.8 X10*3/uL) Red Blood Count 4.06 L (Ref Range: 4.20-5.50 X10*6/uL) 4.20 (Ref Range: 4.20-5.50 X10*6/uL) 4.13 L (Ref Range: 4.20-5.50 X10*6/uL) Hemoglobin 12.7 (Ref Range: 12.0-16.0 g/dl) 13.2 (Ref Range: 12.0-16.0 g/dl) 12.9 (Ref Range: 12.0-16.0 g/dl) Hematocrit 37.7 (Ref Range: 37.0-47.0 %) 38.5 (Ref Range: 37.0-47.0 %) 38.1 (Ref Range: 37.0-47.0 %) Mean Corpuscular Volume 92.9 (Ref Range: 80.0-98.0 fL) 91.7 (Ref Range: 80.0-98.0 fL) 92.3 (Ref Range: 80.0-98.0 fL) Mean Corpuscular Hemoglobin 31.3 (Ref Range: 27.0-33.0 pg) 31.4 (Ref Range: 27.0-33.0 pg) 31.2 (Ref Range: 27.0-33.0 pg) Mean Corpuscular HGB Conc 33.7 (Ref Range: 31.0-35.0 g/dl) 34.3 (Ref Range: 31.0-35.0 g/dl) 33.9 (Ref Range: 31.0-35.0 g/dl) Red Cell Distribution Width 12.8 (Ref Range: 11.0-16.0 %) 12.9 (Ref Range: 11.0-16.0 %) 12.5 (Ref Range: 11.0-16.0 %) Platelet Count 238 (Ref Range: 160-400 X10*3/uL) 244 (Ref Range: 160-400 X10*3/uL) 253 (Ref Range: 160-400 X10*3/uL) Mean Platelet Volume 9.1 L (Ref Range: 9.4-12.3 fL) 8.8 L (Ref Range: 9.4-12.3 fL) 9.2 L (Ref Range: 9.4-12.3 fL) Neutrophils Percent Auto 72.5 (Ref Range: 45-73 %) 49.1 (Ref Range: 45-73 %) 52.1 (Ref Range: 45-73 %) Imm Gran Pct Auto 0.9 H (Ref Range: 0.0-0.4 %) 0.6 H (Ref Range: 0.0-0.4 %) 0.6 H (Ref Range: 0.0-0.4 %) Lymphocytes Percent Auto 15.0 L (Ref Range: 20-40 %) 33.0 (Ref Range: 20-40 %) 32.9 (Ref Range: 20-40 %) Monocytes Percent Auto 7.8 (Ref Range: 2-11 %) 11.9 H (Ref Range: 2-11 %) 9.7 (Ref Range: 2-11 %) Eosinophils Percent Auto 3.1 (Ref Range: 0-4 %) 4.5 H (Ref Range: 0-4 %) 3.8 (Ref Range: 0-4 %) Basophils Percent Auto 0.7 (Ref Range: 0-2 %) 0.9 (Ref Range: 0-2 %) 0.9 (Ref Range: 0-2 %) NRBC Pct Auto 0.0 (Ref Range: 0.0-0.2 /100WBC) 0.0 (Ref Range: 0.0-0.2 /100WBC) 0.0 (Ref Range: 0.0-0.2 /100WBC) Neutrophils Absolute Auto 4.0 (Ref Range: 2.0-8.3 x10*3/uL) 1.7 L (Ref Range: 2.0-8.3 x10*3/uL) 1.7 L (Ref Range: 2.0-8.3 x10*3/uL) Imm Gran Abs Auto 0.05 H (Ref Range: 0.00-0.03 X10*3/uL) 0.02 (Ref Range: 0.00-0.03 X10*3/uL) 0.02 (Ref Range: 0.00-0.03 X10*3/uL) Lymphocytes Absolute Auto 0.8 L (Ref Range: 1.2-4.9 X10*3/uL) 1.1 L (Ref Range: 1.2-4.9 X10*3/uL) 1.1 L (Ref Range: 1.2-4.9 X10*3/uL) Monocytes Absolute Auto 0.4 (Ref Range: 0.1-1.2 X10*3/uL) 0.4 (Ref Range: 0.1-1.2 X10*3/uL) 0.3 (Ref Range: 0.1-1.2 X10*3/uL) Eosinophils Absolute Auto 0.2 (Ref Range: 0.0-0.4 X10*3/uL) 0.2 (Ref Range: 0.0-0.4 X10*3/uL) 0.1 (Ref Range: 0.0-0.4 X10*3/uL) Basophils Absolute Auto 0.0 (Ref Range: 0.0-0.2 X10*3/uL) 0.0 (Ref Range: 0.0-0.2 X10*3/uL) 0.0 (Ref Range: 0.0-0.2 X10*3/uL) NRBC Abs Auto 0.000 (Ref Range: 0.0-0.012 X10*3/uL) 0.000 (Ref Range: 0.0-0.012 X10*3/uL) 0.000 (Ref Range: 0.0-0.012 X10*3/uL) * Lab:[facility] [place] * Collection Date 09/27/2024 05/28/2024 01/04/2024 Collection Time 09:15 AM 10:10 AM 09:21 AM Order Date 09/27/2024 05/28/2024 01/04/2024 Sodium 143 (Ref Range: 135-145 mmol/L) 141 (Ref Range: 135-145 mmol/L) 142 (Ref Range: 135-145 mmol/L) Bilirubin Total 0.6 (Ref Range: 0.0-1.0 mg/dL) 0.6 (Ref Range: 0.0-1.0 mg/dL) 0.5 (Ref Range: 0.0-1.0 mg/dL) Aspartate Amino Transferase 58 H (Ref Range: 5-31 U/L) 75 H (Ref Range: 5-31 U/L) 56 H (Ref Range: 5-31 U/L) Alanine Aminotransferase 82 H (Ref Range: 0-31 U/L) 117 H (Ref Range: 0-31 U/L) 87 H (Ref Range: 0-31 U/L) Total Protein 7.3 (Ref Range: 6.5-8.0 g/dL) 7.3 (Ref Range: 6.5-8.0 g/dL) 7.3 (Ref Range: 6.5-8.0 g/dL) Albumin Level 4.3 (Ref Range: 3.5-5.0 g/dL) 4.2 (Ref Range: 3.5-5.0 g/dL) 4.3 (Ref Range: 3.5-5.0 g/dL) Alkaline Phosphatase 84 (Ref Range: 39-117 U/L) 81 (Ref Range: 39-117 U/L) 78 (Ref Range: 39-117 U/L) Potassium 4.0 (Ref Range: 3.3-5.1 mmol/L) 4.4 (Ref Range: 3.3-5.1 mmol/L) 4.1 (Ref Range: 3.3-5.1 mmol/L) Chloride 105 (Ref Range: 96-108 mmol/L) 106 (Ref Range: 96-108 mmol/L) 106 (Ref Range: 96-108 mmol/L) Carbon Dioxide 30 H (Ref Range: 22-29 mmol/L) 29 (Ref Range: 22-29 mmol/L) 30 H (Ref Range: 22-29 mmol/L) Anion Gap 12 (Ref Range: 12-20) 10 L (Ref Range: 12-20) 10 L (Ref Range: 12-20) Blood Urea Nitrogen 12 (Ref Range: 9-16 mg/dL) 14 (Ref Range: 9-16 mg/dL) 15 (Ref Range: 9-16 mg/dL) Creatinine 0.79 (Ref Range: 0.5-1.4 mg/dL) 0.76 (Ref Range: 0.5-1.4 mg/dL) 0.80 (Ref Range: 0.5-1.4 mg/dL) Estimated Glomerular Filt Rate > 60 > 60 > 60 Glucose Fasting 99 (Ref Range: 60-99 mg/dL) 94 (Ref Range: 60-99 mg/dL) 95 (Ref Range: 60-99 mg/dL) Calcium 9.3 (Ref Range: 8.4-10.2 mg/dL) 9.3 (Ref Range: 8.4-10.2 mg/dL) 9.6 (Ref Range: 8.4-10.2 mg/dL) ???Lab:Ferritin (Order Date - 09/27/2024) (Collection Date & Time - 09/27/2024 09:15 AM)?ValueReference Range?[id number] - ng/mL * Lab:Lipid Panel * Collection Date 09/27/2024 05/28/2024 01/04/2024 Collection Time 09:15 AM 10:10 AM 09:21 AM Order Date 09/27/2024 05/28/2024 01/04/2024 Triglycerides 80 (Ref Range: <150 mg/dL) 90 (Ref Range: <150 mg/dL) 61 (Ref Range: <150 mg/dL) Cholesterol 189 (Ref Range: <200 mg/dL) 206 H (Ref Range: <200 mg/dL) 170 (Ref Range: <200 mg/dL) LDL Cholesterol Calculated 112 H (Ref Range: <100 mg/dL) 129 H (Ref Range: <100 mg/dL) 103 H (Ref Range: <100 mg/dL) HDL Cholesterol 61 (Ref Range: >40 mg/dL) 59 (Ref Range: >40 mg/dL) 55 (Ref Range: >40 mg/dL) * Examination: G eneral Examination: GENERAL APPEARANCE: [...] normal, no ascites, no organomegaly, no mass, centripital obesity, Surgical scar well-healed. RECTAL EXAM: n ot examined. MUSCULOSKELETAL: [...] mammography and breast self examination. 3 . O steoporosis - M81.0 N otes :He says she has been compliant with her current therapy. She denies any bone pain. She will have a bone density test done periodically. 4 . D rug-induced polyneuropathy - G62.0 N otes :She continues to have paresthetic pain from the chemotherapy. It has not changed since her last visit. She will continue on current therapy. 5 . C hronic leukopenia - D72.819 N otes :Her white blood cell count is 3400. Both lymphocytes and neutrophils are slightly low.She has had no infections. Observation was continued. Plan: * Treatment: * Procedure Codes: * [...] done * Follow Up: 2 Months (Reason: ov no tests) * Images: * Sign off status: Completed true * Provider: John Valerio MD Date: 0 09/30/2024 Generated for Tim morales/Adolfo/eTransmitting on: 01:36 PM [...] normal, no ascites, no organomegaly, no mass, centripital obesity, Surgical scar well-healed NEUROLOGIC: alert and oriented, cranial nerves [...]
--- OUTSIDE RECORDS SUMMARY | 2024-12-02 06:00 | XMS_ITS ---
Author Organization Uli Valerio III, MD Address [address] [place] [address] Care Team Providers Care Fuel Technician Name Role Phone Shiloh Pennington (Deisy) Primary Care Provider Un available Uli Valerio III Unavailable [phone] Dr. Uli Valerio III Unavailable Allergies Allergen [...] Provider Diagnosis Uli Valerio III, MD [address] [place] [address] [place] [address] 12/02/2024 Uli Valerio Infiltrating ductal carcinoma of [...] ov Provider Name:Uli Valerio , 09/01/2025 10:00:[address], [address], Progress Notes * PAWAN URIBEB:1960 (64 yo F)Acc No.[id number]:12/02/2024 Progress Notes Patient: SANA [place] Provider: John Valerio MD :1960 A ge:64 Y S ex:Female Date:12/02/2024 Address:[address] [place], [place] [phone] Pcp:Shiloh Pennington Subjective: * Chief Complaints: * [...] History: * Surgical History: L [place]oma removal; [facility] [place] Sosa Colonoscopy 03/2013Right breast Biopsy,lumpectomy/sentinal nodes/re-excision 09/2015Total Hysterectomy- Bilateral Salpingo- OOpherectomy [facility], ovarian cancer 08/25/22Bx Pelvic Wall, [...] Date & Time - 09/27/2024 09:15 AM)?ValueReference Range?[id number] - ng/mL * Lab:Lipid Panel * Collection [...] 0 12/02/2024 Generated for Tim morales/Adolfo/Haileyitting on: 01:37 PM [...]
--- OUTSIDE RECORDS SUMMARY | 2025-03-03 06:30 | XMS_ITS ---
Author Organization Uli Valerio III, MD Address [address] [address] Care Team Providers Care Special Education Teaching Assistant Name Role Phone Shiloh Pennington ([place]) Primary Care Provider Un available Uli Valerio III Unavailable [phone] Dr. Uli Valerio III Unavailable Allergies Allergen [...] Date Provider Diagnosis Uli Valerio III, MD [address] [place] [address] [place] [address] 03/03/2025 Uli Valerio Infiltrating ductal carcinoma of [...] Provider Name:Uli Valerio , 09/01/2025 10:00:00 AM, [address] [place] [address] INDIRA HUTTON, TERRENCE OLIVAS, [address], Progress Notes * THOR URIBEADOB:1960 (64 yo F)Acc No.[id number]:03/03/2025 Progress Notes Patient: SANA HORNER Provider: John Valerio MD :1960 A ge:64 Y S ex:Female Date:03/03/2025 Address:[address] [place], [place] [phone] Pcp:Shiloh Pennington ([place]) Subjective: * Chief Complaints: * O varian cancerHistory of breast cancerOsteoporosisChronic leukopeniaDrug-induced neuropathy * HPI: C OVID-19 Screening: S he returns for ongoing surveillance of her breast cancer and ovarian cancer. Dr. Pennington is no longer her primary care physician. It is now in she the [facility]. Her next appointment with [facility] onc[facility] is April 01. She has been [...] History: * Surgical History: L [place]oma removal; [facility] [place] Dr Sosa Colonoscopy 03/2013Right breast Biopsy,lumpectomy/sentinal nodes/re-excision 09/2015Total Hysterectomy- Bilateral Salpingo- [facility]Opherectomy [facility], ovarian cancer 08/25/22Bx Pelvic Wall, Right [...] John Valerio MD Date: Generated for Tim morales/Adolfo/Bridgettesmitting on: 01:36 PM EDT History and Physical [...]
[2025-03-21 09:42] VITALS: BP 138/84; PULSE 84; TEMP 36.6; O2SAT 99; BMI 30.9
--- NOTE | 2025-03-21 09:42 | MHC.PC.OV ---
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: No Accompanied by: Self / Same As Patient Allergies Iodinated Contrast Media Allergy (Mild, Verified 03/21/25 11:32) Anaphylaxis amoxicillin (From AUGMENTIN) Allergy (Unknown, Verified 03/21/25 11:32) BODY RASH clavulanic acid (From AUGMENTIN) Allergy (Unknown, Verified 03/21/25 11:32) BODY RASH Tobacco use date assessed: 03/21/25 Dental Screening Dental Screen Date: 03/21/25 Did you have a dental visit in the last 12 months?: Yes Did you have a dental problem in the last 6 months where you did not have access to dental care?: No HPI HPI Comments History of Present Illness Details 64 year old female with a past medical history of right breast cancer, ovarian cancer, osteoporosis, elevated lfts, excess etoh, neuropathy, osteoporosis presenting for annual physical exam. Lives at home and feels safe there. Reports following a healthy diet but not regularly exercising. She reports consuming alcohol about 3 times per week, drinking about 3 beers in 1 sitting. No cigarette smoking, illicit drug use, marijuana use. Elevated liver enzymes-AST 85, ALT 144 which is elevated and is chronic fluctuating in severity. Does consume alcohol as above but denies any other hepatotoxins, does have history of arimidex use but 2 years ago. Drinks 3 times weekly- 3 beers in a sitting. No hepatotoxins Osteopenia-Calcium and Vitamin D. They have been stable. 2023. FRAX 10 years 15.2%, hip 0.6% Heme/Onc Right breast cancer- 2016. treated by Dr.? Kapadia now following with Dr Valenzuela seen in 11/2023. She underwent right breast lumpectomy with needle localization and right axillary sentinel node biopsy on 10/13/2015 followed by re-excision of margins with a radial ellipse mastopexy closure for involved margins performed on 10/21/2015.? Margins were clear by 3 mm.? She was found to have a 2.2 cm grade 3 infiltrating ductal carcinoma, ER positive, AR positive, HER2 Ceferino negative as well as a 1.4 cm area of DCIS in the re-excision specimen.? Four right axillary nodes including 2 sentinel nodes and 2 additional nodes were benign.? She underwent 4 cycles of AC chemotherapy in 4 cycles of Taxotere under the direction of Dr. Valerio.?Has completed chemo. She developed neuropathy and restlessness in the legs which subsequently improved.? She was placed on Arimidex and completed 5 years in September 2021. Mammo 03/22, reassuring -Stage III Ovarian Cancer- Follows [facility]. Single liu aortic lymph node positive for malignancy. She completed chemotherapy in 01/15/2023 at [facility] and previously underwent a total abdominal hysterectomy with bilateral salpingo oophorectomy (Dr. Lilia Hightower). She denies any new symptoms in either breast and generally feels well. Follows with urology Dr Perez Dermatology-Dr Walls Concerns: None Health maintenance: Mammo 02/2025 DXA UTD 12/2023 Colonoscopy 12/2023 Reviewed past medical, surgical, family, social history ROS: General: No fevers, malaise, unintentional weight loss HEENT: No blurred vision, diplopia. No sore throat, nasal congestion, rhinorrhea, sinus pain, ear pain. No hearing loss Neck - no adenopathy Cardiovascular: No chest pain, palpitations, or leg edema Respiratory: No shortness of breath, wheezing, cough Breast: No pain, palpable lumps, nipple inversion GI: No dysphagia, odynophagia, globus sensation. No abdominal pain, nausea, vomiting, diarrhea, constipation, melena, hematochezia : No dysuria, hematuria, increased urinary frequency, decreased urinary output. 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 No AH/VH. No SI/HI Skin: No rashes or lesions EXAM: Constitutional - Awake and Alert, No apparent distress Eyes - PERRLA, EOMI. Anicteric Ears - external ears normal, canals clear, TMs intact and pearly peter with good cone of light Nose- septum midline, nares clear, no sinus tenderness Mouth/throat- mucosa moist, tongue and uvula midline, no erythema/edema or tonsillar adenopathy. Neck-trachea midline, thyroid symmetric without palpable nodules, no adenopathy Cardiovascular - S1S2, RRR, No edema Respiratory - Normal lung expansion, Normal respiratory effort, No respiratory distress, CTA bilaterally Gastrointestinal - NT / ND; +BS; No rebound or guarding - No CVA tenderness Extremities - no calf tenderness bilaterally, no swelling Musculoskeletal - Normal inspection, normal ROM Skin - Warm/Dry, no concerning lesions Neurological - Alert & oriented x3, CN II-XII in tact, 5/5 strength BUE and BLE, 2+ patellar reflexes, sensation intact Psychological - Appropriate affect [facility] Medical History (Updated 03/21/25 @ 13:56 by MARY Encarnacion) Elevated liver enzymes Hemorrhoids without complication Diverticulosis Family history of colorectal cancer Epithelial ovarian cancer, FIGO stage IIIA History of right breast cancer Surgical History H/O colonoscopy History of total hysterectomy (08/25/22) History of lymph node biopsy History of lumpectomy of right breast Family History Mother Breast cancer Maternal Aunt Breast cancer Paternal Aunt Pancreatic cancer Maternal Grandfather Colon cancer Father Gall stone in bile duct with infection of gallbladder Social History Housing: House Alcohol intake: current Alcohol intake frequency: holidays/special occasions only Patient Tobacco Use Status: Former Tobacco user e-Cigarette/Vaping Use: Former Use service: No Current occupational status: retired Cognitive needs: No Hearing needs: No Vision needs: Yes (rx glasses) Female Reproductive History Menstrual Age of Menarche: 13 Questionnaire PHQ-9 Over the last 2 weeks, how often have you been bothered by any of the following problems? 1. Little interest or pleasure in doing things: not at all 2. Feeling down, depressed, or hopeless: not at all 3. Trouble falling or staying asleep, or sleeping too much: not at all 4. Feeling tired or having little energy: not at all 5. Poor appetite or overeating: not at all 6. Feeling bad about yourself - or that you are a failure or have let yourself or your family down: not at all 7. Trouble concentrating on things, such as reading the newspaper or watching television: not at all 8. Moving or speaking so slowly that other people could have noticed. Or the opposite - being so fidgety or restless that you have been moving around a lot more than usual: not at all 9. Thoughts that you would be better off or of hurting yourself in some way: not at all Total score: 0 Source: Developed by Drs. Uli Reilly, Mable Alexandra, Chandrakant Resendiz and colleagues, with an educational viktor from [facility]. Thrive Questionnaire Date Thrive assessed: 03/21/25 I am a: Patient Within the past 12 months, did the food you bought not last and you didn't have the money to get more?: Never true Within the past 12 months, did you worry whether your food would run out before you got money to buy more?: Never true Do you have trouble paying for medicines?: No Do you have trouble getting transportation to medical appointments?: No Do you have trouble paying your heating and electricity bill?: No Do you have trouble taking care of your child, family member or friend?: No Do you have trouble with day-to-day activities such as bathing, preparing meals, shopping, managing finances, etc.?: No Are you currently unemployed and looking for a job?: No Are you interested in more education?: No THRIVE Score: 0 AUDIT C Alcohol Use Questionnaire (AUDIT-C) 1. How often do you have a drink containing alcohol?: Monthly or less 2. How many drinks containing alcohol do you have on a typical day when you are drinking?: 1 or 2 3. How often do you have six or more drinks on one occasion?: Less than monthly Total Score: 2 REINALDO-7 AMB Questionnaire REINALDO-7 Date REINALDO - 7 assessed: 03/21/25 Feeling nervous, anxious, or on edge: 0 = Not at all Not being able to stop or control worryin = Not at all Worrying too much about different things: 0 = Not at all Being so restless that it is hard to sit still: 0 = Not at all Becoming easily annoyed or irritable: 0 = Not at all Feeling afraid as if something awful might happen: 0 = Not at all Source: Developed by Mable Rod. Ibrahima, Chandrakant Resendiz and colleagues, with an educational viktor from [facility]. Physical exam (Primary Care) Vital Signs: Last Vital Signs Temp 97.9 F 03/21/25 09:42 Pulse 84 03/21/25 09:42 BP 138/84 03/21/25 09:42 Pulse Ox 99 03/21/25 09:42 Oxygen Delivery Method Room Air 03/21/25 09:42 BMI result Body Mass Index 30.9 Tobacco/Smoking Status: Tobacco use Status Tobacco use date assessed 03/21/25 03/21/25 09:43 Patient Tobacco Use Status Former Tobacco user 03/21/25 09:43 e-Cigarette/Vaping Use Former Use 03/21/25 09:43 PHQ-9: PHQ-9 Score PHQ-9: Total score 0 03/21/25 11:37 Thrive Assessment: Date of Thrive Assessment Date Thrive assessed 03/21/25 03/21/25 09:43 Coding Level of Care Code Est Pt Level 4 (20608) Est Pt Prev Care 40-64y(84399) Diagnoses Routine medical exam Z00.00 Osteopenia M85.80 Epithelial ovarian cancer, FIGO stage IIIA C56.9 History of right breast cancer Z85.3 Elevated liver enzymes R74.8 Assessment & Plan Assessment & Plan (1) Routine medical exam: Code(s): Z00.00 - Encounter for general adult medical examination without abnormal findings Category: Medical Plan: 64-year-old female presenting for annual physical exam. Plan as below (2) Osteopenia: Code(s): M85.80 - Other specified disorders of bone density and structure, unspecified site Category: Medical Plan: 10 year FRAX 15.3%, hip fracture 0.6%. Check DEXA scan every 2 years. Continue calcium and vitamin-D as well as weight-bearing exercise for at least 150 minutes weekly. Check vitamin-D level (3) Epithelial ovarian cancer, FIGO stage IIIA: Code(s): C56.9 - Malignant neoplasm of unspecified ovary Category: Medical Plan: In early remission. Continue following with [facility] security operations analyst Onc (4) History of right breast cancer: Code(s): Z85.3 - Personal history of malignant neoplasm of breast Category: Medical Plan: In remission, completed Arimidex. Continue following for annual breast exams and mammograms. (5) Elevated liver enzymes: Code(s): R74.8 - Abnormal levels of other serum enzymes Category: Medical Plan: Etiology unclear. She is counseled on healthy alcohol consumption but does state that she had not drank for 3 days prior to lab draw. Avoid all other hepatotoxins. Recheck liver enzymes in 4-5 days Plan Routine screening labs as ordered below Continue with screening mammograms, Pap smears, colonoscopies Continue following for annual skin exams and use sun protection Annual eye exams Wear seat belt in car Recommend regular exercise and healthy diet Follow-up in a year for annual physical exam Orders: Orders Vitamin D 25-OH Total 4 Days M85.80 - Other specified disorders of bone density and structure, unspecified site, Z00.00 - Encounter for general adult medical examination without abnormal findings Liver Panel 4 Days M85.80 - Other specified disorders of bone density and structure, unspecified site, Z00.00 - Encounter for general adult medical examination without abnormal findings
--- OUTSIDE RECORDS SUMMARY | 2025-03-21 13:37 | XMS_ITS | Clinical Summary ---
Author Organization [facility] Address [address] [facility] [address] [place] [address] Phone Care Team Providers Care Order Packer Or Packager Name Role Phone Byron Rodarte MD Primary [...] topic Medical Devices Not on file Insurance [facility] HMO POS [place] [address] [place] [address] HMO POS O POS O [place] [address] [place], [place] [address] [address] [address] HMO POS Care Teams Order Packer Or Packager Relationship Specialty Start Date End Date Byron Rodarte MD [address] [place] [address] [place] [address] PCP - General 03/13/17 Additional Source Comments The information contained in this document represents components of the legal health record. It is not the complete legal health record.[facility]
--- OUTSIDE RECORDS SUMMARY | 2025-03-21 13:38 | XMS_ITS | Patient Health Record ---
Author Organization Uli Valerio III, MD Address [address] [place] [address] Care Team Providers Care Chief Of Field Operations Name Role Phone Shiloh Pennington ([place]) Primary Care Provider Un available Uli Valerio III Unavailable [phone] Dr. Uli Valerio III Unavailable Allergies Allergen (clinical drug ingredient) Drug/Non Drug Allergy documented on EMR Reaction Allergy Type Onset Date Status Iodinated contrast media (substance) Iodinated Diagnostic Agents nausea Drug Allergy Active amoxicillin / clavulanate Augmentin Rash Drug Allergy Active Results Component Value Reference Range Notes Complete Blood Count Auto Di ff Reviewed date:06/04/2024 04:12:40 PM Interpretation: Performing Lab:[facility], [address] [place] [phone] Notes/Report: White Blood Count 3.4 4.8-10.8 X10*3/uL [...] NRBC Abs Auto 0.000 0.0-0.012 X10*3/uL Comprehensive Holmes. Panel Fa st Reviewed date:06/04/2024 04:12:40 PM Interpretation: Performing Lab:[address] [address] Notes/Report: Sodium 141 135-145 mmol/L Potassium 4.4 [...] Reviewed date:06/04/2024 04:12:40 PM Interpretation: Performing Lab:[address] [place] [address] Notes/Report: Gamma Glutamyl Transpeptidase 32 7-33 U/L Lipid Panel Reviewed date:06/04/2024 04:12:40 PM Interpretation: Performing Lab:[facility], [address] [place] [phone] Notes/Report: Triglycerides 90 <150 mg/dL Desirable Triglyceride: [...] CA-125 Reviewed date:06/04/2024 04:12:40 PM Interpretation: Performing Lab:[address] [address] Notes/Report: CA-125 16 <35 U/mL This test was performed using the Siemens Chemiluminescent method. Values obtained from different assay methods cannot be used interchangeably. CA 125 levels, regardless of value, should not be interpreted as absolute evidence of the presence or absence of disease. THIS TEST WAS PERFORMED AT: [facility] [address] [place] [phone] TAMMIE BLANCA MD Complete Blood Count Auto Di ff Reviewed date:09/28/2024 08:45:24 PM Interpretation: Performing Lab:[address] [address] Notes/Report: White Blood Count 5.5 4.8-10.8 X10*3/uL [...] NRBC Abs Auto 0.000 0.0-0.012 X10*3/uL Comprehensive Holmes. Panel Fa st Reviewed date:09/28/2024 08:45:24 PM Interpretation: Performing Lab:[facility], [address] [place] [address] Notes/Report: Sodium 143 135-145 mmol/L Potassium 4.0 [...] Ferritin Reviewed date:09/28/2024 08:45:24 PM Interpretation: Performing Lab:[facility], [address] [place] [phone] Notes/Report: Ferritin 473 10-250 ng/mL Lipid Panel Reviewed date:09/28/2024 08:45:24 PM Interpretation: Performing Lab:[facility], [address] [place] [phone] Notes/Report: Triglycerides 80 <150 mg/dL Desirable Triglyceride: [...] B12 Reviewed date:09/28/2024 08:45:24 PM Interpretation: Performing Lab:[facility], [address] [place] [address] Notes/Report: Vitamin B12 455 200-900 pg/mL NORMAL 200-900 PG/ML INDETERMINATE 160-199 PG/ML DEFICIENT < 160 PG/ML CA-125 Reviewed date:09/28/2024 08:45:24 PM Interpretation: Performing Lab:[facility], [address] [place] [phone] Notes/Report: CA-125 13 <35 U/mL This test was performed using the Siemens Chemiluminescent method. Values obtained from different assay methods cannot be used interchangeably. CA 125 levels, regardless of value, should not be interpreted as absolute evidence of the presence or absence of disease. THIS TEST WAS PERFORMED AT: [facility] [address] [place] [phone] TAMMIE BLANCA MD Reason For Referral Reason Breast Cancer Diagnosis 1 Malignant neoplasm o f ovary, unspecified laterality (C56.9) Diagnosis 2 Chronic leukopenia ( D72.819) Referring Provider First Name Shiloh (Lesvia jacobs) Referring Provider Last Name Aditi Referring Provider Speciality Internal M edicine Referred Organization Uli Valerio III, MD Referred Provider Uli Valerio Referred Address [address] [place] [address] [address],[place], [place],[address], Referred Provider Specialty Oncology Referral Priority Routine [...] Problem Status W/U Status Risk Notes Problem 059401676 Infiltrating ductal carcinoma of right breast (C50.911) Active confirmed There was no sign of recurrent breast cancer of a new primary in either breast today. She will continue with annual mammography and breast self examination. 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 This problem antoni resolved. Problem 248059433 Obesity, unspecified (E66.9) Active confirmed Her body mass index is now 30. She has gained 2 pounds. We discussed diet and nutrition. I recommended stabilizing her weight at this level until she has recovered fully from chemotherapy and then gradually reduce her weight through diet and exercise. Problem 045661106 Drug-induced polyneuropathy (G62.0) Active confirmed She continues to have paresthetic pain from the chemotherapy. It has not changed since her last visit. She will continue on current therapy. Problem Osteoporosis (83108842) Osteoporosis (M81.0) Active confirmed He says she has been compliant with her current therapy. She denies any bone pain. She will have a bone density test done periodically. Problem 129149206 Malignant neoplasm of ovary, unspecified laterality (C56.9) Active confirmed The stage III epithelial ovarian cancer is in remission. His CEA 125 his in the normal range. Surveillance continues. Problem 81935452 Chronic leukopenia (D72.819) Active confirmed Her white blood cell count is 3400. Both lymphocytes and neutrophils are slightly low.She has had no infections. Observation was continued. 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) [...] Date Provider Diagnosis Uli Valerio III, MD [address] [place] [address] DR HARDY, TERRENCE [address] 05/15/2024 Uli Valerio Infiltrating ductal carcinoma of right breast C50.911 ; Overweight E66.3 ; Chronic leukopenia D72.819 ; Drug-induced polyneuropathy G62.0 ; Osteoporosis M81.0 and Epithelial ovarian cancer, FIGO stage IIIA C56.9 Uli Valerio III, MD [address] [place] [address] [place] [address] 08/13/2024 Uli Dodgene Infiltrating ductal carcinoma of right breast C50.911 ; Epithelial ovarian cancer, FIGO stage IIIA C56.9 ; Anemia in neoplastic disease D63.0 ; Osteoporosis M81.0 ; Drug-induced polyneuropathy G62.0 and Chronic leukopenia D72.819 Uli Valerio III, MD [address] [place] [address] [place] [address] 09/30/2024 Uli Dodgene Infiltrating ductal carcinoma of right breast C50.911 ; Epithelial ovarian cancer, FIGO stage IIIA C56.9 ; Osteoporosis M81.0 ; Drug-induced polyneuropathy G62.0 and Chronic leukopenia D72.819 Uli Valerio III, MD [address] [place] [address] [place] [address] 12/02/2024 Uli Dodgene Infiltrating ductal carcinoma of right breast C50.911 ; Epithelial ovarian cancer, FIGO stage IIIA C56.9 ; Chronic leukopenia D72.819 ; Osteoporosis M81.0 ; Drug-induced polyneuropathy G62.0 and Obesity, unspecified E66.9 Uli Valerio III, MD [address] [place] [address] [place] [address] 03/03/2025 Uli Dodgene Infiltrating ductal carcinoma of [...] Provider Name:Uli Dodgene , 09/01/2025 10:00:00 AM, [address] [place] [address] [address], [place], [address], Insurance Providers Payer Name Payer Address Payer Phone Subscriber Number Group Number Insured Name Patient Relationship to Insured Coverage Start Date Coverage End Date [facility] [address] [place], [place] [id number] SANA URIBE Self - patient is the insured Medical (General) History Medical History History ICD Code 2.1 cm ER+LA+ invasive ducta l right breast carcinoma with DCIS:[id number](i_)(sn-) September 2015 lipoma removed from arm colonoscopy 2012 ovarian cancer 2022 stage IIIA Surgical History Surgery Date(Month/Year) No history Bx Pelvic Wall, Right (Negative results) 03/01/23 Total Hysterectomy- Bilatera l Salpingo- [facility]herectomy [facility], ovarian cancer 08/25/22 Right breast Biopsy,lumpectomy/sentinal nodes/re-excision 09/2015 Colonoscopy 03/2013 Lipoma removal; [facility] [place] Dr Sosa Hospitalization History Reason Date(Month/Year) No history
== END 2025-03-21 12:07 | disposition home or self-care (01) ==
LOC: HO.HMCHD 11:15
PROVIDERS: PCP Physician Assistant; Visit Provider Physician Assistant
DX: Z00.00 Encounter for general adult medical examination without abnormal findings (principal); M85.80 Other specified disorders of bone density and structure, unspecified site; C56.9 Malignant neoplasm of unspecified ovary; Z85.3 Personal history of malignant neoplasm of breast; R74.8 Abnormal levels of other serum enzymes

== ENCOUNTER 2025-03-27 10:32 | Outpatient (REF) | payer BC, SELFPAY ==
--- OUTSIDE RECORDS SUMMARY | 2023-10-25 07:00 | XMS_ITS ---
Author Organization Uli Valerio III, MD Address [address] [place] [address] Care Team Providers Care Plant Buyer Name Role Phone CodyKaylaShiloh (Deisy) Primary Care Provider Un available Uli Valerio III Unavailable [phone] Dr. Uli Valerio III Unavailable [phone] Allergies Allergen (clinical drug ingredient) Drug/Non Drug [...] Problem Status W/U Status Risk Notes Problem [id number] Obesity, unspecified (E66.9) Active confirmed Her body [...] Date Provider Diagnosis Uli Valerio III, MD [address] [place] [address] [place], [place] [address] 10/25/2023 Uli Valerio Infiltrating ductal carcinoma of [...] in the near future. She will see [facility] oncology next month. Her CA-125 is 14, [...] Name:Uli Cedeno Iman , 09/01/2025 10:00:00 AM, [address] [place] [address] [place], [place], [address], Progress Notes * THOR URIBEADOB:1960 (63 yo F)Acc No.[id number]:10/25/2023 Progress Notes Patient: SANA HORNER Provider: John Valerio MD :1960 A ge:63 Y S ex:Female Date:10/25/2023 Address:[address] [place] [phone] Pcp:Byron Rodarte MD Subjective: * Chief Complaints: [...] History: * Surgical History: [place] [facility] [place]oscopy 03/2013Right breast Biopsy,lumpectomy/sentinal nodes/re-excision 09/2015Total Hysterectomy- Bilateral Salpingo- OOpherectomy [facility], ovarian cancer 08/25/22Bx Pelvic Wall, Right [...] 59 (Ref Range: >40 mg/dL) * Lab:Comprehensive [place]. Pane l Fast * Order Date 10/19/2023 [...] - 08/17/2023) (Collection Date - 08/17/2023)?ValueReference Range?Lactate [id number] - U/L ???Lab:Gamma Glutamyl Transpeptidase (Order Date - 08/17/2023) (Collection Date - 08/17/2023)?ValueReference Range?Gamma Glutamyl Njmofxzyeqcgqi72 H7-33 - U/L * Lab:CA-125 * Order [...] in the near future. She will see [facility] oncology next month. Her CA-125 is 14, [...] 0 10/25/2023 Generated for Tim morales/Adolfo/Abe on: 12:50 PM EDT History and Physical Notes * HPI [...]
--- OUTSIDE RECORDS SUMMARY | 2023-12-26 07:00 | XMS_ITS ---
Author Organization Uli Valerio III, MD Address [address] [place] [address] Care Team Providers Care Siebel Solution Architect Name Role Phone CodyShiloh Garza (Layla) Primary Care Provider Un available Uli Valeiro III Unavailable [phone] Dr. Uli Valerio III Unavailable Allergies Allergen [...] Problem Status W/U Status Risk Notes Problem [id number] Malignant neoplasm of ovary, unspecified laterality (C56.9) [...] Date Provider Diagnosis Uli Valerio III, MD [address] [place] [address] DR DONALDPEDRITOIAN, TERRENCE [phone] 12/26/2023 Uli Valerio Infiltrating ductal carcinoma of [...] Provider Name:Uli Valerio , 09/01/2025 10:00:00 AM, [address] [place] [address] [address], [place], [address], Progress Notes * PAWAN URIBEB:1960 (63 yo F)Acc No.[id number]:12/26/2023 Progress Notes Patient: SANA HORNER Provider: John Valerio MD :1960 A ge:63 Y S ex:Female Date:12/26/2023 Address:[address] [place], [place] [id number] Pcp:Byron Rodarte MD Subjective: * Chief Complaints: [...] Monday. She had blood work recently at [facility] and was told the CA 125 was 16. Her alopecia has resolved and she is feeling better. The neuropathy is present but mild and she yanet with it. She is scheduled to have a routine screening colonoscopy January 16, [address] Donnelly at [facility]. Her appetite is good. She is distressed [...] History: * Surgical History: L ipoma removal; [facility] [place] Dr Sosa Colonoscopy 03/2013Right breast Biopsy,lumpectomy/sentinal nodes/re-excision 09/2015Total Hysterectomy- Bilateral Salpingo- OOpherectomy [facility], ovarian cancer 08/25/22Bx Pelvic Wall, Right [...] 59 (Ref Range: >40 mg/dL) * Lab:Comprehensive [place]. Pane l Fast * Order Date 10/19/2023 [...] MD Date: 0 12/26/2023 Generated for Tim morales/Adolfo/Abe on: 12:50 PM [...]
--- OUTSIDE RECORDS SUMMARY | 2024-02-19 07:00 | XMS_ITS ---
Author Organization Uli Valerio III, MD Address [address] [address] Care Team Providers Care Manager Strategic Development Name Role Phone Shiloh Pennington (Layla) Primary Care Provider Un available Uli Valerio III Unavailable [phone] Dr. Uli Valerio III Unavailable [phone] Allergies Allergen (clinical drug ingredient) Drug/Non Drug [...] Date Provider Diagnosis Uli Valerio III, MD [address] [place] [address] [place] [address] 02/19/2024 Uli Valerio Infiltrating ductal carcinoma of [...] Provider Name:Uli Valerio , 09/01/2025 10:00:00 AM, [address] [place] [address] INDIRA HUTTON, [place], [address], Progress Notes * PEDRO URIBE:1960 (63 yo F)Acc No.[id number]:02/19/2024 Progress Notes Patient: SANA HORNER Provider: John Valerio MD :1960 A ge:63 Y S ex:Female Date:02/19/2024 Address:[address] [place], [place] [id number] Pcp:Byron Rodarte MD Subjective: * Chief Complaints: * O varian cancerHistory of breast cancerPeripheral neuropathyLeukocytopeniaOsteoporosisObesity * HPI: C OVID-19 Screening: S he returns for oncology management. She had a colonoscopy recently that showed an arteriovenous malformation that was obliterated with the laser. It was otherwise negative. This was done at [facility]. Her port was flushed January 31, [...] History: * Surgical History: L ipoma removal; [facility] [place] Sosa Colonoscopy 03/2013Right breast Biopsy,lumpectomy/sentinal nodes/re-excision 09/2015Total Hysterectomy- Bilateral Salpingo- OOpherectomy [facility], ovarian cancer 08/25/22Bx Pelvic Wall, Right (Negative [...] 68 (Ref Range: >40 mg/dL) * Lab:Comprehensive [place]. Pane l Fast * Collection Date 01/04/2024 [...] 0 02/19/2024 Generated for Tim morales/Adolfo/Haileyitting on: 12:50 PM EDT History and Physical [...]
--- OUTSIDE RECORDS SUMMARY | 2024-05-15 06:00 | XMS_ITS ---
Author Organization Uli Valerio III, MD Address [address] [place] [address] Care Team Providers Care Cotton Presser Name Role Phone Shiloh Pennington (Layla) Primary Care Provider Un available Uli Valerio III Unavailable [phone] Dr. Uli Valerio III Unavailable [phone] Allergies Allergen (clinical drug ingredient) Drug/Non Drug Allergy documented on EMR Reaction Allergy Type Onset Date Status Iodinated contrast media (substance) Iodinated Diagnostic Agents nausea Drug Allergy Active amoxicillin / clavulanate Augmentin Rash Drug Allergy Active REASON FOR VISIT Stage III ovarian cancer, History of right breast cancer, Chronic leukopenia, Osteoporosis, Bone Medications Medication SIG (Take, Route, Frequency, Duration) [...] Tobacco Non-User Aggressive non-smoker Vital Signs Temperature 98.6 degrees Fahrenheit 05/15/20 24 Blood pressure systolic 130 mm Hg 05/15/20 24 Blood pressure diastolic 83 mm Hg 024 Heart Rate 79 /min 05/15/2024 Height 67 in 05/15/2024 Weight 196 lbs 05/15/2024 BMI 30.69 kg/m2 05/15/2024 Encounters Encounter Location Date Provider Diagnosis Uli Valerio III, MD [address] [place] [address] [address] [place], [place] [address] 05/15/2024 Uli Valerio Infiltrating ductal carcinoma of right breast C50.911 ; Overweight E66.3 ; Chronic leukopenia D72.819 ; Drug-induced polyneuropathy G62.0 ; Osteoporosis M81.0 and Epithelial ovarian cancer, 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 She will continue with annual mammography and breast self examination. 05/15/2024 Overweight (ICD-10 - E66.3) Her weight has been stable. We discussed her diet and nutrition. We made a plan to lose weight at a rate of one half of a pound per week. Diet restricted in fat calories and sodium combined with regular activity. 05/15/2024 Chronic leukopenia (ICD-10 - D72.819) Her white blood cell count is 3200. She has had no infections. Observation was continued. 05/15/2024 Drug-induced polyneuropathy (ICD-10 - G62.0) She continues to have paresthetic pain from the chemotherapy. It has not changed since her last visit. She will continue on current therapy. 05/15/2024 Osteoporosis (ICD-10 - M81.0) She was continued on calcium and vitamin D. 05/15/2024 Epithelial ovarian cancer, FIGO stage IIIA (ICD-10 - C56.9) She appears to be in clinical remission after chemotherapy. CA 125 is reported to be 16. She will be followed closely. Plan Of Treatment Medication Medication Name Sig Start Date Stop Date Notes Magnesium Glycinate Plus Calcium + Vitamin D3 600-10 MG-MCG 1 tablet with a meal Orally Once a day Vitamin D-3 25 MCG (1000 UT) 1 capsule Orally Once a day Pending Test Test Name Order Date PROFILE, FASTING (COMPREHENSIVE METABOLI C) 05/15/2024 GGT 05/15/2024 CBC w DIFF 05/15/2024 CA 125 05/15/2024 Lipid Panel 05/15/2024 Next Appt Details Follow Up: 3 Months, Before next visit, Reason: ov review labs, To discuss the results of the repeated liver function tests Provider Name:Uli Dodgene , 09/01/2025 10:00:00 AM, [address] [place] [address] DR, INDIRA Ledy, [place], [address], Progress Notes * PAWAN URIBEB:1960 (64 yo F)Acc No.[id number]:05/15/2024 Progress Notes Patient: SANA HORNER Provider: John Valerio MD :1960 A ge:64 Y S ex:Female Date:05/15/2024 Address:[address] [place], [place] [id number] Pcp:Byron Rodarte MD Subjective: * Chief Complaints: * S tage III ovarian cancerHistory of right breast cancerChronic leukopeniaOsteoporosisBone * HPI: C OVID-19 Screening: Questions H ave you had any new onset fever, chills, cough, congestion, sore throat, shortness of breath, muscle aches? N o * : The patient, a 64-year-old female, presented with no new symptoms or significant changes in her health over the past three months. She reported having a good appetite and gaining three pounds recently due to indulgence and lack of physical activity. She denied having any pain or discomfort. She expressed concern about her liver function tests, which had previously shown elevated levels but were improving. She requested to have these tests repeated due to her recent lifestyle changes. She also mentioned having a port that was last flushed in April and is now being maintained every three months. * ROS: G eneral/Constitutional: Denies p ain, N umbness in his feet, otherwise only normal aches and pains. [...] History: * Surgical History: L [place] removal; [facility] [place] Sosa Colonoscopy 03/2013Right breast Biopsy,lumpectomy/sentinal nodes/re-excision 09/2015Total Hysterectomy- Bilateral Salpingo- OOpherectomy [facility], ovarian cancer 08/25/22Bx Pelvic Wall, Right (Negative results) 03/01/23No history * Hospitalization/Major Diagno stic Procedure: N o history * Family History: F ather: . M other: alive, diagnosed with HTN, Cancer. S on(s): alive. M aternal Grand Father: diagnosed with Cancer. [...] Objective: * Vitals: H t: 67, Wt: 196, BMI:30.69, BP: 130/83, HR: 79, Temp: 98.6, Wt-k.9. * Examination: G eneral Examination: GENERAL APPEARANCE: [...] LUNGS: c lear to auscultation . BREASTS: no masses palpable bilaterally. ABDOMEN: b owel sounds normal, no ascites, no organomegaly, no mass, Healed surgical incision. RECTAL EXAM: n ot examined. MUSCULOSKELETAL: e [...] on calcium and vitamin D. 6 . E pithelial ovarian cancer, FIGO stage IIIA - C56.9 N otes :She appears to be in clinical remission after chemotherapy. CA 125 is reported to be 16. She will be followed closely. Plan: * Treatment: 2. C hronic leukopenia L AB: PROFILE, FASTING (COMPREHENSIVE METABOLIC) L AB: GGT L AB: CBC w DIFF L AB: CA 125 L AB: Lipid Panel 3. O steoporosis L AB: PROFILE, FASTING (COMPREHENSIVE METABOLIC) L AB: GGT L AB: CBC w DIFF L AB: CA 125 L AB: Lipid Panel 4. E pithelial ovarian cancer, FIGO stage IIIA L AB: PROFILE, FASTING (COMPREHENSIVE METABOLIC) L AB: GGT L AB: CBC w DIFF L AB: CA 125 L AB: Lipid Panel * Procedure Codes: * Preventive Medicine: Counseling: [...] reason not done * Follow Up: 3 Months, Before next visit (Reason: ov review labs, To discuss the results of the repeated liver function tests) * Images: * Sign off status: Completed true * Provider: John Valerio MD Date: 07/16/2023 Generated for Tim morales/Adolfo/eTransmitting on: 1 12:50 PM EDT History and Physical Notes * HPI (History of Present Illness) Category Sub-Category Detail Notes COVID-19 Screening Questions Have you had any new onset fever, chills, cough, congestion, sore throat, shortness of breath, muscle aches?: No Examination Category Sub-Category Detail Notes General [...] normal, no ascites, no organomegaly, no mass, Healed surgical incision NEUROLOGIC: alert and oriented, cranial nerves 2-12 grossly intact, deep tendon reflexes 2+ symmetrical, motor strength normal upper and lower extremities, sensory exam intact SKIN: no suspicious lesion s, anicteric PERIPHERAL PULSES: normal BREASTS: no masses palpable b ilaterally MUSCULOSKELETAL: extremities unremark able, no clubbing, cyanosis or edema LYMPH NODES: no enlarged lymph no james,spleen normal RECTAL EXAM: not examined PSYCH: alert, oriented ORAL CAVITY: normal, unremarkable
--- OUTSIDE RECORDS SUMMARY | 2024-08-13 06:30 | XMS_ITS ---
Author Organization Uli Valerio III, MD Address [address] [place] [address] Care Team Providers Care Polisher Hand Name Role Phone CodyShiloh Garza (Layla) Primary Care Provider Un available Uli Valerio III Unavailable [phone] Dr. Uli Valerio III Unavailable [phone] Allergies Allergen (clinical drug ingredient) Drug/Non Drug Allergy documented on EMR Reaction Allergy Type Onset Date Status Iodinated contrast media (substance) Iodinated Diagnostic Agents nausea Drug Allergy Active amoxicillin / clavulanate Augmentin Rash Drug Allergy Active REASON FOR VISIT right breast cancer, osteoporosis, Stage III carcinoma of the ovary, Chronic leukopenia, Drug-induced peripheral neuropathy Medications Medication SIG (Take, Route, Frequency, Duration) Notes Start Date End Date Status Calcium + Vitamin D3 600-10 MG-MCG 1 tablet with a meal Orally Once a day Active Vitamin D-3 25 MCG (1000 UT) 1 capsule Orally Once a day Active Magnesium Glycinate Plus Active Social History Tobacco Use: Social History Observation Description Date Details (start date - stop date) Never Smoker NA - NA Tobacco Use/Smoking Question Answer Notes Patient is a nonsmoker Additional Findings: Tobacco Non-User Aggressive non-smoker Vital Signs Temperature 96.8 degrees Fahrenheit 08/14/19 25 Blood pressure systolic 139 mm Hg 08/14/19 25 Blood pressure diastolic 82 mm Hg 025 Heart Rate 84 /min 08/13/2024 Height 67 in 08/13/2024 Weight 197 lbs 08/13/2024 BMI 30.85 kg/m2 08/13/2024 Encounters Encounter Location Date Provider Diagnosis Uli Valerio III, MD [address] [place] [address] DR DONALDKATHY, [place] [address] 08/13/2024 Uli Valerio Infiltrating ductal carcinoma of right breast C50.911 ; Epithelial ovarian cancer, 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 She will continue with annual mammography and breast self examination. 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 CA 125 is reported to be 16. She will be followed closely. 08/13/2024 Anemia in neoplastic disease (ICD-10 - D63.0) She has a normal hemoglobin and hematocrit and mean cell volume. This problem antoni resolved. 08/13/2024 Osteoporosis (ICD-10 - M81.0) He says she has been compliant with her current therapy. She denies any bone pain. She will have a bone density test done periodically. 08/13/2024 Drug-induced polyneuropathy (ICD-10 - G62.0) She continues to have paresthetic pain from the chemotherapy. It has not changed since her last visit. She will continue on current therapy. 08/13/2024 Chronic leukopenia (ICD-10 - D72.819) Her white blood cell count is 3400. Both lymphocytes and neutrophils are slightly low.She has had no infections. Observation was continued. Plan Of Treatment Medication Medication Name Sig Start Date Stop Date Notes Calcium + Vitamin D3 600-10 MG-MCG 1 tablet with a meal Orally Once a day Vitamin D-3 25 MCG (1000 UT) 1 capsule Orally Once a day Magnesium Glycinate Plus Pending Test Test Name Order Date PROFILE, FASTING (COMPREHENSIVE METABOLI C) 08/13/2024 CBC w DIFF 08/13/2024 CA 125 08/13/2024 Ferritin 08/13/2024 Lipid Panel 08/13/2024 Vitamin B12 08/13/2024 Next Appt Details Follow Up: 2 Months, Reason: OV Provider Name:Uli Valerio , 09/01/2025 10:00:00 AM, [address] [place] [address] IN[address] HUTTON, [place], [address], Progress Notes * PAWAN URIBEB:1960 (64 yo F)Acc No.[id number]:08/13/2024 Progress Notes Patient: SANA HORNER Provider: John Valerio MD :1960 A ge:64 Y S ex:Female Date:08/13/2024 Address:[address] [place], [place] [id number] Pcp:Byron Rodarte MD Subjective: * Chief Complaints: * R ight breast cancerOsteoporosisStage III carcinoma of the ovaryChronic leukopeniaDrug-induced peripheral neuropathy * HPI: C OVID-19 Screening: She returns to the office for ongoing follow-up and surveillance of her 2 malignancies. Her CA-125 is stable at 16. Her total cholesterol is 206. She continues to be mildly neutropenic. She is up-to-date with her visits to the medical oncologist. No new problems have been identified. Her physical examination was remarkable only for obesity. Questions H ave you had any new onset fever, chills, cough, congestion, sore throat, shortness of breath, muscle aches? N o * ROS: G eneral/Constitutional: pain P eripheral neuropathy hands and feet, otherwise only normal aches and pains. C hills d enies. F atigue a dmits. F ever d enies.? E NT: Decreased hearing d enies. R [...] History: * Surgical History: L ipoma removal; [facility] [place] Dr Sosa Colonoscopy 03/2013Right breast Biopsy,lumpectomy/sentinal nodes/re-excision 09/2015Total Hysterectomy- Bilateral Salpingo- OOpherectomy [facility], ovarian cancer 08/25/22Bx Pelvic Wall, Right [...] Objective: * Vitals: H t: 67, Wt: 197, BMI:30.85, BP: 139/82, HR: 84, Temp: 96.8, Wt-k.36. * P ast Orders: Lab:Complete Blood Count Aut o Diff * Collection Date 05/28/2024 01/04/2024 10/19/2023 Collection Time 10:10 AM 09:21 AM 08:44 AM Order Date 05/28/2024 01/04/2024 10/19/2023 White Blood Count 3.4 L (Ref Range: 4.8-10.8 X10*3/uL) 3.2 L (Ref Range: 4.8-10.8 X10*3/uL) 3.1 L (Ref Range: 4.8-10.8 X10*3/uL) Red Blood Count 4.20 (Ref Range: 4.20-5.50 X10*6/uL) 4.13 L (Ref Range: 4.20-5.50 X10*6/uL) 3.91 L (Ref Range: 4.20-5.50 X10*6/uL) Hemoglobin 13.2 (Ref Range: 12.0-16.0 g/dl) 12.9 (Ref Range: 12.0-16.0 g/dl) 12.3 (Ref Range: 12.0-16.0 g/dl) Hematocrit 38.5 (Ref Range: 37.0-47.0 %) 38.1 (Ref Range: 37.0-47.0 %) 36.7 L (Ref Range: 37.0-47.0 %) Mean Corpuscular Volume 91.7 (Ref Range: 80.0-98.0 fL) 92.3 (Ref Range: 80.0-98.0 fL) 93.9 (Ref Range: 80.0-98.0 fL) Mean Corpuscular Hemoglobin 31.4 (Ref Range: 27.0-33.0 pg) 31.2 (Ref Range: 27.0-33.0 pg) 31.5 (Ref Range: 27.0-33.0 pg) Mean Corpuscular HGB Conc 34.3 (Ref Range: 31.0-35.0 g/dl) 33.9 (Ref Range: 31.0-35.0 g/dl) 33.5 (Ref Range: 31.0-35.0 g/dl) Red Cell Distribution Width 12.9 (Ref Range: 11.0-16.0 %) 12.5 (Ref Range: 11.0-16.0 %) 13.0 (Ref Range: 11.0-16.0 %) Platelet Count 244 (Ref Range: 160-400 X10*3/uL) 253 (Ref Range: 160-400 X10*3/uL) 226 (Ref Range: 160-400 X10*3/uL) Mean Platelet Volume 8.8 L (Ref Range: 9.4-12.3 fL) 9.2 L (Ref Range: 9.4-12.3 fL) 9.0 L (Ref Range: 9.4-12.3 fL) Neutrophils Percent Auto 49.1 (Ref Range: 45-73 %) 52.1 (Ref Range: 45-73 %) 51.7 (Ref Range: 45-73 %) Imm Gran Pct Auto 0.6 H (Ref Range: 0.0-0.4 %) 0.6 H (Ref Range: 0.0-0.4 %) 0.6 H (Ref Range: 0.0-0.4 %) Lymphocytes Percent Auto 33.0 (Ref Range: 20-40 %) 32.9 (Ref Range: 20-40 %) 31.8 (Ref Range: 20-40 %) Monocytes Percent Auto 11.9 H (Ref Range: 2-11 %) 9.7 (Ref Range: 2-11 %) 11.4 H (Ref Range: 2-11 %) Eosinophils Percent Auto 4.5 H (Ref Range: 0-4 %) 3.8 (Ref Range: 0-4 %) 4.2 H (Ref Range: 0-4 %) Basophils Percent Auto 0.9 (Ref Range: 0-2 %) 0.9 (Ref Range: 0-2 %) 0.3 (Ref Range: 0-2 %) NRBC Pct Auto 0.0 (Ref Range: 0.0-0.2 /100WBC) 0.0 (Ref Range: 0.0-0.2 /100WBC) 0.0 (Ref Range: 0.0-0.2 /100WBC) Neutrophils Absolute Auto 1.7 L (Ref Range: 2.0-8.3 x10*3/uL) 1.7 L (Ref Range: 2.0-8.3 x10*3/uL) 1.6 L (Ref Range: 2.0-8.3 x10*3/uL) Imm Gran Abs Auto 0.02 (Ref Range: 0.00-0.03 X10*3/uL) 0.02 (Ref Range: 0.00-0.03 X10*3/uL) 0.02 (Ref Range: 0.00-0.03 X10*3/uL) Lymphocytes Absolute Auto 1.1 L (Ref Range: 1.2-4.9 X10*3/uL) 1.1 L (Ref Range: 1.2-4.9 X10*3/uL) 1.0 L (Ref Range: 1.2-4.9 X10*3/uL) Monocytes Absolute Auto 0.4 (Ref Range: 0.1-1.2 X10*3/uL) 0.3 (Ref Range: 0.1-1.2 X10*3/uL) 0.4 (Ref Range: 0.1-1.2 X10*3/uL) Eosinophils Absolute Auto 0.2 (Ref Range: 0.0-0.4 X10*3/uL) 0.1 (Ref Range: 0.0-0.4 X10*3/uL) 0.1 (Ref Range: 0.0-0.4 X10*3/uL) Basophils Absolute Auto 0.0 (Ref Range: 0.0-0.2 X10*3/uL) 0.0 (Ref Range: 0.0-0.2 X10*3/uL) 0.0 (Ref Range: 0.0-0.2 X10*3/uL) NRBC Abs Auto 0.000 (Ref Range: 0.0-0.012 X10*3/uL) 0.000 (Ref Range: 0.0-0.012 X10*3/uL) 0.000 (Ref Range: 0.0-0.012 X10*3/uL) * Lab:Comprehensive [place]. Devaugh[facility] l Fast * Collection Date 05/28/2024 01/04/2024 10/19/2023 Collection Time 10:10 AM 09:21 AM 08:44 AM Order Date 05/28/2024 01/04/2024 10/19/2023 Sodium 141 (Ref Range: 135-145 mmol/L) 142 (Ref Range: 135-145 mmol/L) 142 (Ref Range: 135-145 mmol/L) Bilirubin Total 0.6 (Ref Range: 0.0-1.0 mg/dL) 0.5 (Ref Range: 0.0-1.0 mg/dL) 0.5 (Ref Range: 0.0-1.0 mg/dL) Aspartate Amino Transferase 75 H (Ref Range: 5-31 U/L) 56 H (Ref Range: 5-31 U/L) 92 H (Ref Range: 5-31 U/L) Alanine Aminotransferase 117 H (Ref Range: 0-31 U/L) 87 H (Ref Range: 0-31 U/L) 114 H (Ref Range: 0-31 U/L) Total Protein 7.3 (Ref Range: 6.5-8.0 g/dL) 7.3 (Ref Range: 6.5-8.0 g/dL) 7.2 (Ref Range: 6.5-8.0 g/dL) Albumin Level 4.2 (Ref Range: 3.5-5.0 g/dL) 4.3 (Ref Range: 3.5-5.0 g/dL) 4.1 (Ref Range: 3.5-5.0 g/dL) Alkaline Phosphatase 81 (Ref Range: 39-117 U/L) 78 (Ref Range: 39-117 U/L) 72 (Ref Range: 39-117 U/L) Potassium 4.4 (Ref Range: 3.3-5.1 mmol/L) 4.1 (Ref Range: 3.3-5.1 mmol/L) 4.3 (Ref Range: 3.3-5.1 mmol/L) Chloride 106 (Ref Range: 96-108 mmol/L) 106 (Ref Range: 96-108 mmol/L) 106 (Ref Range: 96-108 mmol/L) Carbon Dioxide 29 (Ref Range: 22-29 mmol/L) 30 H (Ref Range: 22-29 mmol/L) 28 (Ref Range: 22-29 mmol/L) Anion Gap 10 L (Ref Range: 12-20) 10 L (Ref Range: 12-20) 12 (Ref Range: 12-20) Blood Urea Nitrogen 14 (Ref Range: 9-16 mg/dL) 15 (Ref Range: 9-16 mg/dL) 17 H (Ref Range: 9-16 mg/dL) Creatinine 0.76 (Ref Range: 0.5-1.4 mg/dL) 0.80 (Ref Range: 0.5-1.4 mg/dL) 0.74 (Ref Range: 0.5-1.4 mg/dL) Estimated Glomerular Filt Rate > 60 > 60 > 60 Glucose Fasting 94 (Ref Range: 60-99 mg/dL) 95 (Ref Range: 60-99 mg/dL) 98 (Ref Range: 60-99 mg/dL) Calcium 9.3 (Ref Range: 8.4-10.2 mg/dL) 9.6 (Ref Range: 8.4-10.2 mg/dL) 9.4 (Ref Range: 8.4-10.2 mg/dL) * Lab:Gamma Glutamyl Transpept idase * Collection Date 05/28/2024 08/17/2023 Collection Time 10:10 AM 08:53 AM Order Date 05/28/2024 08/17/2023 Gamma Glutamyl Transpeptidase 32 (Ref Range: 7-33 U/L) 43 H (Ref Range: 7-33 U/L) * Lab:Lipid Panel * Collection Date 05/28/2024 01/04/2024 10/19/2023 Collection Time 10:10 AM 09:21 AM 08:44 AM Order Date 05/28/2024 01/04/2024 10/19/2023 Triglycerides 90 (Ref Range: <150 mg/dL) 61 (Ref Range: <150 mg/dL) 74 (Ref Range: <150 mg/dL) Cholesterol 206 H (Ref Range: <200 mg/dL) 170 (Ref Range: <200 mg/dL) 195 (Ref Range: <200 mg/dL) LDL Cholesterol Calculated 129 H (Ref Range: <100 mg/dL) 103 H (Ref Range: <100 mg/dL) 121 H (Ref Range: <100 mg/dL) HDL Cholesterol 59 (Ref Range: >40 mg/dL) 55 (Ref Range: >40 mg/dL) 60 (Ref Range: >40 mg/dL) * Lab:CA-125 * Collection Date 05/28/2024 01/04/2024 08/17/2023 Collection Time 10:10 AM 09:21 AM 08:53 AM Order Date 05/28/2024 01/04/2024 08/17/2023 CA-125 16 (Ref Range: <35 U/mL) 15 (Ref Range: <35 U/mL) 14 (Ref Range: <35 U/mL) * Examination: G [...] BREASTS: n o masses palpable bilaterally, no dimpling, no discharge, nontender, symmetrical, Surgical scars right breast well-healed. ABDOMEN: b owel sounds normal, no ascites, no organomegaly, no mass. RECTAL EXAM: n ot examined. MUSCULOSKELETAL: e xtremities unremarkable, no clubbing, cyanosis or edema, Healed recent vertical abdominal incision scar. PERIPHERAL PULSES: n ormal. NEUROLOGIC: a lert and oriented, cranial nerves 2-12 grossly intact, deep tendon reflexes 2+ symmetrical, motor strength normal upper and lower extremities, sensory exam intact. PSYCH: a lert, oriented. Assessment: * Assessment: 1. E pithelial ovarian cancer, FIGO stage IIIA - C56.9 (Primary) N otes :She appears to be in clinical remission after chemotherapy. CA 125 is reported to be 16. She will be followed closely. 2 . I nfiltrating ductal carcinoma of right breast - C50.911 N otes :There was no sign of recurrent breast cancer of a new primary in either breast today. She will continue with annual mammography and breast self examination. 3 . A nemia in neoplastic disease - D63.0 N otes :She has a normal hemoglobin and hematocrit and mean cell volume. This problem antoni resolved. 4 . O steoporosis - M81.0 N otes :He says she has been compliant with her current therapy. She denies any bone pain. She will have a bone density test done periodically. 5 . D rug-induced polyneuropathy - G62.0 N otes :She continues to have paresthetic pain from the chemotherapy. It has not changed since her last visit. She will continue on current therapy. 6 . C hronic leukopenia - D72.819 N otes :Her white blood cell count is 3400. Both lymphocytes and neutrophils are slightly low.She has had no infections. Observation was continued. Plan: * Treatment: 2. A nemia in neoplastic disease L AB: PROFILE, FASTING (COMPREHENSIVE METABOLIC) L AB: CBC w DIFF L AB: CA 125 L AB: Ferritin L AB: Lipid Panel L AB: Vitamin B12 3. O steoporosis L AB: PROFILE, FASTING (COMPREHENSIVE METABOLIC) L AB: CBC w DIFF L AB: CA 125 L AB: Ferritin L AB: Lipid Panel L AB: Vitamin B12 * Procedure Codes: * Preventive Medicine: Counseling: [...] done * Follow Up: 2 Months (Reason: OV) * Images: * Sign off status: Completed true * Provider: John Valerio MD Date: 0 08/13/2024 Generated for Tim morales/Adolfo/Haileyitting on: 1 12:51 PM EDT History and Physical Notes * [...] BREASTS: no masses palpable b ilaterally, no dimpling, no discharge, nontender, symmetrical, Surgical scars right breast well-healed MUSCULOSKELETAL: extremities unremark able, no clubbing, cyanosis or edema, Healed recent vertical abdominal incision scar LYMPH NODES: no enlarged lymph no james,spleen normal RECTAL EXAM: not examined PSYCH: alert, oriented ORAL CAVITY: normal, unremarkable
--- OUTSIDE RECORDS SUMMARY | 2024-09-30 06:15 | XMS_ITS ---
Author Organization Uli Valerio III, MD Address [address] [place] [address] [place] [address] Care Team Providers Care Health Technician Hearing Name Role Phone Narciso Pennington (Layla) Primary Care Provider Un available Uli Valerio III Unavailable [phone] Dr. Uli Valerio III Unavailable Allergies Allergen [...] Date Provider Diagnosis Uli Valerio III, MD [address] [place] [address] [place] [address] 09/30/2024 Uli Valerio Infiltrating ductal carcinoma of [...] Provider Name:Uli Valerio , 09/01/2025 10:00:00 AM, [address] [place] [address] INDIRA HUTTON, TERRENCE OLIVAS, [address], Progress Notes * PEDRO URIBE:1960 (64 yo F)Acc No.[id number]:09/30/2024 Progress Notes Patient: SANA HORNER Provider: John Valerio MD :1960 A ge:64 Y S ex:Female Date:09/30/2024 Address:[address] [place] [phone] Pcp:Narcsio Pennington Subjective: * Chief Complaints: * S [...] History: * Surgical History: L ipoma removal; [facility] Dr Sosa Colonoscopy 03/2013Right breast Biopsy,lumpectomy/sentinal nodes/re-excision 09/2015Total Hysterectomy- Bilateral Salpingo- OOpherectomy [facility], ovarian cancer 08/25/22Bx Pelvic Wall, Right (Negative [...] 0.000 (Ref Range: 0.0-0.012 X10*3/uL) * Lab:[facility] [place]. [facility] Fast * Collection Date 09/27/2024 [...] Date & Time - 09/27/2024 09:15 AM)?ValueReference Range?[id number] - ng/mL * Lab:Lipid Panel * Collection [...] 09/30/2024 Generated for Tim morales/Adolfo/eTransmitting on: 1 12:50 [...]
--- OUTSIDE RECORDS SUMMARY | 2024-12-02 06:00 | XMS_ITS ---
Author Organization Uli Valerio III, MD Address [address] [place] [address] Care Team Providers Care Counselor At Law Name Role Phone Shiloh Pennington (De[place]) Primary Care Provider Un available Uli Valerio III Unavailable [phone] Dr. Uli Valerio III Unavailable [phone] Allergies Allergen (clinical drug ingredient) Drug/Non Drug Allergy documented on EMR Reaction Allergy Type Onset Date Status Iodinated contrast media (substance) Iodinated Diagnostic Agents nausea Drug Allergy Active amoxicillin / clavulanate Augmentin Rash Drug Allergy Active REASON FOR VISIT Breast cancer, Ovarian cancer, Leukopenia, Polyneuropathy, Osteoporosis, Obesity Medications Medication SIG (Take, Route, [...] Tobacco Non-User Aggressive non-smoker Vital Signs Temperature 97.6 degrees Fahrenheit 12/03/19 25 Blood pressure systolic 134 mm Hg 12/03/19 25 Blood pressure diastolic 79 mm Hg 025 Heart Rate 75 /min 12/02/2024 Height 67 in 12/02/2024 Weight 199 lbs 12/02/2024 BMI 31.16 kg/m2 12/02/2024 Encounters Encounter Location Date Provider Diagnosis Uli Valerio III, MD [address] [place] [address] [place] [address] 12/02/2024 Uli Valerio Infiltrating ductal carcinoma of right breast C50.911 ; Epithelial ovarian cancer, 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 She will continue with annual mammography and breast self examination. 12/02/2024 Epithelial ovarian cancer, FIGO stage IIIA (ICD-10 - C56.9) She appears to be in clinical remission after chemotherapy. CA 125 is reported to be 16. She will be followed closely. 12/02/2024 Chronic leukopenia (ICD-10 - D72.819) Her white blood cell count is 3400. Both lymphocytes and neutrophils are slightly low.She has had no infections. Observation was continued. 12/02/2024 Osteoporosis (ICD-10 - M81.0) He says she has been compliant with her current therapy. She denies any bone pain. She will have a bone density test done periodically. 12/02/2024 Drug-induced polyneuropathy (ICD-10 - G62.0) She continues to have paresthetic pain from the chemotherapy. It has not changed since her last visit. She will continue on current therapy. 12/02/2024 Obesity, unspecified (ICD-10 - E66.9) Her body [...] Orally Once a day Magnesium Glycinate Plus Next Appt Details Follow Up: 3 Months, Reason: ov Provider Name:Uli Valerio , 09/01/2025 10:00:[address] [place], [address], Progress Notes * PAWAN URIBEB:1960 (64 yo F)Acc No.[id number]:12/02/2024 Progress Notes Patient: SANA [place] Provider: John Valerio MD :1960 A ge:64 Y S ex:Female Date:12/02/2024 Address:[address] [place], [place] [id number] Pcp:Shiloh Pennington Subjective: * Chief Complaints: * B reast cancerOvarian cancerLeukopeniaPolyneuropathyOsteoporosisObesity * HPI: C OVID-19 Screening: She returns for surveillance of both breast cancer and stage III ovarian cancer. She is in remission from both and no longer receiving any antineoplastic therapy. She feels healthy and well. Her port has been functioning normally. She denies any pain. Her appetite is good. Questions H ave you had any new onset fever, chills, cough, congestion, sore throat, shortness of breath, muscle aches? N o * ROS: G eneral/Constitutional: pain N europathic pain hands and feet which is mild. C hills d enies. F atigue a [...] been noted. G enitourinary: Frequent urination a t night. M usculoskeletal: Muscle aches d enies. P [...] Surgical History: [place] [facility] [place] 03/2013Right breast Biopsy,lumpectomy/sentinal nodes/re-excision 09/2015Total Hysterectomy- Bilateral Salpingo- OOpherectomy [facility], ovarian cancer 08/25/22Bx Pelvic Wall, Right [...] Objective: * Vitals: H t: 67, Wt: 199, BMI:31.16, BP: 134/79, HR: 75, Temp: 97.6, Wt-k.26. * P ast Orders: L ab:Vitamin B12 [...] (Ref Range: 0.0-0.012 X10*3/uL) * Lab:Chay Putnam. Franciscoe l Fast * Collection Date 09/27/2024 05/28/2024 [...] Date & Time - 09/27/2024 09:15 AM)?ValueReference Range?[id number] - ng/mL * Lab:Lipid Panel * Collection [...] no ascites, no organomegaly, no mass, centripital obesity. RECTAL EXAM: n ot examined. [...] examination. 3 . C hronic leukopenia - D72.819 N otes :Her white blood cell count is 3400. Both lymphocytes and neutrophils are slightly low.She has had no infections. Observation was continued. 4 . O steoporosis - M81.0 N [...] will continue on current therapy. 6 . O besity, unspecified - E66.9 N otes :Her body mass index is now 30. She [...] done * Follow Up: 3 Months (Reason: ov) * Images: * Sign off status: Completed true * Provider: John Valerio MD Date: 0 12/02/2024 Generated for Tim morales/Adolfo/Haileyitting on: 12:51 PM EDT History and Physical Notes [...] no ascites, no organomegaly, no mass, centripital obesity NEUROLOGIC: alert and oriented, cranial [...]
--- OUTSIDE RECORDS SUMMARY | 2025-03-03 06:30 | XMS_ITS ---
Author Organization Uli Valerio III, MD Address [address] [place] [address] Care Team Providers Care Operator Control Room Name Role Phone Shiloh Pennington ([place]) Primary Care Provider Un available Uli Valerio III Unavailable [phone] Dr. Uli Valerio III Unavailable [phone] Allergies Allergen (clinical drug ingredient) Drug/Non Drug [...] Date Provider Diagnosis Uli Valerio III, MD [address] [place] [address] [place] [address] 03/03/2025 Uli Valerio Infiltrating ductal carcinoma of [...] Provider Name:Uli Valerio , 09/01/2025 10:00:00 AM, [address] [place] [address] INDIRA HUTTON, TERRENCE OLIVAS, [address], Progress Notes * THOR URIBEADOB:1960 (64 yo F)Acc No.[id number]:03/03/2025 Progress Notes Patient: SANA HORNER Provider: John Valerio MD :1960 A ge:64 Y S ex:Female Date:03/03/2025 Address:[address] [place], [place] [phone] Pcp:Shiloh Pennington ([place]) Subjective: * Chief Complaints: * O varian cancerHistory of breast cancerOsteoporosisChronic leukopeniaDrug-induced neuropathy * HPI: C OVID-19 Screening: S he returns for ongoing surveillance of her breast cancer and ovarian cancer. Dr. Pennington is no longer her primary care physician. It is now in she the [facility]. Her next appointment with [facility] oncology is April 01. She has been [...] Biopsy,lumpectomy/sentinal nodes/re-excision 09/2015Total Hysterectomy- Bilateral Salpingo- OOpherectomy [facility], ovarian cancer 08/25/22Bx Pelvic Wall, Right [...] John Valerio MD Date: Generated for Tim morales/Adolfo/Haileyitting on: 12:50 PM [...]
[2025-03-27 11:56] LABS: Alanine Aminotransferase 132 U/L (0-31); Albumin Level 4.3 g/dL (3.5-5.0); Alkaline Phosphatase 78 U/L (39-117); Aspartate Amino Transferase 81 U/L (5-31); Total Protein 7.0 g/dL (6.5-8.0)
--- OUTSIDE RECORDS SUMMARY | 2025-03-27 12:50 | XMS_ITS | Clinical Summary ---
Author Organization [facility] Address [address] [facility] [address] [place] [address] Phone Care Team Providers Care Construction Tech Name Role Phone Byron Rodarte MD Primary [...] topic Medical Devices Not on file Insurance [facility] HMO POS H[place] [address] [address] [place] [address] HMO POS O POS O [place] [address] [place], [place] [address] [address] [place] [address] HMO POS Care Teams Construction Tech Relationship Specialty Start Date End Date Byron Rodarte MD [address] [place] [address] [place] [address] PCP - General 03/13/17 Additional Source Comments The information contained in this document represents components of the legal health record. It is not the complete legal health record.[facility]
--- OUTSIDE RECORDS SUMMARY | 2025-03-27 12:51 | XMS_ITS | Patient Health Record ---
Author Organization Uli Valerio III, MD Address [address] [place] [address] Care Team Providers Care Automation Architect Name Role Phone Shiloh Pennington ([place]) Primary Care Provider Un available Uli Valerio III Unavailable [phone] Dr. Uli Valerio III Unavailable [phone] Allergies Allergen (clinical drug ingredient) Drug/Non Drug Allergy documented on EMR Reaction Allergy Type Onset Date Status Iodinated contrast media (substance) Iodinated Diagnostic Agents nausea Drug Allergy Active amoxicillin / clavulanate Augmentin Rash Drug Allergy Active Results Component Value Reference Range Notes Complete Blood Count Auto Di ff Reviewed date:06/04/2024 04:12:40 PM Interpretation: Performing Lab:[facility], [address] [place] [address] Notes/Report: White Blood Count 3.4 4.8-10.8 X10*3/uL [...] NRBC Abs Auto 0.000 0.0-0.012 X10*3/uL Comprehensive Bow[facility]. Panel Fa st Reviewed date:06/04/2024 04:12:40 PM Interpretation: Performing Lab:[address] [address] Notes/Report: Sodium 141 135-145 mmol/L Potassium 4.4 [...] e Reviewed date:06/04/2024 04:12:40 PM Interpretation: Performing Lab:[address] [place] [address] Notes/Report: Gamma Glutamyl Transpeptidase 32 7-33 U/L Lipid Panel Reviewed date:06/04/2024 04:12:40 PM Interpretation: Performing Lab:[facility], [address] [place] [phone] Notes/Report: Triglycerides 90 <150 mg/dL Desirable Triglyceride: [...] CA-125 Reviewed date:06/04/2024 04:12:40 PM Interpretation: Performing Lab:[address] [address] Notes/Report: CA-125 16 <35 U/mL This test was performed using the Siemens Chemiluminescent method. Values obtained from different assay methods cannot be used interchangeably. CA 125 levels, regardless of value, should not be interpreted as absolute evidence of the presence or absence of disease. THIS TEST WAS PERFORMED AT: [facility] [address] [place] [phone] TAMMIE BLANCA MD Complete Blood Count Auto Di ff Reviewed date:09/28/2024 08:45:24 PM Interpretation: Performing Lab:[address] [address] Notes/Report: White Blood Count 5.5 4.8-10.8 X10*3/uL [...] NRBC Abs Auto 0.000 0.0-0.012 X10*3/uL Comprehensive Bow[place]. Panel Fa st Reviewed date:09/28/2024 08:45:24 PM Interpretation: Performing Lab:[facility], [address] [place] [address] Notes/Report: Sodium 143 135-145 mmol/L Potassium 4.0 [...] Ferritin Reviewed date:09/28/2024 08:45:24 PM Interpretation: Performing Lab:[facility], [address] [place] [address] Notes/Report: Ferritin 473 10-250 ng/mL Lipid Panel Reviewed date:09/28/2024 08:45:24 PM Interpretation: Performing Lab:[facility], [address] [place] [phone] Notes/Report: Triglycerides 80 <150 mg/dL Desirable Triglyceride: [...] B12 Reviewed date:09/28/2024 08:45:24 PM Interpretation: Performing Lab:[facility], [address] [place] [address] Notes/Report: Vitamin B12 455 200-900 pg/mL NORMAL 200-900 PG/ML INDETERMINATE 160-199 PG/ML DEFICIENT < 160 PG/ML CA-125 Reviewed date:09/28/2024 08:45:24 PM Interpretation: Performing Lab:[facility], [address] [place] [phone] Notes/Report: CA-125 13 <35 U/mL This test was performed using the Siemens Chemiluminescent method. Values obtained from different assay methods cannot be used interchangeably. CA 125 levels, regardless of value, should not be interpreted as absolute evidence of the presence or absence of disease. THIS TEST WAS PERFORMED AT: [facility] [address] [place] [phone] TAMMIE BLANCA MD Reason For Referral Reason Breast Cancer Diagnosis 1 Malignant neoplasm o f ovary, unspecified laterality (C56.9) Diagnosis 2 Chronic leukopenia ( D72.819) Referring Provider First Name Shiloh (Lesvia jacobs) Referring Provider Last Name Aditi Referring Provider Speciality Internal M edicine Referred Organization Uli Valerio III, MD Referred Provider Uli Valerio Referred Address [address] [place] [address] [address],[place], [place],[address], Referred Provider Specialty Oncology Referral Priority Routine [...] Problem Status W/U Status Risk Notes Problem 053426168 Infiltrating ductal carcinoma of right breast (C50.911) Active confirmed There was no sign of recurrent breast cancer of a new primary in either breast today. She will continue with annual mammography and breast self examination. Problem 457173405 Anemia in neoplastic disease (D63.0) Active confirmed She has a normal hemoglobin and hematocrit and mean cell volume. This problem antoni resolved. Problem 085103945 Obesity, unspecified (E66.9) Active confirmed Her body mass index is now 30. She has gained 2 pounds. We discussed diet and nutrition. I recommended stabilizing her weight at this level until she has recovered fully from chemotherapy and then gradually reduce her weight through diet and exercise. Problem 381002405 Drug-induced polyneuropathy (G62.0) Active confirmed She continues to have paresthetic pain from the chemotherapy. It has not changed since her last visit. She will continue on current therapy. Problem Osteoporosis (12733834) Osteoporosis (M81.0) Active confirmed He says she has been compliant with her current therapy. She denies any bone pain. She will have a bone density test done periodically. Problem 653236319 Malignant neoplasm of ovary, unspecified laterality (C56.9) Active confirmed The stage III epithelial ovarian cancer is in remission. His CEA 125 his in the normal range. Surveillance continues. Problem 77443683 Chronic leukopenia (D72.819) Active confirmed Her white blood cell count is 3400. Both lymphocytes and neutrophils are slightly low.She has had no infections. Observation was continued. 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) [...] Encounters Encounter Location Date Provider Diagnosis Uli Vaelrio III, MD [address] [place] [address] DR HARDY, TERRENCE [address] 05/15/2024 Uli Valerio Infiltrating ductal carcinoma of right breast C50.911 ; Overweight E66.3 ; Chronic leukopenia D72.819 ; Drug-induced polyneuropathy G62.0 ; Osteoporosis M81.0 and Epithelial ovarian cancer, FIGO stage IIIA C56.9 Uli Valerio III, MD [address] [place] [address] [place] [address] 08/13/2024 Uli Dodgene Infiltrating ductal carcinoma of right breast C50.911 ; Epithelial ovarian cancer, FIGO stage IIIA C56.9 ; Anemia in neoplastic disease D63.0 ; Osteoporosis M81.0 ; Drug-induced polyneuropathy G62.0 and Chronic leukopenia D72.819 Uli Valerio III, MD [address] [place] [address] [place] [address] 09/30/2024 Uli Dodgene Infiltrating ductal carcinoma of right breast C50.911 ; Epithelial ovarian cancer, FIGO stage IIIA C56.9 ; Osteoporosis M81.0 ; Drug-induced polyneuropathy G62.0 and Chronic leukopenia D72.819 Uli Valerio III, MD [address] [place] [address] [place] [address] 12/02/2024 Uli Dodgene Infiltrating ductal carcinoma of right breast C50.911 ; Epithelial ovarian cancer, FIGO stage IIIA C56.9 ; Chronic leukopenia D72.819 ; Osteoporosis M81.0 ; Drug-induced polyneuropathy G62.0 and Obesity, unspecified E66.9 Uli Valerio III, MD [address] [place] [address] [place] [address] 03/03/2025 Uli Dodgene Infiltrating ductal carcinoma of [...] Name:Uli Dodgene , 09/01/2025 10:00:00 AM, [address] [place] [address] [address], [place], [address], Insurance Providers Payer Name Payer Address Payer Phone Subscriber Number Group Number Insured Name Patient Relationship to Insured Coverage Start Date Coverage End Date [facility] [address] [place], [place] [id number] SANA URIBE Self - patient is the insured Medical (General) History Medical History History ICD Code 2.1 cm ER+GA+ invasive ducta l right breast carcinoma with DCIS:[id number](i_)(sn-) September 2015 lipoma removed from arm colonoscopy 2012 ovarian cancer 2022 stage IIIA Surgical History Surgery Date(Month/Year) No history Bx Pelvic Wall, Right (Negative results) 03/01/23 Total Hysterectomy- Bilatera l Salpingo- OOpherectomy [facility], ovarian cancer 08/25/22 Right breast Biopsy,lumpectomy/sentinal nodes/re-excision 09/2015 Colonoscopy 03/2013 Lipoma removal; [facility] [place] Dr Sosa Hospitalization History Reason Date(Month/Year) No history
== END 2025-03-27 10:33 | disposition home or self-care (01) ==
LOC: HO.10HDL 10:32
PROVIDERS: Visit Provider Physician Assistant
DX: Z00.00 Encounter for general adult medical examination without abnormal findings (principal); M85.80 Other specified disorders of bone density and structure, unspecified site
CPT/HCPCS: 36415; 80076; 82306